=== PATIENT | male | born 1965 | race African-American/Black ===

== ENCOUNTER 2016-03-25 09:58 | Inpatient (IN) | payer OTHER ==
[2016-03-25 10:38] VITALS: BMI 24.7
--- NOTE | 2016-03-25 12:06 | HP ---
CIWA Score - CIWA Score Nausea/Vomitin Muscle Tremors: 4-Moderate,w/Arms Extend Anxiety: 3 Agitation: 2 Paroxysmal Sweats: 2 Orientation: 0-Oriented Tacttile Disturbances: 0-None Auditory Disturbances: 0-None Visual Disturbances: 0-None Headache: 3-Moderate CIWA-Ar Total Score: 16 Admission ROS S - HPI Chief Complaint: "I am just tired of living the same way." Patient is here to Detox from Alcohol. Allergies/Adverse Reactions: Allergies Allergy/AdvReac Type Severity Reaction Status Date / Time No Known Drug Allergies Allergy Unknown Verified 03/25/16 11:08 pork derived (porcine) AdvReac Severe Vomiting Verified 03/25/16 11:08 History of Present Illness: Pt. is a 50 YO male here to Detox from Alcohol. Pt. has a history of multiple Detox and Rehab admissions at [facility]. Pt. also uses Cocaine intermittently. Exam Limitations: No Limitations - Ebola screening Have you traveled outside of the country in the last 21 days: No Have you had contact with anyone from an Ebola affected area: No Have you been sick,other than usual withdrawal symptoms: No Do you have a fever: No - Review of Systems Constitutional: Diaphoresis, Loss of Appetite, Malaise, Night Sweats, Changes in sleep, Unintentional Wgt. Loss (Lost approx. 13 lbs. over last 2 months.) EENT: reports: No Symptoms Reported Respiratory: reports: Shortness of Breath, SOB with Exertion Cardiac: reports: No Symptoms Reported GI: reports: Diarrhea, Nausea, Vomiting, Abdominal cramping : reports: No Symptoms Reported Musculoskeletal: reports: Back Pain Integumentary: reports: No Symptoms Reported Neuro: reports: Headache, Tremors Endocrine: reports: No Symptoms Reported Hematology: reports: No Symptoms Reported Psychiatric: reports: Judgement Intact, Mood/Affect Appropiate, Orientated x3, Anxious, Depressed Other Systems: Reviewed and Negative Patient History - Patient Medical History Hx Anemia: No Hx Asthma: Yes (On meds.) Hx Chronic Obstructive Pulmonary Disease (COPD): No Hx Cancer: No Hx Cardiac Disorders: No Hx Congestive Heart Failure: No Hx Hypertension: No Hx Hypercholesterolemia: No Hx Pacemaker: No HX Cerebrovascular Accident: No Hx Seizures: No Hx Dementia: No Hx Diabetes: No Hx Gastrointestinal Disorders: No Hx Liver Disease: No Hx Genitourinary Disorders: No Hx Sexually Transmitted Disorders: No Hx Renal Disease (ESRD): No Hx Thyroid Disease: No Hx Human Immunodeficiency Virus (HIV): No (LAST 08/03 NEGATIVE) Hx Hepatitis C: No (LAST TESTED APPROX 1 YEAR AGO: NEGATIVE.) Hx Depression: Yes (ON MEDS.) Hx Suicide Attempt: No (PATIENT DENIES CURRENT SI / HI.) Hx Bipolar Disorder: Yes (ON MED) Hx Schizophrenia: No - Patient Surgical History Past Surgical History: No Hx Neurologic Surgery: No Hx Cataract Extraction: No Hx Cardiac Surgery: No Hx Lung Surgery: No Hx Breast Surgery: No Hx Breast Biopsy: No Hx Abdominal Surgery: No Hx Appendectomy: No Hx Cholecystectomy: No Hx Genitourinary Surgery: No Hx Orthopedic Surgery: No Anesthesia Reaction: No - PPD History Previous Implant?: Yes (Positive PPD/Sensitivity to PPD Solution ?) Documented Results: Positive w/o proof Implanted On Prior [facility] Admission?: Yes Date: 09/23/11 Results: 0 mm PPD to be Administered?: No - Reproductive History Patient is a Female of Child Bearing Age (11 -55 yrs old): No (PATIENT IS MALE.) - Smoking Cessation Smoking history: Current some day smoker Have you smoked in the past 12 months: Yes Aproximately how many cigarettes per day: 3 Cigars Per Day: 0 Hx Chewing Tobacco Use: No Initiated information on smoking cessation: Yes 'Breaking Loose' booklet given: 03/25/16 (GIVEN ON UNIT.) - Substance & Tx. History Hx Alcohol Use: Yes Hx Substance Use: Yes Substance Use Type: Alcohol, Cocaine Hx Substance Use Treatment: Yes (Previous Detox admissions at [facility].) - Substances Abused Alcohol Route: Oral Frequency: Daily Amount used: 5th vodka , 12 beers old angolan Age of first use: 15 Date of Last Use: 03/25/16 Cocaine Route: Inhalation Frequency: 3-6 times per week Amount used: $ 100 Age of first use: 23 Date of Last Use: 03/24/16 Family Disease History - Family Disease History Family Disease History: CA: Mother ( after gall bladdr op ca?), Other: Father (ALCOHOL; .) Admission Physical Exam BHS - Vital Signs Vital Signs: Vital Signs - 24 hr 03/25/16 10:35 Temperature 98.2 F Pulse Rate 69 Respiratory 20 Rate Blood Pressure 141/80 - Physical General Appearance: Yes: No Apparent Distress, Nourished, Appropriately Dressed , Tremorous HEENTM: Yes: Hearing grossly Normal, Normocephalic, Normal Voice, JANELL, Pharynx Normal Respiratory: Yes: Chest Non-Tender, Lungs Clear, No Respiratory Distress Neck: Yes: No masses,lesions,Nodules, Supple, Trachea in good position Breast: Yes: Breast Exam Deferred Cardiology: Yes: Regular Rhythm, Regular Rate, S1, S2 Abdominal: Yes: Normal Bowel Sounds, Non Tender, Soft Genitourinary: Yes: Within Normal Limits Back: Yes: Normal Inspection Musculoskeletal: Yes: full range of Motion, Gait Steady Extremities: Yes: Normal Range of Motion, Non-Tender, Tremors Neurological: Yes: Fully Oriented, Alert, Normal Mood/Affect, Normal Response Integumentary: Yes: Normal Color, Dry, Warm Lymphatic: Yes: Within Normal Limits - Diagnostic (1) Alcohol dependence with uncomplicated withdrawal Current Visit: Yes Status: Acute (2) Asthma Current Visit: Yes Status: Chronic Comment: . (3) Cocaine dependence, uncomplicated Current Visit: Yes Status: Acute (4) Nicotine dependence Current Visit: Yes Status: Chronic Qualifiers: Nicotine product type: cigarettes Substance use status: uncomplicated Qualified Code(s): F17.210 - Nicotine dependence, cigarettes, uncomplicated Comment: . (5) PPD positive, treated Current Visit: Yes Status: Chronic Cleared for Admission [facility] - Detox or Rehab [facility] Level of Care: Medically Managed Detox Regimen/Protocol: Librium [facility] Breath Alcohol Content Breath Alcohol Content: 0.118 Urine Drug Screen - Results Drug Screen Negative: No Urine Drug Screen Results: CHANO-Cocaine
[2016-03-25] MEDS ORDERED: MENTHOL/PHENOL 1 EACH UD MM PRN (12:34)
[2016-03-25] MEDS ORDERED: ACETAMINOPHEN 325 MG TABLET (FP) PO PRN (12:34)
[2016-03-25] MEDS ORDERED: chlordiazePOXIDE HCL 25 MG CAPSULE PO PRN (12:34)
[2016-03-25] MEDS ORDERED: hydrOXYzine PAMOATE 50 MG CAPSULE (FP) PO PRN (12:34)
[2016-03-25] MEDS ORDERED: NICOTINE POLACRILEX 2 MG GUM BUC PRN (12:34)
[2016-03-25] MEDS ORDERED: MAG HYDROX/AL HYDROX/SIMETH 30 ML UNIT-DOSE CUP PO PRN (12:34)
[2016-03-25] MEDS ORDERED: IBUPROFEN 400 MG TABLET (FP) PO PRN (12:34)
[2016-03-25] MEDS ORDERED: P-EPHED 60MG/TRIPROLIDI 2.5MG TABLET PO PRN (12:34)
[2016-03-25] MEDS ORDERED: MAGNESIUM HYDROX 2400MG/30ML ORAL SUSPENSION 30 ML CUP PO PRN (12:34)
[2016-03-25] MEDS ORDERED: chlordiazePOXIDE HCL 25 MG CAPSULE PO ONE (12:34)
[2016-03-25] MEDS ORDERED: LOPERAMIDE HCL 2 MG CAPSULE PO PRN (12:34)
[2016-03-25] MEDS ORDERED: diphenhydrAMINE HCL 50 MG CAPSULE PO PRN (12:34)
[2016-03-25] MEDS ORDERED: MAGNESIUM CITRATE 300 ML BOTTLE PO PRN (12:34)
[2016-03-25] MEDS ORDERED: guaiFENesin/D-METHORPHAN HB 10 ML UNIT-DOSE CUPS PO PRN (12:34)
[2016-03-25] MEDS ORDERED: ALBUTEROL SO4 6.7 GM HFA INHALER IH PRN (12:41)
[2016-03-25] MEDS: BUDESONIDE/FORMETEROL FUMARATE 80/4.5 mcg INHALER IH SCH ×2 (14:17→22:26)
[2016-03-25 17:36] LABS: URINE APPEARANCE CLEAR; URINE BILIRUBIN NEGATIVE (NEGATIVE); URINE BLOOD NEGATIVE (NEGATIVE); URINE COLOR LTYELLOW; URINE GLUCOSE (UA) NEGATIVE (NEGATIVE); URINE KETONE NEGATIVE (NEGATIVE); URINE LEUK ESTERASE NEGATIVE (NEGATIVE); URINE NITRITE NEGATIVE (NEGATIVE); URINE PROTEIN NEGATIVE (NEGATIVE); URINE UROBILINOGEN NEGATIVE E.U./dl (0.2-1.0)
[2016-03-25] MEDS: chlordiazePOXIDE HCL 25 MG CAPSULE PO SCH ×2 (17:38→22:25)
[2016-03-25] MEDS: MONTELUKAST NA 10 MG TABLET PO SCH (22:25)
[2016-03-25] MEDS: THIAMINE HCL 100 MG TABLET (FP) PO SCH (22:25)
--- NOTE | 2016-03-26 00:04 | EKG ---
Test Reason : Blood Pressure : / mmHG Vent. Rate : 072 BPM Atrial Rate : 072 BPM P-R Int : 142 ms QRS Dur : 080 ms QT Int : 404 ms P-R-T Axes : 075 042 057 degrees QTc Int : 442 ms NORMAL SINUS RHYTHM WITH SINUS ARRHYTHMIA NORMAL ECG NO PREVIOUS ECGS AVAILABLE Confirmed by MARIAM SEARS, TAYLOR ([id number]) on 03/26/2016 12:04:13 AM Referred By: Confirmed By:TAYLOR BECERRA MD
[2016-03-26] MEDS: chlordiazePOXIDE HCL 25 MG CAPSULE PO SCH ×4 (06:05→22:35)
[2016-03-26 10:05] LABS: MCH 32.2 pg (25.7-33.7); MEAN CELL VOLUME 97.6 fl (80-96); MEAN PLT VOLUME 9.2 fl (7.5-11.1); PLATELET COUNT 185 K/MM3 (134-434); RDW 12.7 % (11.9-15.9); WHITE BLOOD COUNT 10.2 K/mm3 (4.0-10.0)
[2016-03-26] MEDS: PRENATAL VITAMINS W/ FOLIC ACID TABLET (FP) PO SCH (10:13)
[2016-03-26] MEDS: PANTOPRAZOLE 40 MG TABLET (FP) PO SCH (10:13)
[2016-03-26] MEDS: BUDESONIDE/FORMETEROL FUMARATE 80/4.5 mcg INHALER IH SCH ×2 (10:15→22:50)
[2016-03-26] MEDS: PARoxetine HCL 20 MG TABLET (FP) PO SCH (10:15)
[2016-03-26] MEDS: lamoTRIgine 25 MG TABLET PO SCH (10:16)
[2016-03-26 10:22] LABS: ALBUMIN 3.8 g/dl (3.4-5.0); ALK PHOS 83 U/L (45-117); ANION GAP 9 (8-16); BILIRUBIN,TOTAL 0.5 mg/dL (0.2-1.0); CO2 28 mmol/L (21-32); CREATININE 1.2 mg/dL (0.7-1.3); GLUCOSE,RANDOM 88 mg/dL (74-106); SGOT/AST 24 U/L (15-37); SGPT/ALT 44 U/L (12-78); TOT PROT 6.7 g/dl (6.4-8.2)
--- NOTE | 2016-03-26 10:22 | PN ---
[facility] CIWA - CIWA Score Nausea/Vomitin Muscle Tremors: 3 Anxiety: 3 Agitation: 2 Paroxysmal Sweats: 1-Minimal Palms Moist Orientation: 0-Oriented Tacttile Disturbances: 1-Very Mild Itch/Numbness Auditory Disturbances: 1-Very Mild Visual Disturbances: 1-Very Mild Sensitivity Headache: 2-Mild CIWA-Ar Total Score: 17 BHS Progress Note (SOAP) Subjective: ALERT,IRRITABLE,ANXIOUS,INTERRUPTED SLEEP,TREMOR, Objective: 03/26/16 10:20 Vital Signs Temperature 98.2 F 03/26/16 10:14 Pulse Rate 102 H 03/26/16 10:14 Respiratory Rate 20 03/26/16 10:14 Blood Pressure 142/83 03/26/16 10:14 O2 Sat by Pulse Oximetry (%) EKG NSR WITH SINUS ARRHYTHMIA 03/26/16 10:21 Laboratory Last Values WBC 10.2 K/mm3 (4.0-10.0) H D 03/26/16 07:00 RBC 4.56 M/mm3 (4.00-5.60) 03/26/16 07:00 Hgb 14.7 GM/dL (11.7-16.9) 03/26/16 07:00 Hct 44.5 % (35.4-49) 03/26/16 07:00 MCV 97.6 fl (80-96) H 03/26/16 07:00 MCHC 33.0 g/dl (32.0-35.9) 03/26/16 07:00 RDW 12.7 % (11.9-15.9) 03/26/16 07:00 Plt Count 185 K/MM3 (134-434) D 03/26/16 07:00 MPV 9.2 fl (7.5-11.1) 03/26/16 07:00 Sodium 139 mmol/L (136-145) 03/26/16 07:00 Potassium 3.7 mmol/L (3.5-5.1) 03/26/16 07:00 Chloride 102 mmol/L (98-107) 03/26/16 07:00 Urine Color Ltyellow 03/25/16 Unknown Urine Appearance Clear 03/25/16 Unknown Urine pH 5.0 (5.0-8.0) 03/25/16 Unknown Ur Specific [place] 1.015 (1.001-1.035) 03/25/16 Unknown Urine Protein Negative (NEGATIVE) 03/25/16 Unknown Urine Glucose (UA) Negative (NEGATIVE) 03/25/16 Unknown Urine Ketones Negative (NEGATIVE) 03/25/16 Unknown Urine Blood Negative (NEGATIVE) 03/25/16 Unknown Urine Nitrite Negative (NEGATIVE) 03/25/16 Unknown Urine Bilirubin Negative (NEGATIVE) 03/25/16 Unknown Urine Urobilinogen Negative E.U./dl (0.2-1.0) 03/25/16 Unknown Ur Leukocyte Esterase Negative (NEGATIVE) 03/25/16 Unknown LABS PENDING Assessment: 03/26/16 10:22 WITHDRAWAL SYMPTOM Plan: CONTINUE DETOX
[2016-03-26 10:45] LABS: HIV 1 & 2 AB NEGATIVE; HIV 1 AGp24 NEGATIVE
--- NOTE | 2016-03-26 11:35 | CONSULT ---
[facility] Psychiatric Consult - Data Date of interview: 03/26/16 Admission source: [facility] Identifying data: This is 50 years old male with no psychiatric hopspitalization history, histoey of Bipolar Disorder, MDD, PTSD, reports taking priopr to amdission: Alcoghol, Cocaine Nicotine, as per computer there is a history of Opioid, Xanax, Cannabis abuse/dependency Substance Abuse History: - Smoking Cessation. Smoking history: Current some day smoker. Have you smoked in the past 12 months: Yes. Aproximately how many cigarettes per day: 3. Cigars Per Day: 0. Hx Chewing Tobacco Use: No. Initiated information on smoking cessation: Yes. 'Breaking Loose' booklet given : 03/25/16 (GIVEN ON UNIT.). - Substance & Tx. History. Hx Alcohol Use: Yes. Hx Substance Use: Yes. Substance Use Type: Alcohol, Cocaine. Hx Substance Use Treatment: Yes (Previous Detox admissions at [facility].). - Substances Abused. Alcohol. Route: Oral. Frequency: Daily. Amount used: 5th vodka , 12 beers old frisian. Age of first use: 15. Date of Last Use: 03/25/16. Cocaine. Route: Inhalation. Frequency: 3-6 times per week. Amount used: $ 100. Age of first use: 23. Date of Last Use: 03/24/16 Medical History: Asthma PPD + history, Syncope history, HTN, GERD Psychiatric History: Patient reports [facility] Bipolar Disorder and MDD, PTSD , reports taking prior to admission: Seroquel 400mg po qhs. Lamictal 75mg poqd. Paxil 20mg poqd Physical/Sexual Abuse/Trauma History: Denies Additional Comment: Seroquel 400mg po qhs. Lamictal 75mg poqd. Paxil 20mg poqd Mental Status Exam - Mental Status Exam Alert and Oriented to: Person Cognitive Function: Fair Patient Appearance: Unkempt Mood: Sad Affect: Flat Patient Behavior: Cooperative Speech Pattern: Appropriate Voice Loudness: Mildly Soft/Quiet Thought Process: Goal Oriented Thought Disorder: Being Controlled Hallucinations: Denies Suicidal Ideation: Denies Homicidal Ideation: Denies Insight/Judgement: Fair Sleep: Difficulty falling asleep Appetite: Fair Muscle strength/Tone: Mild Hypotonicity Gait/Station: Shuffling Additional Comments: Seroquel 400mg po qhs. Lamictal 75mg poqd. Paxil 20mg poqd Psychiatric Findings - Problem List ([place] 1, 2,3) (1) Alcohol dependence with uncomplicated withdrawal Current Visit: Yes Status: Acute (2) Cocaine dependence, uncomplicated Current Visit: Yes Status: Acute (3) Nicotine dependence Current Visit: Yes Status: Chronic Qualifiers: Nicotine product type: cigarettes Substance use status: uncomplicated Qualified Code(s): F17.210 - Nicotine dependence, cigarettes, uncomplicated Comment: . (4) MDD (major depressive disorder) Current Visit: No Status: Acute (5) Opioid dependence with withdrawal Current Visit: No Status: Acute (6) Posttraumatic stress disorder Current Visit: No Status: Acute (7) Sedative hypnotic or anxiolytic dependence Current Visit: No Status: Acute (8) Bipolar I disorder Current Visit: No Status: Chronic Comment: . (9) Cannabis dependence Current Visit: No Status: Chronic Comment: . (10) Cocaine abuse Current Visit: No Status: Chronic (11) Cocaine dependence Current Visit: No Status: Chronic Qualifiers: Substance use status: uncomplicated Qualified Code(s): F14.20 - Cocaine dependence, uncomplicated (12) Nicotine dependence, uncomplicated Current Visit: No Status: Chronic Qualifiers: Nicotine product type: cigarettes Qualified Code(s): F17.210 - Nicotine dependence, cigarettes, uncomplicated (13) Opioid abuse Current Visit: No Status: Chronic (14) Opioid dependence Current Visit: No Status: Chronic Qualifiers: Substance use status: uncomplicated Qualified Code(s): F11.20 - Opioid dependence, uncomplicated Comment: . - Initial Treatment Plan Initial Treatment Plan: Seroquel 400mg po qhs. Lamictal 75mg poqd. Paxil 20mg poqd
[2016-03-26] MEDS: THIAMINE HCL 100 MG TABLET (FP) PO SCH (22:35)
[2016-03-26] MEDS: MONTELUKAST NA 10 MG TABLET PO SCH (22:37)
[2016-03-26] MEDS: QUEtiapine FUMARATE 400 MG TABLET PO SCH (22:49)
[2016-03-27] MEDS: chlordiazePOXIDE HCL 25 MG CAPSULE PO SCH ×4 (06:13→22:29)
[2016-03-27] MEDS ORDERED: diazePAM 5 MG TABLET PO PRN (09:04)
[2016-03-27] MEDS ORDERED: diazePAM 5 MG TABLET PO ONE (09:04)
[2016-03-27] MEDS ORDERED: chlordiazePOXIDE HCL 25 MG CAPSULE PO PRN ×2 (09:06→09:49)
[2016-03-27] MEDS: PRENATAL VITAMINS W/ FOLIC ACID TABLET (FP) PO SCH (10:40)
[2016-03-27] MEDS: PARoxetine HCL 20 MG TABLET (FP) PO SCH (10:40)
[2016-03-27] MEDS: PANTOPRAZOLE 40 MG TABLET (FP) PO SCH (10:40)
[2016-03-27] MEDS: lamoTRIgine 25 MG TABLET PO SCH (10:40)
[2016-03-27] MEDS: BUDESONIDE/FORMETEROL FUMARATE 80/4.5 mcg INHALER IH SCH ×2 (10:41→23:25)
--- NOTE | 2016-03-27 10:44 | PN ---
[facility] CIWA - CIWA Score Nausea/Vomitin Muscle Tremors: 3 Anxiety: 3 Agitation: 2 Paroxysmal Sweats: 1-Minimal Palms Moist Orientation: 0-Oriented Tacttile Disturbances: 1-Very Mild Itch/Numbness Auditory Disturbances: 1-Very Mild Visual Disturbances: 1-Very Mild Sensitivity Headache: 2-Mild CIWA-Ar Total Score: 17 BHS Progress Note (SOAP) Subjective: ALERT,IRRITABLE,ANXIOUS,INTERRUPTED SLEEP,TREMOR Objective: 03/27/16 10:43 Vital Signs Temperature 97.7 F 03/27/16 10:22 Pulse Rate 79 03/27/16 10:22 Respiratory Rate 18 03/27/16 10:22 Blood Pressure 114/74 03/27/16 10:22 O2 Sat by Pulse Oximetry (%) 03/27/16 10:43 Laboratory Last Values WBC 10.2 K/mm3 (4.0-10.0) H D 03/26/16 07:00 RBC 4.56 M/mm3 (4.00-5.60) 03/26/16 07:00 Hgb 14.7 GM/dL (11.7-16.9) 03/26/16 07:00 Hct 44.5 % (35.4-49) 03/26/16 07:00 MCV 97.6 fl (80-96) H 03/26/16 07:00 MCHC 33.0 g/dl (32.0-35.9) 03/26/16 07:00 RDW 12.7 % (11.9-15.9) 03/26/16 07:00 Plt Count 185 K/MM3 (134-434) D 03/26/16 07:00 MPV 9.2 fl (7.5-11.1) 03/26/16 07:00 Sodium 139 mmol/L (136-145) 03/26/16 07:00 Potassium 3.7 mmol/L (3.5-5.1) 03/26/16 07:00 Chloride 102 mmol/L (98-107) 03/26/16 07:00 Carbon Dioxide 28 mmol/L (21-32) 03/26/16 07:00 Anion Gap 9 (8-16) 03/26/16 07:00 BUN 12 mg/dL (7-18) 03/26/16 07:00 Creatinine 1.2 mg/dL (0.7-1.3) 03/26/16 07:00 Creat Clearance w eGFR > 60 (>60) 03/26/16 07:00 Random Glucose 88 mg/dL (74-106) 03/26/16 07:00 Calcium 9.0 mg/dL (8.5-10.1) 03/26/16 07:00 Total Bilirubin 0.5 mg/dL (0.2-1.0) D 03/26/16 07:00 AST 24 U/L (15-37) 03/26/16 07:00 ALT 44 U/L (12-78) D 03/26/16 07:00 Alkaline Phosphatase 83 U/L (45-117) 03/26/16 07:00 Total Protein 6.7 g/dl (6.4-8.2) 03/26/16 07:00 Albumin 3.8 g/dl (3.4-5.0) 03/26/16 07:00 Urine Color Ltyellow 03/25/16 Unknown Urine Appearance Clear 03/25/16 Unknown Urine pH 5.0 (5.0-8.0) 03/25/16 Unknown Ur Specific [place] 1.015 (1.001-1.035) 03/25/16 Unknown Urine Protein Negative (NEGATIVE) 03/25/16 Unknown Urine Glucose (UA) Negative (NEGATIVE) 03/25/16 Unknown Urine Ketones Negative (NEGATIVE) 03/25/16 Unknown Urine Blood Negative (NEGATIVE) 03/25/16 Unknown Urine Nitrite Negative (NEGATIVE) 03/25/16 Unknown Urine Bilirubin Negative (NEGATIVE) 03/25/16 Unknown Urine Urobilinogen Negative E.U./dl (0.2-1.0) 03/25/16 Unknown Ur Leukocyte Esterase Negative (NEGATIVE) 03/25/16 Unknown RPR Titer Nonreactive (NONREACTIVE) 03/26/16 07:00 HIV 1&2 Antibody Screen Negative 03/25/16 07:00 HIV P24 Antigen Negative 03/25/16 07:00 Assessment: 03/27/16 10:43 WITHDRAWAL SYMPTOM Plan: CONTINUE DETOX
[2016-03-27] MEDS ORDERED: chlordiazePOXIDE HCL 25 MG CAPSULE PO SCH ×2 (11:00)
[2016-03-27] MEDS ORDERED: diazePAM 5 MG TABLET PO SCH (14:00)
[2016-03-27] MEDS ORDERED: chlordiazePOXIDE 5 MG CAPSULE PO SCH (17:00)
[2016-03-27] MEDS: QUEtiapine FUMARATE 400 MG TABLET PO SCH (22:29)
[2016-03-27] MEDS: MONTELUKAST NA 10 MG TABLET PO SCH (22:29)
[2016-03-27] MEDS: THIAMINE HCL 100 MG TABLET (FP) PO SCH (22:29)
[2016-03-28] MEDS: chlordiazePOXIDE 5 MG CAPSULE PO SCH ×4 (05:45→22:51)
[2016-03-28] MEDS: PARoxetine HCL 20 MG TABLET (FP) PO SCH (10:53)
[2016-03-28] MEDS: PANTOPRAZOLE 40 MG TABLET (FP) PO SCH (10:53)
[2016-03-28] MEDS: PRENATAL VITAMINS W/ FOLIC ACID TABLET (FP) PO SCH (10:53)
[2016-03-28] MEDS: lamoTRIgine 25 MG TABLET PO SCH (10:54)
[2016-03-28] MEDS: BUDESONIDE/FORMETEROL FUMARATE 80/4.5 mcg INHALER IH SCH ×2 (10:54→22:49)
[2016-03-28] MEDS ORDERED: chlordiazePOXIDE HCL 25 MG CAPSULE PO SCH ×2 (11:00)
--- NOTE | 2016-03-28 11:35 | PN ---
S Progress Note (SOAP) Subjective: ALERT,IRRITABLE,ANXIOUS,INTERRUPTED SLEEP Objective: 03/28/16 11:34 Vital Signs Temperature 98.6 F 03/28/16 09:59 Pulse Rate 97 H 03/28/16 09:59 Respiratory Rate 18 03/28/16 09:59 Blood Pressure 121/80 03/28/16 09:59 O2 Sat by Pulse Oximetry (%) Assessment: 03/28/16 11:34 WITHDRAWAL SYMPTOM Plan: CONTINUE DETOX
[2016-03-28] MEDS ORDERED: chlordiazePOXIDE HCL 10 MG CAPSULE PO SCH (17:00)
[2016-03-28] MEDS: MONTELUKAST NA 10 MG TABLET PO SCH (22:49)
[2016-03-28] MEDS: THIAMINE HCL 100 MG TABLET (FP) PO SCH (22:49)
[2016-03-28] MEDS: QUEtiapine FUMARATE 400 MG TABLET PO SCH (22:49)
[2016-03-29] MEDS: chlordiazePOXIDE HCL 10 MG CAPSULE PO SCH ×4 (05:14→22:44)
[2016-03-29] MEDS ORDERED: diazePAM 5 MG TABLET PO SCH (10:00)
[2016-03-29] MEDS: lamoTRIgine 25 MG TABLET PO SCH (10:44)
[2016-03-29] MEDS: PRENATAL VITAMINS W/ FOLIC ACID TABLET (FP) PO SCH (10:44)
[2016-03-29] MEDS: PARoxetine HCL 20 MG TABLET (FP) PO SCH (10:45)
[2016-03-29] MEDS: PANTOPRAZOLE 40 MG TABLET (FP) PO SCH (10:45)
[2016-03-29] MEDS ORDERED: chlordiazePOXIDE 5 MG CAPSULE PO SCH ×2 (11:00)
[2016-03-29] MEDS: BUDESONIDE/FORMETEROL FUMARATE 80/4.5 mcg INHALER IH SCH ×2 (11:58→22:57)
--- NOTE | 2016-03-29 12:51 | PN ---
BHS Progress Note (SOAP) Subjective: body aches sweats nausea Objective: 03/29/16 12:48 Vital Signs Temperature 97.9 F 03/29/16 10:04 Pulse Rate 88 03/29/16 10:04 Respiratory Rate 18 03/29/16 10:04 Blood Pressure 113/73 03/29/16 10:04 O2 Sat by Pulse Oximetry (%) awake/alert ambulating no acute distress Assessment: 03/29/16 12:49 withdrawal sx Plan: continue detox increase fluids d/c in am
[2016-03-29] MEDS: QUEtiapine FUMARATE 400 MG TABLET PO SCH (22:44)
[2016-03-29] MEDS: MONTELUKAST NA 10 MG TABLET PO SCH (22:44)
[2016-03-29] MEDS: THIAMINE HCL 100 MG TABLET (FP) PO SCH (22:44)
--- NOTE | 2016-03-30 07:52 | PN ---
S Progress Note (SOAP) Subjective: ALERT,NO COMPLAINT Objective: 03/30/16 07:50 Vital Signs Temperature 98.8 F 03/30/16 06:27 Pulse Rate 63 03/30/16 06:27 Respiratory Rate 16 03/30/16 06:27 Blood Pressure 112/80 03/30/16 06:27 O2 Sat by Pulse Oximetry (%) Assessment: 03/30/16 07:51 DETOX COMPLETED,NO WITHDRAWAL SYMPTOM Plan: DISCHARGE TODAY,FOLLOW UP WITH AFTER CARE PROGRAM ARRANGEMENT AND PMD FOR MEDICAL PROBLEM
--- NOTE | 2016-03-30 07:53 | DS ---
[facility] Detox Discharge Summary Admission Date: 03/25/16 Discharge Date: 03/30/16 - History Present History: Alcohol Dependence, Cocaine Dependence Additional Comments: FOLLOW UP WITH AFTER CARE PROGRAM ARRANGEMENT Pertinent Past History: ASTHMA MAJOR DEPRESSIVE DISORDER - Physical Exam Results Vital Signs: Vital Signs Temperature 98.8 F 03/30/16 06:27 Pulse Rate 63 03/30/16 06:27 Respiratory Rate 16 03/30/16 06:27 Blood Pressure 112/80 03/30/16 06:27 O2 Sat by Pulse Oximetry (%) Pertinent Admission Physical Exam Findings: WITHDRAWAL SYMPTOM - Treatment Hospital Course: Detox Protocol Followed, Detoxed Safely, Responded well, Discharged Condition Good Patient has Accepted a Rehab Referral to: [facility] - Medication Discharge Medications: Ambulatory Orders Lamotrigine [Lamictal -] 50 mg PO DAILY #30 tablet 12/26/15 Paroxetine HCl [Paxil -] 30 mg PO DAILY #30 tablet 12/26/15 Quetiapine Fumarate [Seroquel -] 400 mg PO HS #30 tab 12/26/15 Albuterol Sulfate Inhaler - [Ventolin HFA Inhaler -] 2 puff IH Q4H PRN #1 inhaler 12/29/15 Fluticasone/Salmeterol [Advair 250-50 Diskus] 1 each IH BID #1 disk.w.dev Montelukast Na [Singulair -] 10 mg PO HS #30 tablet 12/29/15 Pantoprazole Sodium [Protonix -] 40 mg PO DAILY #30 tablet.ec 12/29/15 Lamotrigine [Lamictal -] 75 mg PO DAILY #30 tablet 03/26/16 Paroxetine HCl [Paxil -] 20 mg PO DAILY #30 tablet 03/26/16 Quetiapine Fumarate [Seroquel -] 400 mg PO HS #30 tab 03/26/16 - Diagnosis (1) Alcohol dependence with uncomplicated withdrawal Current Visit: Yes Status: Acute (2) Cocaine dependence, uncomplicated Current Visit: Yes Status: Acute (3) Asthma Current Visit: Yes Status: Chronic (4) Nicotine dependence Current Visit: Yes Status: Chronic Qualifiers: Nicotine product type: cigarettes Substance use status: uncomplicated Qualified Code(s): F17.210 - Nicotine dependence, cigarettes, uncomplicated (5) PPD positive, treated Current Visit: Yes Status: Chronic (6) MDD (major depressive disorder) Current Visit: No Status: Acute (7) Posttraumatic stress disorder Current Visit: No Status: Acute (8) Syncope Current Visit: No Status: Acute (9) GERD (gastroesophageal reflux disease) Current Visit: No Status: Chronic Qualifiers: Esophagitis presence: esophagitis presence not specified Qualified Code(s): K21.9 - Gastro-esophageal reflux disease without esophagitis - AMA Did Patient Leave Against Medical Advice: No
[2016-03-30 10:27] VITALS: BP 139/91; PULSE 95; TEMP 97
[2016-03-30] MEDS ORDERED: chlordiazePOXIDE HCL 10 MG CAPSULE PO SCH ×2 (11:00)
[2016-03-31] MEDS ORDERED: diazePAM 5 MG TABLET PO SCH (10:00)
== END 2016-03-30 09:55 | disposition home or self-care (01) | DRG 897 ==
LOC: YASAS 09:58 → Y6N 11:52
PROVIDERS: ADMIT Internal Medicine Addiction Medicine; ATTEND Internal Medicine Addiction Medicine
PROC: HZ2ZZZZ Detoxification Services for Substance Abuse Treatment (ICD-10-PCS; principal; 2016-03-30)
DX: F10.230 Alcohol dependence with withdrawal, uncomplicated (principal); F14.20 Cocaine dependence, uncomplicated; F31.89 Other bipolar disorder; F17.210 Nicotine dependence, cigarettes, uncomplicated; R76.11 Nonspecific reaction to tuberculin skin test without active tuberculosis; J45.909 Unspecified asthma, uncomplicated
CPT/HCPCS: 36415; 80053; 81003; 85027; 86593; 87389; 93005; 93010

== ENCOUNTER 2016-05-07 19:17 | Inpatient (IN) | payer OTHER ==
--- NOTE | 2016-05-07 20:59 | HP ---
CIWA Score - CIWA Score Nausea/Vomitin Muscle Tremors: 4-Moderate,w/Arms Extend Anxiety: 4-Mod. Anxious/Guarded Agitation: 4-Moderately Restless Paroxysmal Sweats: 3 Orientation: 0-Oriented Tacttile Disturbances: 0-None Auditory Disturbances: 0-None Visual Disturbances: 0-None Headache: 0-None Present CIWA-Ar Total Score: 17 Admission ROS BHS - HPI Chief Complaint: C/O WITHDRAWAL SX'S. SEEKING DETOX TXMENT. Allergies/Adverse Reactions: Allergies Allergy/AdvReac Type Severity Reaction Status Date / Time No Known Drug Allergies Allergy Unknown Verified 05/07/16 20:32 pork derived (porcine) AdvReac Severe Vomiting Verified 05/07/16 20:32 History of Present Illness: 50 Y.O. MALE WITH ALCOHOLISM ADMITTED FOR DETOX TXMENT. CLIENT IS KNOWN TO [facility]. DENIES ANY SIGNIFICANT PERIOD OF CLEAN TIME. Exam Limitations: No Limitations - Ebola screening Have you traveled outside of the country in the last 21 days: No (N) Have you had contact with anyone from an Ebola affected area: No Have you been sick,other than usual withdrawal symptoms: No Do you have a fever: No - Review of Systems Constitutional: Chills, Night Sweats, Changes in sleep EENT: reports: No Symptoms Reported Respiratory: reports: No Symptoms reported Cardiac: reports: No Symptoms Reported GI: reports: Nausea, Poor Appetite : reports: No Symptoms Reported Musculoskeletal: reports: No Symptoms Reported Integumentary: reports: No Symptoms Reported Neuro: reports: Seizure (ETON WITHDRAWAL RELATED) Endocrine: reports: No Symptoms Reported Hematology: reports: No Symptoms Reported Psychiatric: reports: Anxious Other Systems: Reviewed and Negative Patient History - Patient Medical History Hx Anemia: No Hx Asthma: Yes Hx Chronic Obstructive Pulmonary Disease (COPD): No Hx Cancer: No Hx Cardiac Disorders: No Hx Congestive Heart Failure: No Hx Hypertension: No Hx Hypercholesterolemia: No Hx Pacemaker: No HX Cerebrovascular Accident: No Hx Seizures: No Hx Dementia: No Hx Diabetes: No Hx Gastrointestinal Disorders: No Hx Liver Disease: No Hx Genitourinary Disorders: No Hx Sexually Transmitted Disorders: No Hx Renal Disease (ESRD): No Hx Thyroid Disease: No Hx Human Immunodeficiency Virus (HIV): No Hx Hepatitis C: No Hx Depression: Yes Hx Suicide Attempt: No Hx Bipolar Disorder: Yes Hx Schizophrenia: No Other Medical History: DENIES - Patient Surgical History Past Surgical History: No Hx Neurologic Surgery: No Hx Cataract Extraction: No Hx Cardiac Surgery: No Hx Lung Surgery: No Hx Breast Surgery: No Hx Breast Biopsy: No Hx Abdominal Surgery: No Hx Appendectomy: No Hx Cholecystectomy: No Hx Genitourinary Surgery: No Hx Section: No Hx Orthopedic Surgery: No Hx Hysterectomy: No Anesthesia Reaction: No - PPD History Previous Implant?: Yes Documented Results: Negative w/proof Implanted On Prior [facility] Admission?: Yes Date: 09/23/11 Results: 0 mm PPD to be Administered?: Yes - Smoking Cessation Smoking history: Current some day smoker Have you smoked in the past 12 months: Yes Aproximately how many cigarettes per day: 3 Cigars Per Day: 0 Hx Chewing Tobacco Use: No Initiated information on smoking cessation: Yes 'Breaking Loose' booklet given: 05/07/16 - Substance & Tx. History Hx Alcohol Use: Yes Hx Substance Use: Yes Substance Use Type: Cocaine Hx Substance Use Treatment: Yes ([facility]) - Substances Abused Alcohol Route: Oral Frequency: Daily Amount used: liquor- 2 pints, beer- 2 six packs Age of first use: 15 Date of Last Use: 05/07/16 Family Disease History - Family Disease History Family Disease History: CA: Mother ( after gall bladdr op ca?), Other: Father (ALCOHOL; .) Admission Physical Exam [facility] - Vital Signs Vital Signs: Vital Signs - 24 hr 05/07/16 20:20 Temperature 97.3 F L Pulse Rate 72 Respiratory 16 Rate Blood Pressure 119/79 - Physical General Appearance: Yes: Mild Distress, Tremorous, Anxious HEENTM: Yes: EOMI, Normocephalic, Normal Voice, JANELL, Pharynx Normal Respiratory: Yes: Chest Non-Tender, No Respiratory Distress, No Accessory Muscle Use, Wheezing, Other (COUGH) Neck: Yes: No masses,lesions,Nodules, Supple, Trachea in good position Breast: Yes: Breast Exam Deferred Cardiology: Yes: Regular Rhythm, Regular Rate, S1, S2 Abdominal: Yes: Normal Bowel Sounds, Non Tender, Flat, Soft Genitourinary: Yes: Within Normal Limits Back: Yes: Normal Inspection Musculoskeletal: Yes: full range of Motion, Gait Steady Extremities: Yes: Normal Capillary Refill, Normal Range of Motion, Non-Tender, Tremors Neurological: Yes: analyst sales II-XII NML intact, Fully Oriented, Alert, Motor Strength 5/5 Integumentary: Yes: Normal Color, Dry, Warm Lymphatic: Yes: Within Normal Limits - Diagnostic (1) Alcohol dependence with uncomplicated withdrawal Current Visit: Yes Status: Chronic (2) Cocaine dependence, uncomplicated Current Visit: Yes Status: Chronic (3) Asthma Current Visit: Yes Status: Chronic Comment: . (4) Nicotine dependence, uncomplicated Current Visit: Yes Status: Chronic Qualifiers: Nicotine product type: cigarettes Qualified Code(s): F17.210 - Nicotine dependence, cigarettes, uncomplicated Cleared for Admission [facility] - Detox or Rehab [facility] Level of Care: Medically Managed Detox Regimen/Protocol: Librium [facility] Breath Alcohol Content Breath Alcohol Content: 0.076 Urine Drug Screen - Results Urine Drug Screen Results: CHANO-Cocaine
[2016-05-07] MEDS ORDERED: hydrOXYzine PAMOATE 50 MG CAPSULE (FP) PO PRN (21:07)
[2016-05-07] MEDS ORDERED: LOPERAMIDE HCL 2 MG CAPSULE PO PRN (21:07)
[2016-05-07] MEDS ORDERED: MAGNESIUM CITRATE 300 ML BOTTLE PO PRN (21:07)
[2016-05-07] MEDS ORDERED: NICOTINE POLACRILEX 2 MG GUM BUC PRN (21:07)
[2016-05-07] MEDS ORDERED: guaiFENesin/D-METHORPHAN HB 10 ML UNIT-DOSE CUPS PO PRN (21:07)
[2016-05-07] MEDS ORDERED: MENTHOL/PHENOL 1 EACH UD MM PRN (21:07)
[2016-05-07] MEDS ORDERED: P-EPHED 60MG/TRIPROLIDI 2.5MG TABLET PO PRN (21:07)
[2016-05-07] MEDS ORDERED: chlordiazePOXIDE HCL 25 MG CAPSULE PO PRN (21:07)
[2016-05-07] MEDS ORDERED: MAGNESIUM HYDROX 2400MG/30ML ORAL SUSPENSION 30 ML CUP PO PRN (21:07)
[2016-05-07] MEDS ORDERED: MAG HYDROX/AL HYDROX/SIMETH 30 ML UNIT-DOSE CUP PO PRN (21:07)
[2016-05-07] MEDS ORDERED: diphenhydrAMINE HCL 50 MG CAPSULE PO PRN (21:07)
[2016-05-07] MEDS ORDERED: ALBUTEROL SO4 6.7 GM HFA INHALER IH PRN (21:08)
[2016-05-07] MEDS: chlordiazePOXIDE HCL 25 MG CAPSULE PO SCH (23:05)
[2016-05-07] MEDS: MONTELUKAST NA 10 MG TABLET PO SCH (23:06)
[2016-05-07] MEDS: BUDESONIDE/FORMETEROL FUMARATE 160/4.5 mcg INHALER IH SCH (23:06)
[2016-05-07] MEDS: THIAMINE HCL 100 MG TABLET (FP) PO SCH (23:06)
[2016-05-07 23:12] LABS: URINE APPEARANCE CLEAR; URINE BILIRUBIN NEGATIVE (NEGATIVE); URINE BLOOD NEGATIVE (NEGATIVE); URINE COLOR LTYELLOW; URINE GLUCOSE (UA) NEGATIVE (NEGATIVE); URINE KETONE NEGATIVE (NEGATIVE); URINE NITRITE NEGATIVE (NEGATIVE); URINE PROTEIN NEGATIVE (NEGATIVE); URINE UROBILINOGEN NEGATIVE E.U./dl (0.2-1.0)
[2016-05-07 23:14] LABS: URINE LEUK ESTERASE TRACE (NEGATIVE)
[2016-05-08] MEDS: chlordiazePOXIDE HCL 25 MG CAPSULE PO SCH ×4 (05:31→22:04)
[2016-05-08 10:16] LABS: MCH 32.5 pg (25.7-33.7); MCHC 33.2 g/dl (32.0-35.9); MEAN CELL VOLUME 97.7 fl (80-96); MEAN PLT VOLUME 8.4 fl (7.5-11.1); PLATELET COUNT 139 K/MM3 (134-434); RDW 12.8 % (11.9-15.9); WHITE BLOOD COUNT 6.9 K/mm3 (4.0-10.0)
[2016-05-08] MEDS: PANTOPRAZOLE 40 MG TABLET (FP) PO SCH (10:20)
[2016-05-08] MEDS: BUDESONIDE/FORMETEROL FUMARATE 160/4.5 mcg INHALER IH SCH ×2 (10:20→22:55)
[2016-05-08] MEDS: PRENATAL VITAMINS W/ FOLIC ACID TABLET (FP) PO SCH (10:20)
[2016-05-08 10:24] LABS: CREATININE 1.2 mg/dL (0.7-1.3); GLUCOSE,RANDOM 90 mg/dL (74-106)
[2016-05-08 10:25] LABS: ALBUMIN 3.2 g/dl (3.4-5.0); ALK PHOS 79 U/L (45-117); ANION GAP 10 (8-16); BILIRUBIN,TOTAL 0.4 mg/dL (0.2-1.0); CO2 24 mmol/L (21-32); SGOT/AST 27 U/L (15-37); SGPT/ALT 33 U/L (12-78); TOT PROT 5.6 g/dl (6.4-8.2)
--- NOTE | 2016-05-08 10:27 | PN ---
S CIWA - CIWA Score Nausea/Vomitin-No Nausea/No Vomiting Muscle Tremors: 4-Moderate,w/Arms Extend Anxiety: 3 Agitation: 4-Moderately Restless Paroxysmal Sweats: 3 Orientation: 0-Oriented Tacttile Disturbances: 0-None Auditory Disturbances: 0-None Visual Disturbances: 0-None Headache: 0-None Present CIWA-Ar Total Score: 14 BHS Progress Note (SOAP) Subjective: irritable agitation sweats mild shakes Objective: 05/08/16 10:24 Vital Signs Temperature 97.5 F L 05/08/16 09:44 Pulse Rate 64 05/08/16 09:44 Respiratory Rate 18 05/08/16 09:44 Blood Pressure 126/78 05/08/16 09:44 O2 Sat by Pulse Oximetry (%) Laboratory Tests 05/07/16 05/08/16 05/08/16 22:00 07:00 07:00 WBC 6.9 D RBC 3.91 L Hgb 12.7 D Hct 38.2 MCV 97.7 H MCHC 33.2 RDW 12.8 Plt Count 139 D MPV 8.4 Sodium 144 Potassium 3.9 Chloride 110 H Urine Color Ltyellow Urine Appearance Clear Urine pH 5.0 Ur Specific [place] 1.010 Urine Protein Negative Urine Glucose (UA) Negative Urine Ketones Negative Urine Blood Negative Urine Nitrite Negative Urine Bilirubin Negative Urine Urobilinogen Negative Ur Leukocyte Esterase Trace H Urine RBC None Urine WBC None labs pending awake/alert ambulating no acute distress Assessment: 05/08/16 10:26 withdrawal sx Plan: continue detox increase fluids labs pending
--- NOTE | 2016-05-08 16:54 | EKG ---
Test Reason : Blood Pressure : / mmHG Vent. Rate : 100 BPM Atrial Rate : 100 BPM P-R Int : 146 ms QRS Dur : 068 ms QT Int : 366 ms P-R-T Axes : 065 060 057 degrees QTc Int : 472 ms NORMAL SINUS RHYTHM NORMAL ECG WHEN COMPARED WITH ECG OF 25-MAR-2016 13:42, VENT. RATE HAS INCREASED Confirmed by LISHA MORRISON MD ([id number]) on 05/08/2016 4:54:49 PM Referred By: Confirmed By:LISHA MORRISON MD
--- NOTE | 2016-05-08 18:06 | CONSULT ---
[facility] Psychiatric Consult - Data Date of interview: 05/08/16 Admission source: [facility] Identifying data: Another admission to [facility] for this 50 y/o AA male seeking detox treatment for alcohol and cocaine dependence. Substance Abuse History: - Smoking Cessation. Smoking history: Current some day smoker. Have you smoked in the past 12 months: Yes. Aproximately how many cigarettes per day: 3. Cigars Per Day: 0. Hx Chewing Tobacco Use: No. Initiated information on smoking cessation: Yes. 'Breaking Loose' booklet given : 05/07/16. - Substance & Tx. History. Hx Alcohol Use: Yes. Hx Substance Use : Yes. Substance Use Type: Cocaine. Hx Substance Use Treatment: Yes ([facility]). - Substances Abused. Alcohol. Route: Oral. Frequency: Daily. Amount used : liquor- 2 pints, beer- 2 six packs. Age of first use: 15. Date of Last Use: 05/07/16. Confirmed by patient . Medical History: Bronchial asthma,hypertension,gastro-esophageal reflux disease, and lower back pain. Psychiatric History: Diagnosed with Bipolar Disorder and PTSD (2010).History of two psychiatric hospitalizations.No OPD care as per self-report." I go to emergency rooms to get scripts." Prescribed lamictal 50 mg/day (last script on 12/2015) + paxil 20 mg/day and seroquel 400 mg/hs (confirmed by pharmacy claims of 03/29/2016).Mr Solis reports history of a suicide attempt (cutting-wrist) in 1989. Physical/Sexual Abuse/Trauma History: Patient denies. Additional Comment: Urine Drug Screen Results: CHANO-Cocaine.Noted. Mental Status Exam - Mental Status Exam Alert and Oriented to: Time, Place, Person Cognitive Function: Good Patient Appearance: Well Groomed Mood: Hopeful, Euthymic Affect: Appropriate, Normal Range Patient Behavior: Appropriate, Cooperative Speech Pattern: Clear, Appropriate Voice Loudness: Normal Thought Process: Goal Oriented Thought Disorder: Not Present Hallucinations: Denies Suicidal Ideation: Denies Homicidal Ideation: Denies Insight/Judgement: Poor Sleep: Poorly, Difficulty falling asleep Appetite: Good Muscle strength/Tone: Normal Gait/Station: Normal Psychiatric Findings - Problem List ([place] 1, 2,3) (1) Alcohol dependence with uncomplicated withdrawal Current Visit: Yes Status: Acute (2) Cocaine dependence, uncomplicated Current Visit: Yes Status: Acute (3) Nicotine dependence, uncomplicated Current Visit: Yes Status: Acute Qualifiers: Nicotine product type: cigarettes Qualified Code(s): F17.210 - Nicotine dependence, cigarettes, uncomplicated (4) Nicotine dependence Current Visit: No Status: Chronic Qualifiers: Nicotine product type: cigarettes Substance use status: uncomplicated Qualified Code(s): F17.210 - Nicotine dependence, cigarettes, uncomplicated Comment: . (5) Substance induced mood disorder Current Visit: Yes Status: Acute (6) MDD (major depressive disorder) Current Visit: Yes Status: Chronic (7) Asthma Current Visit: Yes Status: Chronic Comment: . (8) Chronic back pain Current Visit: Yes Status: Chronic Qualifiers: Back pain location: low back pain Back pain laterality: bilateral Sciatica presence: without sciatica Qualified Code(s): M54.5 - Low back pain; G89.29 - Other chronic pain Comment: . (9) Essential hypertension Current Visit: Yes Status: Chronic (10) GERD (gastroesophageal reflux disease) Current Visit: Yes Status: Chronic Qualifiers: Esophagitis presence: esophagitis presence not specified Qualified Code(s): K21.9 - Gastro-esophageal reflux disease without esophagitis Comment: . - Initial Treatment Plan Initial Treatment Plan: Psychoeducation.Detoxification.Medications :seroquel 300 mg po hs + paxil 20 mg po daily.Side effects/benefits discussed with patient.He agrees with this plan.Observation.
[2016-05-08] MEDS: THIAMINE HCL 100 MG TABLET (FP) PO SCH (22:04)
[2016-05-08] MEDS: QUEtiapine FUMARATE 300 MG TABLET PO SCH (22:04)
[2016-05-08] MEDS: MONTELUKAST NA 10 MG TABLET PO SCH (22:04)
[2016-05-09] MEDS: chlordiazePOXIDE HCL 25 MG CAPSULE PO SCH ×3 (05:31→17:49)
[2016-05-09] MEDS: PANTOPRAZOLE 40 MG TABLET (FP) PO SCH (10:08)
[2016-05-09] MEDS: PRENATAL VITAMINS W/ FOLIC ACID TABLET (FP) PO SCH (10:08)
[2016-05-09] MEDS: PARoxetine HCL 20 MG TABLET (FP) PO SCH (10:08)
[2016-05-09] MEDS: BUDESONIDE/FORMETEROL FUMARATE 160/4.5 mcg INHALER IH SCH ×2 (10:09→22:29)
--- NOTE | 2016-05-09 10:44 | PN ---
S CIWA - CIWA Score Nausea/Vomitin Muscle Tremors: 2 Anxiety: 2 Agitation: 2 Paroxysmal Sweats: 3 Orientation: 0-Oriented Tacttile Disturbances: 1-Very Mild Itch/Numbness Auditory Disturbances: 0-None Visual Disturbances: 0-None Headache: 0-None Present CIWA-Ar Total Score: 12 S Progress Note (SOAP) Subjective: interrupted sleep, sweats Objective: 05/09/16 10:43 Vital Signs Temperature 95.9 F L 05/09/16 09:56 Pulse Rate 74 05/09/16 09:56 Respiratory Rate 18 05/09/16 09:56 Blood Pressure 137/85 05/09/16 09:56 O2 Sat by Pulse Oximetry (%) Laboratory Tests 05/07/16 05/08/16 05/08/16 22:00 07:00 07:00 WBC 6.9 D RBC 3.91 L Hgb 12.7 D Hct 38.2 MCV 97.7 H MCHC 33.2 RDW 12.8 Plt Count 139 D MPV 8.4 Sodium 144 Potassium 3.9 Chloride 110 H Carbon Dioxide 24 Anion Gap 10 BUN 13 Creatinine 1.2 Creat Clearance w eGFR > 60 Random Glucose 90 Calcium 8.0 L Total Bilirubin 0.4 AST 27 ALT 33 D Alkaline Phosphatase 79 Total Protein 5.6 L Albumin 3.2 L Urine Color Ltyellow Urine Appearance Clear Urine pH 5.0 Ur Specific [place] 1.010 Urine Protein Negative Urine Glucose (UA) Negative Urine Ketones Negative Urine Blood Negative Urine Nitrite Negative Urine Bilirubin Negative Urine Urobilinogen Negative Ur Leukocyte Esterase Trace H Urine RBC None Urine WBC None RPR Titer 05/08/16 07:00 WBC RBC Hgb Hct MCV MCHC RDW Plt Count MPV Sodium Potassium Chloride Carbon Dioxide Anion Gap BUN Creatinine Creat Clearance w eGFR Random Glucose Calcium Total Bilirubin AST ALT Alkaline Phosphatase Total Protein Albumin Urine Color Urine Appearance Urine pH Ur Specific [place] Urine Protein Urine Glucose (UA) Urine Ketones Urine Blood Urine Nitrite Urine Bilirubin Urine Urobilinogen Ur Leukocyte Esterase Urine RBC Urine WBC RPR Titer Nonreactive pt aox3 in nad ambulating 05/09/16 10:44 Assessment: 05/09/16 10:43 withdrawal sx's Plan: cont. detox increase fluids
[2016-05-09] MEDS: QUEtiapine FUMARATE 300 MG TABLET PO SCH (22:29)
[2016-05-09] MEDS: THIAMINE HCL 100 MG TABLET (FP) PO SCH (22:29)
[2016-05-09] MEDS: MONTELUKAST NA 10 MG TABLET PO SCH (22:29)
[2016-05-09] MEDS: chlordiazePOXIDE 5 MG CAPSULE PO SCH (22:29)
[2016-05-10] MEDS: chlordiazePOXIDE 5 MG CAPSULE PO SCH ×3 (05:45→17:49)
[2016-05-10] MEDS: IBUPROFEN 400 MG TABLET (FP) PO PRN (05:48)
[2016-05-10] MEDS: PARoxetine HCL 20 MG TABLET (FP) PO SCH (10:27)
[2016-05-10] MEDS: PANTOPRAZOLE 40 MG TABLET (FP) PO SCH (10:27)
[2016-05-10] MEDS: BUDESONIDE/FORMETEROL FUMARATE 160/4.5 mcg INHALER IH SCH ×2 (10:27→22:12)
[2016-05-10] MEDS: PRENATAL VITAMINS W/ FOLIC ACID TABLET (FP) PO SCH (10:27)
--- NOTE | 2016-05-10 10:28 | PN ---
BHS Progress Note (SOAP) Subjective: feeling a little better little sweats Objective: 05/10/16 10:27 Vital Signs Temperature 97.7 F 05/10/16 09:20 Pulse Rate 72 05/10/16 09:20 Respiratory Rate 20 05/10/16 09:20 Blood Pressure 139/84 05/10/16 09:20 O2 Sat by Pulse Oximetry (%) awake/alert ambulating no acute distress Assessment: 05/10/16 10:27 withdrawal sx Plan: continue detox increase fluids d/c in am
[2016-05-10] MEDS: MONTELUKAST NA 10 MG TABLET PO SCH (22:10)
[2016-05-10] MEDS: chlordiazePOXIDE HCL 10 MG CAPSULE PO SCH (22:10)
[2016-05-10] MEDS: THIAMINE HCL 100 MG TABLET (FP) PO SCH (22:11)
[2016-05-10] MEDS: QUEtiapine FUMARATE 300 MG TABLET PO SCH (22:11)
[2016-05-11] MEDS: chlordiazePOXIDE HCL 10 MG CAPSULE PO SCH ×3 (05:08→21:31)
--- NOTE | 2016-05-11 08:03 | PN ---
S Progress Note (SOAP) Subjective: ALERT,NO COMPLAINT Objective: 05/11/16 08:01 05/11/16 08:01 Vital Signs Temperature 96.7 F L 05/11/16 06:36 Pulse Rate 65 05/11/16 06:36 Respiratory Rate 16 05/11/16 06:36 Blood Pressure 118/73 05/11/16 06:36 O2 Sat by Pulse Oximetry (%) Assessment: 05/11/16 08:02 DETOX COMPLETED,NO WITHDRAWAL SYMPTOM Plan: DISCHARGE TODAY,FOLLOW UP WITH AFTER CARE PROGRAM ARRANGEMENT AND PMD FOR MEDICAL PROBLEM
--- NOTE | 2016-05-11 08:07 | DS ---
[facility] Detox Discharge Summary Admission Date: 05/07/16 Discharge Date: 05/11/16 - History Present History: Alcohol Dependence, Cocaine Dependence Additional Comments: FOLLOW UP WITH AFTER [facility] PROGRAM ARRANGEMENT AND PMD FOR MEDICAL PROBLEMS Pertinent Past History: ASTHMA NICOTINE DEPENDENCE GERD LOW BACK PAIN - Physical Exam Results Vital Signs: Vital Signs Temperature 96.7 F L 05/11/16 06:36 Pulse Rate 65 05/11/16 06:36 Respiratory Rate 16 05/11/16 06:36 Blood Pressure 118/73 05/11/16 06:36 O2 Sat by Pulse Oximetry (%) Pertinent Admission Physical Exam Findings: WITHDRAWAL SYMPTOM - Treatment Hospital Course: Detox Protocol Followed, Detoxed Safely, Responded well, Discharged Condition Good Patient has Accepted a Rehab Referral to: [facility] - Medication Discharge Medications: Ambulatory Orders Lamotrigine [Lamictal -] 50 mg PO DAILY #30 tablet 12/26/15 Paroxetine HCl [Paxil -] 30 mg PO DAILY #30 tablet 12/26/15 Quetiapine Fumarate [Seroquel -] 400 mg PO HS #30 tab 12/26/15 Lamotrigine [Lamictal -] 75 mg PO DAILY #30 tablet 03/26/16 Paroxetine HCl [Paxil -] 20 mg PO DAILY #30 tablet 03/26/16 Quetiapine Fumarate [Seroquel -] 400 mg PO HS #30 tab 03/26/16 Albuterol Sulfate Inhaler - [Ventolin HFA Inhaler -] 2 puff IH Q4H PRN #1 inhaler 03/30/16 Fluticasone/Salmeterol [Advair 250-50 Diskus] 1 each IH BID #1 disk.w.dev Montelukast Na [Singulair -] 10 mg PO HS #30 tablet 03/30/16 Pantoprazole Sodium [Protonix -] 40 mg PO DAILY #30 tablet.ec 03/30/16 Paroxetine HCl [Paxil -] 20 mg PO DAILY #30 tablet 05/08/16 Quetiapine Fumarate [Seroquel -] 300 mg PO HS #30 tab 05/08/16 - Diagnosis (1) Alcohol dependence with uncomplicated withdrawal Current Visit: Yes Status: Acute (2) Cocaine dependence, uncomplicated Current Visit: Yes Status: Acute (3) Nicotine dependence, uncomplicated Current Visit: Yes Status: Acute Qualifiers: Nicotine product type: cigarettes Qualified Code(s): F17.210 - Nicotine dependence, cigarettes, uncomplicated (4) Substance induced mood disorder Current Visit: Yes Status: Acute (5) Asthma Current Visit: Yes Status: Chronic (6) Chronic back pain Current Visit: Yes Status: Chronic Qualifiers: Back pain location: low back pain Back pain laterality: bilateral Sciatica presence: without sciatica Qualified Code(s): M54.5 - Low back pain; G89.29 - Other chronic pain (7) GERD (gastroesophageal reflux disease) Current Visit: Yes Status: Chronic Qualifiers: Esophagitis presence: esophagitis presence not specified Qualified Code(s): K21.9 - Gastro-esophageal reflux disease without esophagitis (8) Nicotine dependence Current Visit: No Status: Chronic Qualifiers: Nicotine product type: cigarettes Substance use status: uncomplicated Qualified Code(s): F17.210 - Nicotine dependence, cigarettes, uncomplicated (9) PPD positive, treated Current Visit: No Status: Chronic - AMA Did Patient Leave Against Medical Advice: No
[2016-05-11] MEDS: PANTOPRAZOLE 40 MG TABLET (FP) PO SCH (10:28)
[2016-05-11] MEDS: PRENATAL VITAMINS W/ FOLIC ACID TABLET (FP) PO SCH (10:28)
[2016-05-11] MEDS: BUDESONIDE/FORMETEROL FUMARATE 160/4.5 mcg INHALER IH SCH ×2 (10:29→21:28)
[2016-05-11] MEDS: PARoxetine HCL 20 MG TABLET (FP) PO SCH (10:29)
[2016-05-11] MEDS: ACETAMINOPHEN 325 MG TABLET (FP) PO PRN (14:18)
[2016-05-11 15:46] VITALS: BMI 27.9
--- NOTE | 2016-05-11 17:48 | PN ---
S Progress Note Note: RECEIVED NURSE INFORMED PATIENT TRANSFERRED FROM DETOX LIBRIUM NEEDED TO BE DISCONTINUED CHART REVIEWED UNABLE TO LOCATE LIBIUM ORDER AT THIS TIME CONTINUE REHAB
[2016-05-11] MEDS: QUEtiapine FUMARATE 400 MG TABLET PO SCH (21:30)
[2016-05-11] MEDS: THIAMINE HCL 100 MG TABLET (FP) PO SCH (21:30)
[2016-05-11] MEDS: MONTELUKAST NA 10 MG TABLET PO SCH (21:30)
[2016-05-11] MEDS: QUEtiapine FUMARATE 300 MG TABLET PO SCH (21:31)
[2016-05-12] MEDS ORDERED: PT OWN MED DRAWER 7, Y5N ONE ×3 (09:23→21:14)
[2016-05-12] MEDS: PARoxetine HCL 20 MG TABLET (FP) PO SCH ×2 (10:07→11:04)
[2016-05-12] MEDS: PRENATAL VITAMINS W/ FOLIC ACID TABLET (FP) PO SCH (10:07)
[2016-05-12] MEDS: BUDESONIDE/FORMETEROL FUMARATE 160/4.5 mcg INHALER IH SCH ×2 (10:07→21:14)
[2016-05-12] MEDS: PANTOPRAZOLE 40 MG TABLET (FP) PO SCH (11:03)
[2016-05-12] MEDS: THIAMINE HCL 100 MG TABLET (FP) PO SCH (21:12)
[2016-05-12] MEDS: QUEtiapine FUMARATE 400 MG TABLET PO SCH (21:12)
[2016-05-12] MEDS: MONTELUKAST NA 10 MG TABLET PO SCH (21:13)
[2016-05-13] MEDS: ACETAMINOPHEN 325 MG TABLET (FP) PO PRN (08:28)
[2016-05-13] MEDS ORDERED: PT OWN MED DRAWER 7, Y5N ONE ×2 (08:37→21:38)
[2016-05-13] MEDS: BUDESONIDE/FORMETEROL FUMARATE 160/4.5 mcg INHALER IH SCH ×2 (09:44→21:38)
[2016-05-13] MEDS: PARoxetine HCL 20 MG TABLET (FP) PO SCH (09:44)
[2016-05-13] MEDS: PANTOPRAZOLE 40 MG TABLET (FP) PO SCH (09:44)
[2016-05-13] MEDS: PRENATAL VITAMINS W/ FOLIC ACID TABLET (FP) PO SCH (09:44)
[2016-05-13] MEDS: MONTELUKAST NA 10 MG TABLET PO SCH (21:37)
[2016-05-13] MEDS: THIAMINE HCL 100 MG TABLET (FP) PO SCH (21:37)
[2016-05-13] MEDS: QUEtiapine FUMARATE 400 MG TABLET PO SCH (21:37)
--- NOTE | 2016-05-14 07:25 | HP ---
Psychiatrist Admission - Data Date of interview: 05/14/16 Admission source: 6N Identifying data: This is one of the multiple [facility] admission for this 50 years old single Black male, father of 2 sons, unemployed on public assistance, domiciled seeking rehab treatment for alcohol Medical History: Significant for Bronchial asthma, hypertension, gastro- esophageal reflux disease, and lower back pain. Smokes 3 cigarettes daily Psychiatric History: Reports that his first psychiatric contact was at age 22 when he was admitted to [facility] in [place] for depression, auditory hallucinations and sicidal ideations by cutting his wrist. He was kept for 2 weeks and diagnosed with Bipolar Disorder and PTSD. Reports a second admissions years ago to [facility] for depression. He is not curently receiving OPD care but gets scrpits at ED. He is currently on Seroquel 400 mg po HS, Paxil 20 m,g po daily and Lamital 50 mg po daily. He saw Dr Brown on 05/08/16 while in detox and was prescribed Seroquel 300 mg po HS and Paxil 20 mg po daily. At present, denies feeling depressed, experiencing psychotic, manic symptoms as wel as SI/HI Physical/Sexual Abuse/Trauma History: Denies history of emotional, physical, sexual abuse as well as DV relationship Additional Comment: Reports history of 8 previous arrests including 7 felony convictions. denies being on probation/parole at present Vital Signs: Vital Signs - 24 hr 05/14/16 05/14/16 05/14/16 00:30 03:30 06:42 Temperature 97.5 F L Pulse Rate 88 Respiratory 18 20 18 Rate Blood Pressure 130/78 Allergies/Adverse Reactions: Allergies Allergy/AdvReac Type Severity Reaction Status Date / Time No Known Drug Allergies Allergy Unknown Verified 05/07/16 20:32 pork derived (porcine) AdvReac Severe Vomiting Verified 05/07/16 20:32 Date of last physical exam: 05/07/16 Concur with the findings of this exam: Yes - Substance Abuse/Tx History Hx Alcohol Use: Yes Hx Substance Use: No Substance Use Type: Alcohol (Started drinking alcohol at age 15, consumes 2x 6pk of beer daily. Last drink on 05/07/16) Hx Substance Use Treatment: Yes (Multiple previous inpt detox %& 6 inpt rehab @ [facility]) - Admission Criteria Previous failed treatment: Yes Poor recovery environment: Yes Comorbidities: Yes Lacks judgement: Yes Mental Status Exam - Mental Status Exam Alert and Oriented to: Time, Place, Person Cognitive Function: Fair Patient Appearance: Well Groomed Mood: Hopeful, Euthymic Affect: Appropriate Patient Behavior: Cooperative Speech Pattern: Clear Voice Loudness: Normal Thought Process: Intact Thought Disorder: Not Present Hallucinations: Denies Suicidal Ideation: Denies, Past, Plan Homicidal Ideation: Denies Insight/Judgement: Fair Sleep: Fair Appetite: Fair Muscle strength/Tone: Normal Gait/Station: Normal Psychiatric Findings - Problem List ([place] 1, 2,3) (1) Alcohol dependence with uncomplicated withdrawal Current Visit: Yes Status: Acute (2) Nicotine dependence, uncomplicated Current Visit: Yes Status: Acute Qualifiers: Nicotine product type: cigarettes Qualified Code(s): F17.210 - Nicotine dependence, cigarettes, uncomplicated (3) Bipolar II disorder Current Visit: Yes Status: Acute (4) Asthma Current Visit: Yes Status: Chronic Comment: . (5) Chronic back pain Current Visit: Yes Status: Chronic Qualifiers: Back pain location: low back pain Back pain laterality: bilateral Sciatica presence: without sciatica Qualified Code(s): M54.5 - Low back pain; G89.29 - Other chronic pain Comment: . (6) Essential hypertension Current Visit: Yes Status: Chronic - Initial Treatment Plan Initial Treatment Plan: 1) Continue Seroquel 400 mg po HS and Paxil 20 mg po daily. 2) Minitor progress
[2016-05-14] MEDS: PANTOPRAZOLE 40 MG TABLET (FP) PO SCH (10:06)
[2016-05-14] MEDS: PARoxetine HCL 20 MG TABLET (FP) PO SCH (10:06)
[2016-05-14] MEDS: PRENATAL VITAMINS W/ FOLIC ACID TABLET (FP) PO SCH (10:06)
[2016-05-14] MEDS: IBUPROFEN 400 MG TABLET (FP) PO PRN (10:07)
[2016-05-14] MEDS: BUDESONIDE/FORMETEROL FUMARATE 160/4.5 mcg INHALER IH SCH ×2 (10:08→21:58)
[2016-05-14] MEDS: MONTELUKAST NA 10 MG TABLET PO SCH (21:57)
[2016-05-14] MEDS: QUEtiapine FUMARATE 400 MG TABLET PO SCH (21:57)
[2016-05-14] MEDS: THIAMINE HCL 100 MG TABLET (FP) PO SCH (21:57)
[2016-05-15] MEDS: PANTOPRAZOLE 40 MG TABLET (FP) PO SCH (10:12)
[2016-05-15] MEDS: BUDESONIDE/FORMETEROL FUMARATE 160/4.5 mcg INHALER IH SCH ×2 (10:12→21:21)
[2016-05-15] MEDS: PARoxetine HCL 20 MG TABLET (FP) PO SCH (10:12)
[2016-05-15] MEDS: PRENATAL VITAMINS W/ FOLIC ACID TABLET (FP) PO SCH (10:12)
[2016-05-15] MEDS: QUEtiapine FUMARATE 400 MG TABLET PO SCH (21:21)
[2016-05-15] MEDS: MONTELUKAST NA 10 MG TABLET PO SCH (21:21)
[2016-05-15] MEDS: THIAMINE HCL 100 MG TABLET (FP) PO SCH (21:21)
[2016-05-15] MEDS ORDERED: PT OWN MED DRAWER 7, Y5N ONE (21:22)
[2016-05-16] MEDS: BUDESONIDE/FORMETEROL FUMARATE 160/4.5 mcg INHALER IH SCH ×2 (09:59→21:58)
[2016-05-16] MEDS: PARoxetine HCL 20 MG TABLET (FP) PO SCH (09:59)
[2016-05-16] MEDS ORDERED: PT OWN MED DRAWER 7, Y5N ONE (09:59)
[2016-05-16] MEDS: PANTOPRAZOLE 40 MG TABLET (FP) PO SCH (09:59)
[2016-05-16] MEDS: PRENATAL VITAMINS W/ FOLIC ACID TABLET (FP) PO SCH (09:59)
[2016-05-16] MEDS: QUEtiapine FUMARATE 400 MG TABLET PO SCH (21:57)
[2016-05-16] MEDS: THIAMINE HCL 100 MG TABLET (FP) PO SCH (21:57)
[2016-05-16] MEDS: MONTELUKAST NA 10 MG TABLET PO SCH (21:57)
[2016-05-17 08:37] VITALS: BP 131/82; PULSE 75; TEMP 98
[2016-05-17] MEDS ORDERED: PT OWN MED DRAWER 7, Y5N ONE (08:40)
[2016-05-17] MEDS: PARoxetine HCL 20 MG TABLET (FP) PO SCH (09:58)
[2016-05-17] MEDS: PRENATAL VITAMINS W/ FOLIC ACID TABLET (FP) PO SCH (09:58)
[2016-05-17] MEDS: BUDESONIDE/FORMETEROL FUMARATE 160/4.5 mcg INHALER IH SCH (09:58)
[2016-05-17] MEDS: PANTOPRAZOLE 40 MG TABLET (FP) PO SCH (09:58)
[2016-05-17] MEDS: IBUPROFEN 400 MG TABLET (FP) PO PRN (09:59)
== END 2016-05-17 15:55 | disposition left against medical advice (07) | DRG 894 ==
LOC: YASAS 19:17 → Y6N 20:27 → Y3W 05-11 14:53
PROVIDERS: ADMIT Psychiatry & Neurology Psychiatry; ATTEND Psychiatry & Neurology Psychiatry
PROC: HZ2ZZZZ Detoxification Services for Substance Abuse Treatment (ICD-10-PCS; principal; 2016-05-07)
PROC: HZ42ZZZ Group Counseling for Substance Abuse Treatment, Cognitive-Behavioral (ICD-10-PCS; 2016-05-14)
DX: F10.230 Alcohol dependence with withdrawal, uncomplicated (principal); F14.20 Cocaine dependence, uncomplicated; F31.81 Bipolar II disorder; F33.9 Major depressive disorder, recurrent, unspecified; F17.210 Nicotine dependence, cigarettes, uncomplicated; F19.24 Other psychoactive substance dependence with psychoactive substance-induced mood disorder; J45.909 Unspecified asthma, uncomplicated; M54.5 Low back pain; G89.29 Other chronic pain; I10 Essential (primary) hypertension; K21.9 Gastro-esophageal reflux disease without esophagitis; R76.11 Nonspecific reaction to tuberculin skin test without active tuberculosis
CPT/HCPCS: 36415; 80053; 81003; 81015; 85027; 86593; 93005; 93010

== ENCOUNTER 2016-06-30 10:06 | Inpatient (IN) | payer OTHER ==
[2016-06-30 10:38] VITALS: BMI 25.4
--- NOTE | 2016-06-30 11:45 | HP ---
CIWA Score - CIWA Score Nausea/Vomitin-Mild Nausea/No Vomiting Muscle Tremors: 4-Moderate,w/Arms Extend Anxiety: 4-Mod. Anxious/Guarded Agitation: 1-Slight > Activity Paroxysmal Sweats: 1-Minimal Palms Moist Orientation: 1-Uncertain about Date Tacttile Disturbances: 0-None Auditory Disturbances: 1-Very Mild Visual Disturbances: 1-Very Mild Sensitivity Headache: 2-Mild CIWA-Ar Total Score: 16 Admission ROS BHS - HPI Chief Complaint: I messed up, I want to stop Allergies/Adverse Reactions: Allergies Allergy/AdvReac Type Severity Reaction Status Date / Time No Known Drug Allergies Allergy Unknown Verified 05/07/16 20:32 pork derived (porcine) AdvReac Severe Vomiting Verified 05/07/16 20:32 History of Present Illness: 50 yo gentleman here for detox from alcohol - one of multiple admissions, last here 04/18/16. History of drug related seizure about December 2015. Exam Limitations: Clinical Condition - Ebola screening Have you traveled outside of the country in the last 21 days: No (N) Have you had contact with anyone from an Ebola affected area: No Have you been sick,other than usual withdrawal symptoms: No Do you have a fever: No - Review of Systems Constitutional: Loss of Appetite, Malaise, Changes in sleep, Weakness EENT: reports: Blurred Vision Respiratory: reports: Cough Cardiac: reports: Chest Tightness GI: reports: Nausea, Poor Appetite, Indigestion : reports: Frequency Musculoskeletal: reports: Back Pain Integumentary: reports: No Symptoms Reported Neuro: reports: Headache Endocrine: reports: No Symptoms Reported Hematology: reports: No Symptoms Reported Psychiatric: reports: Mood/Affect Appropiate, Orientated x3, Anxious Other Systems: Reviewed and Negative Patient History - Patient Medical History Hx Anemia: No Hx Asthma: Yes Hx Chronic Obstructive Pulmonary Disease (COPD): No Hx Cancer: No Hx Cardiac Disorders: No Hx Congestive Heart Failure: No Hx Hypertension: No Hx Hypercholesterolemia: No Hx Pacemaker: No HX Cerebrovascular Accident: No Hx Seizures: No Hx Dementia: No Hx Diabetes: No Hx Gastrointestinal Disorders: No Hx Liver Disease: No Hx Genitourinary Disorders: No Hx Sexually Transmitted Disorders: No Hx Renal Disease (ESRD): No Hx Thyroid Disease: No Hx Human Immunodeficiency Virus (HIV): No Hx Hepatitis C: No Hx Depression: Yes (on meds) Hx Suicide Attempt: No (suicidal ideation;) Hx Bipolar Disorder: Yes (hospitalized 2015 [facility]) Hx Schizophrenia: No Other Medical History: chronic back pain - degenerative discs, pinched nerve - Patient Surgical History Past Surgical History: No Hx Neurologic Surgery: No Hx Cataract Extraction: No Hx Cardiac Surgery: No Hx Lung Surgery: No Hx Breast Surgery: No Hx Breast Biopsy: No Hx Abdominal Surgery: No Hx Appendectomy: No Hx Cholecystectomy: No Hx Genitourinary Surgery: No Hx Section: No Hx Orthopedic Surgery: No Hx Hysterectomy: No Anesthesia Reaction: No - PPD History Previous Implant?: Yes Documented Results: Positive w/proof Date: 12/26/15 (cxr normal) PPD to be Administered?: No - Reproductive History Patient is a Female of Child Bearing Age (11 -55 yrs old): No (male) - Smoking Cessation Smoking history: Current some day smoker Have you smoked in the past 12 months: Yes Aproximately how many cigarettes per day: 3 Cigars Per Day: 0 Hx Chewing Tobacco Use: No Initiated information on smoking cessation: Yes 'Breaking Loose' booklet given: 06/30/16 (give on floor) - Substance & Tx. History Hx Alcohol Use: Yes Hx Substance Use: Yes Substance Use Type: Alcohol, Cocaine Hx Substance Use Treatment: Yes (detox, rehab) - Substances Abused Alcohol Route: Oral Frequency: Daily Amount used: 2 pints liquor, 2 six packs beer Age of first use: 14 Date of Last Use: 06/30/16 Cocaine Route: Inhalation Frequency: Daily Amount used: $100 Age of first use: 23 Date of Last Use: 06/30/16 Family Disease History - Family Disease History Family Disease History: CA: Mother ( after gall bladdr op ca?), Other: Father (ALCOHOL; .), Son (2 adult sons) Admission Physical Exam BHS - Vital Signs Vital Signs: Vital Signs - 24 hr 06/30/16 10:36 Temperature 98.6 F Pulse Rate 77 Respiratory 18 Rate Blood Pressure 132/67 - Physical General Appearance: Yes: Nourished, Appropriately Dressed, Moderate Distress, Anxious HEENTM: Yes: Hearing grossly Normal, Normal ENT Inspection, Normocephalic, Normal Voice Respiratory: Yes: No Respiratory Distress, Wheezing Neck: Yes: No masses,lesions,Nodules Breast: Yes: Breast Exam Deferred Cardiology: Yes: Regular Rhythm, Regular Rate Abdominal: Yes: Soft Genitourinary: Yes: Frequency Back: Yes: Decreased Range of Motion Musculoskeletal: Yes: Gait Steady, Back pain Extremities: Yes: Normal Inspection, Non-Tender Neurological: Yes: Fully Oriented, Alert, Normal Mood/Affect, Normal Response, Numbness Integumentary: Yes: Normal Color, Warm Lymphatic: Yes: Within Normal Limits - Diagnostic (1) Alcohol dependence with uncomplicated withdrawal Current Visit: Yes Status: Chronic (2) Cocaine dependence, uncomplicated Current Visit: Yes Status: Chronic (3) Nicotine dependence, uncomplicated Current Visit: Yes Status: Chronic Qualifiers: Nicotine product type: cigarettes Qualified Code(s): F17.210 - Nicotine dependence, cigarettes, uncomplicated (4) Asthma Current Visit: Yes Status: Chronic Comment: . (5) Chronic back pain Current Visit: Yes Status: Chronic Qualifiers: Back pain location: low back pain Back pain laterality: bilateral Sciatica presence: without sciatica Qualified Code(s): M54.5 - Low back pain; G89.29 - Other chronic pain Comment: . (6) GERD (gastroesophageal reflux disease) Current Visit: Yes Status: Chronic Qualifiers: Esophagitis presence: esophagitis presence not specified Qualified Code(s): K21.9 - Gastro-esophageal reflux disease without esophagitis Comment: . Cleared for Admission [facility] - Detox or Rehab [facility] Level of Care: Medically Managed Detox Regimen/Protocol: Librium [facility] Breath Alcohol Content Breath Alcohol Content: 0.125 Urine Drug Screen - Results Drug Screen Negative: No Urine Drug Screen Results: CHANO-Cocaine
[2016-06-30] MEDS ORDERED: chlordiazePOXIDE HCL 25 MG CAPSULE PO PRN (11:51)
[2016-06-30] MEDS ORDERED: ACETAMINOPHEN 325 MG TABLET (FP) PO PRN (11:51)
[2016-06-30] MEDS ORDERED: IBUPROFEN 400 MG TABLET (FP) PO PRN (11:51)
[2016-06-30] MEDS ORDERED: MAGNESIUM CITRATE 300 ML BOTTLE PO PRN (11:51)
[2016-06-30] MEDS ORDERED: chlordiazePOXIDE HCL 25 MG CAPSULE PO ONE ×2 (11:51→16:00)
[2016-06-30] MEDS ORDERED: MAG HYDROX/AL HYDROX/SIMETH 30 ML UNIT-DOSE CUP PO PRN (11:51)
[2016-06-30] MEDS ORDERED: hydrOXYzine PAMOATE 50 MG CAPSULE (FP) PO PRN (11:51)
[2016-06-30] MEDS ORDERED: NICOTINE POLACRILEX 4 MG GUM BUC PRN (11:51)
[2016-06-30] MEDS ORDERED: MAGNESIUM HYDROX 2400MG/30ML ORAL SUSPENSION 30 ML CUP PO PRN (11:51)
[2016-06-30] MEDS ORDERED: LOPERAMIDE HCL 2 MG CAPSULE PO PRN (11:51)
[2016-06-30] MEDS ORDERED: P-EPHED 60MG/TRIPROLIDI 2.5MG TABLET PO PRN (11:51)
[2016-06-30] MEDS ORDERED: CYCLOBENZAPRINE HCL 10 MG TABLET (FP) PO PRN (11:52)
[2016-06-30] MEDS: PANTOPRAZOLE 40 MG TABLET (FP) PO SCH (14:49)
[2016-06-30] MEDS: LIDOCAINE 5% TOPICAL PATCH TP SCH (14:49)
[2016-06-30] MEDS: BUDESONIDE/FORMETEROL FUMARATE 160/4.5 mcg INHALER IH SCH ×2 (14:52→22:23)
[2016-06-30 16:38] LABS: URINE APPEARANCE CLEAR; URINE BILIRUBIN NEGATIVE (NEGATIVE); URINE BLOOD NEGATIVE (NEGATIVE); URINE COLOR STRAW; URINE GLUCOSE (UA) NEGATIVE (NEGATIVE); URINE KETONE NEGATIVE (NEGATIVE); URINE LEUK ESTERASE NEGATIVE (NEGATIVE); URINE NITRITE NEGATIVE (NEGATIVE); URINE PROTEIN NEGATIVE (NEGATIVE); URINE UROBILINOGEN NEGATIVE E.U./dl (0.2-1.0)
[2016-06-30] MEDS: chlordiazePOXIDE HCL 25 MG CAPSULE PO SCH ×2 (17:36→22:26)
[2016-06-30] MEDS: guaiFENesin/D-METHORPHAN HB 10 ML UNIT-DOSE CUPS PO PRN (19:52)
[2016-06-30] MEDS: MONTELUKAST NA 10 MG TABLET PO SCH (22:23)
[2016-06-30] MEDS: THIAMINE HCL 100 MG TABLET (FP) PO SCH (22:23)
[2016-06-30] MEDS: diphenhydrAMINE HCL 50 MG CAPSULE PO PRN (22:26)
[2016-06-30] MEDS: MENTHOL/PHENOL 1 EACH UD MM PRN (22:28)
[2016-06-30] MEDS: ALBUTEROL SO4 6.7 GM HFA INHALER IH PRN (22:28)
[2016-07-01] MEDS: chlordiazePOXIDE HCL 25 MG CAPSULE PO SCH ×4 (05:23→22:29)
[2016-07-01] MEDS: MENTHOL/PHENOL 1 EACH UD MM PRN ×3 (05:24→17:43)
[2016-07-01 09:50] LABS: MCHC 32.5 g/dl (32.0-35.9); MEAN CELL VOLUME 98.4 fl (80-96); MEAN PLT VOLUME 9.3 fl (7.5-11.1); PLATELET COUNT 207 K/MM3 (134-434); RDW 12.9 % (11.9-15.9); WHITE BLOOD COUNT 9.5 K/mm3 (4.0-10.0)
[2016-07-01 10:24] LABS: ALBUMIN 3.7 g/dl (3.4-5.0); ALK PHOS 78 U/L (45-117); ANION GAP 9 (8-16); BILIRUBIN,TOTAL 0.5 mg/dL (0.2-1.0); CALCIUM 8.6 mg/dL (8.5-10.1); CO2 26 mmol/L (21-32); COCKROFT - GAULT 90.62; CREATININE 1.1 mg/dL (0.7-1.3); GLUCOSE,RANDOM 98 mg/dL (74-106); SGOT/AST 24 U/L (15-37); SGPT/ALT 26 U/L (12-78); TOT PROT 6.6 g/dl (6.4-8.2)
[2016-07-01 10:26] LABS: HIV 1 & 2 AB NEGATIVE; HIV 1 AGp24 NEGATIVE
[2016-07-01] MEDS: BUDESONIDE/FORMETEROL FUMARATE 160/4.5 mcg INHALER IH SCH ×2 (10:30→22:28)
[2016-07-01] MEDS: LIDOCAINE 5% TOPICAL PATCH TP SCH (10:31)
[2016-07-01] MEDS: PRENATAL VITAMINS W/ FOLIC ACID TABLET (FP) PO SCH (10:31)
[2016-07-01] MEDS: PANTOPRAZOLE 40 MG TABLET (FP) PO SCH (10:31)
[2016-07-01] MEDS: guaiFENesin/D-METHORPHAN HB 10 ML UNIT-DOSE CUPS PO PRN ×2 (10:32→17:42)
--- NOTE | 2016-07-01 18:00 | PN ---
S CIWA - CIWA Score Nausea/Vomitin Muscle Tremors: 3 Anxiety: 3 Agitation: 2 Paroxysmal Sweats: 3 Orientation: 0-Oriented Tacttile Disturbances: 0-None Auditory Disturbances: 2-Mild Harshness/Frighten Visual Disturbances: 3-Moderate Sensitivity Headache: 0-None Present CIWA-Ar Total Score: 19 S Progress Note (SOAP) Subjective: Nausea, Tremors, Interrupted sleep, Diarrhea, Sweating, Body aches. Objective: PT. A & O X 3. PT. DENIES CHEST PAIN. 07/01/16 17:58 Vital Signs Temperature 99.1 F 07/01/16 17:42 Pulse Rate 60 07/01/16 17:42 Respiratory Rate 18 07/01/16 17:42 Blood Pressure 108/61 07/01/16 17:42 O2 Sat by Pulse Oximetry (%) Laboratory Last Values WBC 9.5 K/mm3 (4.0-10.0) D 07/01/16 07:30 RBC 4.33 M/mm3 (4.00-5.60) 07/01/16 07:30 Hgb 13.9 GM/dL (11.7-16.9) 07/01/16 07:30 Hct 42.7 % (35.4-49) 07/01/16 07:30 MCV 98.4 fl (80-96) H 07/01/16 07:30 MCHC 32.5 g/dl (32.0-35.9) 07/01/16 07:30 RDW 12.9 % (11.9-15.9) 07/01/16 07:30 Plt Count 207 K/MM3 (134-434) D 07/01/16 07:30 MPV 9.3 fl (7.5-11.1) D 07/01/16 07:30 Sodium 142 mmol/L (136-145) 07/01/16 07:30 Potassium 4.0 mmol/L (3.5-5.1) 07/01/16 07:30 Chloride 107 mmol/L (98-107) 07/01/16 07:30 Carbon Dioxide 26 mmol/L (21-32) 07/01/16 07:30 Anion Gap 9 (8-16) 07/01/16 07:30 BUN 10 mg/dL (7-18) D 07/01/16 07:30 Creatinine 1.1 mg/dL (0.7-1.3) 07/01/16 07:30 Creat Clearance w eGFR > 60 (>60) 07/01/16 07:30 Random Glucose 98 mg/dL (74-106) 07/01/16 07:30 Calcium 8.6 mg/dL (8.5-10.1) 07/01/16 07:30 Total Bilirubin 0.5 mg/dL (0.2-1.0) D 07/01/16 07:30 AST 24 U/L (15-37) 07/01/16 07:30 ALT 26 U/L (12-78) D 07/01/16 07:30 Alkaline Phosphatase 78 U/L (45-117) 07/01/16 07:30 Total Protein 6.6 g/dl (6.4-8.2) 07/01/16 07:30 Albumin 3.7 g/dl (3.4-5.0) 07/01/16 07:30 Urine Color Straw 06/30/16 16:26 Urine Appearance Clear 06/30/16 16:26 Urine pH 5.0 (5.0-8.0) 06/30/16 16:26 Ur Specific [place] < 1.005 (1.005-1.025) L 06/30/16 16:26 Urine Protein Negative (NEGATIVE) 06/30/16 16:26 Urine Glucose (UA) Negative (NEGATIVE) 06/30/16 16:26 Urine Ketones Negative (NEGATIVE) 06/30/16 16:26 Urine Blood Negative (NEGATIVE) 06/30/16 16:26 Urine Nitrite Negative (NEGATIVE) 06/30/16 16:26 Urine Bilirubin Negative (NEGATIVE) 06/30/16 16:26 Urine Urobilinogen Negative E.U./dl (0.2-1.0) 06/30/16 16:26 Ur Leukocyte Esterase Negative (NEGATIVE) 06/30/16 16:26 RPR Titer Nonreactive (NONREACTIVE) 07/01/16 07:30 HIV 1&2 Antibody Screen Negative 07/01/16 07:30 HIV P24 Antigen Negative 07/01/16 07:30 LABS NOTED. Assessment: 07/01/16 18:00 WITHDRAWAL SYMPTOMS. Plan: CONTINUE DETOX. ADVISED PATIENT TO FOLLOW-UP WITH MACHINE WOODWORKING SANDER AFTER DISCHARGE FROM DETOX FOR GENERAL MEDICAL ASSESSMENT AND FOR ABNORMAL ADMISSION LAB VALUES.
[2016-07-01] MEDS: THIAMINE HCL 100 MG TABLET (FP) PO SCH (22:28)
[2016-07-01] MEDS: ALBUTEROL SO4 6.7 GM HFA INHALER IH PRN (22:28)
[2016-07-01] MEDS: MONTELUKAST NA 10 MG TABLET PO SCH (22:28)
[2016-07-01] MEDS: diphenhydrAMINE HCL 50 MG CAPSULE PO PRN (22:29)
[2016-07-02] MEDS: chlordiazePOXIDE HCL 25 MG CAPSULE PO SCH ×2 (05:33→10:33)
[2016-07-02] MEDS: ALBUTEROL SO4 6.7 GM HFA INHALER IH PRN ×2 (06:08→22:31)
[2016-07-02] MEDS: BUDESONIDE/FORMETEROL FUMARATE 160/4.5 mcg INHALER IH SCH ×2 (10:32→22:31)
[2016-07-02] MEDS: PRENATAL VITAMINS W/ FOLIC ACID TABLET (FP) PO SCH (10:33)
[2016-07-02] MEDS: PANTOPRAZOLE 40 MG TABLET (FP) PO SCH (10:33)
[2016-07-02] MEDS: LIDOCAINE 5% TOPICAL PATCH TP SCH (10:34)
--- NOTE | 2016-07-02 13:04 | EKG ---
Test Reason : Blood Pressure : / mmHG Vent. Rate : 072 BPM Atrial Rate : 072 BPM P-R Int : 150 ms QRS Dur : 094 ms QT Int : 390 ms P-R-T Axes : 062 057 063 degrees QTc Int : 427 ms NORMAL SINUS RHYTHM WITH SINUS ARRHYTHMIA NORMAL ECG WHEN COMPARED WITH ECG OF 07-MAY-2016 21:00, VENT. RATE HAS DECREASED Confirmed by LISHA MORRISON MD ([id number]) on 07/02/2016 1:04:11 PM Referred By: Confirmed By:LISHA MORRISON MD
[2016-07-02] MEDS ORDERED: ONDANSETRON *ODT* 4 MG TABLET SL PRN (13:11)
--- NOTE | 2016-07-02 13:11 | PN ---
S CIWA - CIWA Score Nausea/Vomitin Muscle Tremors: 4-Moderate,w/Arms Extend Anxiety: 3 Agitation: 3 Paroxysmal Sweats: 3 Orientation: 0-Oriented Tacttile Disturbances: 0-None Auditory Disturbances: 0-None Visual Disturbances: 0-None Headache: 0-None Present CIWA-Ar Total Score: 15 S Progress Note (SOAP) Subjective: Sweating,interrupted sleep,restless,tremors,anxiety Objective: 07/02/16 13:10 Vital Signs - 8 hr 07/02/16 07/02/16 06:24 09:24 Temperature 96.3 F L 96.2 F L Pulse Rate 59 L 62 Respiratory 18 18 Rate Blood Pressure 117/80 115/82 Laboratory Tests 06/30/16 07/01/16 07/01/16 16:26 07:30 07:30 WBC 9.5 D RBC 4.33 Hgb 13.9 Hct 42.7 MCV 98.4 H MCHC 32.5 RDW 12.9 Plt Count 207 D MPV 9.3 D Sodium 142 Potassium 4.0 Chloride 107 Carbon Dioxide 26 Anion Gap 9 BUN 10 D Creatinine 1.1 Creat Clearance w eGFR > 60 Random Glucose 98 Calcium 8.6 Total Bilirubin 0.5 D AST 24 ALT 26 D Alkaline Phosphatase 78 Total Protein 6.6 Albumin 3.7 Urine Color Straw Urine Appearance Clear Urine pH 5.0 Ur Specific [place] < 1.005 L Urine Protein Negative Urine Glucose (UA) Negative Urine Ketones Negative Urine Blood Negative Urine Nitrite Negative Urine Bilirubin Negative Urine Urobilinogen Negative Ur Leukocyte Esterase Negative RPR Titer HIV 1&2 Antibody Screen HIV P24 Antigen 07/01/16 07/01/16 07:30 07:30 WBC RBC Hgb Hct MCV MCHC RDW Plt Count MPV Sodium Potassium Chloride Carbon Dioxide Anion Gap BUN Creatinine Creat Clearance w eGFR Random Glucose Calcium Total Bilirubin AST ALT Alkaline Phosphatase Total Protein Albumin Urine Color Urine Appearance Urine pH Ur Specific [place] Urine Protein Urine Glucose (UA) Urine Ketones Urine Blood Urine Nitrite Urine Bilirubin Urine Urobilinogen Ur Leukocyte Esterase RPR Titer Nonreactive HIV 1&2 Antibody Screen Negative HIV P24 Antigen Negative labs noted Assessment: 07/02/16 13:10 Withdrawal sx. Plan: Continue detox
[2016-07-02] MEDS: chlordiazePOXIDE 5 MG CAPSULE PO SCH ×2 (16:58→22:30)
[2016-07-02] MEDS: THIAMINE HCL 100 MG TABLET (FP) PO SCH (22:30)
[2016-07-02] MEDS: MONTELUKAST NA 10 MG TABLET PO SCH (22:30)
[2016-07-02] MEDS: diphenhydrAMINE HCL 50 MG CAPSULE PO PRN (22:33)
[2016-07-03] MEDS: chlordiazePOXIDE 5 MG CAPSULE PO SCH ×2 (05:45→10:33)
[2016-07-03] MEDS: guaiFENesin/D-METHORPHAN HB 10 ML UNIT-DOSE CUPS PO PRN (05:46)
[2016-07-03] MEDS: MENTHOL/PHENOL 1 EACH UD MM PRN ×3 (05:47→17:11)
[2016-07-03] MEDS: PRENATAL VITAMINS W/ FOLIC ACID TABLET (FP) PO SCH (10:33)
[2016-07-03] MEDS: BUDESONIDE/FORMETEROL FUMARATE 160/4.5 mcg INHALER IH SCH ×2 (10:33→22:14)
[2016-07-03] MEDS: PANTOPRAZOLE 40 MG TABLET (FP) PO SCH (10:33)
[2016-07-03] MEDS: LIDOCAINE 5% TOPICAL PATCH TP SCH (10:35)
[2016-07-03] MEDS: ALBUTEROL SO4 6.7 GM HFA INHALER IH PRN (10:36)
--- NOTE | 2016-07-03 10:53 | CONSULT ---
[facility] Psychiatric Consult - Data Date of interview: 07/03/16 Admission source: [facility] Identifying data: Another admission to [facility] for this 50 y/o AA male seeking detox treatment for alcohol and cocaine dependence.Patient is single,a father of two,domiciled,unemployed and supported on food stamps. Substance Abuse History: - Smoking Cessation. Smoking history: Current some day smoker. Have you smoked in the past 12 months: Yes. Aproximately how many cigarettes per day: 3. Cigars Per Day: 0. Hx Chewing Tobacco Use: No. Initiated information on smoking cessation: Yes. 'Breaking Loose' booklet given : 06/30/16 (give on floor). - Substance & Tx. History. Hx Alcohol Use: Yes. Hx Substance Use: Yes. Substance Use Type: Alcohol, Cocaine. Hx Substance Use Treatment: Yes (detox, rehab). - Substances Abused. Alcohol. Route: Oral. Frequency: Daily. Amount used: 2 pints liquor, 2 six packs beer. Age of first use: 14. Date of Last Use: 06/30/16. Cocaine. Route: Inhalation. Frequency: Daily. Amount used: $100. Age of first use: 23. Date of Last Use: 06/30/16. Confirmed by patient. Medical History: Bronchial asthma,hypertension,gastro-esophageal reflux disease, and lower back pain. Psychiatric History: Diagnosed with Bipolar Disorder and PTSD (2010).History of two psychiatric hospitalizations.Mr Solis reports that he does not visit psychiatrists/therapists for OPD care.He utilizes emergency room settings for medication refills.Prescribed lamictal 50 mg/day (last script on 06/15/16 @ [facility] [id number] [facility]) + paxil 20 mg/day and seroquel 400 mg/hs (confirmed by pharmacy claims of 06/15/2016).History of a suicide attempt (cutting-wrist) in 1989. Physical/Sexual Abuse/Trauma History: Patient denies. Additional Comment: Urine Drug Screen Results: CHANO-Cocaine Mental Status Exam - Mental Status Exam Alert and Oriented to: Time, Place, Person Cognitive Function: Good Patient Appearance: Well Groomed Mood: Withdrawn Affect: Appropriate, Normal Range Patient Behavior: Appropriate, Cooperative Speech Pattern: Clear, Appropriate Voice Loudness: Normal Thought Process: Goal Oriented Thought Disorder: Not Present Hallucinations: Denies Suicidal Ideation: Denies Homicidal Ideation: Denies Insight/Judgement: Fair Sleep: Poorly, Difficulty falling asleep Appetite: Good Muscle strength/Tone: Normal Gait/Station: Normal Psychiatric Findings - Problem List ([place] 1, 2,3) (1) Alcohol dependence with uncomplicated withdrawal Current Visit: Yes Status: Acute (2) Cocaine dependence, uncomplicated Current Visit: Yes Status: Acute (3) Nicotine dependence, uncomplicated Current Visit: Yes Status: Acute Qualifiers: Nicotine product type: cigarettes Qualified Code(s): F17.210 - Nicotine dependence, cigarettes, uncomplicated (4) Substance induced mood disorder Current Visit: Yes Status: Acute (5) Bipolar II disorder Current Visit: Yes Status: Chronic (6) History of seizure Current Visit: Yes Status: Chronic (7) Asthma Current Visit: Yes Status: Chronic Comment: . (8) Chronic back pain Current Visit: Yes Status: Chronic Qualifiers: Back pain location: low back pain Back pain laterality: bilateral Sciatica presence: without sciatica Qualified Code(s): M54.5 - Low back pain; G89.29 - Other chronic pain Comment: . (9) Essential hypertension Current Visit: Yes Status: Chronic (10) GERD (gastroesophageal reflux disease) Current Visit: Yes Status: Chronic Qualifiers: Esophagitis presence: esophagitis presence not specified Qualified Code(s): K21.9 - Gastro-esophageal reflux disease without esophagitis Comment: . (11) Insomnia Current Visit: Yes Status: Acute - Initial Treatment Plan Initial Treatment Plan: Psychoeducation.Detoxification.Medications : seroquel 400 mg po hs + paxil 20 mg po daily.Side effects/benefits of both drugs are discussed with patient.Lamictal not prescribed (patient is not consistent with adherence).Mr Solis is in agreement with this careplan.Observation.
[2016-07-03] MEDS: PARoxetine HCL 20 MG TABLET (FP) PO SCH (10:59)
--- NOTE | 2016-07-03 12:03 | PN ---
S Progress Note (SOAP) Subjective: "STILL FEELING SICK", NAUSEA, ANXIETY. Objective: 07/03/16 12:02 Vital Signs Temperature 96.3 F L 07/03/16 10:30 Pulse Rate 63 07/03/16 10:30 Respiratory Rate 16 07/03/16 10:30 Blood Pressure 126/77 07/03/16 10:30 O2 Sat by Pulse Oximetry (%) Laboratory Last Values WBC 9.5 K/mm3 (4.0-10.0) D 07/01/16 07:30 RBC 4.33 M/mm3 (4.00-5.60) 07/01/16 07:30 Hgb 13.9 GM/dL (11.7-16.9) 07/01/16 07:30 Hct 42.7 % (35.4-49) 07/01/16 07:30 MCV 98.4 fl (80-96) H 07/01/16 07:30 MCHC 32.5 g/dl (32.0-35.9) 07/01/16 07:30 RDW 12.9 % (11.9-15.9) 07/01/16 07:30 Plt Count 207 K/MM3 (134-434) D 07/01/16 07:30 MPV 9.3 fl (7.5-11.1) D 07/01/16 07:30 Sodium 142 mmol/L (136-145) 07/01/16 07:30 Potassium 4.0 mmol/L (3.5-5.1) 07/01/16 07:30 Chloride 107 mmol/L (98-107) 07/01/16 07:30 Carbon Dioxide 26 mmol/L (21-32) 07/01/16 07:30 Anion Gap 9 (8-16) 07/01/16 07:30 BUN 10 mg/dL (7-18) D 07/01/16 07:30 Creatinine 1.1 mg/dL (0.7-1.3) 07/01/16 07:30 Creat Clearance w eGFR > 60 (>60) 07/01/16 07:30 Random Glucose 98 mg/dL (74-106) 07/01/16 07:30 Calcium 8.6 mg/dL (8.5-10.1) 07/01/16 07:30 Total Bilirubin 0.5 mg/dL (0.2-1.0) D 07/01/16 07:30 AST 24 U/L (15-37) 07/01/16 07:30 ALT 26 U/L (12-78) D 07/01/16 07:30 Alkaline Phosphatase 78 U/L (45-117) 07/01/16 07:30 Total Protein 6.6 g/dl (6.4-8.2) 07/01/16 07:30 Albumin 3.7 g/dl (3.4-5.0) 07/01/16 07:30 Urine Color Straw 06/30/16 16:26 Urine Appearance Clear 06/30/16 16:26 Urine pH 5.0 (5.0-8.0) 06/30/16 16:26 Ur Specific [place] < 1.005 (1.005-1.025) L 06/30/16 16:26 Urine Protein Negative (NEGATIVE) 06/30/16 16:26 Urine Glucose (UA) Negative (NEGATIVE) 06/30/16 16:26 Urine Ketones Negative (NEGATIVE) 06/30/16 16:26 Urine Blood Negative (NEGATIVE) 06/30/16 16:26 Urine Nitrite Negative (NEGATIVE) 06/30/16 16:26 Urine Bilirubin Negative (NEGATIVE) 06/30/16 16:26 Urine Urobilinogen Negative E.U./dl (0.2-1.0) 06/30/16 16:26 Ur Leukocyte Esterase Negative (NEGATIVE) 06/30/16 16:26 RPR Titer Nonreactive (NONREACTIVE) 07/01/16 07:30 HIV 1&2 Antibody Screen Negative 07/01/16 07:30 HIV P24 Antigen Negative 07/01/16 07:30 Assessment: 07/03/16 12:02 WITHDRAWAL SX Plan: CONTINUE DETOX
[2016-07-03] MEDS: chlordiazePOXIDE HCL 10 MG CAPSULE PO SCH ×2 (17:10→22:13)
[2016-07-03] MEDS: QUEtiapine FUMARATE 400 MG TABLET PO SCH (22:13)
[2016-07-03] MEDS: MONTELUKAST NA 10 MG TABLET PO SCH (22:13)
[2016-07-03] MEDS: THIAMINE HCL 100 MG TABLET (FP) PO SCH (22:14)
[2016-07-04] MEDS: chlordiazePOXIDE HCL 10 MG CAPSULE PO SCH ×2 (05:43→10:30)
[2016-07-04] MEDS: PANTOPRAZOLE 40 MG TABLET (FP) PO SCH (10:30)
[2016-07-04] MEDS: BUDESONIDE/FORMETEROL FUMARATE 160/4.5 mcg INHALER IH SCH ×2 (10:30→22:51)
[2016-07-04] MEDS: LIDOCAINE 5% TOPICAL PATCH TP SCH (10:30)
[2016-07-04] MEDS: PRENATAL VITAMINS W/ FOLIC ACID TABLET (FP) PO SCH (10:30)
[2016-07-04] MEDS: PARoxetine HCL 20 MG TABLET (FP) PO SCH (10:30)
--- NOTE | 2016-07-04 14:02 | PN ---
BHS Progress Note (SOAP) Subjective: Interrupted sleep, Tremors, Diarrhea, Body Aches, Sweating. Objective: PT. A & O X 2 (DISORIENTED ABOUT DAY / DATE). 07/04/16 14:00 Vital Signs Temperature 96.6 F L 07/04/16 13:28 Pulse Rate 94 H 07/04/16 13:28 Respiratory Rate 18 07/04/16 13:28 Blood Pressure 115/78 07/04/16 13:28 O2 Sat by Pulse Oximetry (%) Laboratory Last Values WBC 9.5 K/mm3 (4.0-10.0) D 07/01/16 07:30 RBC 4.33 M/mm3 (4.00-5.60) 07/01/16 07:30 Hgb 13.9 GM/dL (11.7-16.9) 07/01/16 07:30 Hct 42.7 % (35.4-49) 07/01/16 07:30 MCV 98.4 fl (80-96) H 07/01/16 07:30 MCHC 32.5 g/dl (32.0-35.9) 07/01/16 07:30 RDW 12.9 % (11.9-15.9) 07/01/16 07:30 Plt Count 207 K/MM3 (134-434) D 07/01/16 07:30 MPV 9.3 fl (7.5-11.1) D 07/01/16 07:30 Sodium 142 mmol/L (136-145) 07/01/16 07:30 Potassium 4.0 mmol/L (3.5-5.1) 07/01/16 07:30 Chloride 107 mmol/L (98-107) 07/01/16 07:30 Carbon Dioxide 26 mmol/L (21-32) 07/01/16 07:30 Anion Gap 9 (8-16) 07/01/16 07:30 BUN 10 mg/dL (7-18) D 07/01/16 07:30 Creatinine 1.1 mg/dL (0.7-1.3) 07/01/16 07:30 Creat Clearance w eGFR > 60 (>60) 07/01/16 07:30 Random Glucose 98 mg/dL (74-106) 07/01/16 07:30 Calcium 8.6 mg/dL (8.5-10.1) 07/01/16 07:30 Total Bilirubin 0.5 mg/dL (0.2-1.0) D 07/01/16 07:30 AST 24 U/L (15-37) 07/01/16 07:30 ALT 26 U/L (12-78) D 07/01/16 07:30 Alkaline Phosphatase 78 U/L (45-117) 07/01/16 07:30 Total Protein 6.6 g/dl (6.4-8.2) 07/01/16 07:30 Albumin 3.7 g/dl (3.4-5.0) 07/01/16 07:30 Urine Color Straw 06/30/16 16:26 Urine Appearance Clear 06/30/16 16:26 Urine pH 5.0 (5.0-8.0) 06/30/16 16:26 Ur Specific [place] < 1.005 (1.005-1.025) L 06/30/16 16:26 Urine Protein Negative (NEGATIVE) 06/30/16 16:26 Urine Glucose (UA) Negative (NEGATIVE) 06/30/16 16:26 Urine Ketones Negative (NEGATIVE) 06/30/16 16:26 Urine Blood Negative (NEGATIVE) 06/30/16 16:26 Urine Nitrite Negative (NEGATIVE) 06/30/16 16:26 Urine Bilirubin Negative (NEGATIVE) 06/30/16 16:26 Urine Urobilinogen Negative E.U./dl (0.2-1.0) 06/30/16 16:26 Ur Leukocyte Esterase Negative (NEGATIVE) 06/30/16 16:26 RPR Titer Nonreactive (NONREACTIVE) 07/01/16 07:30 HIV 1&2 Antibody Screen Negative 07/01/16 07:30 HIV P24 Antigen Negative 07/01/16 07:30 LABS NOTED. Assessment: 07/04/16 14:01 WITHDRAWAL SYMPTOMS. Plan: CONTINUE DETOX. ADVISED PATIENT TO FOLLOW-UP WITH UX DESIGN MANAGER AFTER DISCHARGE FROM DETOX FOR GENERAL MEDICAL ASSESSMENT AND FOR ABNORMAL DETOX ADMISSION LAB VALUES.
[2016-07-04] MEDS: THIAMINE HCL 100 MG TABLET (FP) PO SCH (22:19)
[2016-07-04] MEDS: ALBUTEROL SO4 6.7 GM HFA INHALER IH PRN (22:19)
[2016-07-04] MEDS: QUEtiapine FUMARATE 400 MG TABLET PO SCH (22:19)
[2016-07-04] MEDS: MONTELUKAST NA 10 MG TABLET PO SCH (22:19)
[2016-07-04] MEDS: MENTHOL/PHENOL 1 EACH UD MM PRN (22:20)
[2016-07-05 06:20] VITALS: TEMP 95.7
[2016-07-05 09:42] VITALS: BP 118/83; PULSE 81
[2016-07-05] MEDS: PRENATAL VITAMINS W/ FOLIC ACID TABLET (FP) PO SCH (10:00)
[2016-07-05] MEDS: PARoxetine HCL 20 MG TABLET (FP) PO SCH (10:00)
[2016-07-05] MEDS: LIDOCAINE 5% TOPICAL PATCH TP SCH (11:14)
[2016-07-05] MEDS: BUDESONIDE/FORMETEROL FUMARATE 160/4.5 mcg INHALER IH SCH (11:15)
[2016-07-05] MEDS: PANTOPRAZOLE 40 MG TABLET (FP) PO SCH (11:16)
--- NOTE | 2016-07-05 12:23 | DS ---
[facility] Detox Discharge Summary Admission Date: 06/30/16 Discharge Date: 07/05/16 - History Present History: Alcohol Dependence, Cocaine Dependence Additional Comments: ADVISED PATIENT TO FOLLOW-UP WITH ANIMAL HEALTH TECHNICIAN AFTER DISCHARGE FROM DETOX FOR GENERAL MEDICAL ASSESSMENT AND FOR ABNORMAL DETOX ADMISSION LAB VALUES. Pertinent Past History: Asthma, Depression, GERD. - Physical Exam Results Vital Signs: Vital Signs Temperature 95.7 F L 07/05/16 09:41 Pulse Rate 81 07/05/16 09:41 Respiratory Rate 18 07/05/16 09:41 Blood Pressure 118/83 07/05/16 09:41 O2 Sat by Pulse Oximetry (%) Pertinent Admission Physical Exam Findings: WITHDRAWAL SYMPTOMS. Laboratory Last Values WBC 9.5 K/mm3 (4.0-10.0) D 07/01/16 07:30 RBC 4.33 M/mm3 (4.00-5.60) 07/01/16 07:30 Hgb 13.9 GM/dL (11.7-16.9) 07/01/16 07:30 Hct 42.7 % (35.4-49) 07/01/16 07:30 MCV 98.4 fl (80-96) H 07/01/16 07:30 MCHC 32.5 g/dl (32.0-35.9) 07/01/16 07:30 RDW 12.9 % (11.9-15.9) 07/01/16 07:30 Plt Count 207 K/MM3 (134-434) D 07/01/16 07:30 MPV 9.3 fl (7.5-11.1) D 07/01/16 07:30 Sodium 142 mmol/L (136-145) 07/01/16 07:30 Potassium 4.0 mmol/L (3.5-5.1) 07/01/16 07:30 Chloride 107 mmol/L (98-107) 07/01/16 07:30 Carbon Dioxide 26 mmol/L (21-32) 07/01/16 07:30 Anion Gap 9 (8-16) 07/01/16 07:30 BUN 10 mg/dL (7-18) D 07/01/16 07:30 Creatinine 1.1 mg/dL (0.7-1.3) 07/01/16 07:30 Creat Clearance w eGFR > 60 (>60) 07/01/16 07:30 Random Glucose 98 mg/dL (74-106) 07/01/16 07:30 Calcium 8.6 mg/dL (8.5-10.1) 07/01/16 07:30 Total Bilirubin 0.5 mg/dL (0.2-1.0) D 07/01/16 07:30 AST 24 U/L (15-37) 07/01/16 07:30 ALT 26 U/L (12-78) D 07/01/16 07:30 Alkaline Phosphatase 78 U/L (45-117) 07/01/16 07:30 Total Protein 6.6 g/dl (6.4-8.2) 07/01/16 07:30 Albumin 3.7 g/dl (3.4-5.0) 07/01/16 07:30 Urine Color Straw 06/30/16 16:26 Urine Appearance Clear 06/30/16 16:26 Urine pH 5.0 (5.0-8.0) 06/30/16 16:26 Ur Specific [place] < 1.005 (1.005-1.025) L 06/30/16 16:26 Urine Protein Negative (NEGATIVE) 06/30/16 16:26 Urine Glucose (UA) Negative (NEGATIVE) 06/30/16 16:26 Urine Ketones Negative (NEGATIVE) 06/30/16 16:26 Urine Blood Negative (NEGATIVE) 06/30/16 16:26 Urine Nitrite Negative (NEGATIVE) 06/30/16 16:26 Urine Bilirubin Negative (NEGATIVE) 06/30/16 16:26 Urine Urobilinogen Negative E.U./dl (0.2-1.0) 06/30/16 16:26 Ur Leukocyte Esterase Negative (NEGATIVE) 06/30/16 16:26 RPR Titer Nonreactive (NONREACTIVE) 07/01/16 07:30 HIV 1&2 Antibody Screen Negative 07/01/16 07:30 HIV P24 Antigen Negative 07/01/16 07:30 LABS NOTED. - Treatment Hospital Course: Detox Protocol Followed, Detoxed Safely, Responded well, Discharged Condition Good Patient has Accepted a Rehab Referral to: NO - 12-STEP / AA OUTPATIENT PROGRAMS RECOMMENDED. - Medication Discharge Medications: Ambulatory Orders Lamotrigine [Lamictal -] 50 mg PO DAILY #30 tablet 12/26/15 Quetiapine Fumarate [Seroquel -] 400 mg PO HS #30 tab 12/26/15 Pantoprazole Sodium [Protonix -] 40 mg PO DAILY #30 tablet.ec 05/11/16 Albuterol Sulfate Inhaler - [Ventolin HFA Inhaler -] 2 puff IH Q4H PRN #1 inhaler 05/17/16 Montelukast Na [Singulair -] 10 mg PO HS #30 tablet 05/17/16 Paroxetine HCl [Paxil -] 20 mg PO DAILY 06/30/16 Paroxetine HCl [Paxil] 20 mg PO DAILY #30 tablet 07/03/16 Quetiapine Fumarate [Seroquel -] 400 mg PO HS #30 tab 07/03/16 Budesonide/Formeterol Fumarate [SYMBICORT 160/4.5mcg -] 2 puff IH BID #1 inhaler 07/05/16 Fluticasone/Salmeterol [Advair 250-50 Diskus] 1 each IH BID #1 disk.w.dev - Diagnosis (1) Alcohol dependence with uncomplicated withdrawal Current Visit: Yes Status: Acute (2) Cocaine dependence, uncomplicated Current Visit: Yes Status: Acute (3) Insomnia Current Visit: Yes Status: Chronic Qualifiers: Insomnia type: unspecified Qualified Code(s): G47.00 - Insomnia, unspecified (4) Nicotine dependence, uncomplicated Current Visit: Yes Status: Chronic Qualifiers: Nicotine product type: cigarettes Qualified Code(s): F17.210 - Nicotine dependence, cigarettes, uncomplicated (5) Substance induced mood disorder Current Visit: Yes Status: Acute (6) Asthma Current Visit: Yes Status: Chronic (7) Bipolar II disorder Current Visit: Yes Status: Chronic (8) Chronic back pain Current Visit: Yes Status: Chronic Qualifiers: Back pain location: low back pain Back pain laterality: bilateral Sciatica presence: without sciatica Qualified Code(s): M54.5 - Low back pain; G89.29 - Other chronic pain (9) Essential hypertension Current Visit: Yes Status: Chronic (10) GERD (gastroesophageal reflux disease) Current Visit: Yes Status: Chronic Qualifiers: Esophagitis presence: esophagitis presence not specified Qualified Code(s): K21.9 - Gastro-esophageal reflux disease without esophagitis (11) History of seizure Current Visit: Yes Status: Chronic - AMA Did Patient Leave Against Medical Advice: No
== END 2016-07-05 12:20 | disposition home or self-care (01) | DRG 897 ==
LOC: YASAS 10:06 → Y3N 13:20
PROVIDERS: ADMIT Internal Medicine Addiction Medicine; ATTEND Internal Medicine Addiction Medicine
PROC: HZ2ZZZZ Detoxification Services for Substance Abuse Treatment (ICD-10-PCS; principal; 2016-07-05)
DX: F19.230 Other psychoactive substance dependence with withdrawal, uncomplicated (principal); F14.20 Cocaine dependence, uncomplicated; F31.81 Bipolar II disorder; F10.230 Alcohol dependence with withdrawal, uncomplicated; F17.210 Nicotine dependence, cigarettes, uncomplicated; F19.24 Other psychoactive substance dependence with psychoactive substance-induced mood disorder; G40.909 Epilepsy, unspecified, not intractable, without status epilepticus; G47.00 Insomnia, unspecified; J45.909 Unspecified asthma, uncomplicated; M54.5 Low back pain; G89.29 Other chronic pain; I10 Essential (primary) hypertension; K21.9 Gastro-esophageal reflux disease without esophagitis
CPT/HCPCS: 36415; 80053; 81003; 85027; 86593; 87389; 93005; 93010

== ENCOUNTER 2016-09-18 19:22 | Inpatient (IN) | payer OTHER ==
--- NOTE | 2016-09-18 20:13 | HP ---
CIWA Score - CIWA Score Nausea/Vomitin-Int. Nausea w/Dry Heave Muscle Tremors: 2 Anxiety: 3 Agitation: 1-Slight > Activity Paroxysmal Sweats: 3 Orientation: 1-Uncertain about Date Tacttile Disturbances: 0-None Auditory Disturbances: 1-Very Mild Visual Disturbances: 1-Very Mild Sensitivity Headache: 2-Mild CIWA-Ar Total Score: 18 Admission ROS BHS - HPI Chief Complaint: WITHDRAWAL SYMPTOMS Allergies/Adverse Reactions: Allergies Allergy/AdvReac Type Severity Reaction Status Date / Time No Known Drug Allergies Allergy Unknown Verified 06/30/16 12:58 pork derived (porcine) AdvReac Severe Vomiting Verified 06/30/16 12:58 History of Present Illness: 51 y.o. man with a history of drug and alcohol dependence is here seeking detox. He was last here in 07/05/16 for detox. He does not have a significant period of sobriety. Exam Limitations: No Limitations - Ebola screening Have you traveled outside of the country in the last 21 days: No (N) Have you had contact with anyone from an Ebola affected area: No Do you have a fever: No - Review of Systems Constitutional: Chills, Diaphoresis, Loss of Appetite, Night Sweats, Changes in sleep, Unexplained wgt Loss EENT: reports: Nose Congestion Respiratory: reports: Cough, Shortness of Breath, Wheezing Cardiac: reports: No Symptoms Reported GI: reports: Diarrhea, Nausea, Vomiting : reports: No Symptoms Reported Musculoskeletal: reports: Back Pain, Joint Pain, Neck Pain Integumentary: reports: No Symptoms Reported Neuro: reports: Headache, Tremors Endocrine: reports: No Symptoms Reported Hematology: reports: No Symptoms Reported Psychiatric: reports: Judgement Intact, Mood/Affect Appropiate, Orientated x3, Anxious, Depressed Other Systems: Reviewed and Negative Patient History - Patient Medical History Hx Anemia: No Hx Asthma: Yes Hx Chronic Obstructive Pulmonary Disease (COPD): No Hx Cancer: No Hx Cardiac Disorders: No Hx Congestive Heart Failure: No Hx Hypertension: No Hx Hypercholesterolemia: No Hx Pacemaker: No HX Cerebrovascular Accident: No Hx Seizures: Yes (6 months ago) Hx Dementia: No Hx Diabetes: No Hx Gastrointestinal Disorders: No Hx Liver Disease: No Hx Genitourinary Disorders: No Hx Sexually Transmitted Disorders: No Hx Renal Disease (ESRD): No Hx Thyroid Disease: No Hx Human Immunodeficiency Virus (HIV): No Hx Hepatitis C: No Hx Depression: Yes Hx Suicide Attempt: No Hx Bipolar Disorder: Yes (hospitalized 2016 [facility]) Hx Schizophrenia: No - Patient Surgical History Past Surgical History: No Hx Neurologic Surgery: No Hx Cataract Extraction: No Hx Cardiac Surgery: No Hx Lung Surgery: No Hx Breast Surgery: No Hx Breast Biopsy: No Hx Abdominal Surgery: No Hx Appendectomy: No Hx Cholecystectomy: No Hx Genitourinary Surgery: No Hx Section: No Hx Orthopedic Surgery: No Hx Hysterectomy: No Anesthesia Reaction: No - PPD History Previous Implant?: Yes Documented Results: Negative w/proof Implanted On Prior R Admission?: Yes Date: 12/26/15 Results: 0 mm PPD to be Administered?: No - Reproductive History Patient is a Female of Child Bearing Age (11 -55 yrs old): No - Smoking Cessation Smoking history: Current some day smoker Have you smoked in the past 12 months: Yes Aproximately how many cigarettes per day: 3 Cigars Per Day: 0 Hx Chewing Tobacco Use: No Initiated information on smoking cessation: Yes 'Breaking Loose' booklet given: 09/18/16 - Substance & Tx. History Hx Alcohol Use: Yes Hx Substance Use: Yes Substance Use Type: Alcohol, Cocaine Hx Substance Use Treatment: Yes (Detox here in 06/2016; Rehab in 04/2016 but left AMA ) - Substances Abused Alcohol Route: Oral Frequency: Daily Amount used: 1/5 of vodka and 2 6-packs of beer Age of first use: 15 Date of Last Use: 09/18/16 Cocaine Route: Inhalation Frequency: 1-2 times per week Amount used: $100 Age of first use: 22 Date of Last Use: 09/18/16 Family Disease History - Family Disease History Family Disease History: CA: Mother ( after gall bladdr op ca?), Other: Father (ALCOHOL; .), Son (2 adult sons) Admission Physical Exam BHS - Vital Signs Vital Signs: Last Vital Signs Temp Pulse Resp BP Pulse Ox 98.6 F 94 H 20 135/87 09/18/16 20:27 09/18/16 20:27 09/18/16 20:27 09/18/16 20:27 - Physical General Appearance: Yes: Disheveled, Tremorous, Irritable, Sweating, Anxious HEENTM: Yes: Hearing grossly Normal, Normal ENT Inspection, Normocephalic, Normal Voice, Tm's normal Respiratory: Yes: Wheezing Neck: Yes: No masses,lesions,Nodules, Trachea in good position Breast: Yes: Breast Exam Deferred Cardiology: Yes: Regular Rhythm, Regular Rate, S1, S2 Abdominal: Yes: Normal Bowel Sounds, Non Tender, Flat, Soft Genitourinary: Yes: Other (Denies any complaints) Back: Yes: Normal Inspection Musculoskeletal: Yes: Within Normal Limits Extremities: Yes: Normal Inspection, Normal Range of Motion, Non-Tender Neurological: Yes: roll mechanic II-XII NML intact, Alert, Normal Mood/Affect, Normal Response Integumentary: Yes: Normal Color, Dry, Warm Lymphatic: Yes: Within Normal Limits - Diagnostic (1) Alcohol dependence with uncomplicated withdrawal Current Visit: Yes Status: Chronic (2) Cocaine dependence, uncomplicated Current Visit: Yes Status: Chronic (3) Asthma Current Visit: Yes Status: Chronic Comment: . (4) Chronic back pain Current Visit: Yes Status: Chronic Qualifiers: Back pain location: low back pain Back pain laterality: bilateral Sciatica presence: without sciatica Qualified Code(s): M54.5 - Low back pain; G89.29 - Other chronic pain Comment: . (5) Nicotine dependence, uncomplicated Current Visit: No Status: Chronic Qualifiers: Nicotine product type: cigarettes Qualified Code(s): F17.210 - Nicotine dependence, cigarettes, uncomplicated Cleared for Admission S - Detox or Rehab [facility] Level of Care: Medically Managed Detox Regimen/Protocol: Librium [facility] Breath Alcohol Content Breath Alcohol Content: 0.095 Vital Signs - Vital Signs Vital Signs Refused: No Temperature: 98.6 F Temperature Source: Oral Pulse Rate: 94 Respiratory Rate: 20 Blood Pressure: 135/87 BP Location: Left Arm Blood Pressure Position: Sitting - Height Height: 5 ft 9 in - Weight Weight: 182 lb Weight Measurement Method: Standing Scale Body Mass Index (BMI): 26.9 - Bowel Function Bowel Movement: No Urine Drug Screen - Test Device Lot Number: [id number] Expiration Date: 05/17/18 - Control Is Test Valid: Yes - Results Drug Screen Negative: No Urine Drug Screen Results: CHANO-Cocaine
[2016-09-18] MEDS ORDERED: guaiFENesin/D-METHORPHAN HB 10 ML UNIT-DOSE CUPS PO PRN (20:17)
[2016-09-18] MEDS ORDERED: MAGNESIUM CITRATE 300 ML BOTTLE PO PRN (20:17)
[2016-09-18] MEDS ORDERED: diphenhydrAMINE HCL 50 MG CAPSULE PO PRN (20:17)
[2016-09-18] MEDS ORDERED: MAG HYDROX/AL HYDROX/SIMETH 30 ML UNIT-DOSE CUP PO PRN (20:17)
[2016-09-18] MEDS ORDERED: hydrOXYzine PAMOATE 50 MG CAPSULE (FP) PO PRN (20:17)
[2016-09-18] MEDS ORDERED: P-EPHED 60MG/TRIPROLIDI 2.5MG TABLET PO PRN (20:17)
[2016-09-18] MEDS ORDERED: chlordiazePOXIDE HCL 25 MG CAPSULE PO PRN (20:17)
[2016-09-18] MEDS ORDERED: LOPERAMIDE HCL 2 MG CAPSULE PO PRN (20:17)
[2016-09-18] MEDS ORDERED: MENTHOL/PHENOL 1 EACH UD MM PRN (20:17)
[2016-09-18] MEDS ORDERED: ACETAMINOPHEN 325 MG TABLET (FP) PO PRN (20:17)
[2016-09-18] MEDS ORDERED: IBUPROFEN 400 MG TABLET (FP) PO PRN (20:17)
[2016-09-18] MEDS ORDERED: MAGNESIUM HYDROX 2400MG/30ML ORAL SUSPENSION 30 ML CUP PO PRN (20:17)
[2016-09-18] MEDS ORDERED: NICOTINE POLACRILEX 2 MG GUM BC PRN (20:17)
[2016-09-18] MEDS ORDERED: chlordiazePOXIDE HCL 25 MG CAPSULE PO ONE (20:17)
[2016-09-18] MEDS ORDERED: ALBUTEROL SO4 6.7 GM HFA INHALER IH PRN (20:20)
[2016-09-18 20:27] VITALS: BMI 26.9
[2016-09-18] MEDS: THIAMINE HCL 100 MG TABLET (FP) PO SCH (21:49)
[2016-09-18] MEDS: MONTELUKAST NA 10 MG TABLET PO SCH (21:49)
[2016-09-18] MEDS ORDERED: ALBUTEROL SO4 2.5/IPRATROPIUM 0.5 INH SOL 3 ML VIAL.NEB. NEB PRN (22:12)
[2016-09-18] MEDS: chlordiazePOXIDE HCL 25 MG CAPSULE PO SCH (22:32)
[2016-09-18] MEDS: BUDESONIDE/FORMETEROL FUMARATE 160/4.5 mcg INHALER IH SCH (23:08)
[2016-09-18 23:38] LABS: URINE APPEARANCE CLEAR; URINE BILIRUBIN NEGATIVE (NEGATIVE); URINE BLOOD NEGATIVE (NEGATIVE); URINE COLOR STRAW; URINE GLUCOSE (UA) NEGATIVE (NEGATIVE); URINE KETONE NEGATIVE (NEGATIVE); URINE LEUK ESTERASE NEGATIVE (NEGATIVE); URINE NITRITE NEGATIVE (NEGATIVE); URINE PROTEIN NEGATIVE (NEGATIVE); URINE UROBILINOGEN NEGATIVE mg/dL (0.2-1.0)
[2016-09-19] MEDS: chlordiazePOXIDE HCL 25 MG CAPSULE PO SCH ×4 (05:53→22:02)
[2016-09-19] MEDS: BUDESONIDE/FORMETEROL FUMARATE 160/4.5 mcg INHALER IH SCH ×2 (10:07→22:02)
[2016-09-19] MEDS: PANTOPRAZOLE 40 MG TABLET (FP) PO SCH (10:08)
[2016-09-19] MEDS: PRENATAL VITAMINS W/ FOLIC ACID TABLET (FP) PO SCH (10:08)
[2016-09-19 10:13] LABS: ALBUMIN 4.4 g/dl (3.4-5.0); ALK PHOS 126 U/L (45-117); ANION GAP 10 (8-16); BILIRUBIN,TOTAL 0.8 mg/dL (0.2-1.0); CALCIUM 8.8 mg/dL (8.5-10.1); CO2 23 mmol/L (21-32); CREATININE 1.1 mg/dL (0.7-1.3); GLUCOSE,RANDOM 89 mg/dL (74-106); SGOT/AST 19 U/L (15-37); SGPT/ALT 26 U/L (12-78); TOT PROT 7.5 g/dl (6.4-8.2)
[2016-09-19 10:27] LABS: MCH 31.3 pg (25.7-33.7); MCHC 32.8 g/dl (32.0-35.9); MEAN CELL VOLUME 95.6 fl (80-96); MEAN PLT VOLUME 8.8 fl (7.5-11.1); PLATELET COUNT 169 K/MM3 (134-434); RDW 12.6 % (11.9-15.9); WHITE BLOOD COUNT 9.5 K/mm3 (4.0-10.0)
--- NOTE | 2016-09-19 11:25 | PN ---
S CIWA - CIWA Score Nausea/Vomitin Muscle Tremors: 3 Anxiety: 3 Agitation: 0-Normal Activity Paroxysmal Sweats: 2 Orientation: 0-Oriented Tacttile Disturbances: 0-None Auditory Disturbances: 0-None Visual Disturbances: 2-Mild Sensitivity Headache: 4-Moderately Severe CIWA-Ar Total Score: 19 BHS Progress Note (SOAP) Subjective: Tremors, Vomiting, Diarrhea, Fatigue, Interrupted Sleep, Sweating. Objective: PT. A & O X 3. NO ACUTE DISTRESS. PT. DENIES CHEST PAIN. WHEEZING AUSCULTATED IN LUNGS BILATERALLY. 09/19/16 11:23 Vital Signs Temperature 98.3 F 09/19/16 09:00 Pulse Rate 91 H 09/19/16 09:00 Respiratory Rate 20 09/19/16 09:00 Blood Pressure 126/91 09/19/16 09:00 O2 Sat by Pulse Oximetry (%) Laboratory Tests 09/18/16 09/19/16 09/19/16 21:23 06:30 06:30 WBC 9.5 RBC 4.95 Hgb 15.5 D Hct 47.3 MCV 95.6 MCH 31.3 MCHC 32.8 RDW 12.6 Plt Count 169 MPV 8.8 Sodium 136 Potassium 4.3 Chloride 103 Carbon Dioxide 23 Anion Gap 10 BUN 11 Creatinine 1.1 Creat Clearance w eGFR > 60 Random Glucose 89 Calcium 8.8 Total Bilirubin 0.8 D AST 19 D ALT 26 Alkaline Phosphatase 126 H D Total Protein 7.5 Albumin 4.4 Urine Color Straw Urine Appearance Clear Urine pH 5.0 Urine Protein Negative Urine Glucose (UA) Negative Urine Ketones Negative Urine Blood Negative Urine Nitrite Negative Urine Bilirubin Negative Urine Urobilinogen Negative Ur Leukocyte Esterase Negative LABS NOTED. 09/19/16 11:28 Assessment: 09/19/16 11:24 WITHDRAWAL SYMPTOMS. Plan: CONTINUE DETOX. PRN IMMODIUM FOR DIARRHEA.
--- NOTE | 2016-09-19 11:46 | CONSULT ---
[facility] Psychiatric Consult - Data Date of interview: 09/19/16 Admission source: [facility] Identifying data: Readmission to [facility] for this 51 y/o AA male seeking detox treatment on for alcohol and cocaine dependence.Patient is single, a father of two,domiciled,unemployed and supported on food stamps. Substance Abuse History: Discussed in detail with the patient in this interview.Mr Solis remains consistent about this pattern of substance use reported at [facility] : Smoking Cessation. Smoking history: Current some day smoker. Have you smoked in the past 12 months: Yes. Aproximately how many cigarettes per day: 3. Cigars Per Day: 0. Hx Chewing Tobacco Use: No. Initiated information on smoking cessation: Yes. 'Breaking Loose' booklet given : 09/18/16. - Substance & Tx. History. Hx Alcohol Use: Yes. Hx Substance Use : Yes. Substance Use Type: Alcohol, Cocaine. Hx Substance Use Treatment: Yes ( Detox here in 06/2016; Rehab in 04/2016 but left AMA ). - Substances Abused. * * Alcohol. Route: Oral. Frequency: Daily. Amount used: 1/5 of vodka and 2 6- packs of beer. Age of first use: 15. Date of Last Use: 09/18/16. Cocaine. Route: Inhalation. Frequency: 1-2 times per week. Amount used: $100. Age of first use: 22. Date of Last Use: 09/18/16 Medical History: Remarkable for bronchial asthma,hypertension,gastro-esophageal reflux disease and lower back pain. Psychiatric History: Patient admits to a history of two psychiatric hospitalizations ([facility]).Diagnosed with Bipolar Disorder and PTSD (2010).No regular OPD care.Mr Solis continues to utilize local emergency room settings for medication refills.He states that he is on paxil,seroquel and lamictal.Took his medications two days ago (questionable account).When pressed for details,the patient replied that he " used leftover medications " from previous refills.Review of recent pharmacy claims indicates 07/03/16 as the last date when scripts were filled for paxil and seroquel.History of a suicide attempt (cutting-wrist) in 1989. Physical/Sexual Abuse/Trauma History: Patient denies. Additional Comment: Urine Drug Screen Results: CHANO-Cocaine.Noted. Mental Status Exam - Mental Status Exam Alert and Oriented to: Time, Place, Person Cognitive Function: Good Patient Appearance: Well Groomed Mood: Withdrawn Affect: Appropriate, Normal Range Patient Behavior: Appropriate, Cooperative Speech Pattern: Clear Voice Loudness: Normal Thought Process: Goal Oriented Thought Disorder: Not Present Hallucinations: Denies Suicidal Ideation: Denies Homicidal Ideation: Denies Insight/Judgement: Poor Sleep: Poorly, Difficulty falling asleep Appetite: Good Muscle strength/Tone: Normal Gait/Station: Normal Psychiatric Findings - Problem List ([place] 1, 2,3) (1) Alcohol dependence with uncomplicated withdrawal Current Visit: Yes Status: Acute (2) Cocaine dependence, uncomplicated Current Visit: Yes Status: Acute (3) Nicotine dependence, uncomplicated Current Visit: Yes Status: Acute Qualifiers: Nicotine product type: cigarettes Qualified Code(s): F17.210 - Nicotine dependence, cigarettes, uncomplicated (4) Substance induced mood disorder Current Visit: Yes Status: Acute (5) MDD (major depressive disorder) Current Visit: No Status: Chronic Comment: History. (6) Asthma Current Visit: Yes Status: Chronic Comment: . (7) Chronic back pain Current Visit: Yes Status: Chronic Qualifiers: Back pain location: low back pain Back pain laterality: bilateral Sciatica presence: without sciatica Qualified Code(s): M54.5 - Low back pain; G89.29 - Other chronic pain Comment: . (8) GERD (gastroesophageal reflux disease) Current Visit: Yes Status: Chronic Qualifiers: Esophagitis presence: esophagitis presence not specified Qualified Code(s): K21.9 - Gastro-esophageal reflux disease without esophagitis Comment: . (9) Insomnia Current Visit: Yes Status: Chronic Qualifiers: Insomnia type: unspecified Qualified Code(s): G47.00 - Insomnia, unspecified - Initial Treatment Plan Initial Treatment Plan: Psychoeducation.Detoxification.Medications : seroquel 200 mg po hs (reduced dose) + paxil 20 mg po daily.Side effects/benefits discussed with the patient.He is in agreement with careplan.Observation.
[2016-09-19] MEDS: guaiFENesin 600 MG TABLET.ER (FP) PO SCH ×2 (12:12→22:02)
[2016-09-19 12:27] LABS: HIV 1 & 2 AB NEGATIVE; HIV 1 AGp24 NEGATIVE
--- NOTE | 2016-09-19 12:56 | EKG ---
Test Reason : Blood Pressure : / mmHG Vent. Rate : 076 BPM Atrial Rate : 076 BPM P-R Int : 150 ms QRS Dur : 076 ms QT Int : 384 ms P-R-T Axes : 062 065 070 degrees QTc Int : 432 ms NORMAL SINUS RHYTHM WITH SINUS ARRHYTHMIA NORMAL ECG WHEN COMPARED WITH ECG OF 30-JUN-2016 13:57, NO SIGNIFICANT CHANGE WAS FOUND Confirmed by EVERETTE LACEY MD ([id number]) on 09/19/2016 12:55:41 PM Referred By: Confirmed By:EVERETTE LACEY MD
[2016-09-19] MEDS: MONTELUKAST NA 10 MG TABLET PO SCH (22:02)
[2016-09-19] MEDS: THIAMINE HCL 100 MG TABLET (FP) PO SCH (22:02)
[2016-09-19] MEDS: QUEtiapine FUMARATE 200 MG TABLET PO SCH (22:02)
[2016-09-20] MEDS: chlordiazePOXIDE HCL 25 MG CAPSULE PO SCH ×3 (05:32→17:46)
[2016-09-20] MEDS: PARoxetine HCL 20 MG TABLET (FP) PO SCH (10:05)
[2016-09-20] MEDS: PRENATAL VITAMINS W/ FOLIC ACID TABLET (FP) PO SCH (10:05)
[2016-09-20] MEDS: PANTOPRAZOLE 40 MG TABLET (FP) PO SCH (10:06)
[2016-09-20] MEDS: guaiFENesin 600 MG TABLET.ER (FP) PO SCH ×2 (10:06→22:07)
[2016-09-20] MEDS: BUDESONIDE/FORMETEROL FUMARATE 160/4.5 mcg INHALER IH SCH ×2 (10:08→22:09)
--- NOTE | 2016-09-20 11:49 | PN ---
S CIWA - CIWA Score Nausea/Vomitin Muscle Tremors: 3 Anxiety: 4-Mod. Anxious/Guarded Agitation: 0-Normal Activity Paroxysmal Sweats: 1-Minimal Palms Moist Orientation: 0-Oriented Tacttile Disturbances: 0-None Auditory Disturbances: 0-None Visual Disturbances: 0-None Headache: 4-Moderately Severe CIWA-Ar Total Score: 15 S Progress Note (SOAP) Subjective: Nausea, Tremors, Interrupted sleep, H/A, Diarrhea. Objective: PT. A & O X 3. NO ACUTE DISTRESS. 09/20/16 11:49 Vital Signs Temperature 97.8 F 09/20/16 09:27 Pulse Rate 97 H 09/20/16 09:27 Respiratory Rate 20 09/20/16 09:27 Blood Pressure 114/88 09/20/16 09:27 O2 Sat by Pulse Oximetry (%) Laboratory Tests 09/18/16 09/18/16 09/19/16 06:30 21:23 06:30 WBC 9.5 RBC 4.95 Hgb 15.5 D Hct 47.3 MCV 95.6 MCH 31.3 MCHC 32.8 RDW 12.6 Plt Count 169 MPV 8.8 Sodium Potassium Chloride Carbon Dioxide Anion Gap BUN Creatinine Creat Clearance w eGFR Random Glucose Calcium Total Bilirubin AST ALT Alkaline Phosphatase Total Protein Albumin Urine Color Straw Urine Appearance Clear Urine pH 5.0 Ur Specific [place] <= 1.005 Urine Protein Negative Urine Glucose (UA) Negative Urine Ketones Negative Urine Blood Negative Urine Nitrite Negative Urine Bilirubin Negative Urine Urobilinogen Negative Ur Leukocyte Esterase Negative RPR Titer Hepatitis C Antibody <0.1 HIV 1&2 Antibody Screen HIV P24 Antigen 09/19/16 09/19/16 09/19/16 06:30 06:30 06:30 WBC RBC Hgb Hct MCV MCH MCHC RDW Plt Count MPV Sodium 136 Potassium 4.3 Chloride 103 Carbon Dioxide 23 Anion Gap 10 BUN 11 Creatinine 1.1 Creat Clearance w eGFR > 60 Random Glucose 89 Calcium 8.8 Total Bilirubin 0.8 D AST 19 D ALT 26 Alkaline Phosphatase 126 H D Total Protein 7.5 Albumin 4.4 Urine Color Urine Appearance Urine pH Ur Specific [place] Urine Protein Urine Glucose (UA) Urine Ketones Urine Blood Urine Nitrite Urine Bilirubin Urine Urobilinogen Ur Leukocyte Esterase RPR Titer Nonreactive Hepatitis C Antibody HIV 1&2 Antibody Screen Negative HIV P24 Antigen Negative LABS NOTED. Assessment: 09/20/16 11:50 WITHDRAWAL SYMPTOMS. Plan: CONTINUE DETOX.
[2016-09-20] MEDS: THIAMINE HCL 100 MG TABLET (FP) PO SCH (22:07)
[2016-09-20] MEDS: QUEtiapine FUMARATE 200 MG TABLET PO SCH (22:07)
[2016-09-20] MEDS: chlordiazePOXIDE 5 MG CAPSULE PO SCH (22:07)
[2016-09-20] MEDS: MONTELUKAST NA 10 MG TABLET PO SCH (22:07)
[2016-09-21] MEDS: chlordiazePOXIDE 5 MG CAPSULE PO SCH ×3 (05:26→17:39)
[2016-09-21] MEDS: PRENATAL VITAMINS W/ FOLIC ACID TABLET (FP) PO SCH (10:04)
[2016-09-21] MEDS: PANTOPRAZOLE 40 MG TABLET (FP) PO SCH (10:04)
[2016-09-21] MEDS: PARoxetine HCL 20 MG TABLET (FP) PO SCH (10:04)
[2016-09-21] MEDS: BUDESONIDE/FORMETEROL FUMARATE 160/4.5 mcg INHALER IH SCH ×2 (10:05→22:03)
[2016-09-21] MEDS: guaiFENesin 600 MG TABLET.ER (FP) PO SCH ×2 (10:06→22:54)
--- NOTE | 2016-09-21 12:23 | PN ---
BHS Progress Note (SOAP) Subjective: Interrupted Sleep, Diarrhea, Body Aches, Sweating. Objective: PT. A & O X 3. NO ACUTE DISTRESS. 09/21/16 12:22 Vital Signs Temperature 97.5 F L 09/21/16 09:53 Pulse Rate 78 09/21/16 09:53 Respiratory Rate 18 09/21/16 09:53 Blood Pressure 119/82 09/21/16 09:53 O2 Sat by Pulse Oximetry (%) Laboratory Tests 09/18/16 09/18/16 09/19/16 06:30 21:23 06:30 WBC 9.5 RBC 4.95 Hgb 15.5 D Hct 47.3 MCV 95.6 MCH 31.3 MCHC 32.8 RDW 12.6 Plt Count 169 MPV 8.8 Sodium Potassium Chloride Carbon Dioxide Anion Gap BUN Creatinine Creat Clearance w eGFR Random Glucose Calcium Total Bilirubin AST ALT Alkaline Phosphatase Total Protein Albumin Urine Color Straw Urine Appearance Clear Urine pH 5.0 Ur Specific [place] <= 1.005 Urine Protein Negative Urine Glucose (UA) Negative Urine Ketones Negative Urine Blood Negative Urine Nitrite Negative Urine Bilirubin Negative Urine Urobilinogen Negative Ur Leukocyte Esterase Negative RPR Titer Hepatitis C Antibody <0.1 HIV 1&2 Antibody Screen HIV P24 Antigen 09/19/16 09/19/16 09/19/16 06:30 06:30 06:30 WBC RBC Hgb Hct MCV MCH MCHC RDW Plt Count MPV Sodium 136 Potassium 4.3 Chloride 103 Carbon Dioxide 23 Anion Gap 10 BUN 11 Creatinine 1.1 Creat Clearance w eGFR > 60 Random Glucose 89 Calcium 8.8 Total Bilirubin 0.8 D AST 19 D ALT 26 Alkaline Phosphatase 126 H D Total Protein 7.5 Albumin 4.4 Urine Color Urine Appearance Urine pH Ur Specific [place] Urine Protein Urine Glucose (UA) Urine Ketones Urine Blood Urine Nitrite Urine Bilirubin Urine Urobilinogen Ur Leukocyte Esterase RPR Titer Nonreactive Hepatitis C Antibody HIV 1&2 Antibody Screen Negative HIV P24 Antigen Negative LABS NOTED. Assessment: 09/21/16 12:22 WITHDRAWAL SYMPTOMS. Plan: CONTINUE DETOX.
[2016-09-21] MEDS: QUEtiapine FUMARATE 200 MG TABLET PO SCH (22:03)
[2016-09-21] MEDS: THIAMINE HCL 100 MG TABLET (FP) PO SCH (22:03)
[2016-09-21] MEDS: MONTELUKAST NA 10 MG TABLET PO SCH (22:03)
[2016-09-21] MEDS: chlordiazePOXIDE HCL 10 MG CAPSULE PO SCH (22:05)
[2016-09-22] MEDS: chlordiazePOXIDE HCL 10 MG CAPSULE PO SCH ×2 (05:50→10:11)
[2016-09-22] MEDS: BUDESONIDE/FORMETEROL FUMARATE 160/4.5 mcg INHALER IH SCH (10:09)
[2016-09-22] MEDS: PARoxetine HCL 20 MG TABLET (FP) PO SCH (10:09)
[2016-09-22] MEDS: PRENATAL VITAMINS W/ FOLIC ACID TABLET (FP) PO SCH (10:09)
[2016-09-22] MEDS: guaiFENesin 600 MG TABLET.ER (FP) PO SCH (10:11)
[2016-09-22 10:12] VITALS: BP 119/83; PULSE 69; TEMP 97.2
[2016-09-22] MEDS: PANTOPRAZOLE 40 MG TABLET (FP) PO SCH (10:12)
--- NOTE | 2016-09-23 11:20 | DS ---
[facility] Detox Discharge Summary Admission Date: 09/18/16 Discharge Date: 09/22/16 - History Present History: Alcohol Dependence, Cocaine Dependence Additional Comments: PATIENT DECLINES REFERRAL TO REHAB AND ELECTS TO GO HOME. PATIENT ADVISED TO FOLLOW-UP WITH LOCAL 12-STEP / AA OUTPATIENT PROGRAMS FOR FOLLOW-UP AFTERCARE. PATIENT DISCHARGED FROM UNIT IN STABLE MEDICAL CONDITION. Pertinent Past History: Asthma, GERD, History of Seizures, Depression, Bipolar disorder, Insomnia. - Physical Exam Results Vital Signs: Vital Signs Temperature 97.2 F L 09/22/16 10:11 Pulse Rate 69 09/22/16 10:11 Respiratory Rate 18 09/22/16 10:11 Blood Pressure 119/83 09/22/16 10:11 O2 Sat by Pulse Oximetry (%) Pertinent Admission Physical Exam Findings: WITHDRAWAL SYMPTOMS. Laboratory Tests 09/18/16 09/18/16 09/19/16 06:30 21:23 06:30 WBC 9.5 RBC 4.95 Hgb 15.5 D Hct 47.3 MCV 95.6 MCH 31.3 MCHC 32.8 RDW 12.6 Plt Count 169 MPV 8.8 Sodium Potassium Chloride Carbon Dioxide Anion Gap BUN Creatinine Creat Clearance w eGFR Random Glucose Calcium Total Bilirubin AST ALT Alkaline Phosphatase Total Protein Albumin Urine Color Straw Urine Appearance Clear Urine pH 5.0 Ur Specific [place] <= 1.005 Urine Protein Negative Urine Glucose (UA) Negative Urine Ketones Negative Urine Blood Negative Urine Nitrite Negative Urine Bilirubin Negative Urine Urobilinogen Negative Ur Leukocyte Esterase Negative RPR Titer Hepatitis C Antibody <0.1 HIV 1&2 Antibody Screen HIV P24 Antigen 09/19/16 09/19/16 09/19/16 06:30 06:30 06:30 WBC RBC Hgb Hct MCV MCH MCHC RDW Plt Count MPV Sodium 136 Potassium 4.3 Chloride 103 Carbon Dioxide 23 Anion Gap 10 BUN 11 Creatinine 1.1 Creat Clearance w eGFR > 60 Random Glucose 89 Calcium 8.8 Total Bilirubin 0.8 D AST 19 D ALT 26 Alkaline Phosphatase 126 H D Total Protein 7.5 Albumin 4.4 Urine Color Urine Appearance Urine pH Ur Specific [place] Urine Protein Urine Glucose (UA) Urine Ketones Urine Blood Urine Nitrite Urine Bilirubin Urine Urobilinogen Ur Leukocyte Esterase RPR Titer Nonreactive Hepatitis C Antibody HIV 1&2 Antibody Screen Negative HIV P24 Antigen Negative LABS NOTED. - Treatment Hospital Course: Detox Protocol Followed, Detoxed Safely, Responded well, Discharged Condition Good Patient has Accepted a Rehab Referral to: PT. ELECTING TO GO HOME; ADVISED TO FOLLOW-UP WITH LOCAL 12-STEP/AA PROGRAM - Medication Discharge Medications: Ambulatory Orders Lamotrigine [Lamictal -] 50 mg PO DAILY #30 tablet 12/26/15 Paroxetine HCl [Paxil] 20 mg PO DAILY #30 tablet 07/03/16 Quetiapine Fumarate [Seroquel -] 400 mg PO HS #30 tab 07/03/16 Paroxetine HCl [Paxil -] 20 mg PO DAILY #30 tablet 09/19/16 Quetiapine Fumarate [Seroquel -] 300 mg PO HS #30 tab 09/19/16 Albuterol Sulfate Inhaler - [Ventolin HFA Inhaler -] 2 puff IH Q4H PRN #1 inhaler 09/22/16 Budesonide/Formeterol Fumarate [SYMBICORT 160/4.5mcg -] 2 puff IH BID #1 inhaler 09/22/16 Fluticasone/Salmeterol [Advair 250-50 Diskus] 1 each IH BID #1 disk.w.dev Montelukast Na [Singulair -] 10 mg PO HS #30 tablet 09/22/16 Pantoprazole Sodium [Protonix -] 40 mg PO DAILY #30 tablet.ec 09/22/16 - Diagnosis (1) Alcohol dependence with uncomplicated withdrawal Status: Acute (2) Cocaine dependence, uncomplicated Status: Acute (3) Nicotine dependence, uncomplicated Status: Chronic Qualifiers: Nicotine product type: cigarettes Qualified Code(s): F17.210 - Nicotine dependence, cigarettes, uncomplicated (4) Substance induced mood disorder Status: Acute (5) Asthma Status: Chronic (6) Chronic back pain Status: Chronic Qualifiers: Back pain location: low back pain Back pain laterality: bilateral Sciatica presence: without sciatica Qualified Code(s): M54.5 - Low back pain; G89.29 - Other chronic pain (7) Essential hypertension Status: Chronic (8) GERD (gastroesophageal reflux disease) Status: Chronic Qualifiers: Esophagitis presence: esophagitis presence not specified Qualified Code(s): K21.9 - Gastro-esophageal reflux disease without esophagitis (9) History of seizure Status: Chronic (10) Insomnia Status: Chronic Qualifiers: Insomnia type: unspecified Qualified Code(s): G47.00 - Insomnia, unspecified (11) MDD (major depressive disorder) Status: Chronic Qualifiers: Major depression recurrence: recurrent Active/Remission status: remission status unspecified Qualified Code(s): F33.9 - Major depressive disorder, recurrent, unspecified - AMA Did Patient Leave Against Medical Advice: No
== END 2016-09-22 10:50 | disposition home or self-care (01) | DRG 897 ==
LOC: YASAS 19:22 → Y3N 20:54
PROVIDERS: ADMIT Internal Medicine; ATTEND Internal Medicine
PROC: HZ2ZZZZ Detoxification Services for Substance Abuse Treatment (ICD-10-PCS; principal; 2016-09-18)
DX: F19.230 Other psychoactive substance dependence with withdrawal, uncomplicated (principal); F14.20 Cocaine dependence, uncomplicated; F33.9 Major depressive disorder, recurrent, unspecified; F10.230 Alcohol dependence with withdrawal, uncomplicated; F17.210 Nicotine dependence, cigarettes, uncomplicated; F19.24 Other psychoactive substance dependence with psychoactive substance-induced mood disorder; I10 Essential (primary) hypertension; J45.909 Unspecified asthma, uncomplicated; M54.5 Low back pain; G89.29 Other chronic pain; K21.9 Gastro-esophageal reflux disease without esophagitis; G47.00 Insomnia, unspecified; Z86.69 Personal history of other diseases of the nervous system and sense organs
CPT/HCPCS: 36415; 80053; 81003; 85027; 86593; 86803; 87389; 93005; 93010

== ENCOUNTER 2018-04-25 14:33 | Inpatient (IN) | payer OTHER ==
[2018-04-25 16:36] VITALS: BMI 23.6
--- NOTE | 2018-04-25 23:31 | HP ---
CIWA Score Nausea/Vomitin-Int. Nausea w/Dry Heave Muscle Tremors: 4-Moderate,w/Arms Extend Anxiety: 3 Agitation: 3 Paroxysmal Sweats: 3 Orientation: 0-Oriented Tacttile Disturbances: 0-None Auditory Disturbances: 0-None Visual Disturbances: 0-None Headache: 2-Mild CIWA-Ar Total Score: 19 - Admission Criteria OASAS Guidelines: Admission for Medically Managed Detox: Requires at least one of the followin. CIWA greater than 12 2. Seizures within the past 24 hours 3. Delirium tremens within the past 24 hours 4. Hallucinations within the past 24 hours 5. Acute intervention needed for co occurring medical disorder 6. Acute intervention needed for co occurring psychiatric disorder 7. Severe withdrawal that cannot be handled at a lower level of care (continued vomiting, continued diarrhea, abnormal vital signs) requiring intravenous medication and/or fluids 8. Patient presents the following: CIWA greater than 12 Admission Criteria Met: Admission criteria met Admission ROS [facility] Chief Complaint: Alcohol and xanax withdrawal. Allergies/Adverse Reactions: Allergies Allergy/AdvReac Type Severity Reaction Status Date / Time No Known Drug Allergies Allergy Unknown Verified 04/25/18 17:53 pork derived (porcine) AdvReac Severe Vomiting Verified 04/25/18 17:53 History of Present Illness: Patient states here for alcohol and xanax use disorder. Alcohol use began at age 15. Xanax use began at age 42. Marijuana use began at age 15. Cocaine use began at age 23. Nicotine use began at age 15. - Does not smoke very often. Declines nicotine patch/gum. Seizures 6 months ago r/t withdrawal. PHx: Asthma, GERD, LBP, PPD positive. Documentation of CXR from [facility] on 03/03/18 is negative for TB. Patient states on Oxycodone for chronic back pain r/t disc disorder. States current back pain is r/t sitting in for a long period of time, carrying heavy items, and standing for a long period. States rarely take oxycodone. Pain is achy and sometimes sharp. pain is a "6". Pain improves w/injections in back and heating pads. Depression: Denies thoughts of harming self or others. States on Seroquel as a mood stabilizer. States no recent f/u w/ provider Patient Name: Geremias Solis Date: 1965 Address: [address] [place] [address] Sex: Male Rx Written Rx Dispensed Drug Quantity Days Supply Prescriber Name 03/26/2018 04/02/2018 oxycodone hcl 10 mg tablet 90 30 Jaafar, Donna 02/21/2018 03/04/2018 oxycodone hcl 10 mg tablet 90 30 Jaafar, Donna 01/24/2018 02/03/2018 oxycodone hcl 10 mg tablet 90 30 Jaafar, Donna 12/31/2017 01/06/2018 oxycodone hcl 10 mg tablet 90 30 Jaafar, Donna 11/29/2017 12/08/2017 oxycodone hcl 10 mg tablet 90 30 Jaafar, Donna 11/01/2017 11/10/2017 oxycodone hcl 10 mg tablet 90 30 Jaafar, Donna 10/01/2017 10/12/2017 oxycodone hcl 10 mg tablet 90 30 Jaafar, Donna 08/30/2017 09/14/2017 oxycodone hcl 10 mg tablet 90 30 Jaafar, Donna 08/02/2017 08/17/2017 oxycodone hcl 10 mg tablet 90 30 Jaafar, Donna 07/11/2017 07/20/2017 oxycodone hcl 10 mg tablet 90 30 Jaafar, Donna 06/12/2017 06/22/2017 oxycodone hcl 10 mg tablet 90 30 Jaafar, Donna 05/10/2017 05/25/2017 oxycodone hcl 10 mg tablet 90 30 Jaafar, Donna 04/24/2017 04/26/2017 oxycodone hcl 10 mg tablet 90 30 Jaafar, Donna Exam Limitations: No Limitations - Ebola screening Have you traveled outside of the country in the last 21 days: No Have you had contact with anyone from an Ebola affected area: No Have you been sick,other than usual withdrawal symptoms: No Do you have a fever: No - Review of Systems Constitutional: Diaphoresis, Changes in sleep (Difficulty falling and staying asleep.) EENT: reports: Blurred Vision, Nose Congestion Respiratory: reports: Shortness of Breath (Intrmittent r/t asthma) Cardiac: reports: No Symptoms Reported GI: reports: Diarrhea, Nausea, Indigestion ([place] in past) : reports: No Symptoms Reported Musculoskeletal: reports: Back Pain (States current back pain is r/t sitting in for a long period of time, carrying heavy items, and standing for a long period. ) Integumentary: reports: No Symptoms Reported Neuro: reports: Headache, Seizure (Last 6 monthas ago.), Tremors Endocrine: reports: Increased Thirst Hematology: reports: No Symptoms Reported Psychiatric: reports: Judgement Intact, Orientated x3 Patient History - Patient Medical History Hx Anemia: No Hx Asthma: Yes Hx Chronic Obstructive Pulmonary Disease (COPD): No Hx Cancer: No Hx Cardiac Disorders: No Hx Congestive Heart Failure: No Hx Hypertension: No Hx Hypercholesterolemia: No Hx Pacemaker: No HX Cerebrovascular Accident: No Hx Seizures: Yes (6 months ago) Hx Dementia: No Hx Diabetes: No Hx Gastrointestinal Disorders: No Hx Liver Disease: No Hx Genitourinary Disorders: No Hx Sexually Transmitted Disorders: No Hx Renal Disease (ESRD): No Hx Thyroid Disease: No Hx Human Immunodeficiency Virus (HIV): No Hx Hepatitis C: No Hx Depression: Yes Hx Suicide Attempt: No Hx Bipolar Disorder: Yes (hospitalized [address] [place] [address]) Hx Schizophrenia: No - Patient Surgical History Past Surgical History: No Hx Neurologic Surgery: No Hx Cataract Extraction: No Hx Cardiac Surgery: No Hx Lung Surgery: No Hx Breast Surgery: No Hx Breast Biopsy: No Hx Abdominal Surgery: No Hx Appendectomy: No Hx Cholecystectomy: No Hx Genitourinary Surgery: No Hx Section: No Hx Orthopedic Surgery: No Hx Hysterectomy: No Anesthesia Reaction: No - PPD History Previous Implant?: Yes Documented Results: Positive w/o proof Implanted On Prior R Admission?: Yes Date: 12/26/15 (CXR:03/03/18 - Neg TB) Results: 0 mm PPD to be Administered?: No - Smoking Cessation Smoking history: Current some day smoker Have you smoked in the past 12 months: Yes Aproximately how many cigarettes per day: 3 Cigars Per Day: 0 Hx Chewing Tobacco Use: No Initiated information on smoking cessation: Yes 'Breaking Loose' booklet given: 04/25/18 - Substance & Tx. History Hx Alcohol Use: Yes Hx Substance Use: Yes Substance Use Type: Alcohol, Cocaine, Marijuana Hx Substance Use Treatment: Yes (detox, rehab) - Substances Abused Alcohol Route: Oral Frequency: Daily Amount used: 1 LITER VODKA Age of first use: 15 Date of Last Use: 04/25/18 Alprazolam (Xanax) Route: Oral Frequency: Daily Amount used: 12-16MG Age of first use: 42 Date of Last Use: 04/25/18 Cocaine Route: Inhalation Frequency: Daily Amount used: $100 Age of first use: 23 Date of Last Use: 04/24/18 Marijuana/Hashish Route: Smoking Frequency: 1-2 times per week Amount used: $10 Age of first use: 15 Date of Last Use: 04/22/18 Family Disease History - Family Disease History Family Disease History: [place]: Mother ( after gall bladdr op ca?), Other: Father (ALCOHOL; .), Son (2 adult sons) Admission Physical Exam [facility] - Vital Signs Vital Signs: Vital Signs - 24 hr 04/25/18 16:32 Temperature 98.6 F Pulse Rate 85 Respiratory 18 Rate Blood Pressure 112/64 - Physical General Appearance: Yes: Nourished, Appropriately Dressed, Mild Distress HEENTM: Yes: EOMI (Jerking movements of eyes on lateral gaze), Hearing grossly Normal, JANELL, Pharynx Normal, Nasal Congestion, Other (Small cloudy area on (R) sclera.) Respiratory: Yes: Lungs Clear, Normal Breath Sounds, No Respiratory Distress Neck: Yes: No masses,lesions,Nodules, Supple Breast: Yes: Breast Exam Deferred Cardiology: Yes: Regular Rhythm, Regular Rate, S1, S2 Abdominal: Yes: Non Tender, Soft, Increased Bowel Sounds Genitourinary: Yes: Within Normal Limits Back: Yes: Normal Inspection Musculoskeletal: Yes: full range of Motion, Gait Steady Extremities: Yes: Normal Capillary Refill, Normal Inspection, Normal Range of Motion, Non-Tender, Tremors (Increased tremors upon arm elevation) Neurological: Yes: technician automatic II-XII NML intact (Jerking movements of eyes on lateral gaze), Fully Oriented, Alert, Motor Strength 5/5, Normal Mood/Affect, Normal Response Integumentary: Yes: Normal Color, Warm Lymphatic: Yes: Within Normal Limits - Diagnostic (1) Alcohol dependence with uncomplicated withdrawal Current Visit: Yes Status: Acute (2) Cocaine dependence, uncomplicated Current Visit: Yes Status: Chronic (3) Sedative hypnotic or anxiolytic dependence Current Visit: Yes Status: Acute (4) Asthma Current Visit: Yes Status: Chronic Comment: . (5) Chronic back pain Current Visit: Yes Status: Chronic Qualifiers: Back pain location: low back pain Back pain laterality: bilateral Sciatica presence: without sciatica Qualified Code(s): M54.5 - Low back pain; G89.29 - Other chronic pain Comment: . (6) GERD (gastroesophageal reflux disease) Current Visit: Yes Status: Chronic Qualifiers: Esophagitis presence: without esophagitis Qualified Code(s): K21.9 - Gastro -esophageal reflux disease without esophagitis Comment: . (7) History of seizure Current Visit: No Status: Suspected Cleared for Admission [facility] - Detox or Rehab [facility] Level of Care: Medically Managed Detox Regimen/Protocol: Librium S Breath Alcohol Content Breath Alcohol Content: 0.035 Urine Drug Screen - Results Drug Screen Negative: Yes Urine Drug Screen Results: THC-Marijuana, CHANO-Cocaine, BZO-Benzodiazepines Inpatient Rehab Admission - Rehab Decision to Admit Inpatient rehab admission?: No
[2018-04-26] MEDS ORDERED: IBUPROFEN 400 MG TABLET (FP) PO PRN (00:03)
[2018-04-26] MEDS ORDERED: ACETAMINOPHEN 325 MG TABLET (FP) PO PRN ×2 (00:03)
[2018-04-26] MEDS ORDERED: chlordiazePOXIDE HCL 25 MG CAPSULE PO ONE ×2 (00:03→02:45)
[2018-04-26] MEDS ORDERED: chlordiazePOXIDE HCL 25 MG CAPSULE PO PRN ×2 (00:03→00:04)
[2018-04-26] MEDS ORDERED: BISMUTH SUBSALICYLATE 524 MG/30 ML UD PO PRN (00:03)
[2018-04-26] MEDS ORDERED: METHOCARBAMOL 500 MG TABLET PO PRN (00:03)
[2018-04-26] MEDS ORDERED: MAG HYDROX/AL HYDROX/SIMETH 30 ML UNIT-DOSE CUP PO PRN (00:03)
[2018-04-26] MEDS ORDERED: MAGNESIUM HYDROX 2400MG/30ML ORAL SUSPENSION 30 ML CUP PO PRN (00:03)
[2018-04-26] MEDS ORDERED: hydrOXYzine PAMOATE 25 MG CAPSULE (FP) PO PRN (00:03)
[2018-04-26] MEDS ORDERED: MAGNESIUM CITRATE 300 ML BOTTLE PO PRN (00:03)
[2018-04-26] MEDS ORDERED: chlordiazePOXIDE HCL 25 MG CAPSULE PO SCH (05:00)
[2018-04-26] MEDS: chlordiazePOXIDE HCL 25 MG CAPSULE PO SCH ×4 (05:40→22:14)
[2018-04-26] MEDS: guaiFENesin 200 MG/10 ML 10 ML UNIT-DOSE CUPS PO PRN ×2 (05:43→13:48)
[2018-04-26] MEDS: MENTHOL/PHENOL 1 EACH UD MM PRN ×3 (05:44→22:20)
[2018-04-26 10:14] LABS: HEMOGLOBIN 13.9 GM/dL (11.7-16.9); MCH 33.8 pg (25.7-33.7); MEAN CELL VOLUME 99.6 fl (80-96); MEAN PLT VOLUME 8.6 fl (7.5-11.1); PLATELET COUNT 202 K/MM3 (134-434); RBC 4.12 M/mm3 (4.00-5.60); RDW 12.6 % (11.9-15.9); WHITE BLOOD COUNT 6.9 K/mm3 (4.0-10.0)
[2018-04-26] MEDS: RANITIDINE HCL 150 MG TABLET (FP) PO SCH (10:32)
[2018-04-26] MEDS: PRENATAL VITAMINS W/ FOLIC ACID TABLET (FP) PO SCH (10:32)
[2018-04-26 10:38] LABS: ALBUMIN 3.6 g/dl (3.4-5.0); ALK PHOS 81 U/L (45-117); ANION GAP 10 MMOL/L (8-16); BILIRUBIN,TOTAL 0.3 mg/dL (0.2-1); BLOOD UREA NITROGEN 16 mg/dL (7-18); CALCIUM 7.7 mg/dL (8.5-10.1); CHLORIDE 106 mmol/L (98-107); CO2 24 mmol/L (21-32); CREATININE 1.2 mg/dL (0.55-1.3); GLUCOSE,RANDOM 88 mg/dL (74-106); SGOT/AST 19 U/L (15-37); SGPT/ALT 20 U/L (13-61); SODIUM 140 mmol/L (136-145); TOT PROT 6.3 g/dl (6.4-8.2)
[2018-04-26] MEDS: P-EPHED 60MG/TRIPROLIDI 2.5MG TABLET PO PRN ×2 (10:53→22:20)
[2018-04-26] MEDS: ALBUTEROL SO4 8 GM HFA INHALER IH PRN (11:13)
[2018-04-26] MEDS ORDERED: FLU VACCINE QUAD 60 MCG/0.5 ML (MDV 18-19) IM ONE (12:00)
--- NOTE | 2018-04-26 16:48 | CONSULT ---
[facility] Psychiatric Consult - Data Date of interview: 04/26/18 Admission source: [facility] Identifying data: Another admission to [facility] for this 52 y/o AA male seeking detoxification (alcohol, cocaine, cannabis, xanax). 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 Substance Abuse History: Confirmed by patient in this interview. Details in current [facility] report as follows : Smoking history: Current some day smoker. Have you smoked in the past 12 months: Yes. Aproximately how many cigarettes per day : 3. Cigars Per Day: 0. Hx Chewing Tobacco Use: No. Initiated information on smoking cessation: Yes. 'Breaking Loose' booklet given: 04/25/18. - Substance & Tx. History. Hx Alcohol Use: Yes. Hx Substance Use: Yes. Substance Use Type : Alcohol, Cocaine, Marijuana. Hx Substance Use Treatment: Yes (detox, rehab). - Substances Abused. Alcohol. Route: Oral. Frequency: Daily. Amount used: 1 LITER VODKA. Age of first use: 15. Date of Last Use: 04/25/18. Alprazolam (Xanax). Route: Oral. Frequency: Daily. Amount used: 12-16MG. Age of first use: 42. Date of Last Use: 04/25/18. Cocaine. Route: Inhalation. Frequency: Daily. Amount used: $100. Age of first use: 23. Date of Last Use: 04/24/18. Marijuana/Hashish. Route: Smoking. Frequency: 1-2 times per week. Amount used: $10. Age of first use: 15. Date of Last Use: 07/06 Medical History: Consistent with a history of withdrawal-related seizures, bronchial asthma, hypertension, gastro-esophageal reflux disease and chronic lumbar pain. Psychiatric History: Patient admits to a history of two psychiatric hospitalizations ([facility]). Diagnosed with Bipolar Disorder and PTSD (2010). Has been prescribed various formulations over the years (lamotrigine, elavil, paroxetine, seroquel and many unnamed others). No regular OPD care for several months. Mr Solis admits to a preference for [facility] settings for medications refills. Staes that he has been taking seroquel on a sporadic basis in recent days (400 mg/hs) and, as recently as, 2-3 days ago from a previous refill. In this interview, the patient denies history of suicide attempts (past records at [facility] indicate a different version : history of a suicide attempt, via cutting-wrist, in 1989). Physical/Sexual Abuse/Trauma History: No reported history. Additional Comment: Urine Drug Screen Results: THC-Marijuana, CHANO-Cocaine, BZO- Benzodiazepines. Noted. Mental Status Exam - Mental Status Exam Alert and Oriented to: Time, Place, Person Cognitive Function: Good Patient Appearance: Well Groomed Mood: Nervous, Withdrawn, Anxious Affect: Mood Congruent, Constricted Patient Behavior: Fatigued, Cooperative Speech Pattern: Clear, Appropriate Voice Loudness: Normal Thought Process: Goal Oriented Thought Disorder: Not Present Hallucinations: Denies Suicidal Ideation: Denies Homicidal Ideation: Denies Insight/Judgement: Poor Sleep: Poorly, Difficulty falling asleep Appetite: Good Muscle strength/Tone: Normal Gait/Station: Normal Psychiatric Findings - Problem List ([place] 1, 2,3) (1) Alcohol dependence with uncomplicated withdrawal Current Visit: Yes Status: Acute (2) Sedative hypnotic or anxiolytic dependence Current Visit: Yes Status: Chronic (3) Cannabis dependence Current Visit: Yes Status: Chronic (4) Cocaine dependence, uncomplicated Current Visit: Yes Status: Chronic (5) Nicotine dependence, uncomplicated Current Visit: Yes Status: Chronic Qualifiers: Nicotine product type: cigarettes Qualified Code(s): F17.210 - Nicotine dependence, cigarettes, uncomplicated (6) Substance induced mood disorder Current Visit: Yes Status: Chronic (7) Insomnia Current Visit: Yes Status: Chronic Qualifiers: Insomnia type: unspecified Qualified Code(s): G47.00 - Insomnia, unspecified - Initial Treatment Plan Initial Treatment Plan: Psychoeducation. Sleep hygiene. Detoxification in progress. AA meetings. Relapse prevention : discussed with patient. Mr Solis insists on resuming seroquel but, according to pharmacist at [facility] # [id number] ([phone]), no seroquel is on the list of medications on file ([facility] Will resume seroquel at the dose of 100 mg po hs. Side effects/benefits of the drug are discussed with the patient. Consent (verbal) granted to MD. Garcia.
--- NOTE | 2018-04-26 19:38 | PN ---
S CIWA - CIWA Score Nausea/Vomitin Muscle Tremors: 3 Anxiety: 2 Agitation: 0-Normal Activity Paroxysmal Sweats: 3 Orientation: 0-Oriented Tacttile Disturbances: 2-Mild Itch/Numbness/Burn Auditory Disturbances: 0-None Visual Disturbances: 2-Mild Sensitivity Headache: 0-None Present CIWA-Ar Total Score: 15 BHS Progress Note (SOAP) Subjective: Sweating, Nausea, Anxious, Tremors. Objective: PATIENT A & O X 3, OBSERVED AMBULATING ON UNIT. IN NO ACUTE DISTRESS. 04/26/18 19:34 Vital Signs Temperature 98.2 F 04/26/18 18:54 Pulse Rate 76 04/26/18 18:54 Respiratory Rate 16 04/26/18 18:54 Blood Pressure 110/67 04/26/18 18:54 O2 Sat by Pulse Oximetry (%) Laboratory Tests 04/26/18 04/26/18 04/26/18 07:40 07:40 07:40 WBC 6.9 RBC 4.12 Hgb 13.9 Hct 41.0 MCV 99.6 H MCH 33.8 H MCHC 34.0 RDW 12.6 Plt Count 202 MPV 8.6 Sodium 140 Potassium 4.0 Chloride 106 Carbon Dioxide 24 Anion Gap 10 BUN 16 Creatinine 1.2 Creat Clearance w eGFR > 60 Random Glucose 88 Calcium 7.7 L Total Bilirubin 0.3 AST 19 ALT 20 Alkaline Phosphatase 81 Total Protein 6.3 L Albumin 3.6 HIV 1&2 Antibody Screen Negative HIV P24 Antigen Negative LABS NOTED. RPR RESULT PENDING. 04/26/18 19:35 Assessment: 04/26/18 19:34 WITHDRAWAL SYMPTOMS. HYPOCALCEMIA. 04/26/18 19:35 Plan: CONTINUE DETOX. INCREASE DAILY PO FLUID INTAKE. OSCAL PO FOR HYPOCALEMIA.
[2018-04-26] MEDS: THIAMINE HCL 100 MG TABLET (FP) PO SCH (22:13)
[2018-04-26] MEDS: QUEtiapine FUMARATE 100 MG TABLET (FP) PO SCH (22:14)
[2018-04-26] MEDS: MONTELUKAST NA 10 MG TABLET PO SCH (22:14)
[2018-04-26] MEDS: CALCIUM 500MG/VIT-D 200 UNITS COMBO TABLET (FP) PO SCH (22:14)
[2018-04-27] MEDS: chlordiazePOXIDE HCL 25 MG CAPSULE PO SCH ×4 (05:28→22:26)
[2018-04-27] MEDS: CALCIUM 500MG/VIT-D 200 UNITS COMBO TABLET (FP) PO SCH (10:42)
[2018-04-27] MEDS: PRENATAL VITAMINS W/ FOLIC ACID TABLET (FP) PO SCH (10:42)
[2018-04-27] MEDS: RANITIDINE HCL 150 MG TABLET (FP) PO SCH (10:43)
[2018-04-27] MEDS: P-EPHED 60MG/TRIPROLIDI 2.5MG TABLET PO PRN (10:46)
[2018-04-27 13:41] LABS: URINE APPEARANCE CLEAR; URINE BILIRUBIN NEGATIVE (<2.0 mg/dL); URINE COLOR YELLOW; URINE GLUCOSE (UA) NEGATIVE (NEGATIVE); URINE KETONE NEGATIVE (NEGATIVE); URINE LEUK ESTERASE NEGATIVE (NEGATIVE); URINE NITRITE NEGATIVE (NEGATIVE); URINE PROTEIN NEGATIVE (NEGATIVE); URINE UROBILINOGEN NEGATIVE mg/dL (0.2-1.0)
--- NOTE | 2018-04-27 14:14 | PN ---
[facility] CIWA - CIWA Score Nausea/Vomitin-Mild Nausea/No Vomiting Muscle Tremors: 3 Anxiety: 2 Agitation: 1-Slight > Activity Paroxysmal Sweats: 1-Minimal Palms Moist Orientation: 2-Disoriented Date<2 days Tacttile Disturbances: 0-None Auditory Disturbances: 0-None Visual Disturbances: 0-None Headache: 1-Very Mild CIWA-Ar Total Score: 11 S Progress Note (SOAP) Subjective: tremor sweating mild nausea restlessness Objective: 04/27/18 14:15 Vital Signs Temperature 97 F L 04/27/18 13:23 Pulse Rate 74 04/27/18 13:23 Respiratory Rate 18 04/27/18 13:23 Blood Pressure 118/79 04/27/18 13:23 O2 Sat by Pulse Oximetry (%) Laboratory Last Values WBC 6.9 K/mm3 (4.0-10.0) 04/26/18 07:40 RBC 4.12 M/mm3 (4.00-5.60) 04/26/18 07:40 Hgb 13.9 GM/dL (11.7-16.9) 04/26/18 07:40 Hct 41.0 % (35.4-49) 04/26/18 07:40 MCV 99.6 fl (80-96) H 04/26/18 07:40 MCH 33.8 pg (25.7-33.7) H 04/26/18 07:40 MCHC 34.0 g/dl (32.0-35.9) 04/26/18 07:40 RDW 12.6 % (11.9-15.9) 04/26/18 07:40 Plt Count 202 K/MM3 (134-434) 04/26/18 07:40 MPV 8.6 fl (7.5-11.1) 04/26/18 07:40 Sodium 140 mmol/L (136-145) 04/26/18 07:40 Potassium 4.0 mmol/L (3.5-5.1) 04/26/18 07:40 Chloride 106 mmol/L (98-107) 04/26/18 07:40 Carbon Dioxide 24 mmol/L (21-32) 04/26/18 07:40 Anion Gap 10 MMOL/L (8-16) 04/26/18 07:40 BUN 16 mg/dL (7-18) 04/26/18 07:40 Creatinine 1.2 mg/dL (0.55-1.3) 04/26/18 07:40 Creat Clearance w eGFR > 60 (>60) 04/26/18 07:40 Random Glucose 88 mg/dL (74-106) 04/26/18 07:40 Calcium 7.7 mg/dL (8.5-10.1) L 04/26/18 07:40 Total Bilirubin 0.3 mg/dL (0.2-1) 04/26/18 07:40 AST 19 U/L (15-37) 04/26/18 07:40 ALT 20 U/L (13-61) 04/26/18 07:40 Alkaline Phosphatase 81 U/L (45-117) 04/26/18 07:40 Total Protein 6.3 g/dl (6.4-8.2) L 04/26/18 07:40 Albumin 3.6 g/dl (3.4-5.0) 04/26/18 07:40 Urine Color Yellow 04/27/18 08:26 Urine Appearance Clear 04/27/18 08:26 Urine pH 5.0 (5.0-8.0) 04/27/18 08:26 Ur Specific [place] 1.024 (1.010-1.035) 04/27/18 08:26 Urine Protein Negative (NEGATIVE) 04/27/18 08:26 Urine Glucose (UA) Negative (NEGATIVE) 04/27/18 08:26 Urine Ketones Negative (NEGATIVE) 04/27/18 08:26 Urine Blood Negative (NEGATIVE) 04/27/18 08:26 Urine Nitrite Negative (NEGATIVE) 04/27/18 08:26 Urine Bilirubin Negative (<2.0 mg/dL) 04/27/18 08:26 Urine Urobilinogen Negative mg/dL (0.2-1.0) 04/27/18 08:26 Ur Leukocyte Esterase Negative (NEGATIVE) 04/27/18 08:26 RPR Titer Nonreactive (NONREACTIVE) 04/26/18 07:40 HIV 1&2 Antibody Screen Negative 04/26/18 07:40 HIV P24 Antigen Negative 04/26/18 07:40 lab noted low Ca++ continue supplement 04/27/18 14:16 Assessment: 04/27/18 14:16 withdrawal sx Plan: continue detox
[2018-04-27] MEDS: QUEtiapine FUMARATE 100 MG TABLET (FP) PO SCH (22:25)
[2018-04-27] MEDS: THIAMINE HCL 100 MG TABLET (FP) PO SCH (22:25)
[2018-04-27] MEDS: MELATONIN 5 MG TABLETS PO PRN (22:27)
[2018-04-27] MEDS: MONTELUKAST NA 10 MG TABLET PO SCH (22:28)
[2018-04-28] MEDS ORDERED: chlordiazePOXIDE HCL 10 MG CAPSULE PO PRN (05:00)
[2018-04-28] MEDS: chlordiazePOXIDE HCL 10 MG CAPSULE PO SCH ×4 (05:39→22:05)
[2018-04-28] MEDS: CALCIUM 500MG/VIT-D 200 UNITS COMBO TABLET (FP) PO SCH (10:25)
[2018-04-28] MEDS: RANITIDINE HCL 150 MG TABLET (FP) PO SCH (10:25)
[2018-04-28] MEDS: PRENATAL VITAMINS W/ FOLIC ACID TABLET (FP) PO SCH (10:25)
[2018-04-28] MEDS: ALBUTEROL SO4 8 GM HFA INHALER IH PRN (10:28)
--- NOTE | 2018-04-28 11:24 | EKG ---
Test Reason : Blood Pressure : / mmHG Vent. Rate : 062 BPM Atrial Rate : 062 BPM P-R Int : 144 ms QRS Dur : 078 ms QT Int : 416 ms P-R-T Axes : 061 072 064 degrees QTc Int : 422 ms NORMAL SINUS RHYTHM NORMAL ECG WHEN COMPARED WITH ECG OF 18-SEP-2016 20:42, NO SIGNIFICANT CHANGE WAS FOUND Confirmed by LISHA MORRISON MD ([id number]) on 04/28/2018 11:23:58 AM Referred By: Confirmed By:LISHA MORRISON MD
--- NOTE | 2018-04-28 12:28 | PN ---
S CIWA - CIWA Score Nausea/Vomitin-No Nausea/No Vomiting Muscle Tremors: 2 Anxiety: 1-Mildly Anxious Agitation: 1-Slight > Activity Paroxysmal Sweats: No Perspiration Orientation: 0-Oriented Tacttile Disturbances: 0-None Auditory Disturbances: 0-None Visual Disturbances: 0-None Headache: 1-Very Mild CIWA-Ar Total Score: 5 S Progress Note (SOAP) Subjective: less anxious mild tremor little sweating patient preferred to stay in detox longer that "downstair" provider said patient is irritable angry about the discharge on 04/29/18 issue escalated to counselor construction supervisor, patient was been informed uniformly that discharge date is 04/29/18 Objective: 04/28/18 12:28 Vital Signs Temperature 97.3 F L 04/28/18 09:57 Pulse Rate 72 04/28/18 09:57 Respiratory Rate 18 04/28/18 09:57 Blood Pressure 105/68 04/28/18 09:57 O2 Sat by Pulse Oximetry (%) Laboratory Last Values WBC 6.9 K/mm3 (4.0-10.0) 04/26/18 07:40 RBC 4.12 M/mm3 (4.00-5.60) 04/26/18 07:40 Hgb 13.9 GM/dL (11.7-16.9) 04/26/18 07:40 Hct 41.0 % (35.4-49) 04/26/18 07:40 MCV 99.6 fl (80-96) H 04/26/18 07:40 MCH 33.8 pg (25.7-33.7) H 04/26/18 07:40 MCHC 34.0 g/dl (32.0-35.9) 04/26/18 07:40 RDW 12.6 % (11.9-15.9) 04/26/18 07:40 Plt Count 202 K/MM3 (134-434) 04/26/18 07:40 MPV 8.6 fl (7.5-11.1) 04/26/18 07:40 Sodium 140 mmol/L (136-145) 04/26/18 07:40 Potassium 4.0 mmol/L (3.5-5.1) 04/26/18 07:40 Chloride 106 mmol/L (98-107) 04/26/18 07:40 Carbon Dioxide 24 mmol/L (21-32) 04/26/18 07:40 Anion Gap 10 MMOL/L (8-16) 04/26/18 07:40 BUN 16 mg/dL (7-18) 04/26/18 07:40 Creatinine 1.2 mg/dL (0.55-1.3) 04/26/18 07:40 Creat Clearance w eGFR > 60 (>60) 04/26/18 07:40 Random Glucose 88 mg/dL (74-106) 04/26/18 07:40 Calcium 7.7 mg/dL (8.5-10.1) L 04/26/18 07:40 Total Bilirubin 0.3 mg/dL (0.2-1) 04/26/18 07:40 AST 19 U/L (15-37) 04/26/18 07:40 ALT 20 U/L (13-61) 04/26/18 07:40 Alkaline Phosphatase 81 U/L (45-117) 04/26/18 07:40 Total Protein 6.3 g/dl (6.4-8.2) L 04/26/18 07:40 Albumin 3.6 g/dl (3.4-5.0) 04/26/18 07:40 Urine Color Yellow 04/27/18 08:26 Urine Appearance Clear 04/27/18 08:26 Urine pH 5.0 (5.0-8.0) 04/27/18 08:26 Ur Specific [place] 1.024 (1.010-1.035) 04/27/18 08:26 Urine Protein Negative (NEGATIVE) 04/27/18 08:26 Urine Glucose (UA) Negative (NEGATIVE) 04/27/18 08:26 Urine Ketones Negative (NEGATIVE) 04/27/18 08:26 Urine Blood Negative (NEGATIVE) 04/27/18 08:26 Urine Nitrite Negative (NEGATIVE) 04/27/18 08:26 Urine Bilirubin Negative (<2.0 mg/dL) 04/27/18 08:26 Urine Urobilinogen Negative mg/dL (0.2-1.0) 04/27/18 08:26 Ur Leukocyte Esterase Negative (NEGATIVE) 04/27/18 08:26 RPR Titer Nonreactive (NONREACTIVE) 04/26/18 07:40 HIV 1&2 Antibody Screen Negative 04/26/18 07:40 HIV P24 Antigen Negative 04/26/18 07:40 lab noted low calcium Assessment: 04/28/18 12:28 mild alcohol and benzo withdrawal 04/28/18 12:29 Plan: continue detox
[2018-04-28] MEDS: MELATONIN 5 MG TABLETS PO PRN (22:06)
[2018-04-28] MEDS: QUEtiapine FUMARATE 100 MG TABLET (FP) PO SCH (22:06)
[2018-04-28] MEDS: THIAMINE HCL 100 MG TABLET (FP) PO SCH (22:06)
[2018-04-28] MEDS: MONTELUKAST NA 10 MG TABLET PO SCH (22:06)
[2018-04-28] MEDS: P-EPHED 60MG/TRIPROLIDI 2.5MG TABLET PO PRN (22:07)
[2018-04-29] MEDS ORDERED: chlordiazePOXIDE HCL 10 MG CAPSULE PO SCH (05:00)
[2018-04-29] MEDS: ALBUTEROL SO4 8 GM HFA INHALER IH PRN (05:38)
[2018-04-29 09:35] VITALS: BP 108/65; PULSE 77; TEMP 97.7
--- NOTE | 2018-04-29 13:13 | DS ---
[facility] Detox Discharge Summary Admission Date: 04/25/18 Discharge Date: 04/29/18 - History Present History: Alcohol Dependence, Sedative Dependence Additional Comments: 52 years old male admitted on 04/25/18 for alcohol and benzo withdrawal stabilization completed detox regimen aftercare [facility] - Physical Exam Results Vital Signs: Vital Signs Temperature 97.7 F 04/29/18 09:34 Pulse Rate 77 04/29/18 09:34 Respiratory Rate 18 04/29/18 09:34 Blood Pressure 108/65 04/29/18 09:34 O2 Sat by Pulse Oximetry (%) Pertinent Admission Physical Exam Findings: alcohol withdrawal sx Laboratory Last Values WBC 6.9 K/mm3 (4.0-10.0) 04/26/18 07:40 RBC 4.12 M/mm3 (4.00-5.60) 04/26/18 07:40 Hgb 13.9 GM/dL (11.7-16.9) 04/26/18 07:40 Hct 41.0 % (35.4-49) 04/26/18 07:40 MCV 99.6 fl (80-96) H 04/26/18 07:40 MCH 33.8 pg (25.7-33.7) H 04/26/18 07:40 MCHC 34.0 g/dl (32.0-35.9) 04/26/18 07:40 RDW 12.6 % (11.9-15.9) 04/26/18 07:40 Plt Count 202 K/MM3 (134-434) 04/26/18 07:40 MPV 8.6 fl (7.5-11.1) 04/26/18 07:40 Sodium 140 mmol/L (136-145) 04/26/18 07:40 Potassium 4.0 mmol/L (3.5-5.1) 04/26/18 07:40 Chloride 106 mmol/L (98-107) 04/26/18 07:40 Carbon Dioxide 24 mmol/L (21-32) 04/26/18 07:40 Anion Gap 10 MMOL/L (8-16) 04/26/18 07:40 BUN 16 mg/dL (7-18) 04/26/18 07:40 Creatinine 1.2 mg/dL (0.55-1.3) 04/26/18 07:40 Creat Clearance w eGFR > 60 (>60) 04/26/18 07:40 Random Glucose 88 mg/dL (74-106) 04/26/18 07:40 Calcium 7.7 mg/dL (8.5-10.1) L 04/26/18 07:40 Total Bilirubin 0.3 mg/dL (0.2-1) 04/26/18 07:40 AST 19 U/L (15-37) 04/26/18 07:40 ALT 20 U/L (13-61) 04/26/18 07:40 Alkaline Phosphatase 81 U/L (45-117) 04/26/18 07:40 Total Protein 6.3 g/dl (6.4-8.2) L 04/26/18 07:40 Albumin 3.6 g/dl (3.4-5.0) 04/26/18 07:40 Urine Color Yellow 04/27/18 08:26 Urine Appearance Clear 04/27/18 08:26 Urine pH 5.0 (5.0-8.0) 04/27/18 08:26 Ur Specific [place] 1.024 (1.010-1.035) 04/27/18 08:26 Urine Protein Negative (NEGATIVE) 04/27/18 08:26 Urine Glucose (UA) Negative (NEGATIVE) 04/27/18 08:26 Urine Ketones Negative (NEGATIVE) 04/27/18 08:26 Urine Blood Negative (NEGATIVE) 04/27/18 08:26 Urine Nitrite Negative (NEGATIVE) 04/27/18 08:26 Urine Bilirubin Negative (<2.0 mg/dL) 04/27/18 08:26 Urine Urobilinogen Negative mg/dL (0.2-1.0) 04/27/18 08:26 Ur Leukocyte Esterase Negative (NEGATIVE) 04/27/18 08:26 RPR Titer Nonreactive (NONREACTIVE) 04/26/18 07:40 HIV 1&2 Antibody Screen Negative 04/26/18 07:40 HIV P24 Antigen Negative 04/26/18 07:40 lab noted low ca++ - Treatment Hospital Course: Detox Protocol Followed, Detoxed Safely, Responded well, Discharged Condition Good, Rehab Referral Accepted Patient has Accepted a Re[facility] Referral [facility]: [facility] - Medication Discharge Medications: Ambulatory Orders Quetiapine Fumarate [Seroquel -] 400 mg PO HS #30 tab 07/03/16 Albuterol Sulfate Inhaler - [Ventolin HFA Inhaler -] 2 puff IH Q4H PRN #1 inhaler 04/28/18 Montelukast Na [Singulair -] 10 mg PO HS #30 tablet 04/28/18 - Diagnosis (1) Alcohol dependence with uncomplicated withdrawal Status: Acute (2) Asthma Status: Chronic (3) Bipolar II disorder Status: Suspected (4) GERD (gastroesophageal reflux disease) Status: Chronic Qualifiers: Esophagitis presence: without esophagitis Qualified Code(s): K21.9 - Gastro -esophageal reflux disease without esophagitis (5) Nicotine dependence, uncomplicated Status: Acute Qualifiers: Nicotine product type: cigarettes Qualified Code(s): F17.210 - Nicotine dependence, cigarettes, uncomplicated (6) Substance induced mood disorder Status: Suspected - AMA Did Patient Leave Against Medical Advice: No
== END 2018-04-29 09:36 | disposition home or self-care (01) | DRG 897 ==
LOC: YASAS 14:33 → Y3N 23:03
PROVIDERS: ADMIT Surgery; ATTEND Surgery
PROC: HZ2ZZZZ Detoxification Services for Substance Abuse Treatment (ICD-10-PCS; principal; 2018-04-25)
DX: F10.230 Alcohol dependence with withdrawal, uncomplicated (principal); F14.20 Cocaine dependence, uncomplicated; F13.230 Sedative, hypnotic or anxiolytic dependence with withdrawal, uncomplicated; F12.20 Cannabis dependence, uncomplicated; F17.210 Nicotine dependence, cigarettes, uncomplicated; F19.24 Other psychoactive substance dependence with psychoactive substance-induced mood disorder; F31.9 Bipolar disorder, unspecified; E83.51 Hypocalcemia; G47.00 Insomnia, unspecified; M54.5 Low back pain; G89.29 Other chronic pain; I10 Essential (primary) hypertension; K21.9 Gastro-esophageal reflux disease without esophagitis; Z86.69 Personal history of other diseases of the nervous system and sense organs
CPT/HCPCS: 36415; 80053; 81003; 85027; 86593; 87389; 93005; 93010

== ENCOUNTER 2018-10-25 09:42 | Inpatient (IN) | payer OTHER ==
[2018-10-25 11:26] VITALS: BMI 24.7
--- NOTE | 2018-10-25 13:55 | HP ---
CIWA Score Nausea/Vomitin Muscle Tremors: 3 Anxiety: 2 Agitation: 2 Paroxysmal Sweats: 2 Orientation: 0-Oriented Tacttile Disturbances: 0-None Auditory Disturbances: 0-None Visual Disturbances: 2-Mild Sensitivity Headache: 2-Mild CIWA-Ar Total Score: 15 - Admission Criteria [facility]ASAS Guidelines: Admission for Medically Managed Detox: Requires at least one of the followin. CIWA greater than 12 2. Seizures within the past 24 hours 3. Delirium tremens within the past 24 hours 4. Hallucinations within the past 24 hours 5. Acute intervention needed for co occurring medical disorder 6. Acute intervention needed for co occurring psychiatric disorder 7. Severe withdrawal that cannot be handled at a lower level of care (continued vomiting, continued diarrhea, abnormal vital signs) requiring intravenous medication and/or fluids 8. Patient presents the following: CIWA greater than 12 Admission Criteria Met: Admission criteria met Admission [facility] Chief Complaint: I need detox from alcohol and xanax Allergies/Adverse Reactions: Allergies Allergy/AdvReac Type Severity Reaction Status Date / Time No Known Drug Allergies Allergy Unknown Verified 04/25/18 17:53 pork derived (porcine) AdvReac Severe Vomiting Verified 04/25/18 17:53 History of Present Illness: 53 year old man presents for detox from alcohol and Xanax.He reports a blackout a week ago and the last alcohol related seizure was 9 months ago Exam Limitations: No Limitations - Ebola screening Have you traveled outside of the country in the last 21 days: No (N) Have you had contact with anyone from an Ebola affected area: No Have you been sick,other than usual withdrawal symptoms: No Do you have a fever: No - Review of Systems Constitutional: Chills, Loss of Appetite, Changes in sleep EENT: reports: No Symptoms Reported Respiratory: reports: Cough, SOB with Exertion Cardiac: reports: No Symptoms Reported GI: reports: Poor Appetite, Poor Fluid Intake, Abdominal cramping : reports: No Symptoms Reported Musculoskeletal: reports: Back Pain, Joint Pain, Muscle Pain, Muscle Weakness Neuro: reports: No Symptoms reported Endocrine: reports: No Symptoms Reported Hematology: reports: No Symptoms Reported Psychiatric: reports: Anxious, Depressed Other Systems: Reviewed and Negative Patient History - Patient Medical History Hx Anemia: No Hx Asthma: Yes Hx Chronic Obstructive Pulmonary Disease (COPD): No Hx Cancer: No Hx Cardiac Disorders: No Hx Congestive Heart Failure: No Hx Hypertension: No Hx Hypercholesterolemia: No Hx Pacemaker: No HX Cerebrovascular Accident: No Hx Seizures: Yes (9 months ago) Hx Dementia: No Hx Diabetes: No Hx Gastrointestinal Disorders: Yes (GERD) Hx Liver Disease: No Hx Genitourinary Disorders: No Hx Sexually Transmitted Disorders: No Hx Renal Disease (ESRD): No Hx Thyroid Disease: No Hx Human Immunodeficiency Virus (HIV): No Hx Hepatitis C: No Hx Depression: Yes Hx Suicide Attempt: No Hx Bipolar Disorder: Yes (hospitalized [address] [place] [address]) Hx Schizophrenia: No - Patient Surgical History Past Surgical History: No Hx Neurologic Surgery: No Hx Cataract Extraction: No Hx Cardiac Surgery: No Hx Lung Surgery: No Hx Breast Surgery: No Hx Breast Biopsy: No Hx Abdominal Surgery: No Hx Appendectomy: No Hx Cholecystectomy: No Hx Genitourinary Surgery: No Hx Section: No Hx Orthopedic Surgery: No Hx Hysterectomy: No Anesthesia Reaction: No - PPD History Date: 12/26/15 Results: 0 mm - Smoking Cessation Smoking history: Current some day smoker Have you smoked in the past 12 months: Yes Aproximately how many cigarettes per day: 3 Cigars Per Day: 0 Hx Chewing Tobacco Use: No Initiated information on smoking cessation: Yes 'Breaking Loose' booklet given: 10/25/18 - Substances abused Alcohol Substance route: Oral Amount used: 4 pints Vodka/day Age of first use: 15 Date of last use: 10/25/18 Cocaine Substance route: Inhalation Frequency: Daily Amount used: 5 grams Age of first use: 23 Date of last use: 10/25/18 Alprazolam (Xanax) Substance route: Oral Frequency: Daily Amount used: 2-3 sticks Age of first use: 50 Date of last use: 10/25/18 Family Disease History - Family Disease History Family Disease History: CA: Mother ( after gall bladdr op ca?), Other: Father (alcohol; .) Admission Physical Exam [facility] - Vital Signs Vital Signs: Vital Signs - 24 hr 10/25/18 11:10 Temperature 97.8 F Pulse Rate 71 Respiratory 18 Rate Blood Pressure 122/84 - Physical General Appearance: Yes: No Apparent Distress HEENTM: Yes: EOMI, Hearing grossly Normal, Normocephalic, Normal Voice, JANELL, Pharynx Normal, Tm's normal Respiratory: Yes: Chest Non-Tender, Decreased Breath Sounds, No Accessory Muscle Use, Wheezing Neck: Yes: No masses,lesions,Nodules, Supple Breast: Yes: Breast Exam Deferred Cardiology: Yes: Regular Rhythm, Regular Rate, S1, S2 Abdominal: Yes: Normal Bowel Sounds, Non Tender, Soft Genitourinary: Yes: Within Normal Limits Back: Yes: Normal Inspection Musculoskeletal: Yes: full range of Motion, Gait Steady, Pelvis Stable, Back pain, Muscle Pain Extremities: Yes: Normal Capillary Refill, Tremors Neurological: Yes: event av operator II-XII NML intact, Fully Oriented, Alert, Normal Mood/ Affect, Normal Response Integumentary: Yes: Normal Color, Dry Lymphatic: Yes: Within Normal Limits - Diagnostic (1) Alcohol dependence with uncomplicated withdrawal Current Visit: Yes Status: Acute (2) Cannabis dependence Current Visit: Yes Status: Acute (3) Chronic back pain Current Visit: Yes Status: Chronic Qualifiers: Back pain location: low back pain Back pain laterality: bilateral Sciatica presence: without sciatica Qualified Code(s): M54.5 - Low back pain; G89.29 - Other chronic pain Comment: . (4) Cocaine dependence, uncomplicated Current Visit: Yes Status: Acute (5) GERD (gastroesophageal reflux disease) Current Visit: Yes Status: Chronic Qualifiers: Esophagitis presence: without esophagitis Qualified Code(s): K21.9 - Gastro -esophageal reflux disease without esophagitis Comment: . (6) Insomnia Current Visit: Yes Status: Chronic Qualifiers: Insomnia type: alcohol-induced Qualified Code(s): F10.982 - Alcohol use, unspecified with alcohol-induced sleep disorder (7) MDD (major depressive disorder) Current Visit: Yes Status: Chronic Qualifiers: Major depression recurrence: recurrent Active/Remission status: remission status unspecified Qualified Code(s): F33.9 - Major depressive disorder, recurrent, unspecified Comment: History. (8) Asthma Current Visit: Yes Status: Chronic Comment: . Cleared for Admission S - Detox or Rehab [facility] Level of Care: Medically Managed Detox Regimen/Protocol: Librium Claeared for Rehab Admission: No Breathalyzer - Breathalyzer Breathalyzer: 0 Urine Drug Screen - Test Device Lot number: [id number] Expiration date: 07/18/20 - Control Is test valid?: Yes - Results Drug screen NEGATIVE: No Urine drug screen results: CHANO-Cocaine, BZO-Benzodiazepines Inpatient Rehab Admission - Rehab Decision to Admit Inpatient rehab admission?: No
[2018-10-25] MEDS ORDERED: ACETAMINOPHEN 325 MG TABLET (FP) PO PRN ×2 (13:59)
[2018-10-25] MEDS ORDERED: BISMUTH SUBSALICYLATE 524 MG/30 ML UD PO PRN (13:59)
[2018-10-25] MEDS ORDERED: chlordiazePOXIDE HCL 25 MG CAPSULE PO PRN (13:59)
[2018-10-25] MEDS ORDERED: MAGNESIUM CITRATE 300 ML BOTTLE PO PRN (13:59)
[2018-10-25] MEDS ORDERED: METHOCARBAMOL 500 MG TABLET PO PRN (13:59)
[2018-10-25] MEDS ORDERED: MAGNESIUM HYDROX 2400MG/30ML ORAL SUSPENSION 30 ML CUP PO PRN (13:59)
[2018-10-25] MEDS ORDERED: MAG HYDROX/AL HYDROX/SIMETH 30 ML UNIT-DOSE CUP PO PRN (13:59)
[2018-10-25] MEDS ORDERED: ONDANSETRON *ODT* 4 MG TABLET SL PRN (13:59)
[2018-10-25] MEDS ORDERED: ALBUTEROL SO4 8 GM HFA INHALER IH PRN (14:02)
[2018-10-25] MEDS ORDERED: ALBUTEROL SO4 0.083% IH SOL 2.5 MG/3 ML VIAL.NEB. NEB PRN (17:03)
[2018-10-25] MEDS: chlordiazePOXIDE HCL 25 MG CAPSULE PO SCH ×2 (17:47→22:08)
[2018-10-25] MEDS: guaiFENesin 200 MG/10 ML 10 ML UNIT-DOSE CUPS PO PRN (17:49)
[2018-10-25] MEDS: MENTHOL/PHENOL 1 EACH UD MM PRN ×2 (17:49→22:11)
[2018-10-25] MEDS ORDERED: QUEtiapine FUMARATE 400 MG TABLET PO ONE (22:00)
[2018-10-25] MEDS: THIAMINE HCL 100 MG TABLET (FP) PO SCH (22:07)
[2018-10-25] MEDS: MONTELUKAST NA 10 MG TABLET PO SCH (22:07)
[2018-10-25] MEDS: ALBUTEROL SO4 8 GM HFA INHALER IH PRN (22:09)
[2018-10-26] MEDS: chlordiazePOXIDE HCL 25 MG CAPSULE PO SCH ×4 (05:17→22:40)
[2018-10-26 10:23] LABS: HEMATOCRIT 39.1 % (35.4-49); HEMOGLOBIN 12.9 GM/dL (11.7-16.9); MCH 32.3 pg (25.7-33.7); MCHC 33.1 g/dl (32.0-35.9); MEAN CELL VOLUME 97.5 fl (80-96); MEAN PLT VOLUME 8.8 fl (7.5-11.1); PLATELET COUNT 191 K/MM3 (134-434); RBC 4.01 M/mm3 (4.00-5.60); RDW 12.9 % (11.9-15.9); WHITE BLOOD COUNT 6.1 K/mm3 (4.0-10.0)
[2018-10-26 10:24] LABS: ALBUMIN 3.4 g/dl (3.4-5.0); BILIRUBIN,TOTAL 0.4 mg/dL (0.2-1); BLOOD UREA NITROGEN 10.3 mg/dL (7-18); POTASSIUM 3.9 mmol/L (3.5-5.1); TOT PROT 6.2 g/dl (6.4-8.2)
[2018-10-26] MEDS: PRENATAL VITAMINS W/ FOLIC ACID TABLET (FP) PO SCH (10:31)
[2018-10-26] MEDS: IBUPROFEN 400 MG TABLET (FP) PO PRN (10:34)
--- NOTE | 2018-10-26 15:11 | PN ---
S CIWA - CIWA Score Nausea/Vomitin-Mild Nausea/No Vomiting Muscle Tremors: 2 Anxiety: 3 Agitation: 2 Paroxysmal Sweats: 1-Minimal Palms Moist Orientation: 0-Oriented Tacttile Disturbances: 0-None Auditory Disturbances: 0-None Visual Disturbances: 0-None Headache: 2-Mild CIWA-Ar Total Score: 11 S Progress Note (SOAP) Subjective: 53 years old male 2nd patient [facility] 2017 was admitted on 10/25/18 for alcohol and benzo withdrawal sx managment doing well with libirum detox regimen sleep better at night well rested social with peers in day room Objective: 10/26/18 15:14 Vital Signs Temperature 98.0 F 10/26/18 13:17 Pulse Rate 77 10/26/18 13:17 Respiratory Rate 18 10/26/18 13:17 Blood Pressure 115/67 10/26/18 13:17 O2 Sat by Pulse Oximetry (%) Laboratory Last Values WBC 6.1 K/mm3 (4.0-10.0) 10/26/18 08:00 RBC 4.01 M/mm3 (4.00-5.60) 10/26/18 08:00 Hgb 12.9 GM/dL (11.7-16.9) 10/26/18 08:00 Hct 39.1 % (35.4-49) 10/26/18 08:00 MCV 97.5 fl (80-96) H 10/26/18 08:00 MCH 32.3 pg (25.7-33.7) 10/26/18 08:00 MCHC 33.1 g/dl (32.0-35.9) 10/26/18 08:00 RDW 12.9 % (11.9-15.9) 10/26/18 08:00 Plt Count 191 K/MM3 (134-434) 10/26/18 08:00 MPV 8.8 fl (7.5-11.1) 10/26/18 08:00 Sodium 141 mmol/L (136-145) 10/26/18 08:00 Potassium 3.9 mmol/L (3.5-5.1) 10/26/18 08:00 Chloride 109 mmol/L (98-107) H 10/26/18 08:00 Carbon Dioxide 26 mmol/L (21-32) 10/26/18 08:00 Anion Gap 6 MMOL/L (8-16) L 10/26/18 08:00 BUN 10.3 mg/dL (7-18) 10/26/18 08:00 Creatinine 1.0 mg/dL (0.55-1.3) 10/26/18 08:00 Est GFR (CKD-EPI)AfAm 100.55 10/26/18 08:00 Est GFR (CKD-EPI)NonAf 86.76 10/26/18 08:00 Random Glucose 95 mg/dL (74-106) 10/26/18 08:00 Calcium 8.0 mg/dL (8.5-10.1) L 10/26/18 08:00 Total Bilirubin 0.4 mg/dL (0.2-1) 10/26/18 08:00 AST 15 U/L (15-37) 10/26/18 08:00 ALT 16 U/L (13-61) 10/26/18 08:00 Alkaline Phosphatase 80 U/L (45-117) 10/26/18 08:00 Total Protein 6.2 g/dl (6.4-8.2) L 10/26/18 08:00 Albumin 3.4 g/dl (3.4-5.0) 10/26/18 08:00 RPR Titer Nonreactive (NONREACTIVE) 10/26/18 08:00 lab noted Assessment: 10/26/18 15:14 alcohol and benzo withdrawal sx Plan: continue librium detox regimen
[2018-10-26] MEDS: guaiFENesin 200 MG/10 ML 10 ML UNIT-DOSE CUPS PO PRN ×2 (17:33→22:43)
[2018-10-26] MEDS: MENTHOL/PHENOL 1 EACH UD MM PRN (17:35)
[2018-10-26] MEDS: THIAMINE HCL 100 MG TABLET (FP) PO SCH (22:40)
[2018-10-26] MEDS: MONTELUKAST NA 10 MG TABLET PO SCH (22:40)
[2018-10-26] MEDS: MELATONIN 5 MG TABLETS PO PRN (22:41)
[2018-10-26] MEDS: ALBUTEROL SO4 8 GM HFA INHALER IH PRN (22:42)
[2018-10-26] MEDS: hydrOXYzine PAMOATE 25 MG CAPSULE (FP) PO PRN (22:43)
[2018-10-27] MEDS: chlordiazePOXIDE HCL 25 MG CAPSULE PO SCH ×4 (05:37→22:14)
[2018-10-27] MEDS: IBUPROFEN 400 MG TABLET (FP) PO PRN (10:10)
[2018-10-27] MEDS: PRENATAL VITAMINS W/ FOLIC ACID TABLET (FP) PO SCH (10:10)
--- NOTE | 2018-10-27 14:39 | PN ---
[facility] CIWA - CIWA Score Nausea/Vomitin-Mild Nausea/No Vomiting Muscle Tremors: 2 Anxiety: 3 Agitation: 2 Paroxysmal Sweats: 1-Minimal Palms Moist Orientation: 1-Uncertain about Date (date of the week) Tacttile Disturbances: 0-None Auditory Disturbances: 0-None Visual Disturbances: 0-None Headache: 0-None Present CIWA-Ar Total Score: 10 S Progress Note (SOAP) Subjective: doing well with librium detox regimen less irritable mild anxiety sleep better at night Objective: 10/27/18 14:40 Vital Signs Temperature 98.0 F 10/27/18 13:38 Pulse Rate 71 10/27/18 13:38 Respiratory Rate 18 10/27/18 13:38 Blood Pressure 106/66 10/27/18 13:38 O2 Sat by Pulse Oximetry (%) Laboratory Last Values WBC 6.1 K/mm3 (4.0-10.0) 10/26/18 08:00 RBC 4.01 M/mm3 (4.00-5.60) 10/26/18 08:00 Hgb 12.9 GM/dL (11.7-16.9) 10/26/18 08:00 Hct 39.1 % (35.4-49) 10/26/18 08:00 MCV 97.5 fl (80-96) H 10/26/18 08:00 MCH 32.3 pg (25.7-33.7) 10/26/18 08:00 MCHC 33.1 g/dl (32.0-35.9) 10/26/18 08:00 RDW 12.9 % (11.9-15.9) 10/26/18 08:00 Plt Count 191 K/MM3 (134-434) 10/26/18 08:00 MPV 8.8 fl (7.5-11.1) 10/26/18 08:00 Sodium 141 mmol/L (136-145) 10/26/18 08:00 Potassium 3.9 mmol/L (3.5-5.1) 10/26/18 08:00 Chloride 109 mmol/L (98-107) H 10/26/18 08:00 Carbon Dioxide 26 mmol/L (21-32) 10/26/18 08:00 Anion Gap 6 MMOL/L (8-16) L 10/26/18 08:00 BUN 10.3 mg/dL (7-18) 10/26/18 08:00 Creatinine 1.0 mg/dL (0.55-1.3) 10/26/18 08:00 Est GFR (CKD-EPI)AfAm 100.55 10/26/18 08:00 Est GFR (CKD-EPI)NonAf 86.76 10/26/18 08:00 Random Glucose 95 mg/dL (74-106) 10/26/18 08:00 Calcium 8.0 mg/dL (8.5-10.1) L 10/26/18 08:00 Total Bilirubin 0.4 mg/dL (0.2-1) 10/26/18 08:00 AST 15 U/L (15-37) 10/26/18 08:00 ALT 16 U/L (13-61) 10/26/18 08:00 Alkaline Phosphatase 80 U/L (45-117) 10/26/18 08:00 Total Protein 6.2 g/dl (6.4-8.2) L 10/26/18 08:00 Albumin 3.4 g/dl (3.4-5.0) 10/26/18 08:00 RPR Titer Nonreactive (NONREACTIVE) 10/26/18 08:00 lab noted Assessment: 10/27/18 14:41 alcohol and benzo withdrawal sx Plan: continue librium detox regimen
--- NOTE | 2018-10-27 15:45 | CONSULT ---
[facility] Psychiatric Consult - Data Date of interview: 10/27/18 Admission source: [facility] Identifying data: Approached patient at bedside. Mr Solis declines psychiatric evaluation. Nursing staff made aware.
[2018-10-27] MEDS: ALBUTEROL SO4 8 GM HFA INHALER IH PRN (22:14)
[2018-10-27] MEDS: MONTELUKAST NA 10 MG TABLET PO SCH (22:14)
[2018-10-27] MEDS: THIAMINE HCL 100 MG TABLET (FP) PO SCH (22:14)
[2018-10-27] MEDS: MELATONIN 5 MG TABLETS PO PRN (22:14)
[2018-10-28] MEDS ORDERED: chlordiazePOXIDE HCL 10 MG CAPSULE PO PRN
[2018-10-28] MEDS: chlordiazePOXIDE HCL 10 MG CAPSULE PO SCH ×4 (06:30→22:04)
[2018-10-28] MEDS: PRENATAL VITAMINS W/ FOLIC ACID TABLET (FP) PO SCH (10:10)
[2018-10-28] MEDS: ALBUTEROL SO4 8 GM HFA INHALER IH PRN ×2 (10:11→22:07)
[2018-10-28] MEDS: IBUPROFEN 400 MG TABLET (FP) PO PRN ×2 (10:12→22:07)
--- NOTE | 2018-10-28 11:58 | PN ---
S CIWA - CIWA Score Nausea/Vomitin-Mild Nausea/No Vomiting Muscle Tremors: 2 Anxiety: 2 Agitation: 2 Paroxysmal Sweats: No Perspiration Orientation: 0-Oriented Tacttile Disturbances: 0-None Auditory Disturbances: 0-None Visual Disturbances: 0-None Headache: 1-Very Mild CIWA-Ar Total Score: 8 [facility] Progress Note (SOAP) Subjective: alert,irritable,anxious,interrupted sleep Objective: 10/28/18 11:57 Vital Signs Temperature 98.5 F 10/28/18 09:48 Pulse Rate 73 10/28/18 09:48 Respiratory Rate 18 10/28/18 09:48 Blood Pressure 97/57 L 10/28/18 09:48 O2 Sat by Pulse Oximetry (%) Assessment: 10/28/18 11:57 withdrawal symptom Plan: continue detox,librium regimen
[2018-10-28] MEDS: MONTELUKAST NA 10 MG TABLET PO SCH (22:04)
[2018-10-28] MEDS: THIAMINE HCL 100 MG TABLET (FP) PO SCH (22:04)
[2018-10-28] MEDS: MELATONIN 5 MG TABLETS PO PRN (22:04)
[2018-10-28] MEDS: hydrOXYzine PAMOATE 25 MG CAPSULE (FP) PO PRN (22:06)
[2018-10-29] MEDS: chlordiazePOXIDE HCL 10 MG CAPSULE PO SCH ×2 (06:07→17:20)
[2018-10-29] MEDS: PRENATAL VITAMINS W/ FOLIC ACID TABLET (FP) PO SCH (10:11)
[2018-10-29] MEDS: ALBUTEROL SO4 8 GM HFA INHALER IH PRN ×2 (12:27→21:16)
[2018-10-29] MEDS: IBUPROFEN 400 MG TABLET (FP) PO PRN (17:21)
[2018-10-29] MEDS: MELATONIN 5 MG TABLETS PO PRN (21:15)
[2018-10-29] MEDS: MONTELUKAST NA 10 MG TABLET PO SCH (21:15)
[2018-10-29] MEDS: THIAMINE HCL 100 MG TABLET (FP) PO SCH (21:15)
[2018-10-29] MEDS: hydrOXYzine PAMOATE 25 MG CAPSULE (FP) PO PRN (21:17)
[2018-10-30] MEDS ORDERED: chlordiazePOXIDE HCL 10 MG CAPSULE PO ONE (05:00)
[2018-10-30 09:03] VITALS: BP 115/70; PULSE 60; TEMP 97.1
[2018-10-30] MEDS: IBUPROFEN 400 MG TABLET (FP) PO PRN (10:29)
[2018-10-30] MEDS: PRENATAL VITAMINS W/ FOLIC ACID TABLET (FP) PO SCH (10:29)
--- NOTE | 2018-10-30 14:51 | DS ---
[facility] Detox Discharge Summary Admission Date: 10/25/18 Discharge Date: 10/30/18 - History Present History: Alcohol Dependence, Sedative Dependence Additional Comments: 53 years old male admitted on 10/25/18 for alcohol and benzo withdrawal sx management did well with librium detox regimen no complication through out the detox stay patient declined psychiatric services alert oriented x 3 ambulating steady gait extremities full range of motion skin warm and dry denies weakness patient reported that he has MD appointment for "shoot" of the "back" that patient has chronic lower back pain treated with "shoot" periodically - Physical Exam Results Vital Signs: Vital Signs Temperature 97.1 F L 10/30/18 09:02 Pulse Rate 60 10/30/18 09:02 Respiratory Rate 18 10/30/18 09:02 Blood Pressure 115/70 10/30/18 09:02 O2 Sat by Pulse Oximetry (%) Pertinent Admission Physical Exam Findings: alcohol and benzo withdrawal sx Laboratory Last Values WBC 6.1 K/mm3 (4.0-10.0) 10/26/18 08:00 RBC 4.01 M/mm3 (4.00-5.60) 10/26/18 08:00 Hgb 12.9 GM/dL (11.7-16.9) 10/26/18 08:00 Hct 39.1 % (35.4-49) 10/26/18 08:00 MCV 97.5 fl (80-96) H 10/26/18 08:00 MCH 32.3 pg (25.7-33.7) 10/26/18 08:00 MCHC 33.1 g/dl (32.0-35.9) 10/26/18 08:00 RDW 12.9 % (11.9-15.9) 10/26/18 08:00 Plt Count 191 K/MM3 (134-434) 10/26/18 08:00 MPV 8.8 fl (7.5-11.1) 10/26/18 08:00 Sodium 141 mmol/L (136-145) 10/26/18 08:00 Potassium 3.9 mmol/L (3.5-5.1) 10/26/18 08:00 Chloride 109 mmol/L (98-107) H 10/26/18 08:00 Carbon Dioxide 26 mmol/L (21-32) 10/26/18 08:00 Anion Gap 6 MMOL/L (8-16) L 10/26/18 08:00 BUN 10.3 mg/dL (7-18) 10/26/18 08:00 Creatinine 1.0 mg/dL (0.55-1.3) 10/26/18 08:00 Est GFR (CKD-EPI)AfAm 100.55 10/26/18 08:00 Est GFR (CKD-EPI)NonAf 86.76 10/26/18 08:00 Random Glucose 95 mg/dL (74-106) 10/26/18 08:00 Calcium 8.0 mg/dL (8.5-10.1) L 10/26/18 08:00 Total Bilirubin 0.4 mg/dL (0.2-1) 10/26/18 08:00 AST 15 U/L (15-37) 10/26/18 08:00 ALT 16 U/L (13-61) 10/26/18 08:00 Alkaline Phosphatase 80 U/L (45-117) 10/26/18 08:00 Total Protein 6.2 g/dl (6.4-8.2) L 10/26/18 08:00 Albumin 3.4 g/dl (3.4-5.0) 10/26/18 08:00 RPR Titer Nonreactive (NONREACTIVE) 10/26/18 08:00 lab noted - Treatment Hospital Course: Detox Protocol Followed, Detoxed Safely, Responded well, Discharged Condition Good, Rehab Referral Accepted Patient has Accepted a Rehab Referral to: [facility] - Medication Discharge Medications: Ambulatory Orders Quetiapine Fumarate [Seroquel -] 400 mg PO HS #30 tab 07/03/16 Albuterol Sulfate Inhaler - [Ventolin HFA Inhaler -] 2 puff IH Q4H PRN #1 inhaler 04/28/18 Montelukast Na [Singulair -] 10 mg PO HS #30 tablet 04/28/18 - Diagnosis (1) Sedative, hypnotic or anxiolytic dependence, uncomplicated Status: Acute (2) Alcohol dependence with uncomplicated withdrawal Status: Acute (3) Nicotine dependence, uncomplicated Status: Acute Qualifiers: Nicotine product type: cigarettes Qualified Code(s): F17.210 - Nicotine dependence, cigarettes, uncomplicated (4) Asthma Status: Chronic (5) GERD (gastroesophageal reflux disease) Status: Chronic Qualifiers: Esophagitis presence: without esophagitis Qualified Code(s): K21.9 - Gastro -esophageal reflux disease without esophagitis (6) Substance induced mood disorder Status: Suspected - AMA Did Patient Leave Against Medical Advice: No CIWA Score - CIWA Score Nausea/Vomitin-No Nausea/No Vomiting Muscle Tremors: 1-None Visible, but [place] Anxiety: 1-Mildly Anxious Agitation: 1-Slight > Activity Paroxysmal Sweats: No Perspiration Orientation: 0-Oriented Tacttile Disturbances: 0-None Auditory Disturbances: 0-None Visual Disturbances: 0-None Headache: 1-Very Mild CIWA-Ar Total Score: 4
== END 2018-10-30 10:46 | disposition home or self-care (01) | DRG 897 ==
LOC: YASAS 09:42 → Y3N 17:03
PROVIDERS: ADMIT Surgery; ATTEND Surgery
PROC: HZ2ZZZZ Detoxification Services for Substance Abuse Treatment (ICD-10-PCS; principal; 2018-10-25)
DX: F10.230 Alcohol dependence with withdrawal, uncomplicated (principal); F14.20 Cocaine dependence, uncomplicated; F33.9 Major depressive disorder, recurrent, unspecified; F13.230 Sedative, hypnotic or anxiolytic dependence with withdrawal, uncomplicated; F12.20 Cannabis dependence, uncomplicated; F17.210 Nicotine dependence, cigarettes, uncomplicated; F19.24 Other psychoactive substance dependence with psychoactive substance-induced mood disorder; J45.909 Unspecified asthma, uncomplicated; K21.9 Gastro-esophageal reflux disease without esophagitis; M54.5 Low back pain; G89.29 Other chronic pain; G47.00 Insomnia, unspecified; Z86.69 Personal history of other diseases of the nervous system and sense organs
CPT/HCPCS: 36415; 71046-TC-FY; 80053; 85027; 86593; Q0162

== ENCOUNTER 2018-12-09 10:10 | Inpatient (IN) | payer OTHER ==
[2018-12-09 10:36] VITALS: BMI 25.9
--- NOTE | 2018-12-09 13:15 | HP ---
CIWA Score Nausea/Vomitin-No Nausea/No Vomiting Muscle Tremors: 4-Moderate,w/Arms Extend Anxiety: 4-Mod. Anxious/Guarded Agitation: 2 Paroxysmal Sweats: No Perspiration Orientation: 0-Oriented Tacttile Disturbances: 0-None Auditory Disturbances: 0-None Visual Disturbances: 0-None Headache: 0-None Present CIWA-Ar Total Score: 10 - Admission Criteria OASAS Guidelines: Admission for Medically Managed Detox: Requires at least one of the followin. CIWA greater than 12 2. Seizures within the past 24 hours 3. Delirium tremens within the past 24 hours 4. Hallucinations within the past 24 hours 5. Acute intervention needed for co occurring medical disorder 6. Acute intervention needed for co occurring psychiatric disorder 7. Severe withdrawal that cannot be handled at a lower level of care (continued vomiting, continued diarrhea, abnormal vital signs) requiring intravenous medication and/or fluids 8. Admitting History and Physical - Admission History Source: Patient - Past Medical History Pulmonary: Yes: Asthma - Past Surgical History Past Surgical History: Yes: None - Smoking History Smoking history: Current some day smoker Have you smoked in the past 12 months: Yes Aproximately how many cigarettes per day: 3 - Alcohol/Substance Use Hx Alcohol Use: Yes Number of Drinks Daily: 5 History of Substance Use: reports: Cocaine Date of Last Use: 12/08/18 - Social History Usual Living Arrangement: Yes: Other Admission [facility] Chief Complaint: 53 y.o. M PMH asthma presenting for detox today. Has completed detox here in the past. EtOH: last used today, drank 1 beer. Drinks daily, 2-24oz beers & 3 pints vodka daily. Last sober period [id number] while incarcerated. Had a seizure d/t not drinking 2 yrs ago. Cocaine: 3x/ month. 2grams in a day ~ $100. Sniffs, never injected. Last used yesterday about 6 grams. Started using at age 23. Xanax: Started using 10 yrs ago. Last used 3 days ago, 2mg. Uses 3x/ week. Cigarettes: 3 cigarettes 2x / week PSH: None All: None Meds: albuterol inhaler used every other day FH: In contact w/ sisters. Allergies/Adverse Reactions: Allergies Allergy/AdvReac Type Severity Reaction Status Date / Time No Known Drug Allergies Allergy Unknown Verified 12/09/18 10:20 pork derived (porcine) AdvReac Severe Vomiting Verified 12/09/18 10:20 - Ebola screening Have you traveled outside of the country in the last 21 days: No Have you had contact with anyone from an Ebola affected area: No Do you have a fever: No Patient History - Patient Medical History Hx Anemia: No Hx Asthma: Yes Hx Chronic Obstructive Pulmonary Disease (COPD): No Hx Cancer: No Hx Cardiac Disorders: No Hx Congestive Heart Failure: No Hx Hypertension: No Hx Hypercholesterolemia: No Hx Pacemaker: No HX Cerebrovascular Accident: No Hx Seizures: Yes (9 months ago) Hx Dementia: No Hx Diabetes: No Hx Gastrointestinal Disorders: Yes (GERD) Hx Liver Disease: No Hx Genitourinary Disorders: No Hx Sexually Transmitted Disorders: No Hx Renal Disease (ESRD): No Hx Thyroid Disease: No Hx Human Immunodeficiency Virus (HIV): No Hx Hepatitis C: No Hx Depression: Yes Hx Suicide Attempt: No Hx Bipolar Disorder: Yes (hospitalized [address] [place] [address]) Hx Schizophrenia: No - Patient Surgical History Past Surgical History: No Hx Neurologic Surgery: No Hx Cataract Extraction: No Hx Cardiac Surgery: No Hx Lung Surgery: No Hx Breast Surgery: No Hx Breast Biopsy: No Hx Abdominal Surgery: No Hx Appendectomy: No Hx Cholecystectomy: No Hx Genitourinary Surgery: No Hx Section: No Hx Orthopedic Surgery: No Hx Hysterectomy: No Anesthesia Reaction: No - PPD History Date: 12/26/15 Results: 0 mm - Smoking Cessation Smoking history: Current some day smoker Have you smoked in the past 12 months: Yes Aproximately how many cigarettes per day: 3 Cigars Per Day: 0 Hx Chewing Tobacco Use: No - Substances abused Alcohol Substance route: Oral Frequency: Daily Amount used: 3 pints Vodka/day Age of first use: 15 Date of last use: 12/08/18 Cocaine Substance route: Inhalation Frequency: 1-3 times last 30 days Amount used: 5 grams Age of first use: 23 Date of last use: 12/08/18 Alprazolam (Xanax) Substance route: Oral Frequency: Daily Amount used: 2-3 sticks of the 2mg Age of first use: 42 Date of last use: 12/08/18 Admission Physical Exam BHS - Vital Signs Vital Signs: Vital Signs - 24 hr 12/09/18 10:20 Temperature 97.6 F Pulse Rate 79 Respiratory 18 Rate Blood Pressure 132/89 - Physical General Appearance: Yes: Mild Distress HEENTM: Yes: Within Normal Limits Respiratory: Yes: Within Normal Limits Neck: Yes: Within Normal Limits Cardiology: Yes: Within Normal Limits Abdominal: Yes: Within Normal Limits Musculoskeletal: Yes: Back pain Extremities: Yes: Within Normal Limits 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
[2018-12-09] MEDS ORDERED: BISMUTH SUBSALICYLATE 262 MG/15 ML BTL PO PRN (13:32)
[2018-12-09] MEDS ORDERED: hydrOXYzine PAMOATE 25 MG CAPSULE (FP) PO PRN (13:32)
[2018-12-09] MEDS ORDERED: IBUPROFEN 400 MG TABLET (FP) PO PRN (13:32)
[2018-12-09] MEDS ORDERED: MAG HYDROX/AL HYDROX/SIMETH 30 ML UNIT-DOSE CUP PO PRN (13:32)
[2018-12-09] MEDS ORDERED: MAGNESIUM CITRATE 300 ML BOTTLE PO PRN (13:32)
[2018-12-09] MEDS ORDERED: MAGNESIUM HYDROX 2400MG/30ML ORAL SUSPENSION 30 ML CUP PO PRN (13:32)
[2018-12-09] MEDS ORDERED: METHOCARBAMOL 500 MG TABLET PO PRN (13:32)
[2018-12-09] MEDS ORDERED: MENTHOL/PHENOL 1 EACH UD MM PRN (13:32)
[2018-12-09] MEDS ORDERED: ACETAMINOPHEN 325 MG TABLET (FP) PO PRN ×2 (13:32)
[2018-12-09] MEDS ORDERED: chlordiazePOXIDE HCL 25 MG CAPSULE PO PRN (13:34)
--- NOTE | 2018-12-09 14:38 | PN ---
Teaching Attending Note Name of Resident: Anu Vela ATTENDING PHYSICIAN STATEMENT I saw and evaluated the patient. I reviewed the resident's note and discussed the case with the resident. I agree with the resident's findings and plan as documented. SUBJECTIVE: ETOH intoxication MONSE 0.017 claims 3 pints/day alcohol , starts drinking in the mornings, tremors/ nausea/ diarrhea if not drinking . claims past w/d seizure , OBJECTIVE:wnwd Vital Signs - 24 hr 12/09/18 10:20 Temperature 97.6 F Pulse Rate 79 Respiratory 18 Rate Blood Pressure 132/89 ASSESSMENT AND PLAN: AUD - Librium detox
[2018-12-09 16:25] LABS: HEMATOCRIT 43.7 % (35.4-49); HEMOGLOBIN 14.2 GM/dL (11.7-16.9); MCH 31.8 pg (25.7-33.7); MCHC 32.6 g/dl (32.0-35.9); MEAN CELL VOLUME 97.6 fl (80-96); MEAN PLT VOLUME 8.9 fl (7.5-11.1); PLATELET COUNT 177 K/MM3 (134-434); RBC 4.48 M/mm3 (4.00-5.60); RDW 12.9 % (11.9-15.9); WHITE BLOOD COUNT 8.6 K/mm3 (4.0-10.0)
[2018-12-09 16:36] LABS: ALBUMIN 4.2 g/dl (3.4-5.0); BILIRUBIN,TOTAL 0.4 mg/dL (0.2-1); BLOOD UREA NITROGEN 11.3 mg/dL (7-18); CALCIUM 8.9 mg/dL (8.5-10.1); CREATININE 1.3 mg/dL (0.55-1.3); POTASSIUM 3.8 mmol/L (3.5-5.1); TOT PROT 7.3 g/dl (6.4-8.2)
[2018-12-09] MEDS: chlordiazePOXIDE HCL 25 MG CAPSULE PO SCH ×2 (17:18→22:15)
[2018-12-09] MEDS: THIAMINE HCL 100 MG TABLET (FP) PO SCH (22:13)
[2018-12-09] MEDS: MONTELUKAST NA 10 MG TABLET PO SCH (22:14)
[2018-12-09] MEDS: BUDESONIDE/FORMETEROL FUMARATE 80/4.5 mcg INHALER IH SCH (22:15)
[2018-12-10] MEDS: chlordiazePOXIDE HCL 25 MG CAPSULE PO SCH ×4 (06:13→22:27)
[2018-12-10] MEDS: BUDESONIDE/FORMETEROL FUMARATE 80/4.5 mcg INHALER IH SCH ×2 (10:21→22:31)
[2018-12-10] MEDS: PRENATAL VITAMINS W/ FOLIC ACID TABLET (FP) PO SCH (10:22)
[2018-12-10] MEDS: ALBUTEROL SO4 8 GM HFA INHALER IH PRN ×2 (10:22→22:31)
--- NOTE | 2018-12-10 13:08 | CONSULT ---
[facility] Psychiatric Consult - Data Date of interview: 12/10/18 Admission source: [facility] Identifying data: Readmission to [facility] for this 53 y/o AA male self- referred for detoxification. OSWALD issues : alcohol, cocaine, benzodiazepine, nicotine. Seen on . Patient is single, no dependents (claimed two at a previous encounter), domiciled, unemployed and supported on welfare. Substance Abuse History: Discussed with patient. Details in current [facility] report as follows : Smoking history: Current some day smoker. Have you smoked in the past 12 months: Yes. Aproximately how many cigarettes per day: 3. Cigars Per Day: 0. Hx Chewing Tobacco Use: No. - Substances abused. Alcohol. Substance route: Oral. Frequency: Daily. Amount used: 3 pints Vodka/day. Age of first use: 15. Date of last use: 12/08/18. Cocaine. Substance route: Inhalation. Frequency: 1-3 times last 30 days. Amount used: 5 grams. Age of first use: 23. Date of last use: 12/08/18. Alprazolam (Xanax). Substance route: Oral. Frequency: Daily. Amount used: 2-3 sticks of the 2mg. Age of first use: 42. Date of last use: 12/08/18 Medical History: Consistent with a history of withdrawal-related seizures, bronchial asthma, hypertension, gastro-esophageal reflux disease and chronic lumbar anatoliy Psychiatric History: History of two psychiatric hospitalizations ([facility]). Diagnosed with MDD, Bipolar Disorder and PTSD (2010). Patient indicates past trials of various formulations over the years ( lamotrigine, elavil, paroxetine, seroquel). No regular OPD care for several months. Mr Solis utilizes local [facility] settings for medications refills. Used " left over " tablets of seroquel (400 mg/hs). Patient denies history of suicide attempts (past records at [facility] indicate a different version : history of a suicide attempt, via cutting-wrist, in 1989). Physical/Sexual Abuse/Trauma History: Patient denies. Additional Comment: Urine drug screen results: CHANO-Cocaine, BZO- Benzodiazepines. Noted Mental Status Exam - Mental Status Exam Alert and Oriented to: Time, Place, Person Cognitive Function: Grossly Intact Patient Appearance: Disheveled Mood: Hostile, Withdrawn, Irritable Affect: Mood Congruent, Constricted Patient Behavior: Fatigued, Uncooperative Speech Pattern: Clear Voice Loudness: Normal Thought Process: Goal Oriented Thought Disorder: Not Present Hallucinations: Denies Suicidal Ideation: Denies Homicidal Ideation: Denies Insight/Judgement: Poor Sleep: Poorly, Difficulty falling asleep Appetite: Good Gait/Station: Other (not observed ; in bed for entire interview) Psychiatric Findings - Problem List ([place] 1, 2,3) (1) Alcohol dependence with uncomplicated withdrawal Current Visit: Yes Status: Acute (2) Cocaine dependence, uncomplicated Current Visit: Yes Status: Chronic (3) Nicotine dependence, uncomplicated Current Visit: Yes Status: Chronic Qualifiers: Nicotine product type: cigarettes Qualified Code(s): F17.210 - Nicotine dependence, cigarettes, uncomplicated (4) Sedative, hypnotic or anxiolytic dependence, uncomplicated Current Visit: Yes Status: Chronic (5) Substance induced mood disorder Current Visit: Yes Status: Chronic (6) History of bipolar disorder Current Visit: Yes Status: Chronic Comment: Non compliant with OPD care. (7) Insomnia Current Visit: Yes Status: Chronic Qualifiers: Insomnia type: alcohol-induced Qualified Code(s): F10.982 - Alcohol use, unspecified with alcohol-induced sleep disorder - Initial Treatment Plan Initial Treatment Plan: Psychoeducation. Sleep hygiene. Detoxification. Seroquel 150 mg po hs. Side effects/benefits discussed with the patient. Informed consent (verbal) secured. Observation.
--- NOTE | 2018-12-10 13:55 | PN ---
S CIWA - CIWA Score Nausea/Vomitin-Mild Nausea/No Vomiting Muscle Tremors: 2 Anxiety: 2 Agitation: 2 Paroxysmal Sweats: No Perspiration Orientation: 0-Oriented Tacttile Disturbances: 1-Very Mild Itch/Numbness Auditory Disturbances: 0-None Visual Disturbances: 1-Very Mild Sensitivity Headache: 2-Mild CIWA-Ar Total Score: 11 S Progress Note (SOAP) Subjective: alert,irritable,anxious,interrupted sleep,tremor Objective: 12/10/18 13:54 Vital Signs Temperature 97.6 F 12/10/18 13:13 Pulse Rate 91 H 12/10/18 13:13 Respiratory Rate 18 12/10/18 13:13 Blood Pressure 117/73 12/10/18 13:13 O2 Sat by Pulse Oximetry (%) Laboratory Last Values WBC 8.6 K/mm3 (4.0-10.0) 12/09/18 14:40 RBC 4.48 M/mm3 (4.00-5.60) 12/09/18 14:40 Hgb 14.2 GM/dL (11.7-16.9) 12/09/18 14:40 Hct 43.7 % (35.4-49) 12/09/18 14:40 MCV 97.6 fl (80-96) H 12/09/18 14:40 MCH 31.8 pg (25.7-33.7) 12/09/18 14:40 MCHC 32.6 g/dl (32.0-35.9) 12/09/18 14:40 RDW 12.9 % (11.9-15.9) 12/09/18 14:40 Plt Count 177 K/MM3 (134-434) 12/09/18 14:40 MPV 8.9 fl (7.5-11.1) 12/09/18 14:40 Sodium 137 mmol/L (136-145) 12/09/18 14:40 Potassium 3.8 mmol/L (3.5-5.1) 12/09/18 14:40 Chloride 102 mmol/L (98-107) 12/09/18 14:40 Carbon Dioxide 27 mmol/L (21-32) 12/09/18 14:40 Anion Gap 8 MMOL/L (8-16) 12/09/18 14:40 BUN 11.3 mg/dL (7-18) 12/09/18 14:40 Creatinine 1.3 mg/dL (0.55-1.3) 12/09/18 14:40 Est GFR (CKD-EPI)AfAm 73.22 12/09/18 14:40 Est GFR (CKD-EPI)NonAf 63.18 12/09/18 14:40 Random Glucose 88 mg/dL (74-106) 12/09/18 14:40 Calcium 8.9 mg/dL (8.5-10.1) 12/09/18 14:40 Total Bilirubin 0.4 mg/dL (0.2-1) 12/09/18 14:40 AST 24 U/L (15-37) 12/09/18 14:40 ALT 54 U/L (13-61) 12/09/18 14:40 Alkaline Phosphatase 91 U/L (45-117) 12/09/18 14:40 Total Protein 7.3 g/dl (6.4-8.2) 12/09/18 14:40 Albumin 4.2 g/dl (3.4-5.0) 12/09/18 14:40 RPR Titer Nonreactive (NONREACTIVE) 12/09/18 14:40 Assessment: 12/10/18 13:54 withdrawal symptom Plan: continue detox librium regimen
[2018-12-10] MEDS: THIAMINE HCL 100 MG TABLET (FP) PO SCH (22:27)
[2018-12-10] MEDS: MONTELUKAST NA 10 MG TABLET PO SCH (22:27)
[2018-12-10] MEDS: MELATONIN 5 MG TABLETS PO PRN (22:31)
[2018-12-11] MEDS: chlordiazePOXIDE HCL 25 MG CAPSULE PO SCH ×4 (05:22→22:07)
[2018-12-11] MEDS: PRENATAL VITAMINS W/ FOLIC ACID TABLET (FP) PO SCH (10:14)
[2018-12-11] MEDS: BUDESONIDE/FORMETEROL FUMARATE 80/4.5 mcg INHALER IH SCH ×2 (10:15→22:08)
[2018-12-11] MEDS: ALBUTEROL SO4 8 GM HFA INHALER IH PRN (10:16)
--- NOTE | 2018-12-11 13:14 | PN ---
[facility] CIWA - CIWA Score Nausea/Vomitin-Mild Nausea/No Vomiting Muscle Tremors: 2 Anxiety: 3 Agitation: 2 Paroxysmal Sweats: 1-Minimal Palms Moist Orientation: 0-Oriented Tacttile Disturbances: 0-None Auditory Disturbances: 0-None Visual Disturbances: 0-None Headache: 0-None Present CIWA-Ar Total Score: 9 S Progress Note (SOAP) Subjective: doing well with librium detox regimen sleep better at night ate breakfast health teaching on risks of benzo mixed with alcohol Objective: 12/11/18 13:13 Vital Signs Temperature 97.5 F L 12/11/18 09:15 Pulse Rate 68 12/11/18 09:15 Respiratory Rate 18 12/11/18 09:15 Blood Pressure 121/80 12/11/18 09:15 O2 Sat by Pulse Oximetry (%) Laboratory Last Values WBC 8.6 K/mm3 (4.0-10.0) 12/09/18 14:40 RBC 4.48 M/mm3 (4.00-5.60) 12/09/18 14:40 Hgb 14.2 GM/dL (11.7-16.9) 12/09/18 14:40 Hct 43.7 % (35.4-49) 12/09/18 14:40 MCV 97.6 fl (80-96) H 12/09/18 14:40 MCH 31.8 pg (25.7-33.7) 12/09/18 14:40 MCHC 32.6 g/dl (32.0-35.9) 12/09/18 14:40 RDW 12.9 % (11.9-15.9) 12/09/18 14:40 Plt Count 177 K/MM3 (134-434) 12/09/18 14:40 MPV 8.9 fl (7.5-11.1) 12/09/18 14:40 Sodium 137 mmol/L (136-145) 12/09/18 14:40 Potassium 3.8 mmol/L (3.5-5.1) 12/09/18 14:40 Chloride 102 mmol/L (98-107) 12/09/18 14:40 Carbon Dioxide 27 mmol/L (21-32) 12/09/18 14:40 Anion Gap 8 MMOL/L (8-16) 12/09/18 14:40 BUN 11.3 mg/dL (7-18) 12/09/18 14:40 Creatinine 1.3 mg/dL (0.55-1.3) 12/09/18 14:40 Est GFR (CKD-EPI)AfAm 73.22 12/09/18 14:40 Est GFR (CKD-EPI)NonAf 63.18 12/09/18 14:40 Random Glucose 88 mg/dL (74-106) 12/09/18 14:40 Calcium 8.9 mg/dL (8.5-10.1) 12/09/18 14:40 Total Bilirubin 0.4 mg/dL (0.2-1) 12/09/18 14:40 AST 24 U/L (15-37) 12/09/18 14:40 ALT 54 U/L (13-61) 12/09/18 14:40 Alkaline Phosphatase 91 U/L (45-117) 12/09/18 14:40 Total Protein 7.3 g/dl (6.4-8.2) 12/09/18 14:40 Albumin 4.2 g/dl (3.4-5.0) 12/09/18 14:40 RPR Titer Nonreactive (NONREACTIVE) 12/09/18 14:40 lab noted Assessment: 12/11/18 13:13 alcohol and benzo withdrawal sx Plan: continue librium detox regimen
[2018-12-11] MEDS: MONTELUKAST NA 10 MG TABLET PO SCH (22:08)
[2018-12-11] MEDS: MELATONIN 5 MG TABLETS PO PRN (22:08)
[2018-12-11] MEDS: THIAMINE HCL 100 MG TABLET (FP) PO SCH (22:08)
[2018-12-12] MEDS ORDERED: chlordiazePOXIDE HCL 10 MG CAPSULE PO PRN
[2018-12-12] MEDS: chlordiazePOXIDE HCL 10 MG CAPSULE PO SCH ×4 (05:27→22:17)
[2018-12-12] MEDS: PRENATAL VITAMINS W/ FOLIC ACID TABLET (FP) PO SCH (10:21)
[2018-12-12] MEDS: ALBUTEROL SO4 8 GM HFA INHALER IH PRN (10:22)
[2018-12-12] MEDS: BUDESONIDE/FORMETEROL FUMARATE 80/4.5 mcg INHALER IH SCH ×2 (10:22→22:16)
[2018-12-12] MEDS ORDERED: ONDANSETRON *ODT* 4 MG TABLET SL PRN (14:18)
--- NOTE | 2018-12-12 14:39 | PN ---
S CIWA - CIWA Score Nausea/Vomitin Muscle Tremors: None Anxiety: 3 Agitation: 0-Normal Activity Paroxysmal Sweats: No Perspiration Orientation: 0-Oriented Tacttile Disturbances: 0-None Auditory Disturbances: 0-None Visual Disturbances: 2-Mild Sensitivity Headache: 3-Moderate CIWA-Ar Total Score: 11 S Progress Note (SOAP) Subjective: Diarrhea, Nausea, Anxious, Fatigue, H/A. Objective: PATIENT A & O X 3. IN NO ACUTE DISTRESS. 12/12/18 14:37 Vital Signs Temperature 98.8 F 12/12/18 09:14 Pulse Rate 77 12/12/18 09:14 Respiratory Rate 18 12/12/18 09:14 Blood Pressure 132/89 12/12/18 09:14 O2 Sat by Pulse Oximetry (%) Laboratory Tests 12/09/18 12/09/18 12/09/18 14:40 14:40 14:40 WBC 8.6 RBC 4.48 Hgb 14.2 Hct 43.7 MCV 97.6 H MCH 31.8 MCHC 32.6 RDW 12.9 Plt Count 177 MPV 8.9 Sodium 137 Potassium 3.8 Chloride 102 Carbon Dioxide 27 Anion Gap 8 BUN 11.3 Creatinine 1.3 Est GFR (CKD-EPI)AfAm 73.22 Est GFR (CKD-EPI)NonAf 63.18 Random Glucose 88 Calcium 8.9 Total Bilirubin 0.4 AST 24 ALT 54 Alkaline Phosphatase 91 Total Protein 7.3 Albumin 4.2 RPR Titer Nonreactive LABS NOTED. Assessment: 12/12/18 14:37 WITHDRAWAL SYMPTOMS. Plan: CONTINUE DETOX. INCREASE DAILY PO WATER INTAKE. PRN PEPTO-BISMOL PO FOR DIARRHEA. PRN ZOFRAN SL FOR NAUSEA.
[2018-12-12] MEDS ORDERED: QUEtiapine FUMARATE 50 MG TABLET PO ONE (16:09)
[2018-12-12] MEDS ORDERED: QUEtiapine FUMARATE 100 MG TABLET (FP) PO SCH (22:00)
[2018-12-12] MEDS: MONTELUKAST NA 10 MG TABLET PO SCH (22:16)
[2018-12-12] MEDS: THIAMINE HCL 100 MG TABLET (FP) PO SCH (22:17)
[2018-12-13] MEDS: chlordiazePOXIDE HCL 10 MG CAPSULE PO SCH ×2 (05:53→18:17)
[2018-12-13] MEDS: PRENATAL VITAMINS W/ FOLIC ACID TABLET (FP) PO SCH (10:28)
[2018-12-13] MEDS: BUDESONIDE/FORMETEROL FUMARATE 80/4.5 mcg INHALER IH SCH ×2 (10:28→23:11)
[2018-12-13] MEDS ORDERED: QUEtiapine FUMARATE 50 MG TABLET PO ONE (10:35)
[2018-12-13] MEDS: FAMOTIDINE 10 MG TABLET PO SCH ×2 (10:52→23:11)
--- NOTE | 2018-12-13 12:41 | PN ---
[facility] Progress Note Note: Psychiatry Attending's note : Met with patient on 12/12/18. Medications were discussed. Patient is currently on seroquel 150 mg po hs. Medication is well tolerated. Side effects/benefits reviewed with the patient. Scripts sent electronically to : [facility] # [id number] for : seroquel 100 mg tab # 30 seroquel 50 mg tab # 30 At patient's request.
--- NOTE | 2018-12-13 16:44 | PN ---
S CIWA - CIWA Score Nausea/Vomitin Muscle Tremors: None Anxiety: 3 Agitation: 3 Paroxysmal Sweats: No Perspiration Orientation: 0-Oriented Tacttile Disturbances: 0-None Auditory Disturbances: 0-None Visual Disturbances: 0-None Headache: 0-None Present CIWA-Ar Total Score: 9 BHS Progress Note (SOAP) Subjective: Nausea (unchanged from yesterday), Anxious, Diarrhea. Objective: PATIENT A & O X 3, OBSERVED AMBULATING ON DETOX UNIT UNASSISTED. IN NO ACUTE DISTRESS. 12/13/18 16:42 Vital Signs Temperature 97.0 F L 12/13/18 09:45 Pulse Rate 71 12/13/18 09:45 Respiratory Rate 18 12/13/18 09:45 Blood Pressure 133/82 12/13/18 09:45 O2 Sat by Pulse Oximetry (%) Laboratory Tests 12/09/18 12/09/18 12/09/18 14:40 14:40 14:40 WBC 8.6 RBC 4.48 Hgb 14.2 Hct 43.7 MCV 97.6 H MCH 31.8 MCHC 32.6 RDW 12.9 Plt Count 177 MPV 8.9 Sodium 137 Potassium 3.8 Chloride 102 Carbon Dioxide 27 Anion Gap 8 BUN 11.3 Creatinine 1.3 Est GFR (CKD-EPI)AfAm 73.22 Est GFR (CKD-EPI)NonAf 63.18 Random Glucose 88 Calcium 8.9 Total Bilirubin 0.4 AST 24 ALT 54 Alkaline Phosphatase 91 Total Protein 7.3 Albumin 4.2 RPR Titer Nonreactive LABS NOTED. Assessment: 12/13/18 16:42 WITHDRAWAL SYMPTOMS. Plan: CONTINUE DETOX. PATIENT SCHEDULED FOR DISCHARGE FROM DETOX UNIT TOMORROW.
[2018-12-13] MEDS ORDERED: QUEtiapine FUMARATE 100 MG TABLET (FP) PO SCH (22:00)
[2018-12-13] MEDS: MONTELUKAST NA 10 MG TABLET PO SCH (23:12)
[2018-12-13] MEDS: MELATONIN 5 MG TABLETS PO PRN (23:12)
[2018-12-13] MEDS: THIAMINE HCL 100 MG TABLET (FP) PO SCH (23:12)
[2018-12-14] MEDS ORDERED: chlordiazePOXIDE HCL 10 MG CAPSULE PO ONE (05:00)
[2018-12-14 09:12] VITALS: BP 128/81; PULSE 63; TEMP 96.1
[2018-12-14] MEDS: PRENATAL VITAMINS W/ FOLIC ACID TABLET (FP) PO SCH (11:06)
[2018-12-14] MEDS: FAMOTIDINE 10 MG TABLET PO SCH (11:06)
[2018-12-14] MEDS: BUDESONIDE/FORMETEROL FUMARATE 80/4.5 mcg INHALER IH SCH (11:06)
--- NOTE | 2018-12-14 13:15 | DS ---
[facility] Detox Discharge Summary Admission Date: 12/09/18 Discharge Date: 12/14/18 - History Present History: Alcohol Dependence, Sedative Dependence Additional Comments: 53 years old male admitted on 12/09/18 for alcohol and benzo withdrawal sx management treated with librium detox regimen no complication through out the detox stay patient is alert oriented x 3 cardiac S1S2 regular rate rhythm respiratory clear lung bilaterally on auscultation skin warm dry - Physical Exam Results Vital Signs: Vital Signs Temperature 96.1 F L 12/14/18 09:12 Pulse Rate 63 12/14/18 09:12 Respiratory Rate 18 12/14/18 09:12 Blood Pressure 128/81 12/14/18 09:12 O2 Sat by Pulse Oximetry (%) Pertinent Admission Physical Exam Findings: alcohol benzo withdrawal sx Laboratory Last Values WBC 8.6 K/mm3 (4.0-10.0) 12/09/18 14:40 RBC 4.48 M/mm3 (4.00-5.60) 12/09/18 14:40 Hgb 14.2 GM/dL (11.7-16.9) 12/09/18 14:40 Hct 43.7 % (35.4-49) 12/09/18 14:40 MCV 97.6 fl (80-96) H 12/09/18 14:40 MCH 31.8 pg (25.7-33.7) 12/09/18 14:40 MCHC 32.6 g/dl (32.0-35.9) 12/09/18 14:40 RDW 12.9 % (11.9-15.9) 12/09/18 14:40 Plt Count 177 K/MM3 (134-434) 12/09/18 14:40 MPV 8.9 fl (7.5-11.1) 12/09/18 14:40 Sodium 137 mmol/L (136-145) 12/09/18 14:40 Potassium 3.8 mmol/L (3.5-5.1) 12/09/18 14:40 Chloride 102 mmol/L (98-107) 12/09/18 14:40 Carbon Dioxide 27 mmol/L (21-32) 12/09/18 14:40 Anion Gap 8 MMOL/L (8-16) 12/09/18 14:40 BUN 11.3 mg/dL (7-18) 12/09/18 14:40 Creatinine 1.3 mg/dL (0.55-1.3) 12/09/18 14:40 Est GFR (CKD-EPI)AfAm 73.22 12/09/18 14:40 Est GFR (CKD-EPI)NonAf 63.18 12/09/18 14:40 Random Glucose 88 mg/dL (74-106) 12/09/18 14:40 Calcium 8.9 mg/dL (8.5-10.1) 12/09/18 14:40 Total Bilirubin 0.4 mg/dL (0.2-1) 12/09/18 14:40 AST 24 U/L (15-37) 12/09/18 14:40 ALT 54 U/L (13-61) 12/09/18 14:40 Alkaline Phosphatase 91 U/L (45-117) 12/09/18 14:40 Total Protein 7.3 g/dl (6.4-8.2) 12/09/18 14:40 Albumin 4.2 g/dl (3.4-5.0) 12/09/18 14:40 RPR Titer Nonreactive (NONREACTIVE) 12/09/18 14:40 lab noted - Treatment Hospital Course: Detox Protocol Followed, Detoxed Safely, Responded well, Discharged Condition Good, Rehab Referral Accepted Patient has Accepted a Rehab Referral to: [facility] - Medication Discharge Medications: Ambulatory Orders Quetiapine Fumarate [Seroquel -] 400 mg PO HS #30 tab 07/03/16 Montelukast Na [Singulair -] 10 mg PO HS #30 tablet 04/28/18 Albuterol Sulfate Inhaler - [Ventolin HFA Inhaler -] 2 puff IH Q4H PRN #1 inhaler 12/13/18 Fluticasone/Salmeterol [Advair 250-50 Diskus] 1 each IH DAILY #1 blst.w.dev Quetiapine Fumarate [Seroquel -] 50 mg PO HS #30 tablet 12/13/18 Quetiapine Fumarate [Seroquel -] 150 mg PO HS #30 tablet 12/13/18 - Diagnosis (1) Alcohol dependence with uncomplicated withdrawal Status: Acute (2) Asthma Status: Chronic (3) GERD (gastroesophageal reflux disease) Status: Chronic Qualifiers: Esophagitis presence: without esophagitis Qualified Code(s): K21.9 - Gastro -esophageal reflux disease without esophagitis (4) Nicotine dependence, uncomplicated Status: Acute Qualifiers: Nicotine product type: cigarettes Qualified Code(s): F17.210 - Nicotine dependence, cigarettes, uncomplicated (5) Sedative, hypnotic or anxiolytic dependence, uncomplicated Status: Acute (6) Substance induced mood disorder Status: Suspected (7) Bipolar II disorder Status: Suspected - AMA Did Patient Leave Against Medical Advice: No CIWA Score - CIWA Score Nausea/Vomitin-No Nausea/No Vomiting Muscle Tremors: None Anxiety: 2 Agitation: 2 Paroxysmal Sweats: No Perspiration Orientation: 0-Oriented Tacttile Disturbances: 0-None Auditory Disturbances: 0-None Visual Disturbances: 0-None Headache: 0-None Present CIWA-Ar Total Score: 4
== END 2018-12-14 09:55 | disposition home or self-care (01) | DRG 897 ==
LOC: YASAS 10:10 → Y3N 14:10
PROVIDERS: ADMIT Allergy & Immunology; ATTEND Allergy & Immunology
PROC: HZ2ZZZZ Detoxification Services for Substance Abuse Treatment (ICD-10-PCS; principal; 2018-12-09)
DX: F10.230 Alcohol dependence with withdrawal, uncomplicated (principal); F14.20 Cocaine dependence, uncomplicated; F31.81 Bipolar II disorder; F13.230 Sedative, hypnotic or anxiolytic dependence with withdrawal, uncomplicated; F17.210 Nicotine dependence, cigarettes, uncomplicated; F10.282 Alcohol dependence with alcohol-induced sleep disorder; F19.24 Other psychoactive substance dependence with psychoactive substance-induced mood disorder; J45.909 Unspecified asthma, uncomplicated; K21.9 Gastro-esophageal reflux disease without esophagitis; Z86.69 Personal history of other diseases of the nervous system and sense organs; Z91.018 Allergy to other foods
CPT/HCPCS: 36415; 80053; 85027; 86593

== ENCOUNTER 2019-01-03 12:29 | Inpatient (IN) | payer OTHER ==
[2019-01-03 14:15] VITALS: BMI 24.3
--- NOTE | 2019-01-03 16:18 | HP ---
CIWA Score Nausea/Vomitin Muscle Tremors: 3 Anxiety: 2 Agitation: 2 Paroxysmal Sweats: 2 Orientation: 0-Oriented Tacttile Disturbances: 1-Very Mild Itch/Numbness Auditory Disturbances: 1-Very Mild Visual Disturbances: 1-Very Mild Sensitivity Headache: 2-Mild CIWA-Ar Total Score: 16 - Admission Criteria OASAS Guidelines: Admission for Medically Managed Detox: Requires at least one of the followin. CIWA greater than 12 2. Seizures within the past 24 hours 3. Delirium tremens within the past 24 hours 4. Hallucinations within the past 24 hours 5. Acute intervention needed for co occurring medical disorder 6. Acute intervention needed for co occurring psychiatric disorder 7. Severe withdrawal that cannot be handled at a lower level of care (continued vomiting, continued diarrhea, abnormal vital signs) requiring intravenous medication and/or fluids 8. Patient presents the following: CIWA greater than 12 Admission Criteria Met: Admission criteria met Admitting History and Physical - Past Medical History Pulmonary: Yes: Asthma - Past Surgical History Past Surgical History: Yes: None - Smoking History Smoking history: Current some day smoker Have you smoked in the past 12 months: Yes Aproximately how many cigarettes per day: 3 - Alcohol/Substance Use Hx Alcohol Use: Yes Number of Drinks Daily: 5 History of Substance Use: reports: Cocaine Date of Last Use: 12/08/18 Admission ROS [facility] Chief Complaint: I need detox Allergies/Adverse Reactions: Allergies Allergy/AdvReac Type Severity Reaction Status Date / Time No Known Drug Allergies Allergy Unknown Verified 01/03/19 14:04 pork derived (porcine) AdvReac Severe Vomiting Verified 01/03/19 14:04 History of Present Illness: 53 year old man with multiple admissions presents for detox. His last admission was 3 weeks ago, patient is not medically stable to be declined admission given HR of 125, repeat by provider 111. He reports alcohol related blackouts and seizures, last episode was 1 year ago. Patient is positive for PPD, last chest xray in 11/06 was negative Exam Limitations: No Limitations - Ebola screening Have you traveled outside of the country in the last 21 days: No (N) Have you had contact with anyone from an Ebola affected area: No Have you been sick,other than usual withdrawal symptoms: No Do you have a fever: No - Review of Systems Constitutional: Chills, Loss of Appetite, Changes in sleep EENT: reports: Nose Congestion Respiratory: reports: Cough Cardiac: reports: Lightheadedness GI: reports: Nausea, Poor Appetite, Poor Fluid Intake, Abdominal cramping : reports: No Symptoms Reported Musculoskeletal: reports: Back Pain, Joint Pain, Muscle Pain, Muscle Weakness Integumentary: reports: Flushing Neuro: reports: Headache, Numbness Endocrine: reports: No Symptoms Reported Hematology: reports: No Symptoms Reported Psychiatric: reports: Anxious, Depressed Other Systems: Reviewed and Negative Patient History - Patient Medical History Hx Anemia: No Hx Asthma: Yes Hx Chronic Obstructive Pulmonary Disease (COPD): No Hx Cancer: No Hx Cardiac Disorders: No Hx Congestive Heart Failure: No Hx Hypertension: No Hx Hypercholesterolemia: No Hx Pacemaker: No HX Cerebrovascular Accident: No Hx Seizures: Yes Hx Dementia: No Hx Diabetes: No Hx Gastrointestinal Disorders: Yes (GERD) Hx Liver Disease: No Hx Genitourinary Disorders: No Hx Sexually Transmitted Disorders: No Hx Renal Disease (ESRD): No Hx Thyroid Disease: No Hx Human Immunodeficiency Virus (HIV): No Hx Hepatitis C: No Hx Depression: Yes Hx Suicide Attempt: No Hx Bipolar Disorder: Yes (hospitalized [address] [place] [address]) Hx Schizophrenia: No - Patient Surgical History Past Surgical History: No - PPD History Date: 12/26/15 Results: 0 mm PPD to be Administered?: No - Smoking Cessation Smoking history: Current some day smoker Have you smoked in the past 12 months: Yes Aproximately how many cigarettes per day: 3 Cigars Per Day: 0 Hx Chewing Tobacco Use: No Initiated information on smoking cessation: Yes 'Breaking Loose' booklet given: 01/03/19 - Substances abused Alcohol Substance route: Oral Frequency: Daily Amount used: 3 pints Vodka/day Age of first use: 15 Date of last use: 01/03/19 Cocaine Substance route: Inhalation Frequency: 3-6 times per week Amount used: $150 Age of first use: 23 Date of last use: 01/02/19 Alprazolam (Xanax) Substance route: Oral Frequency: Daily Amount used: 2-3 sticks of the 2mg Age of first use: 42 Date of last use: 12/08/18 Admission Physical Exam [facility] - Vital Signs Vital Signs: Vital Signs - 24 hr 01/03/19 14:10 Temperature 97.6 F Pulse Rate 125 H Respiratory 16 Rate Blood Pressure 138/79 - Physical General Appearance: Yes: No Apparent Distress HEENTM: Yes: Hearing grossly Normal, Normocephalic, Normal Voice, JANELL Respiratory: Yes: Chest Non-Tender, Wheezing Neck: Yes: No masses,lesions,Nodules, Supple Breast: Yes: Breast Exam Deferred Cardiology: Yes: Regular Rhythm, Regular Rate Abdominal: Yes: Normal Bowel Sounds, Soft Genitourinary: Yes: Within Normal Limits Back: Yes: Normal Inspection Musculoskeletal: Yes: full range of Motion, Back pain, Muscle weakness Extremities: Yes: Tremors, Coldness Neurological: Yes: associate of science in nursing II-XII NML intact, Fully Oriented, Motor Strength 5/5, Normal Mood/Affect, Normal Response Integumentary: Yes: Clammy Lymphatic: Yes: Within Normal Limits - Diagnostic (1) Alcohol dependence with uncomplicated withdrawal Current Visit: Yes Status: Acute (2) Cannabis dependence Current Visit: Yes Status: Acute (3) Nicotine dependence, uncomplicated Current Visit: Yes Status: Acute Qualifiers: Nicotine product type: cigarettes Qualified Code(s): F17.210 - Nicotine dependence, cigarettes, uncomplicated (4) Asthma Current Visit: No Status: Chronic Comment: . (5) GERD (gastroesophageal reflux disease) Current Visit: No Status: Chronic Qualifiers: Esophagitis presence: without esophagitis Qualified Code(s): K21.9 - Gastro -esophageal reflux disease without esophagitis Comment: . (6) History of seizure Current Visit: No Status: Suspected Cleared for Admission [facility] - Detox or Rehab [facility] Level of Care: Medically Managed Detox Regimen/Protocol: Librium Claeared for Rehab Admission: No Breathalyzer - Breathalyzer Breathalyzer: 0.003 Urine Drug Screen - Test Device Lot number: [id number] Expiration date: 09/17/20 - Control Is test valid?: Yes - Results Drug screen NEGATIVE: No Urine drug screen results: CHANO-Cocaine, BZO-Benzodiazepines Inpatient Rehab Admission - Rehab Decision to Admit Inpatient rehab admission?: No
[2019-01-03] MEDS ORDERED: chlordiazePOXIDE HCL 10 MG CAPSULE PO PRN (16:21)
[2019-01-03] MEDS ORDERED: MAGNESIUM HYDROX 2400MG/30ML ORAL SUSPENSION 30 ML CUP PO PRN (16:21)
[2019-01-03] MEDS ORDERED: METHOCARBAMOL 500 MG TABLET PO PRN (16:21)
[2019-01-03] MEDS ORDERED: hydrOXYzine PAMOATE 25 MG CAPSULE (FP) PO PRN (16:21)
[2019-01-03] MEDS ORDERED: NICOTINE POLACRILEX 2 MG GUM BUC PRN (16:21)
[2019-01-03] MEDS ORDERED: MAG HYDROX/AL HYDROX/SIMETH 30 ML UNIT-DOSE CUP PO PRN (16:21)
[2019-01-03] MEDS ORDERED: ACETAMINOPHEN 325 MG TABLET (FP) PO PRN (16:21)
[2019-01-03] MEDS ORDERED: BISMUTH SUBSALICYLATE 524 MG/30 ML UD PO PRN (16:21)
[2019-01-03] MEDS ORDERED: MAGNESIUM CITRATE 300 ML BOTTLE PO PRN (16:21)
[2019-01-03] MEDS ORDERED: chlordiazePOXIDE HCL 25 MG CAPSULE PO ONE (16:21)
[2019-01-03] MEDS ORDERED: IBUPROFEN 400 MG TABLET (FP) PO PRN (16:21)
[2019-01-03] MEDS: ALBUTEROL SO4 8 GM HFA INHALER IH PRN (18:18)
[2019-01-03] MEDS: MENTHOL/PHENOL 1 EACH UD MM PRN ×2 (18:19→22:36)
[2019-01-03] MEDS ORDERED: QUEtiapine FUMARATE 100 MG TABLET (FP) PO ONE (22:00)
[2019-01-03] MEDS: chlordiazePOXIDE HCL 25 MG CAPSULE PO SCH (22:33)
[2019-01-03] MEDS: MONTELUKAST NA 10 MG TABLET PO SCH (22:33)
[2019-01-03] MEDS: THIAMINE HCL 100 MG TABLET (FP) PO SCH (22:33)
[2019-01-03] MEDS: BUDESONIDE/FORMETEROL FUMARATE 80/4.5 mcg INHALER IH SCH (22:35)
[2019-01-03] MEDS: MELATONIN 5 MG TABLETS PO PRN (22:38)
[2019-01-04] MEDS: chlordiazePOXIDE HCL 25 MG CAPSULE PO SCH ×3 (06:02→22:10)
[2019-01-04] MEDS: MENTHOL/PHENOL 1 EACH UD MM PRN ×3 (06:03→18:37)
[2019-01-04] MEDS: ALBUTEROL SO4 8 GM HFA INHALER IH PRN ×3 (06:04→17:42)
[2019-01-04] MEDS: PRENATAL VITAMINS W/ FOLIC ACID TABLET (FP) PO SCH (10:33)
[2019-01-04] MEDS: BUDESONIDE/FORMETEROL FUMARATE 80/4.5 mcg INHALER IH SCH ×2 (10:33→22:11)
--- NOTE | 2019-01-04 13:42 | PN ---
S CIWA - CIWA Score Nausea/Vomitin-Mild Nausea/No Vomiting Muscle Tremors: 4-Moderate,w/Arms Extend Anxiety: 3 Agitation: 3 Paroxysmal Sweats: 2 Orientation: 1-Uncertain about Date Tacttile Disturbances: 0-None Auditory Disturbances: 0-None Visual Disturbances: 0-None Headache: 1-Very Mild CIWA-Ar Total Score: 15 S Progress Note (SOAP) Subjective: 53 years old male admitted on 01/03/19 for alcohol and benzo withdrawal sx management treated with librium detox regimen c/o chest cold temp 98.5 clear lung nasal congestion mucinex and ocean nasal spread Objective: 01/04/19 13:42 Vital Signs Temperature 98.7 F 01/04/19 09:49 Pulse Rate 117 H 01/04/19 09:49 Respiratory Rate 20 01/04/19 09:49 Blood Pressure 137/84 01/04/19 09:49 O2 Sat by Pulse Oximetry (%) Laboratory Last Values RPR Titer Nonreactive (NONREACTIVE) 01/04/19 07:40 01/04/19 13:43 lab see 12/09/18 no need repeat Assessment: 01/04/19 13:43 alcohol and benzo withdrawal sx Plan: continue librium detox regimen
[2019-01-04] MEDS: guaiFENesin 600 MG TABLET.ER (FP) PO SCH ×2 (15:19→22:11)
[2019-01-04] MEDS: SODIUM CHLORIDE NASAL SPRAY 44 ML BOTTLE NS SCH ×2 (15:21→22:12)
[2019-01-04] MEDS: ACETAMINOPHEN 325 MG TABLET (FP) PO PRN (19:30)
[2019-01-04] MEDS: MONTELUKAST NA 10 MG TABLET PO SCH (22:10)
[2019-01-04] MEDS: THIAMINE HCL 100 MG TABLET (FP) PO SCH (22:11)
[2019-01-04] MEDS: MELATONIN 5 MG TABLETS PO PRN (22:13)
[2019-01-05] MEDS: SODIUM CHLORIDE NASAL SPRAY 44 ML BOTTLE NS SCH ×3 (05:58→21:53)
[2019-01-05] MEDS: chlordiazePOXIDE 5 MG CAPSULE PO SCH ×3 (05:58→21:53)
--- NOTE | 2019-01-05 09:01 | PN ---
S CIWA - CIWA Score Nausea/Vomitin-Mild Nausea/No Vomiting Muscle Tremors: 4-Moderate,w/Arms Extend Anxiety: 3 Agitation: 2 Paroxysmal Sweats: 1-Minimal Palms Moist Orientation: 0-Oriented Tacttile Disturbances: 1-Very Mild Itch/Numbness Auditory Disturbances: 1-Very Mild Visual Disturbances: 0-None Headache: 1-Very Mild CIWA-Ar Total Score: 14 [facility] Progress Note (SOAP) Subjective: 53 years old male admitted on 01/03/19 for alcohol and benzo withdrawal sx management treated with librium detox regimen ate breakfast tolerated food and fluid well requests to be seen by a psychiatrist for psychotropic medications [id number] suicidal ideation feeling sad Objective: 01/05/19 09:03 Vital Signs Temperature 98.0 F 01/05/19 06:00 Pulse Rate 71 01/05/19 06:00 Respiratory Rate 18 01/05/19 06:00 Blood Pressure 110/63 01/05/19 06:00 O2 Sat by Pulse Oximetry (%) Laboratory Last Values RPR Titer Nonreactive (NONREACTIVE) 01/04/19 07:40 01/05/19 09:05 lab see 11/2018 result Assessment: 01/05/19 09:06 alcohol and benzo withdrawal sx Plan: continue librium detox regimen
[2019-01-05] MEDS: guaiFENesin 600 MG TABLET.ER (FP) PO SCH ×2 (10:06→21:53)
[2019-01-05] MEDS: BUDESONIDE/FORMETEROL FUMARATE 80/4.5 mcg INHALER IH SCH ×2 (10:06→21:54)
[2019-01-05] MEDS: PRENATAL VITAMINS W/ FOLIC ACID TABLET (FP) PO SCH (10:06)
[2019-01-05] MEDS: ALBUTEROL SO4 8 GM HFA INHALER IH PRN ×3 (10:07→21:56)
[2019-01-05] MEDS: MENTHOL/PHENOL 1 EACH UD MM PRN ×4 (10:08→21:56)
[2019-01-05] MEDS: ACETAMINOPHEN 325 MG TABLET (FP) PO PRN ×2 (10:09→17:54)
--- NOTE | 2019-01-05 12:30 | CONSULT ---
[facility] Psychiatric Consult - Data Date of interview: 01/05/19 Admission source: [facility] Identifying data: This is one of several admissions to [facility] for this 53 y/ o AA male self-referred for detoxification (OSWALD issues : alcohol, cocaine, benzodiazepine, nicotine). Seen on [facility] [place]. Patient is single, father of one ( claimed two dependents at a previous encounter), domiciled, unemployed and supported on welfare. Substance Abuse History: Discussed with the patient. Details in current [facility] report as follows : Smoking history: Current some day smoker. Have you smoked in the past 12 months: Yes. Aproximately how many cigarettes per day: 3. Cigars Per Day: 0. Hx Chewing Tobacco Use: No. Initiated information on smoking cessation: Yes. 'Breaking Loose' booklet given: 01/03/19. - Substances abused. Alcohol. Substance route: Oral. Frequency: Daily. Amount used: 3 pints Vodka/day. Age of first use: 15. Date of last use: . Cocaine. Substance route: Inhalation. Frequency: 3-6 times per week. Amount used: $150. Age of first use: 23. Date of last use: 01/02/19. Alprazolam (Xanax). Substance route: Oral. Frequency: Daily. Amount used: 2- 3 sticks of the 2mg. Age of first use: 42. Date of last use: 12/08/18 Medical History: Medical profile is remarkable for history of withdrawal- related seizures, bronchial asthma, hypertension, gastro-esophageal reflux disease and chronic lumbar pain. Psychiatric History: Patient endorses a history of two psychiatric hospitalizations ([facility]). Diagnosed with MDD, Bipolar Disorder and PTSD (2010). Patient reports prior trials of various medications over the years (lamotrigine, elavil, paroxetine, seroquel). Lost to OPD care for months. Mr Solis utilizes local [facility] settings for medications refills. Patient denies history of suicide attempts in this interview (however past records at [facility] indicate a different version : history of a suicide attempt, via cutting-wrist, in 1989). Physical/Sexual Abuse/Trauma History: Patient denies history of abuse. Additional Comment: Urine drug screen results: CHANO-Cocaine, BZO- Benzodiazepines. Noted. Mental Status Exam - Mental Status Exam Alert and Oriented to: Time, Place, Person Cognitive Function: Good Patient Appearance: Well Groomed Mood: Withdrawn, Hopeful Affect: Mood Congruent, Constricted Patient Behavior: Fatigued, Appropriate, Cooperative Speech Pattern: Clear, Appropriate Voice Loudness: Normal Thought Process: Intact, Goal Oriented Thought Disorder: Not Present Hallucinations: Denies Suicidal Ideation: Denies Homicidal Ideation: Denies Insight/Judgement: Poor Sleep: Poorly, Difficulty falling asleep Appetite: Good Muscle strength/Tone: Normal Gait/Station: Normal Psychiatric Findings - Problem List ([place] 1, 2,3) (1) Alcohol dependence with uncomplicated withdrawal Current Visit: Yes Status: Acute (2) Sedative, hypnotic or anxiolytic dependence, uncomplicated Current Visit: Yes Status: Chronic (3) Cocaine dependence, uncomplicated Current Visit: Yes Status: Chronic (4) Nicotine dependence, uncomplicated Current Visit: Yes Status: Chronic Qualifiers: Nicotine product type: cigarettes Qualified Code(s): F17.210 - Nicotine dependence, cigarettes, uncomplicated (5) History of bipolar disorder Current Visit: Yes Status: Chronic Comment: Non compliant with OPD care. (6) Substance induced mood disorder Current Visit: Yes Status: Chronic (7) Insomnia Current Visit: Yes Status: Chronic Qualifiers: Insomnia type: alcohol-induced Qualified Code(s): F10.982 - Alcohol use, unspecified with alcohol-induced sleep disorder (8) Non-compliance Current Visit: Yes Status: Chronic - Initial Treatment Plan Initial Treatment Plan: Psychoeducation. Sleep hygiene. Detoxification. AA meetings. MAT services discussed in this session. Seroquel 150 mg po hs. Side effects/benefits discussed with the patient. Mr Solis agrees with this plan of care. Observation.
[2019-01-05] MEDS: THIAMINE HCL 100 MG TABLET (FP) PO SCH (21:53)
[2019-01-05] MEDS: MONTELUKAST NA 10 MG TABLET PO SCH (21:53)
[2019-01-05] MEDS ORDERED: QUEtiapine FUMARATE 50 MG TABLET PO SCH (22:00)
[2019-01-06] MEDS ORDERED: chlordiazePOXIDE HCL 10 MG CAPSULE PO PRN
[2019-01-06] MEDS: chlordiazePOXIDE HCL 10 MG CAPSULE PO SCH ×3 (06:20→21:52)
[2019-01-06] MEDS: SODIUM CHLORIDE NASAL SPRAY 44 ML BOTTLE NS SCH ×3 (06:21→21:52)
[2019-01-06] MEDS: ACETAMINOPHEN 325 MG TABLET (FP) PO PRN ×3 (06:48→21:53)
--- NOTE | 2019-01-06 10:14 | PN ---
[facility] CIWA - CIWA Score Nausea/Vomitin-No Nausea/No Vomiting Muscle Tremors: 2 Anxiety: 3 Agitation: 2 Paroxysmal Sweats: 2 Orientation: 0-Oriented Tacttile Disturbances: 0-None Auditory Disturbances: 0-None Visual Disturbances: 0-None Headache: 0-None Present CIWA-Ar Total Score: 9 S Progress Note (SOAP) Subjective: 53 years old male admitted on 01/03/19 for alcohol and benzo withdrawal sx management treated with librium detox regimen feeling better today ate breakfast ambulating on hallway social with peers in day room Objective: 01/06/19 10:13 Vital Signs Temperature 97.5 F L 01/06/19 09:19 Pulse Rate 89 01/06/19 09:19 Respiratory Rate 18 01/06/19 09:19 Blood Pressure 114/78 01/06/19 09:19 O2 Sat by Pulse Oximetry (%) Laboratory Last Values RPR Titer Nonreactive (NONREACTIVE) 01/04/19 07:40 01/06/19 10:13 lab see last admission on 11/2018 Assessment: 01/06/19 10:13 alcohol and benzo withdrawal sx Plan: continue librium detox regimen
[2019-01-06] MEDS: BUDESONIDE/FORMETEROL FUMARATE 80/4.5 mcg INHALER IH SCH ×2 (10:35→21:51)
[2019-01-06] MEDS: PRENATAL VITAMINS W/ FOLIC ACID TABLET (FP) PO SCH (10:36)
[2019-01-06] MEDS: MENTHOL/PHENOL 1 EACH UD MM PRN ×2 (10:36→21:54)
[2019-01-06] MEDS: guaiFENesin 600 MG TABLET.ER (FP) PO SCH ×2 (10:36→21:51)
[2019-01-06] MEDS: FAMOTIDINE 20 MG TABLET PO SCH ×2 (13:11→21:51)
--- NOTE | 2019-01-06 17:16 | PN ---
[facility] Progress Note Note: Psychiatry Attending's note (follow-up) : Approached by patient. Reason : request for titration of seroquel to 200 mg/hs. Mr Solis is observed as ambulatory. Steady gait. Normal vitals. Side effects/benefits are, again, revisited with the patient. Consent given. Intervention : seroquel 200 mg po hs. Ordered.
[2019-01-06] MEDS: THIAMINE HCL 100 MG TABLET (FP) PO SCH (21:51)
[2019-01-06] MEDS: MONTELUKAST NA 10 MG TABLET PO SCH (21:51)
[2019-01-06] MEDS: ALBUTEROL SO4 8 GM HFA INHALER IH PRN (21:52)
[2019-01-06] MEDS ORDERED: QUEtiapine FUMARATE 200 MG TABLET PO SCH (22:00)
[2019-01-07] MEDS ORDERED: chlordiazePOXIDE HCL 10 MG CAPSULE PO ONE (05:00)
[2019-01-07] MEDS: SODIUM CHLORIDE NASAL SPRAY 44 ML BOTTLE NS SCH (06:03)
[2019-01-07] MEDS: ACETAMINOPHEN 325 MG TABLET (FP) PO PRN (06:03)
[2019-01-07 09:04] VITALS: BP 122/84; PULSE 89; TEMP 97.9
[2019-01-07] MEDS: FAMOTIDINE 20 MG TABLET PO SCH (09:21)
[2019-01-07] MEDS: guaiFENesin 600 MG TABLET.ER (FP) PO SCH (09:21)
[2019-01-07] MEDS: PRENATAL VITAMINS W/ FOLIC ACID TABLET (FP) PO SCH (09:21)
[2019-01-07] MEDS: BUDESONIDE/FORMETEROL FUMARATE 80/4.5 mcg INHALER IH SCH (09:22)
--- NOTE | 2019-01-07 12:20 | DS ---
[facility] Detox Discharge Summary Admission Date: 01/03/19 Discharge Date: 01/07/19 - History Present History: Alcohol Dependence, Sedative Dependence Additional Comments: 53 years old male admitted on 01/03/19 for alcohol and benzo withdrawal sx managemetn treated with librium detox regimen patient is alert oriented x 3 cardiac s1s2 regular rate rhythm respiratory clear long bilaterally on auscultation skin warm dry - Physical Exam Results Vital Signs: Vital Signs Temperature 97.9 F 01/07/19 09:04 Pulse Rate 89 01/07/19 09:04 Respiratory Rate 18 01/07/19 09:04 Blood Pressure 122/84 01/07/19 09:04 O2 Sat by Pulse Oximetry (%) Pertinent Admission Physical Exam Findings: alcohol and benzo withdrawal sx Laboratory Last Values RPR Titer Nonreactive (NONREACTIVE) 01/04/19 07:40 lab see 12/09/18 report - Treatment Hospital Course: Detox Protocol Followed, Detoxed Safely, Responded well, Discharged Condition Good, Rehab Referral Accepted Patient has Accepted a Rehab Referral [facility] - Medication Discharge Medications: Ambulatory Orders Quetiapine Fumarate [Seroquel -] 400 mg PO HS #30 tab 07/03/16 Montelukast Na [Singulair -] 10 mg PO HS #30 tablet 04/28/18 Fluticasone/Salmeterol [Advair 250-50 Diskus] 1 each IH DAILY #1 blst.w.dev Quetiapine Fumarate [Seroquel -] 50 mg PO HS #30 tablet 12/13/18 Quetiapine Fumarate [Seroquel -] 150 mg PO HS #30 tablet 12/13/18 Albuterol Sulfate Inhaler - [Ventolin HFA Inhaler -] 2 puff IH Q4H PRN #1 inhaler 01/06/19 Quetiapine Fumarate [Seroquel -] 200 mg PO HS #30 tab 01/06/19 - Diagnosis (1) Alcohol dependence with uncomplicated withdrawal Status: Acute (2) Asthma Status: Chronic (3) GERD (gastroesophageal reflux disease) Status: Chronic Qualifiers: Esophagitis presence: without esophagitis Qualified Code(s): K21.9 - Gastro -esophageal reflux disease without esophagitis (4) Sedative, hypnotic or anxiolytic dependence, uncomplicated Status: Acute (5) Substance induced mood disorder Status: Suspected - AMA Did Patient Leave Against Medical Advice: No CIWA Score - CIWA Score Nausea/Vomitin-No Nausea/No Vomiting Muscle Tremors: 2 Anxiety: 2 Agitation: 0-Normal Activity Paroxysmal Sweats: 1-Minimal Palms Moist Orientation: 0-Oriented Tacttile Disturbances: 0-None Auditory Disturbances: 0-None Visual Disturbances: 0-None Headache: 0-None Present CIWA-Ar Total Score: 5
== END 2019-01-07 09:30 | disposition home or self-care (01) | DRG 897 ==
LOC: YASAS 12:29 → Y3N 17:29
PROVIDERS: ADMIT Allergy & Immunology; ATTEND Allergy & Immunology
PROC: HZ2ZZZZ Detoxification Services for Substance Abuse Treatment (ICD-10-PCS; principal; 2019-01-03)
DX: F10.230 Alcohol dependence with withdrawal, uncomplicated (principal); F14.20 Cocaine dependence, uncomplicated; F13.230 Sedative, hypnotic or anxiolytic dependence with withdrawal, uncomplicated; F17.210 Nicotine dependence, cigarettes, uncomplicated; F10.282 Alcohol dependence with alcohol-induced sleep disorder; F19.24 Other psychoactive substance dependence with psychoactive substance-induced mood disorder; F31.9 Bipolar disorder, unspecified; J45.909 Unspecified asthma, uncomplicated; K21.9 Gastro-esophageal reflux disease without esophagitis; Z86.69 Personal history of other diseases of the nervous system and sense organs; Z91.018 Allergy to other foods; Z91.19 Patient's noncompliance with other medical treatment and regimen
CPT/HCPCS: 36415; 86593

== ENCOUNTER 2019-01-20 18:11 | Inpatient (IN) | payer OTHER ==
[2019-01-20 18:33] VITALS: BMI 28.6
--- NOTE | 2019-01-20 21:13 | HP ---
CIWA Score - Admission Criteria OASAS Guidelines: Admission for Medically Managed Detox: Requires at least one of the followin. CIWA greater than 12 2. Seizures within the past 24 hours 3. Delirium tremens within the past 24 hours 4. Hallucinations within the past 24 hours 5. Acute intervention needed for co occurring medical disorder 6. Acute intervention needed for co occurring psychiatric disorder 7. Severe withdrawal that cannot be handled at a lower level of care (continued vomiting, continued diarrhea, abnormal vital signs) requiring intravenous medication and/or fluids 8. Admitting History and Physical - Past Medical History Pulmonary: Yes: Asthma - Past Surgical History Past Surgical History: Yes: None - Smoking History Smoking history: Current some day smoker Have you smoked in the past 12 months: Yes Aproximately how many cigarettes per day: 3 - Alcohol/Substance Use Hx Alcohol Use: Yes Number of Drinks Daily: 5 History of Substance Use: reports: Cocaine Date of Last Use: 12/08/18 Admission ROS [facility] Chief Complaint: Seeking admission to Rehab. Allergies/Adverse Reactions: Allergies Allergy/AdvReac Type Severity Reaction Status Date / Time No Known Drug Allergies Allergy Unknown Verified 01/20/19 18:25 pork derived (porcine) AdvReac Severe Vomiting Verified 01/20/19 18:25 History of Present Illness: 53 years old with a long history of alcohol dependent is seeking admission to Rehab. Patient reports that he completed detox today at [facility]. He reports medical history of asthma, GERD, Seizure and psych. history of depression, anxiety and bipolar disorder. He denies suicidal ideation at this time. Patient has a wound on his right hand, he reports is from a blood draw at the Hospital. Bacitracin topical ointment ordered. Exam Limitations: No Limitations - Ebola screening Have you traveled outside of the country in the last 21 days: No (N) Have you had contact with anyone from an Ebola affected area: No Do you have a fever: No - Review of Systems Constitutional: No Symptoms Reported EENT: reports: No Symptoms Reported Respiratory: reports: No Symptoms reported Cardiac: reports: No Symptoms Reported GI: reports: No Symptoms Reported : reports: No Symptoms Reported Musculoskeletal: reports: No Symptoms Reported Integumentary: reports: No Symptoms Reported Neuro: reports: No Symptoms reported Endocrine: reports: No Symptoms Reported Hematology: reports: No Symptoms Reported Psychiatric: reports: No Sypmtoms Reported, Mood/Affect Appropiate, Orientated x3 Other Systems: Reviewed and Negative Patient History - Patient Medical History Hx Anemia: No Hx Asthma: Yes (Albuterol, singular, advair) Hx Chronic Obstructive Pulmonary Disease (COPD): No Hx Cancer: No Hx Cardiac Disorders: No Hx Congestive Heart Failure: No Hx Hypertension: No Hx Hypercholesterolemia: No Hx Pacemaker: No HX Cerebrovascular Accident: No Hx Seizures: No Hx Dementia: No Hx Diabetes: No Hx Gastrointestinal Disorders: No Hx Liver Disease: No Hx Genitourinary Disorders: No Hx Sexually Transmitted Disorders: No Hx Renal Disease (ESRD): No Hx Thyroid Disease: No Hx Human Immunodeficiency Virus (HIV): No Hx Hepatitis C: No Hx Depression: Yes (Seroquel) Hx Suicide Attempt: No Hx Bipolar Disorder: Yes (hospitalized [address] [place] [address]) Hx Schizophrenia: No Other Medical History: anxiety- Paxil - Patient Surgical History Past Surgical History: No Hx Neurologic Surgery: No Hx Cataract Extraction: No Hx Cardiac Surgery: No Hx Lung Surgery: No Hx Abdominal Surgery: No Hx Appendectomy: No Hx Cholecystectomy: No Hx Genitourinary Surgery: No Hx Orthopedic Surgery: No Anesthesia Reaction: No - PPD History Previous Implant?: Yes (PPD POSITIVE TREATED WITH INH) Documented Results: Positive w/o proof Date: 12/26/15 Results: 0 mm PPD to be Administered?: No - Reproductive History Patient is a Female of Child Bearing Age (11 -55 yrs old): No (male) - Smoking Cessation Smoking history: Current some day smoker Have you smoked in the past 12 months: Yes Aproximately how many cigarettes per day: 3 Cigars Per Day: 0 Hx Chewing Tobacco Use: No Initiated information on smoking cessation: Yes 'Breaking Loose' booklet given: 01/20/19 - Substance & Tx. History Hx Alcohol Use: Yes Hx Substance Use: No Substance Use Type: Alcohol Hx Substance Use Treatment: Yes ([facility]) - Substances abused Alcohol Substance route: Oral Frequency: Daily Amount used: 5th -3 pints Vodka/day Age of first use: 15 Date of last use: 01/16/19 Cocaine Substance route: Inhalation Frequency: 1-3 times last 30 days Amount used: $150 Age of first use: 23 Date of last use: 01/16/19 Alprazolam (Xanax) Substance route: Oral Frequency: Daily Amount used: 2-3 sticks of the 2mg Age of first use: 42 Date of last use: 12/08/[address] [facility] - Vital Signs Vital Signs: Vital Signs - 24 hr 01/20/19 18:22 Temperature 97.7 F Pulse Rate 84 Respiratory 18 Rate Blood Pressure 139/86 - Physical General Appearance: Yes: Within Normal Limits, Appropriately Dressed HEENTM: Yes: Within Normal Limits, EOMI, Normal ENT Inspection, Normal Voice, JANELL Respiratory: Yes: Lungs Clear, Normal Breath Sounds, No Respiratory Distress Neck: Yes: Within Normal Limits Breast: Yes: Breast Exam Deferred Abdominal: Yes: Normal Bowel Sounds, Soft Genitourinary: Yes: Within Normal Limits Back: Yes: Normal Inspection Musculoskeletal: Yes: Within Normal Limits Extremities: Yes: Normal Inspection Neurological: Yes: Within Normal Limits Integumentary: Yes: Within Normal Limits, Warm Lymphatic: Yes: Within Normal Limits - Diagnostic (1) Alcohol dependence Current Visit: Yes Status: Acute (2) Asthma Current Visit: No Status: Chronic Comment: . (3) Bipolar I disorder Current Visit: No Status: Chronic Comment: . (4) GERD (gastroesophageal reflux disease) Current Visit: No Status: Chronic Qualifiers: Esophagitis presence: without esophagitis Qualified Code(s): K21.9 - Gastro -esophageal reflux disease without esophagitis Comment: . (5) History of bipolar disorder Current Visit: No Status: Chronic Comment: Non compliant with OPD care. (6) Nicotine dependence, uncomplicated Current Visit: No Status: Chronic Qualifiers: Nicotine product type: cigarettes Qualified Code(s): F17.210 - Nicotine dependence, cigarettes, uncomplicated (7) History of seizure Current Visit: No Status: Suspected Cleared for Admission [facility] - Detox or Rehab [facility] Level of Care: Observation Bed Claeared for Rehab Admission: Yes Breathalyzer - Breathalyzer Breathalyzer: 0 Urine Drug Screen - Test Device Lot number: [id number] Expiration date: 09/16/20 - Control Is test valid?: Yes - Results Drug screen NEGATIVE: No Urine drug screen results: BZO-Benzodiazepines Inpatient Rehab Admission - Rehab Decision to Admit Inpatient rehab admission?: Yes - Initial Determination Are CD services needed?: No Free of communicable disease: Yes Not in need of hospitalization: Yes - Rehab Admission Criteria Previous failed treatment: Yes Poor recovery environment: Yes Comorbidities: Yes Lacks judgement: No Patient is meeting Inpatient Rehab admission criteria:: Yes
[2019-01-20] MEDS ORDERED: LOPERAMIDE HCL 2 MG CAPSULE PO PRN (21:21)
[2019-01-20] MEDS ORDERED: IBUPROFEN 400 MG TABLET (FP) PO PRN (21:21)
[2019-01-20] MEDS ORDERED: MAG HYDROX/AL HYDROX/SIMETH 30 ML UNIT-DOSE CUP PO PRN (21:21)
[2019-01-20] MEDS ORDERED: P-EPHED 60MG/TRIPROLIDI 2.5MG TABLET PO PRN (21:21)
[2019-01-20] MEDS ORDERED: MAGNESIUM HYDROX 2400MG/30ML ORAL SUSPENSION 30 ML CUP PO PRN (21:21)
[2019-01-20] MEDS ORDERED: guaiFENesin 200 MG/10 ML 10 ML UNIT-DOSE CUPS PO PRN (21:21)
[2019-01-20] MEDS ORDERED: ACETAMINOPHEN 325 MG TABLET (FP) PO PRN (21:21)
[2019-01-20] MEDS ORDERED: MENTHOL/PHENOL 1 EACH UD MM PRN (21:21)
[2019-01-20] MEDS ORDERED: MAGNESIUM CITRATE 300 ML BOTTLE PO PRN (21:21)
[2019-01-20] MEDS ORDERED: MELATONIN 5 MG TABLETS PO PRN (22:00)
[2019-01-20] MEDS: MONTELUKAST NA 10 MG TABLET PO SCH (23:11)
[2019-01-20] MEDS: THIAMINE HCL 100 MG TABLET (FP) PO SCH (23:11)
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
--- NOTE | 2019-01-21 10:36 | EKG ---
Test Reason : Blood Pressure : / mmHG Vent. Rate : 090 BPM Atrial Rate : 090 BPM P-R Int : 142 ms QRS Dur : 078 ms QT Int : 366 ms P-R-T Axes : 057 048 049 degrees QTc Int : 447 ms NORMAL SINUS RHYTHM NORMAL ECG WHEN COMPARED WITH ECG OF 26-APR-2018 02:07, NO SIGNIFICANT CHANGE WAS FOUND Confirmed by EVERETTE LACEY MD ([id number]) on 01/21/2019 10:36:24 AM Referred By: Confirmed By:EVERETTE LACEY MD
[2019-01-21] MEDS: BACITRACIN 15 GM TUBE TOPICAL OINTMENT TP SCH (10:39)
[2019-01-21] MEDS: PRENATAL VITAMINS W/ FOLIC ACID TABLET (FP) PO SCH (10:39)
[2019-01-21] MEDS: BUDESONIDE/FORMETEROL FUMARATE 80/4.5 mcg INHALER IH SCH ×2 (10:40→21:24)
[2019-01-21] MEDS: NICOTINE 14 MG/24 HOURS TOPICAL PATCH TD SCH (10:40)
[2019-01-21] MEDS: ALBUTEROL SO4 8 GM HFA INHALER IH PRN (10:42)
[2019-01-21 17:48] LABS: HEMATOCRIT 37.3 % (35.4-49); HEMOGLOBIN 12.2 GM/dL (11.7-16.9); MCH 31.5 pg (25.7-33.7); MCHC 32.7 g/dl (32.0-35.9); MEAN CELL VOLUME 96.4 fl (80-96); MEAN PLT VOLUME 8.4 fl (7.5-11.1); PLATELET COUNT 244 K/MM3 (134-434); RBC 3.87 M/mm3 (4.00-5.60); WHITE BLOOD COUNT 6.9 K/mm3 (4.0-10.0)
[2019-01-21 18:03] LABS: ALBUMIN 3.2 g/dl (3.4-5.0); BILIRUBIN,TOTAL 0.4 mg/dL (0.2-1); BLOOD UREA NITROGEN 12.6 mg/dL (7-18); CALCIUM 8.5 mg/dL (8.5-10.1); POTASSIUM 4.3 mmol/L (3.5-5.1); TOT PROT 5.9 g/dl (6.4-8.2)
[2019-01-21 18:09] LABS: PH,URINE 5.5 (5.0-8.0); URINE APPEARANCE CLEAR; URINE BILIRUBIN NEGATIVE (NEGATIVE); URINE COLOR YELLOW; URINE GLUCOSE (UA) NEGATIVE (NEGATIVE); URINE KETONE NEGATIVE (NEGATIVE); URINE LEUK ESTERASE NEGATIVE (NEGATIVE); URINE NITRITE NEGATIVE (NEGATIVE); URINE PROTEIN NEGATIVE (NEGATIVE); URINE UROBILINOGEN 0.2 mg/dL (0.2-1.0)
[2019-01-21] MEDS: THIAMINE HCL 100 MG TABLET (FP) PO SCH (21:25)
[2019-01-21] MEDS: MONTELUKAST NA 10 MG TABLET PO SCH (21:25)
[2019-01-21] MEDS: QUEtiapine FUMARATE 200 MG TABLET PO SCH (21:25)
[2019-01-22] MEDS: PRENATAL VITAMINS W/ FOLIC ACID TABLET (FP) PO SCH (10:18)
[2019-01-22] MEDS: BUDESONIDE/FORMETEROL FUMARATE 80/4.5 mcg INHALER IH SCH ×2 (10:18→21:32)
[2019-01-22] MEDS: NICOTINE 14 MG/24 HOURS TOPICAL PATCH TD SCH (10:19)
[2019-01-22] MEDS: BACITRACIN 15 GM TUBE TOPICAL OINTMENT TP SCH (10:19)
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
[2019-01-22] MEDS: QUEtiapine FUMARATE 200 MG TABLET PO SCH (21:31)
[2019-01-22] MEDS: MONTELUKAST NA 10 MG TABLET PO SCH (21:31)
[2019-01-22] MEDS: THIAMINE HCL 100 MG TABLET (FP) PO SCH (21:31)
[2019-01-22] MEDS: NICOTINE POLACRILEX 2 MG GUM BUC PRN (21:32)
[2019-01-23 06:46] VITALS: BP 141/88; PULSE 74; TEMP 97.2
[2019-01-23] MEDS: PRENATAL VITAMINS W/ FOLIC ACID TABLET (FP) PO SCH (10:41)
[2019-01-23] MEDS: NICOTINE 14 MG/24 HOURS TOPICAL PATCH TD SCH (10:41)
[2019-01-23] MEDS: ALBUTEROL SO4 8 GM HFA INHALER IH PRN (10:42)
[2019-01-23] MEDS: BUDESONIDE/FORMETEROL FUMARATE 80/4.5 mcg INHALER IH SCH (10:42)
[2019-01-23] MEDS: BACITRACIN 15 GM TUBE TOPICAL OINTMENT TP SCH (10:43)
[2019-01-23] MEDS: NICOTINE POLACRILEX 2 MG GUM BUC PRN (10:43)
--- NOTE | 2019-01-23 12:58 | DS ---
[facility] Rehab Discharge Summary - [facility] Rehab Discharge Summary Admission Date: 01/20/19 Discharge Date: 01/23/19 - History Present History: Alcohol dependence, Cocaine dependence, Sedative dependence Additional Comments: Pt is a 53 y/o male with a hx of OSWALD admiited to rehab from [facility] and reported did detox at [facility] before presenting for rehab. Pt reports he has no current PCP and goes to Er for medical care. Pt has been referred to [facility] for follow up with primary care as needed. Pt met with the counselor to discuss CD aftercare plans and has been referred to [facility] on [address] [place], [place]. Pertinent Past History: Asthma GERD(no med) Hx Seizure(no med) Hx Bipolar disorder - Discharge Physical Exam Vital Signs: Vital Signs Temperature 97.2 F L 01/23/19 06:46 Pulse Rate 74 01/23/19 06:46 Respiratory Rate 18 01/23/19 06:46 Blood Pressure 141/88 01/23/19 06:46 O2 Sat by Pulse Oximetry (%) Alert o x3 nad oob ambulating with steady gait Denies s/h/i cardiac:s1 s2,rrr lungs:cta,josh. extremities/skin:no edema,full ROM/weight bearing;skin intact. Pertinent Admission Physical Exam Findings: Laboratory Tests 01/21/19 01/21/19 01/21/19 08:00 08:00 08:00 WBC 6.9 RBC 3.87 L Hgb 12.2 Hct 37.3 MCV 96.4 H MCH 31.5 MCHC 32.7 RDW 13.0 Plt Count 244 D MPV 8.4 Sodium 141 Potassium 4.3 Chloride 108 H Carbon Dioxide 25 Anion Gap 8 BUN 12.6 Creatinine 1.0 Est GFR (CKD-EPI)AfAm 100.55 Est GFR (CKD-EPI)NonAf 86.76 Random Glucose 85 Calcium 8.5 Total Bilirubin 0.4 AST 22 ALT 43 Alkaline Phosphatase 78 Total Protein 5.9 L Albumin 3.2 L Urine Color Urine Appearance Urine pH Ur Specific [address] Urine Protein Urine Glucose (UA) Urine Ketones Urine Blood Urine Nitrite Urine Bilirubin Urine Urobilinogen Ur Leukocyte Esterase RPR Titer Nonreactive 01/21/19 09:25 WBC RBC Hgb Hct MCV MCH MCHC RDW Plt Count MPV Sodium Potassium Chloride Carbon Dioxide Anion Gap BUN Creatinine Est GFR (CKD-EPI)AfAm Est GFR (CKD-EPI)NonAf Random Glucose Calcium Total Bilirubin AST ALT Alkaline Phosphatase Total Protein Albumin Urine Color Yellow Urine Appearance Clear Urine pH 5.[address] 1.018 Urine Protein Negative Urine Glucose (UA) Negative Urine Ketones Negative Urine Blood Negative Urine Nitrite Negative Urine Bilirubin Negative Urine Urobilinogen 0.2 Ur Leukocyte Esterase Negative RPR Titer - Treatment Discharge Condition: Discharge condition good Hospital Course: Pt declined to continue with rehab for personal reasons. - Medication Discharge Medications: Ambulatory Orders Montelukast Na [Singulair -] 10 mg PO HS #30 tablet 04/28/18 Fluticasone/Salmeterol [Advair 250-50 Diskus] 1 each IH DAILY #1 blst.w.dev Albuterol Sulfate Inhaler - [Ventolin HFA Inhaler -] 2 puff IH Q4H PRN #1 inhaler 01/06/19 Quetiapine Fumarate [Seroquel -] 200 mg PO HS #30 tab 01/06/19 - Medication-Assisted Treatment (MAT) Medication-Assisted Treatment (MAT): No - Discharge Instructions Diet, activity, other medical instructions: Diet:Regular Activity: oob ad jaymie Other medical instructions:follow up with primary care as discussed below. Follow up with CD aftercare referral as recommended and scheduled. D/w pt to [facility] [place] [address] [place], [place] [phone] - Diagnosis (1) Alcohol dependence Current Visit: Yes Status: Chronic Qualifiers: Substance use status: uncomplicated Qualified Code(s): F10.20 - Alcohol dependence, uncomplicated (2) Nicotine dependence Current Visit: Yes Status: Chronic Qualifiers: Nicotine product type: cigarettes Substance use status: uncomplicated Qualified Code(s): F17.210 - Nicotine dependence, cigarettes, uncomplicated (3) Asthma Current Visit: Yes Status: Chronic (4) Cannabis dependence Current Visit: Yes Status: Chronic (5) Sedative dependence Current Visit: Yes Status: Chronic (6) History of seizure Current Visit: Yes Status: Suspected (7) Cocaine dependence, uncomplicated Current Visit: Yes Status: Chronic - Follow-up Referral Minutes to complete discharge: 20 - AMA Did Patient Leave Against Medical Advice: Yes
== END 2019-01-23 13:05 | disposition left against medical advice (07) | DRG 894 ==
LOC: YASAS 18:11 → Y5N 21:09
PROVIDERS: ADMIT Neuromusculoskeletal Medicine & OMM; ATTEND Neuromusculoskeletal Medicine & OMM
PROC: HZ42ZZZ Group Counseling for Substance Abuse Treatment, Cognitive-Behavioral (ICD-10-PCS; principal; 2019-01-20)
DX: F10.20 Alcohol dependence, uncomplicated (principal); F13.20 Sedative, hypnotic or anxiolytic dependence, uncomplicated; F14.20 Cocaine dependence, uncomplicated; F19.280 Other psychoactive substance dependence with psychoactive substance-induced anxiety disorder; F12.20 Cannabis dependence, uncomplicated; F17.210 Nicotine dependence, cigarettes, uncomplicated; F19.24 Other psychoactive substance dependence with psychoactive substance-induced mood disorder; F31.9 Bipolar disorder, unspecified; F41.9 Anxiety disorder, unspecified; J45.909 Unspecified asthma, uncomplicated; K21.9 Gastro-esophageal reflux disease without esophagitis; M54.5 Low back pain; G89.29 Other chronic pain; Z86.69 Personal history of other diseases of the nervous system and sense organs; Z91.5 Personal history of self-harm; Z91.018 Allergy to other foods
CPT/HCPCS: 36415; 80053; 81003; 85027; 86593; 93005; 93010

== ENCOUNTER 2019-02-19 12:04 | Inpatient (IN) | payer OTHER ==
[2019-02-19 13:35] VITALS: BMI 29.7
--- NOTE | 2019-02-19 14:16 | HP ---
CIWA Score Nausea/Vomitin Muscle Tremors: 3 Anxiety: 3 Agitation: 3 Paroxysmal Sweats: 1-Minimal Palms Moist Orientation: 0-Oriented Tacttile Disturbances: 1-Very Mild Itch/Numbness Auditory Disturbances: 0-None Visual Disturbances: 0-None Headache: 2-Mild CIWA-Ar Total Score: 15 - Admission Criteria OASAS Guidelines: Admission for Medically Managed Detox: Requires at least one of the followin. CIWA greater than 12 2. Seizures within the past 24 hours 3. Delirium tremens within the past 24 hours 4. Hallucinations within the past 24 hours 5. Acute intervention needed for co occurring medical disorder 6. Acute intervention needed for co occurring psychiatric disorder 7. Severe withdrawal that cannot be handled at a lower level of care (continued vomiting, continued diarrhea, abnormal vital signs) requiring intravenous medication and/or fluids 8. Admitting History and Physical - Admission Chief Complaint: i need help to stop drinking alcohol History of Present Illness: this 53 years old male with alcohol,cocaine,xanax dependence seeking detox, withdrawal symptom, multiple admissions in detox,last 01/03/19 to 01/07/19 syncope seizure alcohol related last 2 years ago no significant period of sobriety History Source: Patient Limitations to Obtaining History: No Limitations - Past Medical History CONFIGURATOR: Yes: Seizure, Syncope Pulmonary: Yes: Asthma Gastrointestinal: Yes: GERD Psych: Yes: Anxiety, Depression Musculoskeletal: Yes: Chronic low back pain - Past Surgical History Past Surgical History: Yes: None - Smoking History Smoking history: Current some day smoker Have you smoked in the past 12 months: Yes Aproximately how many cigarettes per day: 3 - Alcohol/Substance Use Hx Alcohol Use: Yes Number of Drinks Daily: 5 History of Substance Use: reports: Cocaine Date of Last Use: 12/08/18 - Social History Usual Living Arrangement: Yes: Other (live with brother) ADL: Support Services Occupation: unemployed History of Recent Travel: No Admission ROS S - HPI Chief Complaint: i need help to stop drinking alcohol and cocaine Allergies/Adverse Reactions: Allergies Allergy/AdvReac Type Severity Reaction Status Date / Time No Known Drug Allergies Allergy Unknown Verified 02/19/19 13:27 pork derived (porcine) AdvReac Severe Vomiting Verified 02/19/19 13:27 History of Present Illness: this 53 years old male with alcohol and cocaine dependence,seeking detox, withdrawal symptom,multiple admissions in detox, last detox 01/03/19 to 01/07/19 seizure alcohol related last 2018 syncope alcohol related nicotine dependence longest sobriety 2 years bipolar disorder may go to rehab Exam Limitations: No Limitations - Ebola screening Have you traveled outside of the country in the last 21 days: No Have you had contact with anyone from an Ebola affected area: No Do you have a fever: No - Review of Systems Constitutional: Loss of Appetite, Malaise, Night Sweats, Changes in sleep, Weakness EENT: reports: Tearing, Nose Congestion Respiratory: reports: Other (asthma) GI: reports: Nausea, Poor Appetite, Vomiting, Abdominal cramping : reports: No Symptoms Reported Musculoskeletal: reports: Back Pain, Muscle Pain Neuro: reports: Headache, Tremors Endocrine: reports: No Symptoms Reported Hematology: reports: No Symptoms Reported Psychiatric: reports: No Sypmtoms Reported, Judgement Intact, Mood/Affect Appropiate, Orientated x3, Anxious, Depressed, other (bipolar disorder) Other Systems: Reviewed and Negative Patient History - Patient Medical History Hx Anemia: No Hx Asthma: Yes (Albuterol, singular, advair) Hx Chronic Obstructive Pulmonary Disease (COPD): No Hx Cancer: No Hx Cardiac Disorders: No Hx Congestive Heart Failure: No Hx Hypertension: No Hx Hypercholesterolemia: No Hx Pacemaker: No HX Cerebrovascular Accident: No Hx Seizures: No Hx Dementia: No Hx Diabetes: No Hx Gastrointestinal Disorders: No Hx Liver Disease: No Hx Genitourinary Disorders: No Hx Sexually Transmitted Disorders: No Hx Renal Disease (ESRD): No Hx Thyroid Disease: No Hx Human Immunodeficiency Virus (HIV): No (last 2019 negative) Hx Hepatitis C: No Hx Depression: Yes (Seroquel) Hx Suicide Attempt: No Hx Bipolar Disorder: Yes (hospitalized 2016 [facility]) Hx Schizophrenia: No Other Medical History: no suicidal,no homicidal - Patient Surgical History Past Surgical History: No Hx Neurologic Surgery: No Hx Cataract Extraction: No Hx Cardiac Surgery: No Hx Lung Surgery: No Hx Breast Surgery: No Hx Breast Biopsy: No Hx Abdominal Surgery: No Hx Appendectomy: No Hx Cholecystectomy: No Hx Genitourinary Surgery: No Hx Section: No Hx Orthopedic Surgery: No Hx Hysterectomy: No Anesthesia Reaction: No - PPD History Documented Results: Positive w/proof Implanted On Prior [facility] Admission?: No PPD to be Administered?: No - Smoking Cessation Smoking history: Current some day smoker Have you smoked in the past 12 months: Yes Aproximately how many cigarettes per day: 3 Cigars Per Day: 0 Hx Chewing Tobacco Use: No Initiated information on smoking cessation: Yes 'Breaking Loose' booklet given: 02/19/19 - Substance & Tx. History Hx Alcohol Use: Yes Hx Substance Use: Yes Substance Use Type: Alcohol, Cocaine, Tranquilizers Hx Substance Use Treatment: Yes (01/03/19 to 01/07/19) - Substances abused Alcohol Substance route: Oral Frequency: Daily Amount used: (2) 6pk beer & 3 pints Vodka/day Age of first use: 15 Date of last use: 02/19/19 Cocaine Other (specify): smoke both Substance route: Inhalation Frequency: 3-6 times per week Amount used: 2 grams Age of first use: 23 Date of last use: 02/18/19 Alprazolam (Xanax) Other (specify): 2 Substance route: Oral Frequency: 3-6 times per week Amount used: 4mg Age of first use: 42 Date of last use: 02/18/19 Admission Physical Exam S - Vital Signs Vital Signs: Vital Signs - 24 hr 02/19/19 13:28 Temperature 97.8 F Pulse Rate 103 H Respiratory 18 Rate Blood Pressure 135/84 - Physical General Appearance: Yes: Moderate Distress, Tremorous, Irritable, Sweating, Anxious HEENTM: Yes: Normal ENT Inspection, Pharynx Normal, Microcephalic Respiratory: Yes: Normal Breath Sounds, No Respiratory Distress Neck: Yes: Within Normal Limits, Supple, Trachea in good position Breast: Yes: Within Normal Limits Cardiology: Yes: Within Normal Limits, Regular Rhythm, Regular Rate, S1, S2 Abdominal: Yes: Within Normal Limits, Normal Bowel Sounds, Non Tender, Soft Genitourinary: Yes: Within Normal Limits Back: Yes: Muscle Spasm Musculoskeletal: Yes: Within Normal Limits, Back pain, Muscle Pain Extremities: Yes: Tremors Neurological: Yes: hook tender II-XII NML intact, Fully Oriented, Alert, Motor Strength 5/5 Integumentary: Yes: Dry Lymphatic: Yes: Within Normal Limits - Diagnostic (1) Alcohol dependence with uncomplicated withdrawal Current Visit: No Status: Acute (2) Sedative, hypnotic or anxiolytic dependence, uncomplicated Current Visit: No Status: Acute (3) Substance-induced sleep disorder Current Visit: No Status: Acute (4) Bipolar disorder Current Visit: No Status: Chronic (5) Cocaine dependence, uncomplicated Current Visit: No Status: Chronic (6) Nicotine dependence Current Visit: Yes Status: Acute (7) History of bipolar disorder Current Visit: No Status: Chronic Comment: Non compliant with OPD care. (8) History of seizure Current Visit: No Status: Suspected (9) PPD positive, treated Current Visit: No Status: Resolved Cleared for Admission S - Detox or Rehab [facility] Level of Care: Medically Managed Detox Regimen/Protocol: Librium Breathalyzer - Breathalyzer Breathalyzer: 0.075 Urine Drug Screen - Test Device Lot number: [id number] Expiration date: 09/17/20 - Control Is test valid?: Yes - Results Drug screen NEGATIVE: No Urine drug screen results: CHANO-Cocaine, BZO-Benzodiazepines Inpatient Rehab Admission - Rehab Decision to Admit Inpatient rehab admission?: No
[2019-02-19] MEDS ORDERED: IBUPROFEN 400 MG TABLET (FP) PO PRN (14:31)
[2019-02-19] MEDS ORDERED: ACETAMINOPHEN 325 MG TABLET (FP) PO PRN ×2 (14:31)
[2019-02-19] MEDS ORDERED: MAGNESIUM HYDROX 2400MG/30ML ORAL SUSPENSION 30 ML CUP PO PRN (14:31)
[2019-02-19] MEDS ORDERED: MELATONIN 5 MG TABLETS PO PRN (14:31)
[2019-02-19] MEDS ORDERED: chlordiazePOXIDE HCL 25 MG CAPSULE PO PRN (14:31)
[2019-02-19] MEDS ORDERED: MENTHOL/PHENOL 1 EACH UD MM PRN (14:31)
[2019-02-19] MEDS ORDERED: METHOCARBAMOL 500 MG TABLET PO PRN (14:31)
[2019-02-19] MEDS ORDERED: BISMUTH SUBSALICYLATE 262 MG/15 ML BTL PO PRN (14:31)
[2019-02-19] MEDS ORDERED: MAG HYDROX/AL HYDROX/SIMETH 30 ML UNIT-DOSE CUP PO PRN (14:31)
[2019-02-19] MEDS ORDERED: NICOTINE POLACRILEX 2 MG GUM BUC PRN (14:31)
[2019-02-19] MEDS ORDERED: hydrOXYzine PAMOATE 25 MG CAPSULE (FP) PO PRN (14:31)
[2019-02-19] MEDS ORDERED: MAGNESIUM CITRATE 300 ML BOTTLE PO PRN (14:31)
[2019-02-19] MEDS: chlordiazePOXIDE HCL 25 MG CAPSULE PO SCH ×2 (17:41→22:16)
[2019-02-19] MEDS: VITAMINS A AND D TOPICAL OINTMENT 60 GM TUBE TP SCH ×2 (17:43→23:43)
[2019-02-19 17:47] LABS: HEMATOCRIT 42.4 % (35.4-49); HEMOGLOBIN 13.9 GM/dL (11.7-16.9); MCH 32.1 pg (25.7-33.7); MCHC 32.8 g/dl (32.0-35.9); MEAN CELL VOLUME 97.9 fl (80-96); MEAN PLT VOLUME 9.4 fl (7.5-11.1); PLATELET COUNT 176 K/MM3 (134-434); RBC 4.33 M/mm3 (4.00-5.60); RDW 13.6 % (11.9-15.9)
[2019-02-19 18:04] LABS: BILIRUBIN,TOTAL 0.3 mg/dL (0.2-1); BLOOD UREA NITROGEN 16.8 mg/dL (7-18); CALCIUM 8.4 mg/dL (8.5-10.1); CREATININE 1.4 mg/dL (0.55-1.3); POTASSIUM 4.2 mmol/L (3.5-5.1); TOT PROT 7.5 g/dl (6.4-8.2)
[2019-02-19] MEDS: MONTELUKAST NA 10 MG TABLET PO SCH (22:16)
[2019-02-19] MEDS: THIAMINE HCL 100 MG TABLET (FP) PO SCH (22:16)
[2019-02-20] MEDS: chlordiazePOXIDE HCL 25 MG CAPSULE PO SCH ×4 (06:33→22:29)
[2019-02-20] MEDS: VITAMINS A AND D TOPICAL OINTMENT 60 GM TUBE TP SCH ×3 (06:34→17:58)
[2019-02-20] MEDS ORDERED: METHADONE HCL 10 MG TABLET PO ONE (08:55)
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
[2019-02-20] MEDS: PRENATAL VITAMINS W/ FOLIC ACID TABLET (FP) PO SCH (10:22)
[2019-02-20] MEDS: ALBUTEROL SO4 8 GM HFA INHALER IH PRN (10:24)
--- NOTE | 2019-02-20 11:33 | PN ---
S CIWA - CIWA Score Nausea/Vomitin-Mild Nausea/No Vomiting Muscle Tremors: 3 Anxiety: 2 Agitation: 2 Paroxysmal Sweats: 2 Orientation: 0-Oriented Tacttile Disturbances: 0-None Auditory Disturbances: 1-Very Mild Visual Disturbances: 0-None Headache: 1-Very Mild CIWA-Ar Total Score: 12 [facility] Progress Note (SOAP) Subjective: here with alcohol,cocaine,xanax dependence, says he finding it hard to get some rest. Lots of interruptions during the night O: Vital Signs - 24 hr 02/19/19 02/19/19 02/19/19 13:28 17:12 21:28 Temperature 97.8 F 98.4 F 98.1 F Pulse Rate 103 H 97 H 106 H Respiratory 18 18 17 Rate Blood Pressure 135/84 128/71 152/76 02/20/19 02/20/19 02/20/19 00:30 03:30 06:00 Temperature 97.7 F Pulse Rate 70 Respiratory 18 16 18 Rate Blood Pressure 127/79 02/20/19 09:41 Temperature 97.5 F L Pulse Rate 82 Respiratory 18 Rate Blood Pressure 126/83 Laboratory Tests 02/19/19 02/19/19 02/19/19 15:10 15:10 15:10 WBC 10.0 RBC 4.33 Hgb 13.9 Hct 42.4 MCV 97.9 H MCH 32.1 MCHC 32.8 RDW 13.6 Plt Count 176 D MPV 9.4 D Sodium 134 L Potassium 4.2 Chloride 102 Carbon Dioxide 19 L Anion Gap 13 BUN 16.8 Creatinine 1.4 H Est GFR (CKD-EPI)AfAm 66.95 Est GFR (CKD-EPI)NonAf 57.76 Random Glucose 99 Calcium 8.4 L Total Bilirubin 0.3 AST 26 ALT 29 Alkaline Phosphatase 97 Total Protein 7.5 Albumin 4.0 RPR Titer Nonreactive HIV 1&2 Antibody Screen HIV P24 Antigen 02/19/19 15:10 WBC RBC Hgb Hct MCV MCH MCHC RDW Plt Count MPV Sodium Potassium Chloride Carbon Dioxide Anion Gap BUN Creatinine Est GFR (CKD-EPI)AfAm Est GFR (CKD-EPI)NonAf Random Glucose Calcium Total Bilirubin AST ALT Alkaline Phosphatase Total Protein Albumin RPR Titer HIV 1&2 Antibody Screen Negative HIV P24 Antigen Negative a/p: AUD/BUD: librium detox protocol
[2019-02-20] MEDS: THIAMINE HCL 100 MG TABLET (FP) PO SCH (22:29)
[2019-02-20] MEDS: QUEtiapine FUMARATE 200 MG TABLET PO SCH (22:29)
[2019-02-20] MEDS: MONTELUKAST NA 10 MG TABLET PO SCH (22:29)
[2019-02-21] MEDS: VITAMINS A AND D TOPICAL OINTMENT 60 GM TUBE TP SCH ×5 (01:50→23:30)
[2019-02-21] MEDS: chlordiazePOXIDE HCL 25 MG CAPSULE PO SCH ×4 (05:43→22:18)
[2019-02-21] MEDS ORDERED: METHADONE HCL 40 MG DISPERSABLE TABLET PO SCH (06:00)
[2019-02-21] MEDS: PRENATAL VITAMINS W/ FOLIC ACID TABLET (FP) PO SCH (10:25)
[2019-02-21 10:41] LABS: URINE APPEARANCE CLEAR; URINE BILIRUBIN NEGATIVE (NEGATIVE); URINE COLOR YELLOW; URINE GLUCOSE (UA) NEGATIVE (NEGATIVE); URINE KETONE NEGATIVE (NEGATIVE); URINE LEUK ESTERASE NEGATIVE (NEGATIVE); URINE NITRITE NEGATIVE (NEGATIVE); URINE PROTEIN NEGATIVE (NEGATIVE); URINE UROBILINOGEN 0.2 mg/dL (0.2-1.0)
--- NOTE | 2019-02-21 14:42 | PN ---
S CIWA - CIWA Score Nausea/Vomitin-Mild Nausea/No Vomiting Muscle Tremors: 2 Anxiety: 1-Mildly Anxious Agitation: 1-Slight > Activity Paroxysmal Sweats: 1-Minimal Palms Moist Orientation: 0-Oriented Tacttile Disturbances: 0-None Auditory Disturbances: 0-None Visual Disturbances: 0-None Headache: 0-None Present CIWA-Ar Total Score: 6 BHS Progress Note (SOAP) Subjective: states he is getting his strength back here for alcohol,cocaine,xanax dependence. On MAT methadone. O: Vital Signs - 24 hr 02/20/19 02/20/19 02/21/19 17:34 21:53 00:30 Temperature 97.5 F L 98.1 F Pulse Rate 72 81 Respiratory 19 18 18 Rate Blood Pressure 138/80 136/78 02/21/19 02/21/19 02/21/19 03:49 08:32 10:07 Temperature 97.5 F L 98.1 F Pulse Rate 68 74 Respiratory 16 16 18 Rate Blood Pressure 112/65 124/77 Laboratory Tests 02/19/19 02/19/19 02/19/19 15:10 15:10 15:10 WBC 10.0 RBC 4.33 Hgb 13.9 Hct 42.4 MCV 97.9 H MCH 32.1 MCHC 32.8 RDW 13.6 Plt Count 176 D MPV 9.4 D Sodium 134 L Potassium 4.2 Chloride 102 Carbon Dioxide 19 L Anion Gap 13 BUN 16.8 Creatinine 1.4 H Est GFR (CKD-EPI)AfAm 66.95 Est GFR (CKD-EPI)NonAf 57.76 Random Glucose 99 Calcium 8.4 L Total Bilirubin 0.3 AST 26 ALT 29 Alkaline Phosphatase 97 Total Protein 7.5 Albumin 4.0 Urine Color Urine Appearance Urine pH Ur Specific [place] Urine Protein Urine Glucose (UA) Urine Ketones Urine Blood Urine Nitrite Urine Bilirubin Urine Urobilinogen Ur Leukocyte Esterase RPR Titer Nonreactive HIV 1&2 Antibody Screen HIV P24 Antigen 02/19/19 02/21/19 15:10 07:20 WBC RBC Hgb Hct MCV MCH MCHC RDW Plt Count MPV Sodium Potassium Chloride Carbon Dioxide Anion Gap BUN Creatinine Est GFR (CKD-EPI)AfAm Est GFR (CKD-EPI)NonAf Random Glucose Calcium Total Bilirubin AST ALT Alkaline Phosphatase Total Protein Albumin Urine Color Yellow Urine Appearance Clear Urine pH 6.0 Ur Specific [place] 1.021 Urine Protein Negative Urine Glucose (UA) Negative Urine Ketones Negative Urine Blood Negative Urine Nitrite Negative Urine Bilirubin Negative Urine Urobilinogen 0.2 Ur Leukocyte Esterase Negative RPR Titer HIV 1&2 Antibody Screen Negative HIV P24 Antigen Negative a/p: continue with alcohol detox protocol MAT methadone
[2019-02-21] MEDS: QUEtiapine FUMARATE 200 MG TABLET PO SCH (22:18)
[2019-02-21] MEDS: MONTELUKAST NA 10 MG TABLET PO SCH (22:19)
[2019-02-21] MEDS: THIAMINE HCL 100 MG TABLET (FP) PO SCH (22:19)
[2019-02-22] MEDS ORDERED: chlordiazePOXIDE HCL 10 MG CAPSULE PO PRN
[2019-02-22] MEDS: chlordiazePOXIDE HCL 10 MG CAPSULE PO SCH ×4 (06:04→22:41)
[2019-02-22] MEDS: VITAMINS A AND D TOPICAL OINTMENT 60 GM TUBE TP SCH ×4 (06:04→23:34)
[2019-02-22] MEDS: PRENATAL VITAMINS W/ FOLIC ACID TABLET (FP) PO SCH (10:26)
[2019-02-22] MEDS: ALBUTEROL SO4 8 GM HFA INHALER IH PRN (10:28)
--- NOTE | 2019-02-22 18:15 | PN ---
S CIWA - CIWA Score Nausea/Vomitin-No Nausea/No Vomiting Muscle Tremors: 2 Anxiety: 2 Agitation: 2 Paroxysmal Sweats: 2 Orientation: 0-Oriented Tacttile Disturbances: 0-None Auditory Disturbances: 0-None Visual Disturbances: 0-None Headache: 0-None Present CIWA-Ar Total Score: 8 BHS Progress Note (SOAP) Subjective: Sweat, chills, tremor, diarrhea, interrupted sleep Objective: 02/22/19 18:13 Last Vital Signs Temp Pulse Resp BP Pulse Ox 96.1 F L 74 18 131/76 02/22/19 17:22 02/22/19 17:22 02/22/19 17:22 02/22/19 17:22 Laboratory Tests 02/19/19 02/19/19 02/19/19 15:10 15:10 15:10 WBC 10.0 RBC 4.33 Hgb 13.9 Hct 42.4 MCV 97.9 H MCH 32.1 MCHC 32.8 RDW 13.6 Plt Count 176 D MPV 9.4 D Sodium 134 L Potassium 4.2 Chloride 102 Carbon Dioxide 19 L Anion Gap 13 BUN 16.8 Creatinine 1.4 H Est GFR (CKD-EPI)AfAm 66.95 Est GFR (CKD-EPI)NonAf 57.76 Random Glucose 99 Calcium 8.4 L Total Bilirubin 0.3 AST 26 ALT 29 Alkaline Phosphatase 97 Total Protein 7.5 Albumin 4.0 Urine Color Urine Appearance Urine pH Ur Specific [place] Urine Protein Urine Glucose (UA) Urine Ketones Urine Blood Urine Nitrite Urine Bilirubin Urine Urobilinogen Ur Leukocyte Esterase RPR Titer Nonreactive HIV 1&2 Antibody Screen HIV P24 Antigen 02/19/19 02/21/19 15:10 07:20 WBC RBC Hgb Hct MCV MCH MCHC RDW Plt Count MPV Sodium Potassium Chloride Carbon Dioxide Anion Gap BUN Creatinine Est GFR (CKD-EPI)AfAm Est GFR (CKD-EPI)NonAf Random Glucose Calcium Total Bilirubin AST ALT Alkaline Phosphatase Total Protein Albumin Urine Color Yellow Urine Appearance Clear Urine pH 6.0 Ur Specific [place] 1.021 Urine Protein Negative Urine Glucose (UA) Negative Urine Ketones Negative Urine Blood Negative Urine Nitrite Negative Urine Bilirubin Negative Urine Urobilinogen 0.2 Ur Leukocyte Esterase Negative RPR Titer HIV 1&2 Antibody Screen Negative HIV P24 Antigen Negative Labs reviewed: creat 1.4 (high) Assessment: 02/22/19 18:14 Withdrawal sxs Prerenal azotemia noted Plan: Continue detox Prerenal azotemia: encouraged PO water intake, repeat BMP
[2019-02-22] MEDS: THIAMINE HCL 100 MG TABLET (FP) PO SCH (22:42)
[2019-02-22] MEDS: QUEtiapine FUMARATE 200 MG TABLET PO SCH (22:42)
[2019-02-22] MEDS: MONTELUKAST NA 10 MG TABLET PO SCH (22:42)
[2019-02-23] MEDS: chlordiazePOXIDE HCL 10 MG CAPSULE PO SCH ×2 (06:58→17:37)
[2019-02-23] MEDS: VITAMINS A AND D TOPICAL OINTMENT 60 GM TUBE TP SCH ×3 (06:59→17:38)
[2019-02-23] MEDS: PRENATAL VITAMINS W/ FOLIC ACID TABLET (FP) PO SCH (10:38)
[2019-02-23] MEDS ORDERED: ONDANSETRON *ODT* 4 MG TABLET SL PRN (10:39)
--- NOTE | 2019-02-23 11:28 | PN ---
S CIWA - CIWA Score Nausea/Vomitin-No Nausea/No Vomiting Muscle Tremors: 2 Anxiety: 1-Mildly Anxious Agitation: 0-Normal Activity Paroxysmal Sweats: No Perspiration Orientation: 0-Oriented Tacttile Disturbances: 0-None Auditory Disturbances: 0-None Visual Disturbances: 0-None Headache: 0-None Present CIWA-Ar Total Score: 3 BHS Progress Note (SOAP) Subjective: anxiety nausea Objective: 02/23/19 11:25 Vital Signs Temperature 97.7 F 02/23/19 09:28 Pulse Rate 79 02/23/19 09:28 Respiratory Rate 20 02/23/19 09:28 Blood Pressure 137/75 02/23/19 09:28 O2 Sat by Pulse Oximetry (%) aaox3 ambulating no acute distress Assessment: 02/23/19 11:28 mild withdrawals Plan: temi sim d/c in am
[2019-02-23] MEDS: MONTELUKAST NA 10 MG TABLET PO SCH (22:20)
[2019-02-23] MEDS: QUEtiapine FUMARATE 200 MG TABLET PO SCH (22:20)
[2019-02-23] MEDS: THIAMINE HCL 100 MG TABLET (FP) PO SCH (22:21)
[2019-02-24] MEDS: VITAMINS A AND D TOPICAL OINTMENT 60 GM TUBE TP SCH ×2 (01:47→06:20)
[2019-02-24] MEDS ORDERED: chlordiazePOXIDE HCL 10 MG CAPSULE PO ONE (05:00)
[2019-02-24 06:32] VITALS: BP 127/72; PULSE 72; TEMP 98.1
--- NOTE | 2019-02-24 08:20 | PN ---
[facility] Progress Note Note: Patient is scheduled for discharge today. Script for 30 days supply of Seroquel 200 mg/hs is electronically transmitted to [facility] at [address] [place], [place] [id number]
--- NOTE | 2019-02-24 10:12 | DS ---
[facility] Detox Discharge Summary Admission Date: 02/19/19 Discharge Date: 02/24/19 - History Present History: Alcohol Dependence, Cannabis Dependence, Sedative Dependence - Physical Exam Results Vital Signs: Vital Signs Temperature 98.1 F 02/24/19 06:32 Pulse Rate 72 02/24/19 06:32 Respiratory Rate 16 02/24/19 06:32 Blood Pressure 127/72 02/24/19 06:32 O2 Sat by Pulse Oximetry (%) Pertinent Admission Physical Exam Findings: Vital Signs Temperature 98.1 F 02/24/19 06:32 Pulse Rate 72 02/24/19 06:32 Respiratory Rate 16 02/24/19 06:32 Blood Pressure 127/72 02/24/19 06:32 O2 Sat by Pulse Oximetry (%) Laboratory Tests 02/19/19 02/19/19 02/19/19 15:10 15:10 15:10 WBC 10.0 RBC 4.33 Hgb 13.9 Hct 42.4 MCV 97.9 H MCH 32.1 MCHC 32.8 RDW 13.6 Plt Count 176 D MPV 9.4 D Sodium 134 L Potassium 4.2 Chloride 102 Carbon Dioxide 19 L Anion Gap 13 BUN 16.8 Creatinine 1.4 H Est GFR (CKD-EPI)AfAm 66.95 Est GFR (CKD-EPI)NonAf 57.76 Random Glucose 99 Calcium 8.4 L Total Bilirubin 0.3 AST 26 ALT 29 Alkaline Phosphatase 97 Total Protein 7.5 Albumin 4.0 Urine Color Urine Appearance Urine pH Ur Specific [place] Urine Protein Urine Glucose (UA) Urine Ketones Urine Blood Urine Nitrite Urine Bilirubin Urine Urobilinogen Ur Leukocyte Esterase RPR Titer Nonreactive HIV 1&2 Antibody Screen HIV P24 Antigen 02/19/19 02/21/19 15:10 07:20 WBC RBC Hgb Hct MCV MCH MCHC RDW Plt Count MPV Sodium Potassium Chloride Carbon Dioxide Anion Gap BUN Creatinine Est GFR (CKD-EPI)AfAm Est GFR (CKD-EPI)NonAf Random Glucose Calcium Total Bilirubin AST ALT Alkaline Phosphatase Total Protein Albumin Urine Color Yellow Urine Appearance Clear Urine pH 6.0 Ur Specific [place] 1.021 Urine Protein Negative Urine Glucose (UA) Negative Urine Ketones Negative Urine Blood Negative Urine Nitrite Negative Urine Bilirubin Negative Urine Urobilinogen 0.2 Ur Leukocyte Esterase Negative RPR Titer HIV 1&2 Antibody Screen Negative HIV P24 Antigen Negative aaox3 ambulating no acute distress - Treatment Hospital Course: Detox Protocol Followed, Detoxed Safely, Responded well, Discharged Condition Good, Rehab Referral Accepted Patient has Accepted a Rehab Referral to: pt referred to [facility] - Medication Discharge Medications: Ambulatory Orders Montelukast Na [Singulair -] 10 mg PO HS #30 tablet 04/28/18 Fluticasone/Salmeterol [Advair 250-50 Diskus] 1 each IH DAILY #1 blst.w.dev Albuterol Sulfate Inhaler - [Ventolin HFA Inhaler -] 2 puff IH Q4H PRN #1 inhaler 01/06/19 Quetiapine Fumarate [Seroquel -] 200 mg PO HS #30 tab 02/24/19 - Diagnosis (1) Alcohol dependence with uncomplicated withdrawal Current Visit: Yes Status: Acute (2) Nicotine dependence Current Visit: Yes Status: Acute (3) Sedative, hypnotic or anxiolytic dependence, uncomplicated Current Visit: Yes Status: Acute (4) Substance induced mood disorder Current Visit: Yes Status: Acute (5) Substance-induced sleep disorder Current Visit: Yes Status: Acute (6) Cocaine dependence, uncomplicated Current Visit: Yes Status: Chronic (7) History of bipolar disorder Current Visit: Yes Status: Chronic (8) Hypocalcemia Current Visit: No Status: Acute (9) Syncope Current Visit: No Status: Acute (10) Alcohol dependence Current Visit: No Status: Chronic Qualifiers: Substance use status: uncomplicated Qualified Code(s): F10.20 - Alcohol dependence, uncomplicated (11) Asthma Current Visit: No Status: Chronic (12) Bipolar I disorder Current Visit: No Status: Chronic (13) Bipolar I disorder, most recent episode mixed Current Visit: No Status: Chronic (14) Bipolar disorder Current Visit: No Status: Chronic (15) Cannabis dependence Current Visit: No Status: Chronic (16) Chronic back pain Current Visit: No Status: Chronic Qualifiers: Back pain location: low back pain Back pain laterality: bilateral Sciatica presence: without sciatica Qualified Code(s): M54.5 - Low back pain; G89.29 - Other chronic pain (17) GERD (gastroesophageal reflux disease) Current Visit: No Status: Chronic Qualifiers: Esophagitis presence: without esophagitis Qualified Code(s): K21.9 - Gastro -esophageal reflux disease without esophagitis (18) Insomnia Current Visit: No Status: Chronic Qualifiers: Insomnia type: alcohol-induced Qualified Code(s): F10.982 - Alcohol use, unspecified with alcohol-induced sleep disorder (19) MDD (major depressive disorder) Current Visit: No Status: Chronic Qualifiers: Major depression recurrence: recurrent Active/Remission status: remission status unspecified Qualified Code(s): F33.9 - Major depressive disorder, recurrent, unspecified (20) Nicotine dependence Current Visit: No Status: Chronic Qualifiers: Nicotine product type: cigarettes Substance use status: uncomplicated Qualified Code(s): F17.210 - Nicotine dependence, cigarettes, uncomplicated (21) Nicotine dependence, uncomplicated Current Visit: No Status: Chronic Qualifiers: Nicotine product type: cigarettes Qualified Code(s): F17.210 - Nicotine dependence, cigarettes, uncomplicated (22) Non-compliance Current Visit: No Status: Chronic (23) Posttraumatic stress disorder Current Visit: No Status: Chronic (24) Sedative dependence Current Visit: No Status: Chronic (25) Sedative hypnotic or anxiolytic dependence Current Visit: No Status: Chronic (26) Bipolar II disorder Current Visit: No Status: Suspected (27) History of seizure Current Visit: No Status: Suspected (28) PPD positive, treated Current Visit: No Status: Resolved
== END 2019-02-24 08:52 | disposition home or self-care (01) | DRG 897 ==
LOC: YASAS 12:04 → Y6N 14:46
PROVIDERS: ADMIT Allergy & Immunology; ATTEND Allergy & Immunology
PROC: HZ2ZZZZ Detoxification Services for Substance Abuse Treatment (ICD-10-PCS; principal; 2019-02-19)
DX: F11.23 Opioid dependence with withdrawal (principal); F14.20 Cocaine dependence, uncomplicated; F19.282 Other psychoactive substance dependence with psychoactive substance-induced sleep disorder; F31.60 Bipolar disorder, current episode mixed, unspecified; F33.9 Major depressive disorder, recurrent, unspecified; F10.230 Alcohol dependence with withdrawal, uncomplicated; F13.230 Sedative, hypnotic or anxiolytic dependence with withdrawal, uncomplicated; F12.20 Cannabis dependence, uncomplicated; F17.210 Nicotine dependence, cigarettes, uncomplicated; F19.24 Other psychoactive substance dependence with psychoactive substance-induced mood disorder; F43.10 Post-traumatic stress disorder, unspecified; G47.00 Insomnia, unspecified; J45.909 Unspecified asthma, uncomplicated; E83.51 Hypocalcemia; M54.5 Low back pain; G89.29 Other chronic pain; K21.9 Gastro-esophageal reflux disease without esophagitis; R76.11 Nonspecific reaction to tuberculin skin test without active tuberculosis; R79.89 Other specified abnormal findings of blood chemistry; Z62.810 Personal history of physical and sexual abuse in childhood; Z91.14 Patient's other noncompliance with medication regimen; Z86.69 Personal history of other diseases of the nervous system and sense organs; Z91.018 Allergy to other foods
CPT/HCPCS: 36415; 80053; 81003; 85027; 86593; 87389; Q0162

== ENCOUNTER 2019-04-23 09:53 | Inpatient (IN) | payer OTHER ==
--- NOTE | 2019-04-23 10:10 | BHS.RME ---
Substance Use & Tx History - Substance Use History Alcohol Substance amount: 3 pints Vodka, 2 x 6 pack 24 ounce beer Frequency of use: Daily Substance route: Oral Date of Last Use: 04/23/19 Cocaine (Powder) Substance amount: $100 Frequency of use: Daily Substance route: Inhalation (ex: sniffing or snorting), Smoking Date of Last Use: 04/22/19 Physical/Psych/Mental Status - Behavior General Behavior: Decreased activity Eye Contact: Normal - Cooperativeness Cooperativeness: Cooperative - Thinking Thought Processes: Tight Thought content: Future oriented - Physical Health Problems Is patient presently having any pain?: No Does patient presently have any injuries (include location): No Does patient currently have a fever: No Is patient : No CIWA Nausea/Vomitin-Mild Nausea/No Vomiting Muscle Tremors: 4-Moderate,w/Arms Extend Anxiety: 2 Agitation: 2 Paroxysmal Sweats: No Perspiration Orientation: 0-Oriented Tacttile Disturbances: 0-None Auditory Disturbances: 0-None Visual Disturbances: 2-Mild Sensitivity Headache: 1-Very Mild CIWA-Ar Total Score: 12
[2019-04-23 10:41] VITALS: BMI 29.2
--- NOTE | 2019-04-23 11:09 | HP ---
CIWA Score Nausea/Vomitin-Mild Nausea/No Vomiting Muscle Tremors: 4-Moderate,w/Arms Extend Anxiety: 2 Agitation: 4-Moderately Restless Paroxysmal Sweats: No Perspiration Orientation: 0-Oriented Tacttile Disturbances: 0-None Auditory Disturbances: 0-None Visual Disturbances: 2-Mild Sensitivity Headache: 1-Very Mild CIWA-Ar Total Score: 14 - Admission Criteria OASAS Guidelines: Admission for Medically Managed Detox: Requires at least one of the followin. CIWA greater than 12 2. Seizures within the past 24 hours 3. Delirium tremens within the past 24 hours 4. Hallucinations within the past 24 hours 5. Acute intervention needed for co occurring medical disorder 6. Acute intervention needed for co occurring psychiatric disorder 7. Severe withdrawal that cannot be handled at a lower level of care (continued vomiting, continued diarrhea, abnormal vital signs) requiring intravenous medication and/or fluids 8. Admitting History and Physical - Admission Chief Complaint: " I am trying to get some help." History of Present Illness: 53 year old male with history of alcohol dependence with withdrawal. He had been in detox in 02/19-09/06 he was abstinent but relapsed 2 weeks later. He also entered rehab in january 2019 but did not complete it due to a family emergency, a in his family. He is seeking detox once again and want to follow through with rehab this time. 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 Cocaine: $100 per day and sniffs it, started age 23 and last used 04/22/19. Nicotine: 3-5 ciggs every 3 weeks. PMH: Asthma, Psurg: None Psych: Depression, Anxiety on seroquel admits to non-compliance Patient shares an apartment with room mate but has poor environment for recovery due to easy accessibility of drugs. He qualifies for admission to detox due to his medical complications and is at high risk for relapse without a controlled environment. - Past Medical History RIPSAWYER: Yes: Seizure, Syncope Pulmonary: Yes: Asthma Gastrointestinal: Yes: GERD Psych: Yes: Anxiety, Depression Musculoskeletal: Yes: Chronic low back pain - Past Surgical History Past Surgical History: Yes: None - Smoking History Smoking history: Current some day smoker Have you smoked in the past 12 months: Yes Aproximately how many cigarettes per day: 3 - Alcohol/Substance Use Hx Alcohol Use: Yes Number of Drinks Daily: 5 History of Substance Use: reports: Cocaine Date of Last Use: 12/08/18 - Social History ADL: Support Services Occupation: unemployed History of Recent Travel: No Admission ROS S - HPI Allergies/Adverse Reactions: Allergies Allergy/AdvReac Type Severity Reaction Status Date / Time No Known Drug Allergies Allergy Unknown Verified 04/23/19 10:26 pork derived (porcine) AdvReac Severe Vomiting Verified 04/23/19 10:26 Exam Limitations: No Limitations - Ebola screening Have you traveled outside of the country in the last 21 days: No Have you had contact with anyone from an Ebola affected area: No Have you been sick,other than usual withdrawal symptoms: No Do you have a fever: No - Review of Systems Constitutional: No Symptoms Reported EENT: reports: No Symptoms Reported Respiratory: reports: No Symptoms reported Cardiac: reports: No Symptoms Reported GI: reports: No Symptoms Reported : reports: No Symptoms Reported Musculoskeletal: reports: No Symptoms Reported Integumentary: reports: No Symptoms Reported Neuro: reports: No Symptoms reported Endocrine: reports: No Symptoms Reported Hematology: reports: No Symptoms Reported Psychiatric: reports: Judgement Intact, Mood/Affect Appropiate, Orientated x3 Other Systems: Reviewed and Negative Patient History - Patient Medical History Hx Anemia: No Hx Asthma: Yes Hx Chronic Obstructive Pulmonary Disease (COPD): No Hx Cancer: No Hx Cardiac Disorders: No Hx Congestive Heart Failure: No Hx Hypertension: No Hx Hypercholesterolemia: No Hx Pacemaker: No HX Cerebrovascular Accident: No Hx Seizures: Yes Hx Dementia: No Hx Diabetes: No Hx Gastrointestinal Disorders: No Hx Liver Disease: No Hx Genitourinary Disorders: No Hx Sexually Transmitted Disorders: No Hx Renal Disease (ESRD): No Hx Thyroid Disease: No Hx Human Immunodeficiency Virus (HIV): No (last 2019 negative) Hx Hepatitis C: No Hx Depression: Yes Hx Suicide Attempt: No Hx Bipolar Disorder: Yes (hospitalized 2016 [facility]) Hx Schizophrenia: No - Patient Surgical History Past Surgical History: No Hx Neurologic Surgery: No Hx Cataract Extraction: No Hx Cardiac Surgery: No Hx Lung Surgery: No Hx Breast Surgery: No Hx Breast Biopsy: No Hx Abdominal Surgery: No Hx Appendectomy: No Hx Cholecystectomy: No Hx Genitourinary Surgery: No Hx Section: No Hx Orthopedic Surgery: No Hx Hysterectomy: No Anesthesia Reaction: No - PPD History Previous Implant?: Yes Documented Results: Negative w/proof Implanted On Prior [facility] Admission?: Yes Date: 10/26/18 Results: CXR neg PPD to be Administered?: No - Reproductive History Patient : No - Smoking Cessation Smoking history: Current some day smoker Have you smoked in the past 12 months: Yes Aproximately how many cigarettes per day: 3 Cigars Per Day: 0 Hx Chewing Tobacco Use: No Initiated information on smoking cessation: Yes 'Breaking Loose' booklet given: 04/23/19 - Substances abused Alcohol Substance route: Oral Frequency: Daily Amount used: 3 pints or vodka & 2 6pk 240z cans of beer Age of first use: 15 Date of last use: 04/23/19 Cocaine Substance route: Inhalation Frequency: 3-6 times per week Amount used: $100 Age of first use: 23 Date of last use: 04/22/19 Admission Physical Exam S - Vital Signs Vital Signs: Vital Signs - 24 hr 04/23/19 10:28 Temperature 97.5 F L Pulse Rate 90 Respiratory 20 Rate Blood Pressure 121/78 - Physical General Appearance: Yes: Moderate Distress, Tremorous, Irritable, Anxious HEENTM: Yes: EOMI, Hearing grossly Normal, Normal ENT Inspection, Normocephalic, Normal Voice, JANELL, Pharynx Normal, Tm's normal Respiratory: Yes: Chest Non-Tender, Lungs Clear, Normal Breath Sounds, No Respiratory Distress, No Accessory Muscle Use Neck: Yes: No masses,lesions,Nodules, Supple, Trachea in good position Breast: Yes: Within Normal Limits Cardiology: Yes: Regular Rhythm, Regular Rate, S1, S2 Abdominal: Yes: Non Tender, Flat, Soft, Increased Bowel Sounds Genitourinary: Yes: Within Normal Limits Back: Yes: Normal Inspection Musculoskeletal: Yes: full range of Motion, Gait Steady, Pelvis Stable Extremities: Yes: Normal Capillary Refill, Normal Inspection, Normal Range of Motion, Non-Tender Neurological: Yes: teacher lip reading II-XII NML intact, Fully Oriented, Alert, Motor Strength 5/5, Normal Mood/Affect, Normal Response Integumentary: Yes: Normal Color, Warm Lymphatic: Yes: Within Normal Limits - Diagnostic (1) Alcohol dependence with uncomplicated withdrawal Current Visit: Yes Status: Acute (2) Nicotine dependence Current Visit: Yes Status: Acute (3) Substance-induced sleep disorder Current Visit: Yes Status: Acute (4) Bipolar disorder Current Visit: Yes Status: Chronic (5) Chronic back pain Current Visit: Yes Status: Chronic Qualifiers: Back pain location: low back pain Back pain laterality: bilateral Sciatica presence: without sciatica Qualified Code(s): M54.5 - Low back pain; G89.29 - Other chronic pain Comment: . (6) Cocaine dependence, uncomplicated Current Visit: Yes Status: Chronic (7) GERD (gastroesophageal reflux disease) Current Visit: Yes Status: Chronic Qualifiers: Esophagitis presence: without esophagitis Qualified Code(s): K21.9 - Gastro-esophageal reflux disease without esophagitis Comment: . (8) History of bipolar disorder Current Visit: Yes Status: Chronic Comment: Non compliant with [facility]PD care. (9) Insomnia Current Visit: Yes Status: Chronic Qualifiers: Insomnia type: alcohol-induced Qualified Code(s): F10.982 - Alcohol use, unspecified with alcohol-induced sleep disorder (10) MDD (major depressive disorder) Current Visit: Yes Status: Chronic Qualifiers: Major depression recurrence: recurrent Active/Remission status: remission status unspecified Qualified Code(s): F33.9 - Major depressive disorder, recurrent, unspecified Comment: History. (11) Nicotine dependence, uncomplicated Current Visit: Yes Status: Chronic Qualifiers: Nicotine product type: cigarettes Qualified Code(s): F17.210 - Nicotine dependence, cigarettes, uncomplicated (12) History of seizure Current Visit: Yes Status: Suspected (13) PPD positive, treated Current Visit: Yes Status: Resolved Cleared for Admission [facility] - Detox or Rehab [facility] Level of Care: Medically Managed Detox Regimen/Protocol: Librium Claeared for Rehab Admission: No Screened but not Admitted - Documentation of Visit Screened but not Admitted: No Breathalyzer - Breathalyzer Breathalyzer: 0.009 Urine Drug Screen - Test Device Lot number: [id number] Expiration date: 01/17/21 - Control Is test valid?: Yes - Results Drug screen NEGATIVE: No Urine drug screen results: [facility]ANO-Cocaine Inpatient Rehab Admission - Rehab Decision to Admit Inpatient rehab admission?: No
[2019-04-23] MEDS ORDERED: BISMUTH SUBSALICYLATE 524 MG/30 ML UD PO PRN (11:14)
[2019-04-23] MEDS ORDERED: MAG HYDROX/AL HYDROX/SIMETH 30 ML UNIT-DOSE CUP PO PRN (11:14)
[2019-04-23] MEDS ORDERED: MAGNESIUM CITRATE 300 ML BOTTLE PO PRN (11:14)
[2019-04-23] MEDS ORDERED: ACETAMINOPHEN 325 MG TABLET (FP) PO PRN (11:14)
[2019-04-23] MEDS ORDERED: METHOCARBAMOL 500 MG TABLET PO PRN (11:14)
[2019-04-23] MEDS ORDERED: chlordiazePOXIDE HCL 25 MG CAPSULE PO PRN (11:14)
[2019-04-23] MEDS ORDERED: MENTHOL/PHENOL 1 EACH UD MM PRN (11:14)
[2019-04-23] MEDS ORDERED: MAGNESIUM HYDROX 2400MG/30ML ORAL SUSPENSION 30 ML CUP PO PRN (11:14)
[2019-04-23] MEDS ORDERED: NICOTINE POLACRILEX 2 MG GUM BUC PRN (11:14)
[2019-04-23] MEDS ORDERED: ONDANSETRON *ODT* 4 MG TABLET SL ONE (11:34)
[2019-04-23] MEDS: chlordiazePOXIDE HCL 25 MG CAPSULE PO SCH ×3 (12:41→22:32)
[2019-04-23] MEDS: PANTOPRAZOLE 40 MG TABLET PO SCH (12:42)
[2019-04-23] MEDS: NICOTINE 7 MG/24 HOURS TOPICAL PATCH TD SCH (12:46)
[2019-04-23] MEDS: hydrOXYzine PAMOATE 25 MG CAPSULE (FP) PO SCH ×3 (13:02→22:32)
[2019-04-23 15:52] LABS: HEMATOCRIT 49.7 % (35.4-49); HEMOGLOBIN 16.4 GM/dL (11.7-16.9); MCH 31.6 pg (25.7-33.7); MEAN PLT VOLUME 8.3 fl (7.5-11.1); PLATELET COUNT 221 K/MM3 (134-434); RBC 5.17 M/mm3 (4.00-5.60); RDW 12.6 % (11.9-15.9); WHITE BLOOD COUNT 7.8 K/mm3 (4.0-10.0)
[2019-04-23 16:03] LABS: ALBUMIN 4.4 g/dl (3.4-5.0); BILIRUBIN,TOTAL 0.5 mg/dL (0.2-1); BLOOD UREA NITROGEN 11.5 mg/dL (7-18); CALCIUM 8.9 mg/dL (8.5-10.1); CREATININE 1.3 mg/dL (0.55-1.3); POTASSIUM 4.3 mmol/L (3.5-5.1); TOT PROT 7.8 g/dl (6.4-8.2)
[2019-04-23] MEDS: MONTELUKAST NA 10 MG TABLET PO SCH (22:32)
[2019-04-23] MEDS: MELATONIN 5 MG TABLETS PO SCH (22:32)
[2019-04-23] MEDS: THIAMINE HCL 100 MG TABLET (FP) PO SCH (22:32)
[2019-04-23] MEDS: ALBUTEROL SO4 HFA INHALER IH PRN (22:35)
[2019-04-24] MEDS: hydrOXYzine PAMOATE 25 MG CAPSULE (FP) PO SCH ×5 (05:58→22:26)
[2019-04-24] MEDS: chlordiazePOXIDE HCL 25 MG CAPSULE PO SCH ×4 (05:58→22:26)
[2019-04-24] MEDS: PRENATAL VITAMINS W/ FOLIC ACID TABLET (FP) PO SCH (10:05)
[2019-04-24] MEDS: PANTOPRAZOLE 40 MG TABLET PO SCH (10:05)
[2019-04-24] MEDS: NICOTINE 7 MG/24 HOURS TOPICAL PATCH TD SCH (10:06)
--- NOTE | 2019-04-24 11:01 | CONSULT ---
[facility] Psychiatric Consult - Data Date of interview: 04/24/19 Admission source: [facility] Identifying data: Revisit to [facility] and admission to [address] [place] [address] for this 53 y/o AA male self-referred for detoxification treatment. OSWALD issues : alcohol, cocaine, benzodiazepine, nicotine. Patient is single, father of two, domiciled, unemployed and supported on welfare. Substance Abuse History: Discussed with the patient. OSWALD profile as follows : Smoking history: Current some day smoker. Have you smoked in the past 12 months: Yes. Aproximately how many cigarettes per day: 3. Cigars Per Day: 0. Hx Chewing Tobacco Use: No. Initiated information on smoking cessation: Yes. 'Breaking Loose' booklet given: 04/23/19. - Substances abused. Alcohol. Substance route: Oral. Frequency: Daily. Amount used: 3 pints or vodka & 2 6pk 240z cans of beer. Age of first use: 15. Date of last use: 04/23/19. Cocaine. Substance route: Inhalation. Frequency: 3-6 times per week. Amount used: $100. Age of first use: 23. Date of last use: 04/22/19 Medical History: Medical history is remarkable for positive PPD (treated), chronic lumbar pain, antecedent of withdrawal-related seizures, bronchial asthma, hypertension and gastro-esophageal reflux disease. Psychiatric History: Patient endorses a history of 2-3 psychiatric hospitalizations ([facility]). Diagnosed with MDD, Bipolar Disorder and PTSD (2010). Patient has reportedly been treated with various psychotropic medications over the years (lamotrigine, elavil, paroxetine, seroquel). Chronically non-adherent to OPD care. Mr Solis states that he is affiliated with [facility] ([facility]) but, in fact, the patient is known for his habit of utilizing local [facility] settings for medications refills. Patient denies history of suicide attempts in this interview (however past records at [facility] indicate history of one suicide attempt, via cutting-wrist, in 1989). Physical/Sexual Abuse/Trauma History: Patient denies. Additional Comment: Urine drug screen results: CHANO-Cocaine. Noted. Mental Status Exam - Mental Status Exam Alert and Oriented to: Time, Place, Person Cognitive Function: Good Patient Appearance: Well Groomed Mood: Withdrawn, Hopeful Affect: Mood Congruent, Constricted Patient Behavior: Fatigued, Appropriate, Cooperative Speech Pattern: Clear, Appropriate Voice Loudness: Normal Thought Process: Goal Oriented Thought Disorder: Not Present Hallucinations: Denies Suicidal Ideation: Denies Homicidal Ideation: Denies Insight/Judgement: Poor Sleep: Poorly, Difficulty falling asleep Appetite: Good Gait/Station: Normal Psychiatric Findings - Problem List ([place] 1, 2,3) (1) Alcohol dependence with uncomplicated withdrawal Current Visit: Yes Status: Acute (2) Cocaine dependence, uncomplicated Current Visit: Yes Status: Chronic (3) Nicotine dependence Current Visit: Yes Status: Chronic (4) History of bipolar disorder Current Visit: Yes Status: Chronic Comment: Non compliant with OPD care. (5) Substance induced mood disorder Current Visit: Yes Status: Acute (6) Insomnia Current Visit: Yes Status: Chronic Qualifiers: Insomnia type: alcohol-induced Qualified Code(s): F10.982 - Alcohol use, unspecified with alcohol-induced sleep disorder (7) Non-compliance Current Visit: Yes Status: Chronic - Initial Treatment Plan Initial Treatment Plan: Psychoeducation. Sleep hygiene. Detoxification. Groups. AA meetings. MAT services presented to the patient : marginally receptive. Resumed at patient's request : seroquel 200 mg po hs. Side effects/benefits discussed with patient. Mr Solis gave his informed consent (verbal) to MD. Garcia.
--- NOTE | 2019-04-24 13:57 | PN ---
S CIWA - CIWA Score Nausea/Vomitin Muscle Tremors: 2 Anxiety: 2 Agitation: 2 Paroxysmal Sweats: No Perspiration Orientation: 0-Oriented Tacttile Disturbances: 1-Very Mild Itch/Numbness Auditory Disturbances: 0-None Visual Disturbances: 0-None Headache: 2-Mild CIWA-Ar Total Score: 11 S Progress Note (SOAP) Subjective: alert,irritable,anxious,interrupted sleep,tremor Objective: 04/24/19 13:56 Vital Signs Temperature 97.7 F 04/24/19 08:51 Pulse Rate 79 04/24/19 08:51 Respiratory Rate 16 04/24/19 08:51 Blood Pressure 115/75 04/24/19 08:51 O2 Sat by Pulse Oximetry (%) Laboratory Last Values WBC 7.8 K/mm3 (4.0-10.0) 04/23/19 11:25 RBC 5.17 M/mm3 (4.00-5.60) 04/23/19 11:25 Hgb 16.4 GM/dL (11.7-16.9) 04/23/19 11:25 Hct 49.7 % (35.4-49) H D 04/23/19 11:25 MCV 96.0 fl (80-96) 04/23/19 11:25 MCH 31.6 pg (25.7-33.7) 04/23/19 11:25 MCHC 33.0 g/dl (32.0-35.9) 04/23/19 11:25 RDW 12.6 % (11.9-15.9) 04/23/19 11:25 Plt Count 221 K/MM3 (134-434) D 04/23/19 11:25 MPV 8.3 fl (7.5-11.1) D 04/23/19 11:25 Sodium 135 mmol/L (136-145) L 04/23/19 11:25 Potassium 4.3 mmol/L (3.5-5.1) 04/23/19 11:25 Chloride 103 mmol/L (98-107) 04/23/19 11:25 Carbon Dioxide 23 mmol/L (21-32) 04/23/19 11:25 Anion Gap 8 MMOL/L (8-16) 04/23/19 11:25 BUN 11.5 mg/dL (7-18) 04/23/19 11:25 Creatinine 1.3 mg/dL (0.55-1.3) 04/23/19 11:25 Est GFR (CKD-EPI)AfAm 73.22 04/23/19 11:25 Est GFR (CKD-EPI)NonAf 63.18 04/23/19 11:25 Random Glucose 96 mg/dL (74-106) 04/23/19 11:25 Calcium 8.9 mg/dL (8.5-10.1) 04/23/19 11:25 Total Bilirubin 0.5 mg/dL (0.2-1) 04/23/19 11:25 AST 23 U/L (15-37) 04/23/19 11:25 ALT 32 U/L (13-61) 04/23/19 11:25 Alkaline Phosphatase 95 U/L (45-117) 04/23/19 11:25 Total Protein 7.8 g/dl (6.4-8.2) 04/23/19 11:25 Albumin 4.4 g/dl (3.4-5.0) 04/23/19 11:25 RPR Titer Nonreactive (NONREACTIVE) 04/23/19 11:25 Assessment: 04/24/19 13:56 withdrawal symptom Plan: continue detox librium regimen
[2019-04-24] MEDS: THIAMINE HCL 100 MG TABLET (FP) PO SCH (22:26)
[2019-04-24] MEDS: MELATONIN 5 MG TABLETS PO SCH (22:26)
[2019-04-24] MEDS: MONTELUKAST NA 10 MG TABLET PO SCH (22:26)
[2019-04-24] MEDS: QUEtiapine FUMARATE 200 MG TABLET PO SCH (22:26)
[2019-04-25] MEDS: chlordiazePOXIDE HCL 25 MG CAPSULE PO SCH ×4 (05:49→23:21)
[2019-04-25] MEDS: hydrOXYzine PAMOATE 25 MG CAPSULE (FP) PO SCH ×5 (05:49→23:21)
[2019-04-25] MEDS: PRENATAL VITAMINS W/ FOLIC ACID TABLET (FP) PO SCH (10:18)
[2019-04-25] MEDS: PANTOPRAZOLE 40 MG TABLET PO SCH (10:19)
[2019-04-25] MEDS: ACETAMINOPHEN 325 MG TABLET (FP) PO PRN (10:19)
[2019-04-25] MEDS: FAMOTIDINE 20 MG TABLET PO SCH (10:20)
[2019-04-25] MEDS: NICOTINE 7 MG/24 HOURS TOPICAL PATCH TD SCH (10:23)
--- NOTE | 2019-04-25 12:33 | PN ---
S CIWA - CIWA Score Nausea/Vomitin-No Nausea/No Vomiting Muscle Tremors: 2 Anxiety: 3 Agitation: 0-Normal Activity Paroxysmal Sweats: 3 Orientation: 0-Oriented Tacttile Disturbances: 0-None Auditory Disturbances: 0-None Visual Disturbances: 0-None Headache: 2-Mild CIWA-Ar Total Score: 10 BHS Progress Note (SOAP) Subjective: c/o sweats, headache, anxiety, mild shakes, and interrupted sleep. Objective: 04/25/19 12:33 Vital Signs 04/25/19 04/25/19 06:35 08:52 Temperature 96.8 F L 95.9 F L Pulse Rate 71 79 Respiratory 18 18 Rate Blood Pressure 99/58 L 121/80 Laboratory Last Values WBC 7.8 K/mm3 (4.0-10.0) 04/23/19 11:25 RBC 5.17 M/mm3 (4.00-5.60) 04/23/19 11:25 Hgb 16.4 GM/dL (11.7-16.9) 04/23/19 11:25 Hct 49.7 % (35.4-49) H D 04/23/19 11:25 MCV 96.0 fl (80-96) 04/23/19 11:25 MCH 31.6 pg (25.7-33.7) 04/23/19 11:25 MCHC 33.0 g/dl (32.0-35.9) 04/23/19 11:25 RDW 12.6 % (11.9-15.9) 04/23/19 11:25 Plt Count 221 K/MM3 (134-434) D 04/23/19 11:25 MPV 8.3 fl (7.5-11.1) D 04/23/19 11:25 Sodium 135 mmol/L (136-145) L 04/23/19 11:25 Potassium 4.3 mmol/L (3.5-5.1) 04/23/19 11:25 Chloride 103 mmol/L (98-107) 04/23/19 11:25 Carbon Dioxide 23 mmol/L (21-32) 04/23/19 11:25 Anion Gap 8 MMOL/L (8-16) 04/23/19 11:25 BUN 11.5 mg/dL (7-18) 04/23/19 11:25 Creatinine 1.3 mg/dL (0.55-1.3) 04/23/19 11:25 Est GFR (CKD-EPI)AfAm 73.22 04/23/19 11:25 Est GFR (CKD-EPI)NonAf 63.18 04/23/19 11:25 Random Glucose 96 mg/dL (74-106) 04/23/19 11:25 Calcium 8.9 mg/dL (8.5-10.1) 04/23/19 11:25 Total Bilirubin 0.5 mg/dL (0.2-1) 04/23/19 11:25 AST 23 U/L (15-37) 04/23/19 11:25 ALT 32 U/L (13-61) 04/23/19 11:25 Alkaline Phosphatase 95 U/L (45-117) 04/23/19 11:25 Total Protein 7.8 g/dl (6.4-8.2) 04/23/19 11:25 Albumin 4.4 g/dl (3.4-5.0) 04/23/19 11:25 RPR Titer Nonreactive (NONREACTIVE) 04/23/19 11:25 Labs noted. Assessment: 04/25/19 12:33 AOX3, in no acute respiratory distress. Full ROM, ambulating in the unit. Withdrawal symptoms. Plan: continue detox.
[2019-04-25] MEDS: MONTELUKAST NA 10 MG TABLET PO SCH (23:21)
[2019-04-25] MEDS: QUEtiapine FUMARATE 200 MG TABLET PO SCH (23:21)
[2019-04-25] MEDS: THIAMINE HCL 100 MG TABLET (FP) PO SCH (23:21)
[2019-04-25] MEDS: MELATONIN 5 MG TABLETS PO SCH (23:21)
[2019-04-25] MEDS: ALBUTEROL SO4 HFA INHALER IH PRN (23:24)
[2019-04-26] MEDS ORDERED: chlordiazePOXIDE HCL 10 MG CAPSULE PO PRN
[2019-04-26] MEDS: hydrOXYzine PAMOATE 25 MG CAPSULE (FP) PO SCH ×5 (06:47→23:12)
[2019-04-26] MEDS: chlordiazePOXIDE HCL 10 MG CAPSULE PO SCH ×4 (06:47→23:12)
[2019-04-26] MEDS: FAMOTIDINE 20 MG TABLET PO SCH (10:43)
[2019-04-26] MEDS: PRENATAL VITAMINS W/ FOLIC ACID TABLET (FP) PO SCH (10:43)
[2019-04-26] MEDS: PANTOPRAZOLE 40 MG TABLET PO SCH (10:43)
[2019-04-26] MEDS: NICOTINE 7 MG/24 HOURS TOPICAL PATCH TD SCH (10:43)
--- NOTE | 2019-04-26 13:39 | PN ---
S CIWA - CIWA Score Nausea/Vomitin-No Nausea/No Vomiting Muscle Tremors: 2 Anxiety: 2 Agitation: 0-Normal Activity Paroxysmal Sweats: 2 Orientation: 0-Oriented Tacttile Disturbances: 0-None Auditory Disturbances: 0-None Visual Disturbances: 2-Mild Sensitivity Headache: 0-None Present CIWA-Ar Total Score: 8 BHS Progress Note (SOAP) Subjective: 53 years old male admitted on 04/23/19 for alcohol withdrawal sx management tr eating with librium detox regiment feeling ok today participating in meetings and groups of behavior and psychosocial therapies doing well in detox Objective: 04/26/19 13:40 Vital Signs Temperature 97.1 F L 04/26/19 12:52 Pulse Rate 64 04/26/19 12:52 Respiratory Rate 18 04/26/19 12:52 Blood Pressure 131/73 04/26/19 12:52 O2 Sat by Pulse Oximetry (%) Laboratory Last Values WBC 7.8 K/mm3 (4.0-10.0) 04/23/19 11:25 RBC 5.17 M/mm3 (4.00-5.60) 04/23/19 11:25 Hgb 16.4 GM/dL (11.7-16.9) 04/23/19 11:25 Hct 49.7 % (35.4-49) H D 04/23/19 11:25 MCV 96.0 fl (80-96) 04/23/19 11:25 MCH 31.6 pg (25.7-33.7) 04/23/19 11:25 MCHC 33.0 g/dl (32.0-35.9) 04/23/19 11:25 RDW 12.6 % (11.9-15.9) 04/23/19 11:25 Plt Count 221 K/MM3 (134-434) D 04/23/19 11:25 MPV 8.3 fl (7.5-11.1) D 04/23/19 11:25 Sodium 135 mmol/L (136-145) L 04/23/19 11:25 Potassium 4.3 mmol/L (3.5-5.1) 04/23/19 11:25 Chloride 103 mmol/L (98-107) 04/23/19 11:25 Carbon Dioxide 23 mmol/L (21-32) 04/23/19 11:25 Anion Gap 8 MMOL/L (8-16) 04/23/19 11:25 BUN 11.5 mg/dL (7-18) 04/23/19 11:25 Creatinine 1.3 mg/dL (0.55-1.3) 04/23/19 11:25 Est GFR (CKD-EPI)AfAm 73.22 04/23/19 11:25 Est GFR (CKD-EPI)NonAf 63.18 04/23/19 11:25 Random Glucose 96 mg/dL (74-106) 04/23/19 11:25 Calcium 8.9 mg/dL (8.5-10.1) 04/23/19 11:25 Total Bilirubin 0.5 mg/dL (0.2-1) 04/23/19 11:25 AST 23 U/L (15-37) 04/23/19 11:25 ALT 32 U/L (13-61) 04/23/19 11:25 Alkaline Phosphatase 95 U/L (45-117) 04/23/19 11:25 Total Protein 7.8 g/dl (6.4-8.2) 04/23/19 11:25 Albumin 4.4 g/dl (3.4-5.0) 04/23/19 11:25 RPR Titer Nonreactive (NONREACTIVE) 04/23/19 11:25 lab noted Assessment: 04/26/19 13:40 alcohol withdrawal Plan: librium regiment
[2019-04-26] MEDS: THIAMINE HCL 100 MG TABLET (FP) PO SCH (23:11)
[2019-04-26] MEDS: QUEtiapine FUMARATE 200 MG TABLET PO SCH (23:11)
[2019-04-26] MEDS: MELATONIN 5 MG TABLETS PO SCH (23:11)
[2019-04-26] MEDS: MONTELUKAST NA 10 MG TABLET PO SCH (23:12)
[2019-04-27] MEDS: chlordiazePOXIDE HCL 10 MG CAPSULE PO SCH ×2 (05:31→17:51)
[2019-04-27] MEDS: hydrOXYzine PAMOATE 25 MG CAPSULE (FP) PO SCH ×5 (05:31→22:41)
[2019-04-27] MEDS: PANTOPRAZOLE 40 MG TABLET PO SCH (10:35)
[2019-04-27] MEDS: FAMOTIDINE 20 MG TABLET PO SCH (10:35)
[2019-04-27] MEDS: PRENATAL VITAMINS W/ FOLIC ACID TABLET (FP) PO SCH (10:35)
[2019-04-27] MEDS: NICOTINE 7 MG/24 HOURS TOPICAL PATCH TD SCH (10:36)
--- NOTE | 2019-04-27 11:30 | PN ---
[facility] CIWA - CIWA Score Nausea/Vomitin-Mild Nausea/No Vomiting Muscle Tremors: 1-None Visible, but [place] Anxiety: 1-Mildly Anxious Agitation: 0-Normal Activity Paroxysmal Sweats: 1-Minimal Palms Moist Orientation: 0-Oriented Tacttile Disturbances: 0-None Auditory Disturbances: 0-None Visual Disturbances: 1-Very Mild Sensitivity Headache: 0-None Present CIWA-Ar Total Score: 5 BHS Progress Note (SOAP) Subjective: 53 years old male admitted on 04/23/19 for alcohol withdrawal sx management treating with librium detox regiment feeling better today mild stomach cramping bentyl 20 mg po x 1 Objective: 04/27/19 11:29 Vital Signs Temperature 96.6 F L 04/27/19 08:40 Pulse Rate 78 04/27/19 08:40 Respiratory Rate 18 04/27/19 08:40 Blood Pressure 130/85 04/27/19 08:40 O2 Sat by Pulse Oximetry (%) Laboratory Last Values WBC 7.8 K/mm3 (4.0-10.0) 04/23/19 11:25 RBC 5.17 M/mm3 (4.00-5.60) 04/23/19 11:25 Hgb 16.4 GM/dL (11.7-16.9) 04/23/19 11:25 Hct 49.7 % (35.4-49) H D 04/23/19 11:25 MCV 96.0 fl (80-96) 04/23/19 11:25 MCH 31.6 pg (25.7-33.7) 04/23/19 11:25 MCHC 33.0 g/dl (32.0-35.9) 04/23/19 11:25 RDW 12.6 % (11.9-15.9) 04/23/19 11:25 Plt Count 221 K/MM3 (134-434) D 04/23/19 11:25 MPV 8.3 fl (7.5-11.1) D 04/23/19 11:25 Sodium 135 mmol/L (136-145) L 04/23/19 11:25 Potassium 4.3 mmol/L (3.5-5.1) 04/23/19 11:25 Chloride 103 mmol/L (98-107) 04/23/19 11:25 Carbon Dioxide 23 mmol/L (21-32) 04/23/19 11:25 Anion Gap 8 MMOL/L (8-16) 04/23/19 11:25 BUN 11.5 mg/dL (7-18) 04/23/19 11:25 Creatinine 1.3 mg/dL (0.55-1.3) 04/23/19 11:25 Est GFR (CKD-EPI)AfAm 73.22 04/23/19 11:25 Est GFR (CKD-EPI)NonAf 63.18 04/23/19 11:25 Random Glucose 96 mg/dL (74-106) 04/23/19 11:25 Calcium 8.9 mg/dL (8.5-10.1) 04/23/19 11:25 Total Bilirubin 0.5 mg/dL (0.2-1) 04/23/19 11:25 AST 23 U/L (15-37) 04/23/19 11:25 ALT 32 U/L (13-61) 04/23/19 11:25 Alkaline Phosphatase 95 U/L (45-117) 04/23/19 11:25 Total Protein 7.8 g/dl (6.4-8.2) 04/23/19 11:25 Albumin 4.4 g/dl (3.4-5.0) 04/23/19 11:25 RPR Titer Nonreactive (NONREACTIVE) 04/23/19 11:25 lab noted Assessment: 04/27/19 11:29 alcohol withdrawal Plan: librium regiment
[2019-04-27] MEDS ORDERED: DICYCLOMINE HCL 10 MG CAPSULE PO ONE (12:00)
[2019-04-27] MEDS ORDERED: DICYCLOMINE HCL 20 MG TABLET PO ONE (12:00)
[2019-04-27] MEDS: THIAMINE HCL 100 MG TABLET (FP) PO SCH (22:41)
[2019-04-27] MEDS: QUEtiapine FUMARATE 200 MG TABLET PO SCH (22:41)
[2019-04-27] MEDS: MONTELUKAST NA 10 MG TABLET PO SCH (22:41)
[2019-04-27] MEDS: MELATONIN 5 MG TABLETS PO SCH (22:41)
[2019-04-28] MEDS ORDERED: chlordiazePOXIDE HCL 10 MG CAPSULE PO ONE (05:00)
[2019-04-28] MEDS: hydrOXYzine PAMOATE 25 MG CAPSULE (FP) PO SCH ×3 (05:46→14:42)
[2019-04-28] MEDS: NICOTINE 7 MG/24 HOURS TOPICAL PATCH TD SCH (10:02)
[2019-04-28] MEDS: PANTOPRAZOLE 40 MG TABLET PO SCH (10:03)
[2019-04-28] MEDS: FAMOTIDINE 20 MG TABLET PO SCH (10:03)
[2019-04-28] MEDS: PRENATAL VITAMINS W/ FOLIC ACID TABLET (FP) PO SCH (10:03)
--- NOTE | 2019-04-28 11:07 | DS ---
[facility] Detox Discharge Summary Admission Date: 04/23/19 Discharge Date: 04/28/19 - History Present History: Alcohol Dependence Additional Comments: 53 years old male admitted on 04/23/19 for alcohol withdrawal sx management treating with librium detox regiment Mr Solis has completed the librium regiment and is tolerated well seen by psychatrist resume seroquel alert oriented x 3 respiratory clear lungs bilaterally on auscultation extremities ambulating with cane slow steady skin warm and dry Pertinent Past History: time for discharge 35 minutes - Physical Exam Results Vital Signs: Vital Signs Temperature 98.5 F 04/28/19 08:36 Pulse Rate 87 04/28/19 08:36 Respiratory Rate 18 04/28/19 08:36 Blood Pressure 127/83 04/28/19 08:36 O2 Sat by Pulse Oximetry (%) Pertinent Admission Physical Exam Findings: alcohol withdrawal Laboratory Last Values WBC 7.8 K/mm3 (4.0-10.0) 04/23/19 11:25 RBC 5.17 M/mm3 (4.00-5.60) 04/23/19 11:25 Hgb 16.4 GM/dL (11.7-16.9) 04/23/19 11:25 Hct 49.7 % (35.4-49) H D 04/23/19 11:25 MCV 96.0 fl (80-96) 04/23/19 11:25 MCH 31.6 pg (25.7-33.7) 04/23/19 11:25 MCHC 33.0 g/dl (32.0-35.9) 04/23/19 11:25 RDW 12.6 % (11.9-15.9) 04/23/19 11:25 Plt Count 221 K/MM3 (134-434) D 04/23/19 11:25 MPV 8.3 fl (7.5-11.1) D 04/23/19 11:25 Sodium 135 mmol/L (136-145) L 04/23/19 11:25 Potassium 4.3 mmol/L (3.5-5.1) 04/23/19 11:25 Chloride 103 mmol/L (98-107) 04/23/19 11:25 Carbon Dioxide 23 mmol/L (21-32) 04/23/19 11:25 Anion Gap 8 MMOL/L (8-16) 04/23/19 11:25 BUN 11.5 mg/dL (7-18) 04/23/19 11:25 Creatinine 1.3 mg/dL (0.55-1.3) 04/23/19 11:25 Est GFR (CKD-EPI)AfAm 73.22 04/23/19 11:25 Est GFR (CKD-EPI)NonAf 63.18 04/23/19 11:25 Random Glucose 96 mg/dL (74-106) 04/23/19 11:25 Calcium 8.9 mg/dL (8.5-10.1) 04/23/19 11:25 Total Bilirubin 0.5 mg/dL (0.2-1) 04/23/19 11:25 AST 23 U/L (15-37) 04/23/19 11:25 ALT 32 U/L (13-61) 04/23/19 11:25 Alkaline Phosphatase 95 U/L (45-117) 04/23/19 11:25 Total Protein 7.8 g/dl (6.4-8.2) 04/23/19 11:25 Albumin 4.4 g/dl (3.4-5.0) 04/23/19 11:25 RPR Titer Nonreactive (NONREACTIVE) 04/23/19 11:25 Vital Signs Temperature 98.5 F 04/28/19 08:36 Pulse Rate 87 04/28/19 08:36 Respiratory Rate 18 04/28/19 08:36 Blood Pressure 127/83 04/28/19 08:36 O2 Sat by Pulse Oximetry (%) lab noted - Treatment Hospital Course: Detox Protocol Followed, Detoxed Safely, Responded well, Discharged Condition Good, Rehab Referral Accepted Patient has Accepted a Rehab Referral to: [facility] - Medication Discharge Medications: Ambulatory Orders Montelukast Na [Singulair -] 10 mg PO HS #30 tablet 04/28/18 Fluticasone/Salmeterol [Advair 250-50 Diskus] 1 each IH DAILY #1 blst.w.dev 12/13/18 Albuterol Sulfate Inhaler - [Ventolin HFA Inhaler -] 2 puff IH Q4H PRN #1 inhaler 01/06/19 Quetiapine Fumarate [Seroquel -] 200 mg PO HS #30 tab 02/24/19 - Diagnosis (1) Alcohol dependence with uncomplicated withdrawal Current Visit: Yes Status: Acute (2) Substance induced mood disorder Current Visit: Yes Status: Suspected (3) GERD (gastroesophageal reflux disease) Current Visit: Yes Status: Chronic Qualifiers: Esophagitis presence: without esophagitis Qualified Code(s): K21.9 - Gastro-esophageal reflux disease without esophagitis (4) Nicotine dependence Current Visit: Yes Status: Acute Qualifiers: Nicotine product type: cigarettes Substance use status: in withdrawal Qualified Code(s): F17.213 - Nicotine dependence, cigarettes, with withdrawal (5) PPD positive, treated Current Visit: Yes Status: Resolved (6) Asthma Current Visit: Yes Status: Chronic (7) Nicotine dependence Current Visit: Yes Status: Acute Qualifiers: Nicotine product type: cigarettes Substance use status: in withdrawal Qualified Code(s): F17.213 - Nicotine dependence, cigarettes, with withdrawal - AMA Did Patient Leave Against Medical Advice: No CIWA Score - CIWA Score Nausea/Vomitin-Mild Nausea/No Vomiting Muscle Tremors: 1-None Visible, but [place] Anxiety: 0-No Anxiety, at Ease Agitation: 0-Normal Activity Paroxysmal Sweats: No Perspiration Orientation: 0-Oriented Tacttile Disturbances: 0-None Auditory Disturbances: 0-None Visual Disturbances: 0-None Headache: 0-None Present CIWA-Ar Total Score: 2
[2019-04-28] MEDS ORDERED: hydrOXYzine PAMOATE 25 MG CAPSULE (FP) PO PRN (15:24)
--- NOTE | 2019-04-28 15:25 | HP ---
[facility] Rehab Assess/Revision - Admission History Admitted to Rehab from: [facility] Date of Admission to Rehab: 04/28/19 - Vital signs Vital Signs: Vital Signs Period Temp Pulse Resp BP Sys/Stephens Pulse Ox Last 24 Hr 97.9 F-98.5 F 73-94 16-18 115-131/74-89 - Findings Detox History & Physical reviewed: Yes Concur with findings: Yes Comments/Additional Findings: transferred from detox to rehab admission as per protocol Inpatient Rehab Admission - Rehab Decision to Admit Inpatient rehab admission?: Yes - Initial Determination Are CD services needed?: Yes Free of communicable disease: Yes Not in need of hospitalization: Yes - Rehab Admission Criteria Previous failed treatment: Yes Poor recovery environment: Yes Comorbidities: Yes Lacks judgement: Yes Patient is meeting Inpatient Rehab admission criteria:: Yes
[2019-04-28] MEDS: QUEtiapine FUMARATE 200 MG TABLET PO SCH (21:25)
[2019-04-28] MEDS: THIAMINE HCL 100 MG TABLET (FP) PO SCH (21:25)
[2019-04-28] MEDS: MELATONIN 5 MG TABLETS PO SCH (21:25)
[2019-04-28] MEDS: MONTELUKAST NA 10 MG TABLET PO SCH (21:26)
[2019-04-29] MEDS: FAMOTIDINE 20 MG TABLET PO SCH (10:17)
[2019-04-29] MEDS: PANTOPRAZOLE 40 MG TABLET PO SCH (10:17)
[2019-04-29] MEDS: PRENATAL VITAMINS W/ FOLIC ACID TABLET (FP) PO SCH (10:17)
[2019-04-29] MEDS: NICOTINE 7 MG/24 HOURS TOPICAL PATCH TD SCH (10:18)
[2019-04-29] MEDS ORDERED: MENTHOL/PHENOL 1 EACH UD MM PRN (11:14)
[2019-04-29] MEDS ORDERED: METHOCARBAMOL 500 MG TABLET PO PRN (11:14)
[2019-04-29] MEDS: QUEtiapine FUMARATE 200 MG TABLET PO SCH (21:15)
[2019-04-29] MEDS: MONTELUKAST NA 10 MG TABLET PO SCH (21:15)
[2019-04-29] MEDS: THIAMINE HCL 100 MG TABLET (FP) PO SCH (21:15)
[2019-04-29] MEDS: MELATONIN 5 MG TABLETS PO SCH (21:15)
[2019-04-30] MEDS: FAMOTIDINE 20 MG TABLET PO SCH (09:49)
[2019-04-30] MEDS: PANTOPRAZOLE 40 MG TABLET PO SCH (09:49)
[2019-04-30] MEDS: NICOTINE 7 MG/24 HOURS TOPICAL PATCH TD SCH (09:49)
[2019-04-30] MEDS: PRENATAL VITAMINS W/ FOLIC ACID TABLET (FP) PO SCH (09:49)
[2019-04-30] MEDS: FLUTICASONE/SALMETEROL 100 MCG/50 MCG DISKUS IH SCH ×2 (10:25→21:35)
[2019-04-30] MEDS: QUEtiapine FUMARATE 200 MG TABLET PO SCH (21:35)
[2019-04-30] MEDS: THIAMINE HCL 100 MG TABLET (FP) PO SCH (21:36)
[2019-04-30] MEDS: MONTELUKAST NA 10 MG TABLET PO SCH (21:36)
[2019-04-30] MEDS: MELATONIN 5 MG TABLETS PO SCH (23:02)
[2019-05-01] MEDS: IBUPROFEN 400 MG TABLET (FP) PO PRN (05:22)
[2019-05-01] MEDS: FAMOTIDINE 20 MG TABLET PO SCH (10:10)
[2019-05-01] MEDS: PRENATAL VITAMINS W/ FOLIC ACID TABLET (FP) PO SCH (10:10)
[2019-05-01] MEDS: PANTOPRAZOLE 40 MG TABLET PO SCH (10:10)
[2019-05-01] MEDS: NICOTINE 7 MG/24 HOURS TOPICAL PATCH TD SCH (10:11)
[2019-05-01] MEDS: FLUTICASONE/SALMETEROL 100 MCG/50 MCG DISKUS IH SCH ×2 (10:11→22:01)
[2019-05-01] MEDS: MONTELUKAST NA 10 MG TABLET PO SCH (22:02)
[2019-05-01] MEDS: QUEtiapine FUMARATE 200 MG TABLET PO SCH (22:02)
[2019-05-01] MEDS: THIAMINE HCL 100 MG TABLET (FP) PO SCH (22:02)
[2019-05-01] MEDS: MELATONIN 5 MG TABLETS PO SCH (22:02)
[2019-05-02] MEDS: FAMOTIDINE 20 MG TABLET PO SCH (10:32)
[2019-05-02] MEDS: FLUTICASONE/SALMETEROL 100 MCG/50 MCG DISKUS IH SCH ×2 (10:32→21:24)
[2019-05-02] MEDS: PRENATAL VITAMINS W/ FOLIC ACID TABLET (FP) PO SCH (10:32)
[2019-05-02] MEDS: NICOTINE 7 MG/24 HOURS TOPICAL PATCH TD SCH (10:32)
[2019-05-02] MEDS: PANTOPRAZOLE 40 MG TABLET PO SCH (10:32)
[2019-05-02] MEDS: THIAMINE HCL 100 MG TABLET (FP) PO SCH (21:23)
[2019-05-02] MEDS: MONTELUKAST NA 10 MG TABLET PO SCH (21:24)
[2019-05-02] MEDS: QUEtiapine FUMARATE 200 MG TABLET PO SCH (21:24)
[2019-05-02] MEDS: MELATONIN 5 MG TABLETS PO SCH (21:24)
[2019-05-03] MEDS: PRENATAL VITAMINS W/ FOLIC ACID TABLET (FP) PO SCH (10:05)
[2019-05-03] MEDS: PANTOPRAZOLE 40 MG TABLET PO SCH (10:05)
[2019-05-03] MEDS: NICOTINE 7 MG/24 HOURS TOPICAL PATCH TD SCH (10:06)
[2019-05-03] MEDS: FAMOTIDINE 20 MG TABLET PO SCH (10:06)
[2019-05-03] MEDS: FLUTICASONE/SALMETEROL 100 MCG/50 MCG DISKUS IH SCH ×2 (10:08→21:29)
[2019-05-03] MEDS: MELATONIN 5 MG TABLETS PO SCH (21:28)
[2019-05-03] MEDS: QUEtiapine FUMARATE 200 MG TABLET PO SCH (21:28)
[2019-05-03] MEDS: MONTELUKAST NA 10 MG TABLET PO SCH (21:28)
[2019-05-03] MEDS: THIAMINE HCL 100 MG TABLET (FP) PO SCH (21:28)
[2019-05-04] MEDS: PANTOPRAZOLE 40 MG TABLET PO SCH (09:56)
[2019-05-04] MEDS: FAMOTIDINE 20 MG TABLET PO SCH (09:57)
[2019-05-04] MEDS: FLUTICASONE/SALMETEROL 100 MCG/50 MCG DISKUS IH SCH ×2 (09:57→21:41)
[2019-05-04] MEDS: PRENATAL VITAMINS W/ FOLIC ACID TABLET (FP) PO SCH (09:57)
[2019-05-04] MEDS: NICOTINE 7 MG/24 HOURS TOPICAL PATCH TD SCH (09:57)
[2019-05-04] MEDS: QUEtiapine FUMARATE 200 MG TABLET PO SCH (21:17)
[2019-05-04] MEDS: MONTELUKAST NA 10 MG TABLET PO SCH (21:17)
[2019-05-04] MEDS: MELATONIN 5 MG TABLETS PO SCH (21:17)
[2019-05-04] MEDS: THIAMINE HCL 100 MG TABLET (FP) PO SCH (21:17)
[2019-05-04] MEDS ORDERED: PT OWN MED DRAWER 7, Y5N ONE (21:18)
[2019-05-05] MEDS: PRENATAL VITAMINS W/ FOLIC ACID TABLET (FP) PO SCH (09:40)
[2019-05-05] MEDS: FLUTICASONE/SALMETEROL 100 MCG/50 MCG DISKUS IH SCH ×2 (09:40→21:36)
[2019-05-05] MEDS: FAMOTIDINE 20 MG TABLET PO SCH (09:41)
[2019-05-05] MEDS: PANTOPRAZOLE 40 MG TABLET PO SCH (09:42)
[2019-05-05] MEDS: NICOTINE 7 MG/24 HOURS TOPICAL PATCH TD SCH (09:42)
--- NOTE | 2019-05-05 12:10 | CONSULT ---
[facility] Psychiatric Consult - Data Date of interview: 05/05/19 Admission source: [facility] Identifying data: Patient is a 53 year old single male, father of two, unemployed, and is supported on welfare. This is one of multiple admissions for patient. Patient admitted [facility] for alcohol, cocaine, benzodiazepine, and nicotine dependence. Substance Abuse History: Smoking Cessation. Smoking history: Current some day smoker. Have you smoked in the past 12 months: Yes. Aproximately how many cigarettes per day: 3. Cigars Per Day: 0. Hx Chewing Tobacco Use: No. Initiated information on smoking cessation: Yes. 'Breaking Loose' booklet ruby tijerina: 04/23/19. - Substances abused. Alcohol. Substance route: Oral. Frequency: Daily. Amount used: 3 pints or vodka & 2 6pk 240z cans of beer. Age of first use: 15. Date of last use: 04/23/19. Cocaine. Substance route: Inhalation. Frequency: 3-6 times per week. Amount used: $100. Age of first use: 23. Date of last use: 04/22/19 Medical History: Medical history is remarkable for positive PPD (treated), chronic lumbar pain, antecedent of withdrawal-related seizures, bronchial asthma, hypertension and gastro-esophageal reflux disease. Psychiatric History: Patient reports history of multiple psychiatric hospitalizations at [facility] and most recently in November of 2018 at [facility] due to feeling depressed. Diagnosis of Bipolar disorder and PTSD. Mr. Solis reports taking seroquel 400mg HS + Elavil 100mg. Patient does not presently have a psychiatric provider, instead utilizes [facility] settings such as [facility] to receive prescriptions of his medications. He reports past trials of elavil, lamictal, and paxil. Patient denies history of suicide attempt but as per previous notes patient has reported one suicide attempt in the by self mutilation (wrist cutting). Patient seen by Dr. Brown and was resumed on seroquel 200mg HS. Patient requesting an increase in seroquel as he claims to take 400mg at home. Mr. Solis reports feeling irritable, anxious, and is experiencing difficulty sleeping. He denies manic/depressive symptoms, suicidal/homicidal ideation. Physical/Sexual Abuse/Trauma History: denies. Mental Status Exam - Mental Status Exam Alert and Oriented to: Time, Place, Person Cognitive Function: Good Patient Appearance: Well Groomed Mood: Anxious Affect: Mood Congruent Patient Behavior: Cooperative Speech Pattern: Appropriate Voice Loudness: Moderately Soft/Quiet Thought Process: Intact, Goal Oriented Thought Disorder: Not Present Hallucinations: Denies Suicidal Ideation: Denies Homicidal Ideation: Denies Insight/Judgement: Poor Sleep: Poorly Appetite: Fair Muscle strength/Tone: Normal Gait/Station: Normal Psychiatric Findings - Problem List ([place] 1, 2,3) (1) Alcohol use disorder Current Visit: Yes Status: Acute (2) Cocaine dependence, uncomplicated Current Visit: Yes Status: Chronic (3) History of bipolar disorder Current Visit: Yes Status: Chronic Comment: Non compliant with OPD care. (4) Nicotine dependence, uncomplicated Current Visit: Yes Status: Chronic Qualifiers: Nicotine product type: cigarettes Qualified Code(s): F17.210 - Nicotine dependence, cigarettes, uncomplicated - Initial Treatment Plan Initial Treatment Plan: Psychoeducation provided. Rehab in progress. 1) Will d/c Seroquel 200mg HS + Melatonin 5mg HS. 2) Will order Seroquel 300mg HS + Melatonin 10mg HS . Benefits and side effects discussed. Verbal consent given.
[2019-05-05] MEDS: THIAMINE HCL 100 MG TABLET (FP) PO SCH (21:35)
[2019-05-05] MEDS: QUEtiapine FUMARATE 300 MG TABLET PO SCH (21:35)
[2019-05-05] MEDS: MELATONIN 5 MG TABLETS PO SCH (21:35)
[2019-05-05] MEDS: MONTELUKAST NA 10 MG TABLET PO SCH (21:35)
[2019-05-06] MEDS: FLUTICASONE/SALMETEROL 100 MCG/50 MCG DISKUS IH SCH ×2 (09:44→21:14)
[2019-05-06] MEDS: PANTOPRAZOLE 40 MG TABLET PO SCH (09:45)
[2019-05-06] MEDS: FAMOTIDINE 20 MG TABLET PO SCH (09:45)
[2019-05-06] MEDS: NICOTINE 7 MG/24 HOURS TOPICAL PATCH TD SCH (09:45)
[2019-05-06] MEDS: PRENATAL VITAMINS W/ FOLIC ACID TABLET (FP) PO SCH (09:45)
[2019-05-06] MEDS: THIAMINE HCL 100 MG TABLET (FP) PO SCH (21:13)
[2019-05-06] MEDS: QUEtiapine FUMARATE 300 MG TABLET PO SCH (21:14)
[2019-05-06] MEDS: MELATONIN 5 MG TABLETS PO SCH (21:14)
[2019-05-06] MEDS: MONTELUKAST NA 10 MG TABLET PO SCH (21:14)
[2019-05-07] MEDS: PANTOPRAZOLE 40 MG TABLET PO SCH (09:50)
[2019-05-07] MEDS: PRENATAL VITAMINS W/ FOLIC ACID TABLET (FP) PO SCH (09:50)
[2019-05-07] MEDS: FAMOTIDINE 20 MG TABLET PO SCH (09:50)
[2019-05-07] MEDS: FLUTICASONE/SALMETEROL 100 MCG/50 MCG DISKUS IH SCH ×2 (09:51→21:37)
[2019-05-07] MEDS: NICOTINE 7 MG/24 HOURS TOPICAL PATCH TD SCH (09:52)
[2019-05-07] MEDS: MONTELUKAST NA 10 MG TABLET PO SCH (21:37)
[2019-05-07] MEDS: QUEtiapine FUMARATE 300 MG TABLET PO SCH (21:37)
[2019-05-07] MEDS: THIAMINE HCL 100 MG TABLET (FP) PO SCH (21:37)
[2019-05-07] MEDS: MELATONIN 5 MG TABLETS PO SCH (21:38)
[2019-05-08] MEDS: NICOTINE 7 MG/24 HOURS TOPICAL PATCH TD SCH (10:14)
[2019-05-08] MEDS: PANTOPRAZOLE 40 MG TABLET PO SCH (10:14)
[2019-05-08] MEDS: FAMOTIDINE 20 MG TABLET PO SCH (10:14)
[2019-05-08] MEDS: PRENATAL VITAMINS W/ FOLIC ACID TABLET (FP) PO SCH (10:14)
[2019-05-08] MEDS: FLUTICASONE/SALMETEROL 100 MCG/50 MCG DISKUS IH SCH ×2 (10:15→21:29)
[2019-05-08] MEDS: QUEtiapine FUMARATE 300 MG TABLET PO SCH (21:28)
[2019-05-08] MEDS: THIAMINE HCL 100 MG TABLET (FP) PO SCH (21:28)
[2019-05-08] MEDS: MELATONIN 5 MG TABLETS PO SCH (21:28)
[2019-05-08] MEDS: MONTELUKAST NA 10 MG TABLET PO SCH (21:29)
[2019-05-09] MEDS: PRENATAL VITAMINS W/ FOLIC ACID TABLET (FP) PO SCH (10:21)
[2019-05-09] MEDS: FAMOTIDINE 20 MG TABLET PO SCH (10:21)
[2019-05-09] MEDS: NICOTINE 7 MG/24 HOURS TOPICAL PATCH TD SCH (10:21)
[2019-05-09] MEDS: FLUTICASONE/SALMETEROL 100 MCG/50 MCG DISKUS IH SCH ×2 (10:21→21:06)
[2019-05-09] MEDS: PANTOPRAZOLE 40 MG TABLET PO SCH (10:21)
[2019-05-09] MEDS: MONTELUKAST NA 10 MG TABLET PO SCH (21:05)
[2019-05-09] MEDS: QUEtiapine FUMARATE 300 MG TABLET PO SCH (21:05)
[2019-05-09] MEDS: THIAMINE HCL 100 MG TABLET (FP) PO SCH (21:05)
[2019-05-09] MEDS: MELATONIN 5 MG TABLETS PO SCH (21:05)
[2019-05-10] MEDS: PRENATAL VITAMINS W/ FOLIC ACID TABLET (FP) PO SCH (10:18)
[2019-05-10] MEDS: PANTOPRAZOLE 40 MG TABLET PO SCH (10:18)
[2019-05-10] MEDS: FLUTICASONE/SALMETEROL 100 MCG/50 MCG DISKUS IH SCH ×2 (10:18→21:23)
[2019-05-10] MEDS: FAMOTIDINE 20 MG TABLET PO SCH (10:18)
[2019-05-10] MEDS: NICOTINE 7 MG/24 HOURS TOPICAL PATCH TD SCH (10:19)
[2019-05-10] MEDS: QUEtiapine FUMARATE 300 MG TABLET PO SCH (21:22)
[2019-05-10] MEDS: MONTELUKAST NA 10 MG TABLET PO SCH (21:22)
[2019-05-10] MEDS: THIAMINE HCL 100 MG TABLET (FP) PO SCH (21:22)
[2019-05-10] MEDS: MELATONIN 5 MG TABLETS PO SCH (21:22)
[2019-05-11] MEDS: FAMOTIDINE 20 MG TABLET PO SCH (09:59)
[2019-05-11] MEDS: PANTOPRAZOLE 40 MG TABLET PO SCH (09:59)
[2019-05-11] MEDS: PRENATAL VITAMINS W/ FOLIC ACID TABLET (FP) PO SCH (09:59)
[2019-05-11] MEDS: NICOTINE 7 MG/24 HOURS TOPICAL PATCH TD SCH (10:00)
[2019-05-11] MEDS: FLUTICASONE/SALMETEROL 100 MCG/50 MCG DISKUS IH SCH ×2 (10:00→22:04)
[2019-05-11] MEDS: MELATONIN 5 MG TABLETS PO SCH (22:04)
[2019-05-11] MEDS: MONTELUKAST NA 10 MG TABLET PO SCH (22:05)
[2019-05-11] MEDS: QUEtiapine FUMARATE 300 MG TABLET PO SCH (22:05)
[2019-05-11] MEDS: THIAMINE HCL 100 MG TABLET (FP) PO SCH (22:05)
[2019-05-11] MEDS: IBUPROFEN 400 MG TABLET (FP) PO PRN (22:47)
[2019-05-12] MEDS: IBUPROFEN 400 MG TABLET (FP) PO PRN (10:18)
[2019-05-12] MEDS: PANTOPRAZOLE 40 MG TABLET PO SCH (10:18)
[2019-05-12] MEDS: FLUTICASONE/SALMETEROL 100 MCG/50 MCG DISKUS IH SCH ×2 (10:18→21:13)
[2019-05-12] MEDS: PRENATAL VITAMINS W/ FOLIC ACID TABLET (FP) PO SCH (10:18)
[2019-05-12] MEDS: FAMOTIDINE 20 MG TABLET PO SCH (10:19)
[2019-05-12] MEDS: NICOTINE 7 MG/24 HOURS TOPICAL PATCH TD SCH (10:19)
[2019-05-12] MEDS: MELATONIN 5 MG TABLETS PO SCH (21:12)
[2019-05-12] MEDS: MONTELUKAST NA 10 MG TABLET PO SCH (21:12)
[2019-05-12] MEDS: QUEtiapine FUMARATE 300 MG TABLET PO SCH (21:12)
[2019-05-12] MEDS: THIAMINE HCL 100 MG TABLET (FP) PO SCH (21:12)
[2019-05-13] MEDS: NICOTINE 7 MG/24 HOURS TOPICAL PATCH TD SCH (10:09)
[2019-05-13] MEDS: FLUTICASONE/SALMETEROL 100 MCG/50 MCG DISKUS IH SCH ×2 (10:09→21:19)
[2019-05-13] MEDS: PRENATAL VITAMINS W/ FOLIC ACID TABLET (FP) PO SCH (10:09)
[2019-05-13] MEDS: FAMOTIDINE 20 MG TABLET PO SCH (10:10)
[2019-05-13] MEDS: PANTOPRAZOLE 40 MG TABLET PO SCH (10:10)
[2019-05-13] MEDS: THIAMINE HCL 100 MG TABLET (FP) PO SCH (21:19)
[2019-05-13] MEDS: MONTELUKAST NA 10 MG TABLET PO SCH (21:19)
[2019-05-13] MEDS: MELATONIN 5 MG TABLETS PO SCH (21:19)
[2019-05-13] MEDS: QUEtiapine FUMARATE 300 MG TABLET PO SCH (21:19)
[2019-05-14] MEDS: PRENATAL VITAMINS W/ FOLIC ACID TABLET (FP) PO SCH (10:00)
[2019-05-14] MEDS: FLUTICASONE/SALMETEROL 100 MCG/50 MCG DISKUS IH SCH ×2 (10:01→21:06)
[2019-05-14] MEDS: PANTOPRAZOLE 40 MG TABLET PO SCH (10:01)
[2019-05-14] MEDS: FAMOTIDINE 20 MG TABLET PO SCH (10:01)
[2019-05-14] MEDS: NICOTINE 7 MG/24 HOURS TOPICAL PATCH TD SCH (10:03)
[2019-05-14] MEDS: MELATONIN 5 MG TABLETS PO SCH (21:05)
[2019-05-14] MEDS: QUEtiapine FUMARATE 300 MG TABLET PO SCH (21:06)
[2019-05-14] MEDS: MONTELUKAST NA 10 MG TABLET PO SCH (21:06)
[2019-05-14] MEDS: THIAMINE HCL 100 MG TABLET (FP) PO SCH (21:06)
[2019-05-15] MEDS: IBUPROFEN 400 MG TABLET (FP) PO PRN (06:45)
[2019-05-15] MEDS: PRENATAL VITAMINS W/ FOLIC ACID TABLET (FP) PO SCH (09:44)
[2019-05-15] MEDS: PANTOPRAZOLE 40 MG TABLET PO SCH (09:44)
[2019-05-15] MEDS: FAMOTIDINE 20 MG TABLET PO SCH (09:44)
[2019-05-15] MEDS: FLUTICASONE/SALMETEROL 100 MCG/50 MCG DISKUS IH SCH ×2 (09:45→21:19)
[2019-05-15] MEDS: NICOTINE 7 MG/24 HOURS TOPICAL PATCH TD SCH (09:45)
[2019-05-15] MEDS: MELATONIN 5 MG TABLETS PO SCH (21:19)
[2019-05-15] MEDS: QUEtiapine FUMARATE 300 MG TABLET PO SCH (21:19)
[2019-05-15] MEDS: THIAMINE HCL 100 MG TABLET (FP) PO SCH (21:19)
[2019-05-15] MEDS: MONTELUKAST NA 10 MG TABLET PO SCH (21:19)
[2019-05-16] MEDS: FLUTICASONE/SALMETEROL 100 MCG/50 MCG DISKUS IH SCH ×2 (10:58→21:13)
[2019-05-16] MEDS: FAMOTIDINE 20 MG TABLET PO SCH (10:58)
[2019-05-16] MEDS: NICOTINE 7 MG/24 HOURS TOPICAL PATCH TD SCH (10:58)
[2019-05-16] MEDS: PRENATAL VITAMINS W/ FOLIC ACID TABLET (FP) PO SCH (10:58)
[2019-05-16] MEDS: PANTOPRAZOLE 40 MG TABLET PO SCH (10:58)
[2019-05-16] MEDS: MELATONIN 5 MG TABLETS PO SCH (21:12)
[2019-05-16] MEDS: MONTELUKAST NA 10 MG TABLET PO SCH (21:12)
[2019-05-16] MEDS: QUEtiapine FUMARATE 300 MG TABLET PO SCH (21:12)
[2019-05-16] MEDS: THIAMINE HCL 100 MG TABLET (FP) PO SCH (21:12)
[2019-05-17] MEDS: IBUPROFEN 400 MG TABLET (FP) PO PRN (07:05)
[2019-05-17] MEDS: PRENATAL VITAMINS W/ FOLIC ACID TABLET (FP) PO SCH (10:18)
[2019-05-17] MEDS: PANTOPRAZOLE 40 MG TABLET PO SCH (10:18)
[2019-05-17] MEDS: FAMOTIDINE 20 MG TABLET PO SCH (10:18)
[2019-05-17] MEDS: NICOTINE 7 MG/24 HOURS TOPICAL PATCH TD SCH (10:19)
[2019-05-17] MEDS: FLUTICASONE/SALMETEROL 100 MCG/50 MCG DISKUS IH SCH ×2 (10:19→21:36)
[2019-05-17] MEDS: MONTELUKAST NA 10 MG TABLET PO SCH (21:36)
[2019-05-17] MEDS: QUEtiapine FUMARATE 300 MG TABLET PO SCH (21:36)
[2019-05-17] MEDS: THIAMINE HCL 100 MG TABLET (FP) PO SCH (21:37)
[2019-05-17] MEDS: MELATONIN 5 MG TABLETS PO SCH (21:38)
[2019-05-18 07:08] VITALS: PULSE 84
[2019-05-18] MEDS: FAMOTIDINE 20 MG TABLET PO SCH (09:19)
[2019-05-18] MEDS: PRENATAL VITAMINS W/ FOLIC ACID TABLET (FP) PO SCH (09:19)
[2019-05-18] MEDS: PANTOPRAZOLE 40 MG TABLET PO SCH (09:19)
[2019-05-18] MEDS: NICOTINE 7 MG/24 HOURS TOPICAL PATCH TD SCH (09:19)
[2019-05-18] MEDS: FLUTICASONE/SALMETEROL 100 MCG/50 MCG DISKUS IH SCH ×2 (09:19→21:22)
--- NOTE | 2019-05-18 09:53 | PN ---
[facility] Progress Note Note: Patient is scheduled for discharge tomorrow. Script for 30 days supply of Seroquel 300 mg/hs will be electronically transmitted to [facility], [address] [place], [place] [id number]
[2019-05-18] MEDS: IBUPROFEN 400 MG TABLET (FP) PO PRN (18:35)
[2019-05-18] MEDS: QUEtiapine FUMARATE 300 MG TABLET PO SCH (21:21)
[2019-05-18] MEDS: MONTELUKAST NA 10 MG TABLET PO SCH (21:21)
[2019-05-18] MEDS: THIAMINE HCL 100 MG TABLET (FP) PO SCH (21:21)
[2019-05-18] MEDS: MELATONIN 5 MG TABLETS PO SCH (21:21)
[2019-05-19] MEDS: IBUPROFEN 400 MG TABLET (FP) PO PRN (06:46)
[2019-05-19 06:51] VITALS: BP 135/88; TEMP 97.7
--- NOTE | 2019-05-19 08:10 | DS ---
[facility] Rehab Discharge Summary - [facility] Rehab Discharge Summary Admission Date: 04/23/19 Discharge Date: 05/19/19 - History Present History: Alcohol dependence, Cocaine dependence Pertinent Past History: 53 year old male with history of alcohol dependence with withdrawal. He had been in detox in 02/19-09/06 he was abstinent but relapsed 2 weeks later. 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 Cocaine: $100 per day and sniffs it, started age 23 and last used 04/22/19. Nicotine: 3-5 ciggs every 3 weeks. PMH: Asthma, Psurg: None Psych: Depression, Anxiety on seroquel admits to non-compliance Patient shares an apartment with room mate but has poor environment for recovery due to easy accessibility of drugs. He qualifies for admission to detox due to his medical complications and is at high risk for relapse without a controlled environment. - Discharge Physical Exam Vital Signs: Vital Signs Temperature 97.7 F 05/19/19 06:50 Pulse Rate 84 05/19/19 06:50 Respiratory Rate 18 05/19/19 06:50 Blood Pressure 135/88 05/19/19 06:50 O2 Sat by Pulse Oximetry (%) 97 05/19/19 06:50 Pertinent Admission Physical Exam Findings: Physical General Appearance: no apparent distress HEENTM: Normocephalic, Respiratory: Lungs Clear Neck:Supple, Trachea in good position Breast: Yes: Within Normal Limit Cardiology: S1, S2 Abdominal: Yes: Non Tender, Flat, Soft, Increased + Yes: Within Normal Limits Musculoskeletal: Gait Steady, Pelvis Stable Extremities: Normal Range of Motion, Non-Tender Neurological:golf starter and ranger II-XII NML intact, - Treatment Discharge Condition: Outpatient referral accepted (Medically stable for discharge. Will go to [facility].) Hospital Course: Patient attended groups, had 1:1 with counselor, was seen by psychiatry. He was adherent to his medication regimen and treatment plan. He had not acute or urgent medical problems while in detox. - Medication Discharge Medications: Ambulatory Orders Quetiapine Fumarate [Seroquel -] 200 mg PO HS #30 tab 02/24/19 Albuterol Sulfate Inhaler - [Ventolin HFA Inhaler -] 2 puff IH Q4H PRN #1 inhaler 05/18/19 Montelukast Na [Singulair -] 10 mg PO HS #30 tablet 05/18/19 Quetiapine Fumarate [Seroquel -] 300 mg PO HS #30 tablet 05/18/19 Salmeterol/Fluticasone [Advair 100Mcg/50Mcg -] 1 puff IH BID #1 inhaler 05/18/19 - Medication-Assisted Treatment (MAT) Medication-Assisted Treatment (MAT): No - Discharge Instructions Diet, activity, other medical instructions: Diet: as tolerated Activity: as tolerated Other medical instructions: Please keep aftercare referral. - Diagnosis (1) Alcohol use disorder Current Visit: Yes Status: Acute (2) Cocaine dependence, uncomplicated Current Visit: Yes Status: Chronic - Follow-up Referral Minutes to complete discharge: 15 - AMA Did Patient Leave Against Medical Advice: No
[2019-05-19] MEDS: FAMOTIDINE 20 MG TABLET PO SCH (09:45)
[2019-05-19] MEDS: PRENATAL VITAMINS W/ FOLIC ACID TABLET (FP) PO SCH (09:45)
[2019-05-19] MEDS: FLUTICASONE/SALMETEROL 100 MCG/50 MCG DISKUS IH SCH (09:45)
[2019-05-19] MEDS ORDERED: PT OWN MED DRAWER 7, Y5N ONE (09:46)
[2019-05-19] MEDS: NICOTINE 7 MG/24 HOURS TOPICAL PATCH TD SCH (09:46)
[2019-05-19] MEDS: ACETAMINOPHEN 325 MG TABLET (FP) PO PRN (09:47)
== END 2019-05-19 09:55 | disposition home or self-care (01) | DRG 895 ==
LOC: YASAS 09:53 → Y3N 11:25 → UNDODISIN 04-28 15:06 → Y3W 04-28 15:29
PROVIDERS: ADMIT Allergy & Immunology; ATTEND Allergy & Immunology
PROC: HZ2ZZZZ Detoxification Services for Substance Abuse Treatment (ICD-10-PCS; 2019-04-23)
PROC: HZ42ZZZ Group Counseling for Substance Abuse Treatment, Cognitive-Behavioral (ICD-10-PCS; principal; 2019-04-28)
DX: F10.20 Alcohol dependence, uncomplicated (principal); F13.20 Sedative, hypnotic or anxiolytic dependence, uncomplicated; F14.20 Cocaine dependence, uncomplicated; F33.9 Major depressive disorder, recurrent, unspecified; F17.210 Nicotine dependence, cigarettes, uncomplicated; F19.24 Other psychoactive substance dependence with psychoactive substance-induced mood disorder; F43.10 Post-traumatic stress disorder, unspecified; F31.9 Bipolar disorder, unspecified; G47.00 Insomnia, unspecified; I10 Essential (primary) hypertension; J45.909 Unspecified asthma, uncomplicated; K21.9 Gastro-esophageal reflux disease without esophagitis; M54.5 Low back pain; G89.29 Other chronic pain; R76.11 Nonspecific reaction to tuberculin skin test without active tuberculosis; Z86.69 Personal history of other diseases of the nervous system and sense organs; Z91.5 Personal history of self-harm; Z56.0 Unemployment, unspecified; Z91.19 Patient's noncompliance with other medical treatment and regimen; Z91.018 Allergy to other foods
CPT/HCPCS: 36415; 80053; 85027; 86593; Q0162

== ENCOUNTER 2020-03-24 11:39 | Inpatient (IN) | payer OTHER ==
[2020-03-24 12:40] VITALS: BMI 26.3
[2020-03-24] MEDS ORDERED: chlordiazePOXIDE HCL 25 MG CAPSULE PO PRN (13:10)
[2020-03-24] MEDS ORDERED: MAGNESIUM HYDROX 2400MG/30ML ORAL SUSPENSION 30 ML CUP PO PRN (13:10)
[2020-03-24] MEDS ORDERED: METHOCARBAMOL 500 MG TABLET PO PRN (13:10)
[2020-03-24] MEDS ORDERED: IBUPROFEN 400 MG TABLET (FP) PO PRN (13:10)
[2020-03-24] MEDS ORDERED: ACETAMINOPHEN 325 MG TABLET (FP) PO PRN ×2 (13:10)
[2020-03-24] MEDS ORDERED: ONDANSETRON *ODT* 4 MG TABLET SL PRN (13:10)
[2020-03-24] MEDS ORDERED: BISMUTH SUBSALICYLATE 524 MG/30 ML UD PO PRN (13:10)
[2020-03-24] MEDS ORDERED: MAGNESIUM CITRATE 300 ML BOTTLE PO PRN (13:10)
[2020-03-24] MEDS ORDERED: NICOTINE POLACRILEX 2 MG GUM BUC PRN (13:10)
[2020-03-24] MEDS ORDERED: MAG HYDROX/AL HYDROX/SIMETH 30 ML UNIT-DOSE CUP PO PRN (13:10)
[2020-03-24] MEDS: NICOTINE 14 MG/24 HOURS TOPICAL PATCH TD SCH (14:09)
[2020-03-24] MEDS: hydrOXYzine PAMOATE 25 MG CAPSULE (FP) PO SCH ×3 (14:10→22:23)
[2020-03-24] MEDS: PRENATAL VITAMINS W/ FOLIC ACID TABLET (FP) PO SCH (14:10)
[2020-03-24] MEDS: MENTHOL/PHENOL 1 EACH UD MM PRN ×2 (14:11→18:02)
[2020-03-24 15:25] LABS: POTASSIUM 3.8 mmol/L (3.5-5.1)
[2020-03-24 15:27] LABS: BLOOD UREA NITROGEN 11.3 mg/dL (7-18); CALCIUM 8.3 mg/dL (8.5-10.1)
[2020-03-24 15:30] LABS: CREATININE 1.2 mg/dL (0.55-1.3); HEMATOCRIT 42.7 % (35.4-49); HEMOGLOBIN 14.2 GM/dL (11.7-16.9); MCH 32.3 pg (25.7-33.7); MCHC 33.1 g/dl (32.0-35.9); MEAN CELL VOLUME 97.6 fl (80-96); MEAN PLT VOLUME 8.8 fl (7.5-11.1); PLATELET COUNT 199 K/MM3 (134-434); RBC 4.38 M/mm3 (4.00-5.60); WHITE BLOOD COUNT 5.7 K/mm3 (4.0-10.0)
[2020-03-24 15:32] LABS: BILIRUBIN,TOTAL 0.3 mg/dL (0.2-1); TOT PROT 7.2 g/dl (6.4-8.2)
[2020-03-24] MEDS: chlordiazePOXIDE HCL 25 MG CAPSULE PO SCH ×2 (18:00→22:24)
[2020-03-24] MEDS: ALBUTEROL SO4 HFA INHALER IH PRN ×2 (18:46→22:28)
[2020-03-24] MEDS: QUEtiapine FUMARATE 100 MG TABLET (FP) PO SCH (22:23)
[2020-03-24] MEDS: MELATONIN 5 MG TABLETS PO SCH (22:23)
[2020-03-24] MEDS: THIAMINE HCL 100 MG TABLET (FP) PO SCH (22:23)
[2020-03-24] MEDS: MONTELUKAST NA 10 MG TABLET PO SCH (22:23)
[2020-03-24] MEDS: FLUTICASONE/SALMETEROL 100 MCG/50 MCG DISKUS IH SCH (22:28)
[2020-03-25] MEDS: hydrOXYzine PAMOATE 25 MG CAPSULE (FP) PO SCH ×2 (06:17→10:22)
[2020-03-25] MEDS: chlordiazePOXIDE HCL 25 MG CAPSULE PO SCH ×4 (06:17→22:52)
[2020-03-25] MEDS: PRENATAL VITAMINS W/ FOLIC ACID TABLET (FP) PO SCH (10:22)
[2020-03-25] MEDS: FLUTICASONE/SALMETEROL 100 MCG/50 MCG DISKUS IH SCH ×2 (10:22→22:52)
[2020-03-25] MEDS: ALBUTEROL SO4 HFA INHALER IH PRN (10:24)
[2020-03-25] MEDS: NICOTINE 14 MG/24 HOURS TOPICAL PATCH TD SCH (10:24)
[2020-03-25 12:14] LABS: HIV INTERPRETATION NEGATIVE (NEGATIVE)
[2020-03-25] MEDS: MENTHOL/PHENOL 1 EACH UD MM PRN (17:36)
[2020-03-25] MEDS: THIAMINE HCL 100 MG TABLET (FP) PO SCH (22:53)
[2020-03-25] MEDS: MONTELUKAST NA 10 MG TABLET PO SCH (22:53)
[2020-03-25] MEDS: QUEtiapine FUMARATE 100 MG TABLET (FP) PO SCH (22:53)
[2020-03-25] MEDS: MELATONIN 5 MG TABLETS PO SCH (22:53)
[2020-03-26] MEDS: chlordiazePOXIDE HCL 25 MG CAPSULE PO SCH ×4 (06:14→22:14)
[2020-03-26] MEDS: PRENATAL VITAMINS W/ FOLIC ACID TABLET (FP) PO SCH (10:16)
[2020-03-26] MEDS: FLUTICASONE/SALMETEROL 100 MCG/50 MCG DISKUS IH SCH ×2 (10:17→22:31)
[2020-03-26] MEDS: ALBUTEROL SO4 HFA INHALER IH PRN ×2 (10:18→22:16)
[2020-03-26] MEDS: NICOTINE 14 MG/24 HOURS TOPICAL PATCH TD SCH (10:19)
[2020-03-26] MEDS: MELATONIN 5 MG TABLETS PO SCH (22:13)
[2020-03-26] MEDS: QUEtiapine FUMARATE 100 MG TABLET (FP) PO SCH (22:13)
[2020-03-26] MEDS: THIAMINE HCL 100 MG TABLET (FP) PO SCH (22:13)
[2020-03-26] MEDS: MONTELUKAST NA 10 MG TABLET PO SCH (22:14)
[2020-03-27] MEDS ORDERED: chlordiazePOXIDE HCL 10 MG CAPSULE PO PRN
[2020-03-27] MEDS: chlordiazePOXIDE HCL 10 MG CAPSULE PO SCH ×4 (07:40→22:22)
[2020-03-27] MEDS: FLUTICASONE/SALMETEROL 100 MCG/50 MCG DISKUS IH SCH ×2 (10:25→22:21)
[2020-03-27] MEDS: PRENATAL VITAMINS W/ FOLIC ACID TABLET (FP) PO SCH (10:25)
[2020-03-27] MEDS: NICOTINE 14 MG/24 HOURS TOPICAL PATCH TD SCH (10:25)
[2020-03-27] MEDS: ALBUTEROL SO4 HFA INHALER IH PRN (10:27)
[2020-03-27] MEDS: MENTHOL/PHENOL 1 EACH UD MM PRN (10:28)
[2020-03-27] MEDS: MELATONIN 5 MG TABLETS PO SCH (22:21)
[2020-03-27] MEDS: THIAMINE HCL 100 MG TABLET (FP) PO SCH (22:21)
[2020-03-27] MEDS: QUEtiapine FUMARATE 100 MG TABLET (FP) PO SCH (22:21)
[2020-03-27] MEDS: MONTELUKAST NA 10 MG TABLET PO SCH (22:23)
[2020-03-28] MEDS: chlordiazePOXIDE HCL 10 MG CAPSULE PO SCH ×2 (05:37→17:44)
[2020-03-28] MEDS: NICOTINE 14 MG/24 HOURS TOPICAL PATCH TD SCH (09:25)
[2020-03-28] MEDS: FLUTICASONE/SALMETEROL 100 MCG/50 MCG DISKUS IH SCH ×2 (09:27→22:12)
[2020-03-28] MEDS: PRENATAL VITAMINS W/ FOLIC ACID TABLET (FP) PO SCH (09:27)
[2020-03-28] MEDS: hydrOXYzine PAMOATE 25 MG CAPSULE (FP) PO PRN ×2 (17:44→22:11)
[2020-03-28 22:01] VITALS: TEMP 97.7
[2020-03-28] MEDS: MELATONIN 5 MG TABLETS PO SCH (22:11)
[2020-03-28] MEDS: THIAMINE HCL 100 MG TABLET (FP) PO SCH (22:11)
[2020-03-28] MEDS: QUEtiapine FUMARATE 100 MG TABLET (FP) PO SCH (22:11)
[2020-03-28] MEDS: MONTELUKAST NA 10 MG TABLET PO SCH (22:13)
[2020-03-29] MEDS ORDERED: chlordiazePOXIDE HCL 10 MG CAPSULE PO ONE (05:00)
[2020-03-29 06:48] VITALS: BP 140/85; PULSE 56
== END 2020-03-29 09:04 | disposition home or self-care (01) | DRG 897 ==
LOC: YASAS 11:39 → Y3N 13:21
PROVIDERS: ADMIT Allergy & Immunology; ATTEND Allergy & Immunology
PROC: HZ2ZZZZ Detoxification Services for Substance Abuse Treatment (ICD-10-PCS; principal; 2020-03-24)
DX: F10.230 Alcohol dependence with withdrawal, uncomplicated (principal); F14.20 Cocaine dependence, uncomplicated; F19.282 Other psychoactive substance dependence with psychoactive substance-induced sleep disorder; F33.9 Major depressive disorder, recurrent, unspecified; F12.20 Cannabis dependence, uncomplicated; F17.210 Nicotine dependence, cigarettes, uncomplicated; F10.282 Alcohol dependence with alcohol-induced sleep disorder; F19.24 Other psychoactive substance dependence with psychoactive substance-induced mood disorder; F31.9 Bipolar disorder, unspecified; F43.10 Post-traumatic stress disorder, unspecified; E83.51 Hypocalcemia; I10 Essential (primary) hypertension; J45.909 Unspecified asthma, uncomplicated; K21.9 Gastro-esophageal reflux disease without esophagitis; M54.5 Low back pain; G89.29 Other chronic pain; R76.11 Nonspecific reaction to tuberculin skin test without active tuberculosis
CPT/HCPCS: 36415; 71046-TC-FY; 80053; 85027; 86780; 87389; C9803; Q0162; U0003

== ENCOUNTER 2021-02-07 13:42 | Inpatient (IN) | payer OTHER ==
[2021-02-07] MEDS ORDERED: MAGNESIUM CITRATE 300 ML BOTTLE PO PRN (14:59)
[2021-02-07] MEDS ORDERED: MAG HYDROX/AL HYDROX/SIMETH 30 ML UNIT-DOSE CUP PO PRN (14:59)
[2021-02-07] MEDS ORDERED: BISMUTH SUBSALICYLATE 524 MG/30 ML PO PRN (14:59)
[2021-02-07] MEDS ORDERED: MENTHOL/PHENOL 1 EACH UD MM PRN (14:59)
[2021-02-07] MEDS ORDERED: NICOTINE 10 MG CARTRIDGE (INHALER) IH PRN (14:59)
[2021-02-07] MEDS ORDERED: chlordiazePOXIDE HCL 25 MG CAPSULE PO PRN (14:59)
[2021-02-07] MEDS ORDERED: MAGNESIUM HYDROX 2400MG/30ML ORAL SUSPENSION 30 ML CUP PO PRN (14:59)
[2021-02-07] MEDS ORDERED: IBUPROFEN 400 MG TABLET (FP) PO PRN (14:59)
[2021-02-07] MEDS ORDERED: ACETAMINOPHEN 325 MG TABLET (FP) PO PRN (14:59)
[2021-02-07 15:27] VITALS: BMI 24.0
[2021-02-07] MEDS: hydrOXYzine PAMOATE 25 MG CAPSULE (FP) PO SCH ×2 (19:44→22:33)
[2021-02-07] MEDS: METHOCARBAMOL 500 MG TABLET PO PRN (19:45)
[2021-02-07] MEDS: chlordiazePOXIDE HCL 25 MG CAPSULE PO SCH ×2 (19:45→22:33)
[2021-02-07] MEDS: MELATONIN 5 MG TABLETS PO SCH (22:33)
[2021-02-07] MEDS: THIAMINE HCL 100 MG TABLET (FP) PO SCH (22:33)
[2021-02-07] MEDS ORDERED: ALBUTEROL SO4 HFA INHALER IH ONE (22:53)
[2021-02-07] MEDS: ALBUTEROL SO4 HFA INHALER IH PRN (22:56)
[2021-02-08] MEDS: hydrOXYzine PAMOATE 25 MG CAPSULE (FP) PO SCH ×5 (05:40→22:43)
[2021-02-08] MEDS: chlordiazePOXIDE HCL 25 MG CAPSULE PO SCH ×4 (05:40→22:21)
[2021-02-08] MEDS ORDERED: chlordiazePOXIDE HCL 25 MG CAPSULE PO SCH (09:47)
[2021-02-08] MEDS: PRENATAL VITAMINS W/ FOLIC ACID TABLET (FP) PO SCH (10:28)
[2021-02-08] MEDS: ONDANSETRON *ODT* 4 MG TABLET SL PRN (10:30)
[2021-02-08] MEDS: METHOCARBAMOL 500 MG TABLET PO PRN (10:30)
[2021-02-08] MEDS: ALBUTEROL SO4 HFA INHALER IH PRN ×2 (10:36→18:25)
[2021-02-08 12:34] LABS: HEMATOCRIT 40.2 % (35.4-49); HEMOGLOBIN 13.5 GM/dL (11.7-16.9); MCH 32.7 pg (25.7-33.7); MCHC 33.6 g/dl (32.0-35.9); MEAN CELL VOLUME 97.2 fl (80-96); MEAN PLT VOLUME 8.1 fl (7.5-11.1); PLATELET COUNT 232 10^3/uL (134-434); RBC 4.14 M/mm3 (4.00-5.60); RDW 12.7 % (11.9-15.9); WHITE BLOOD COUNT 5.2 K/mm3 (4.0-10.0)
[2021-02-08 12:40] LABS: ALBUMIN 3.4 g/dl (3.4-5.0); BLOOD UREA NITROGEN 13.6 mg/dL (7-18); CALCIUM 8.4 mg/dL (8.5-10.1)
[2021-02-08 12:45] LABS: BILIRUBIN,TOTAL 0.6 mg/dL (0.2-1); TOT PROT 6.3 g/dl (6.4-8.2)
[2021-02-08 14:24] LABS: HIV INTERPRETATION NEGATIVE (NEGATIVE)
[2021-02-08] MEDS ORDERED: QUEtiapine FUMARATE 100 MG TABLET (FP) PO SCH (22:00)
[2021-02-08] MEDS: THIAMINE HCL 100 MG TABLET (FP) PO SCH (22:21)
[2021-02-08] MEDS: MONTELUKAST NA 10 MG TABLET PO SCH (22:21)
[2021-02-08] MEDS: QUEtiapine FUMARATE 50 MG TABLET PO SCH (22:21)
[2021-02-08] MEDS: ACETAMINOPHEN 325 MG TABLET (FP) PO PRN (22:23)
[2021-02-08] MEDS: MELATONIN 5 MG TABLETS PO SCH (22:43)
[2021-02-09] MEDS: hydrOXYzine PAMOATE 25 MG CAPSULE (FP) PO SCH ×5 (05:41→22:09)
[2021-02-09] MEDS: ACETAMINOPHEN 325 MG TABLET (FP) PO PRN ×2 (05:42→17:47)
[2021-02-09] MEDS: chlordiazePOXIDE HCL 25 MG CAPSULE PO SCH ×4 (05:42→22:09)
[2021-02-09] MEDS: ONDANSETRON *ODT* 4 MG TABLET SL PRN (11:57)
[2021-02-09] MEDS: METHOCARBAMOL 500 MG TABLET PO PRN (11:57)
[2021-02-09] MEDS: ALBUTEROL SO4 HFA INHALER IH PRN (11:57)
[2021-02-09] MEDS: FLUTICASONE/SALMETEROL 100 MCG/50 MCG DISKUS IH SCH ×2 (11:57→22:08)
[2021-02-09] MEDS: PRENATAL VITAMINS W/ FOLIC ACID TABLET (FP) PO SCH (12:00)
[2021-02-09] MEDS: QUEtiapine FUMARATE 50 MG TABLET PO SCH (22:08)
[2021-02-09] MEDS: MONTELUKAST NA 10 MG TABLET PO SCH (22:08)
[2021-02-09] MEDS: MELATONIN 5 MG TABLETS PO SCH (22:09)
[2021-02-09] MEDS: THIAMINE HCL 100 MG TABLET (FP) PO SCH (22:09)
[2021-02-10] MEDS ORDERED: chlordiazePOXIDE HCL 10 MG CAPSULE PO PRN
[2021-02-10] MEDS: hydrOXYzine PAMOATE 25 MG CAPSULE (FP) PO SCH ×5 (05:17→21:56)
[2021-02-10] MEDS: chlordiazePOXIDE HCL 10 MG CAPSULE PO SCH ×4 (05:18→22:01)
[2021-02-10] MEDS: PRENATAL VITAMINS W/ FOLIC ACID TABLET (FP) PO SCH (10:19)
[2021-02-10] MEDS: FLUTICASONE/SALMETEROL 100 MCG/50 MCG DISKUS IH SCH ×2 (10:20→21:55)
[2021-02-10] MEDS: ALBUTEROL SO4 HFA INHALER IH PRN ×2 (17:43→21:55)
[2021-02-10] MEDS ORDERED: ACETAMINOPHEN 325 MG TABLET (FP) PO PRN (21:07)
[2021-02-10] MEDS: MELATONIN 5 MG TABLETS PO SCH (21:56)
[2021-02-10] MEDS: THIAMINE HCL 100 MG TABLET (FP) PO SCH (21:56)
[2021-02-10] MEDS: MONTELUKAST NA 10 MG TABLET PO SCH (22:01)
[2021-02-10] MEDS: QUEtiapine FUMARATE 300 MG TABLET PO SCH (22:01)
[2021-02-11] MEDS: hydrOXYzine PAMOATE 25 MG CAPSULE (FP) PO SCH ×5 (06:30→23:06)
[2021-02-11] MEDS: chlordiazePOXIDE HCL 10 MG CAPSULE PO SCH ×2 (06:31→18:05)
[2021-02-11] MEDS: PRENATAL VITAMINS W/ FOLIC ACID TABLET (FP) PO SCH (11:15)
[2021-02-11] MEDS: FLUTICASONE/SALMETEROL 100 MCG/50 MCG DISKUS IH SCH ×2 (11:15→23:05)
[2021-02-11] MEDS: THIAMINE HCL 100 MG TABLET (FP) PO SCH (23:06)
[2021-02-11] MEDS: MELATONIN 5 MG TABLETS PO SCH (23:06)
[2021-02-11] MEDS: MONTELUKAST NA 10 MG TABLET PO SCH (23:06)
[2021-02-11] MEDS: QUEtiapine FUMARATE 300 MG TABLET PO SCH (23:06)
[2021-02-12] MEDS ORDERED: chlordiazePOXIDE HCL 10 MG CAPSULE PO ONE (05:00)
[2021-02-12] MEDS: hydrOXYzine PAMOATE 25 MG CAPSULE (FP) PO SCH ×5 (06:10→23:08)
[2021-02-12] MEDS: FLUTICASONE/SALMETEROL 100 MCG/50 MCG DISKUS IH SCH ×2 (11:15→23:08)
[2021-02-12] MEDS: PRENATAL VITAMINS W/ FOLIC ACID TABLET (FP) PO SCH (11:15)
[2021-02-12] MEDS: MELATONIN 5 MG TABLETS PO SCH (23:08)
[2021-02-12] MEDS: MONTELUKAST NA 10 MG TABLET PO SCH (23:08)
[2021-02-12] MEDS: QUEtiapine FUMARATE 300 MG TABLET PO SCH (23:08)
[2021-02-12] MEDS: ALBUTEROL SO4 HFA INHALER IH PRN (23:08)
[2021-02-12] MEDS: THIAMINE HCL 100 MG TABLET (FP) PO SCH (23:08)
[2021-02-13] MEDS: hydrOXYzine PAMOATE 25 MG CAPSULE (FP) PO SCH ×2 (06:36→11:54)
[2021-02-13] MEDS: FLUTICASONE/SALMETEROL 100 MCG/50 MCG DISKUS IH SCH (11:53)
[2021-02-13] MEDS: PRENATAL VITAMINS W/ FOLIC ACID TABLET (FP) PO SCH (11:53)
[2021-02-13 13:43] VITALS: BP 123/72; PULSE 89; TEMP 97.7
== END 2021-02-13 13:42 | disposition home or self-care (01) | DRG 896 ==
LOC: YASAS 13:42 → Y3N 18:35
PROVIDERS: ADMIT Allergy & Immunology; ATTEND Allergy & Immunology
PROC: HZ2ZZZZ Detoxification Services for Substance Abuse Treatment (ICD-10-PCS; principal; 2021-02-07)
DX: F10.230 Alcohol dependence with withdrawal, uncomplicated (principal); U07.1 COVID-19; F13.20 Sedative, hypnotic or anxiolytic dependence, uncomplicated; F14.20 Cocaine dependence, uncomplicated; F33.9 Major depressive disorder, recurrent, unspecified; F17.210 Nicotine dependence, cigarettes, uncomplicated; F43.10 Post-traumatic stress disorder, unspecified; F41.9 Anxiety disorder, unspecified; I10 Essential (primary) hypertension; J45.909 Unspecified asthma, uncomplicated; K21.9 Gastro-esophageal reflux disease without esophagitis; G47.00 Insomnia, unspecified; M54.59 Other low back pain; G89.29 Other chronic pain; Z91.19 Patient's noncompliance with other medical treatment and regimen; Z86.69 Personal history of other diseases of the nervous system and sense organs; Z86.11 Personal history of tuberculosis; Z56.0 Unemployment, unspecified
CPT/HCPCS: 36415; 80053; 85027; 86780; 87389; C9803; Q0162; U0003; U0005

== ENCOUNTER 2021-03-28 17:24 | Inpatient (IN) | payer OTHER ==
[2021-03-28 19:07] VITALS: BMI 25.7
[2021-03-28] MEDS ORDERED: ONDANSETRON *ODT* 4 MG TABLET SL PRN (21:38)
[2021-03-28] MEDS ORDERED: MAGNESIUM CITRATE 300 ML BOTTLE PO PRN (21:38)
[2021-03-28] MEDS ORDERED: BISMUTH SUBSALICYLATE 524 MG/30 ML PO PRN (21:38)
[2021-03-28] MEDS ORDERED: NICOTINE POLACRILEX 2 MG GUM BUC PRN (21:38)
[2021-03-28] MEDS ORDERED: ACETAMINOPHEN 325 MG TABLET (FP) PO PRN ×2 (21:38)
[2021-03-28] MEDS ORDERED: MAG HYDROX/AL HYDROX/SIMETH 30 ML UNIT-DOSE CUP PO PRN (21:38)
[2021-03-28] MEDS ORDERED: MAGNESIUM HYDROX 2400MG/30ML ORAL SUSPENSION 30 ML CUP PO PRN (21:38)
[2021-03-29] MEDS ORDERED: chlordiazePOXIDE HCL 25 MG CAPSULE PO PRN (00:02)
[2021-03-29] MEDS: MELATONIN 5 MG TABLETS PO SCH ×2 (03:00→22:35)
[2021-03-29] MEDS: THIAMINE HCL 100 MG TABLET (FP) PO SCH ×2 (03:01→22:24)
[2021-03-29] MEDS: METHOCARBAMOL 500 MG TABLET PO PRN ×2 (03:01→22:24)
[2021-03-29] MEDS: chlordiazePOXIDE HCL 25 MG CAPSULE PO SCH ×4 (06:37→22:24)
[2021-03-29 10:17] LABS: HEMATOCRIT 39.7 % (35.4-49); HEMOGLOBIN 12.7 GM/dL (11.7-16.9); MCH 31.1 pg (25.7-33.7); MCHC 32.1 g/dl (32.0-35.9); MEAN CELL VOLUME 96.8 fl (80-96); MEAN PLT VOLUME 7.8 fl (7.5-11.1); PLATELET COUNT 314 10^3/uL (134-434); RDW 12.1 % (11.9-15.9); WHITE BLOOD COUNT 6.4 K/mm3 (4.0-10.0)
[2021-03-29 10:24] LABS: ALBUMIN 3.5 g/dl (3.4-5.0); BLOOD UREA NITROGEN 13.8 mg/dL (7-18); CALCIUM 8.1 mg/dL (8.5-10.1)
[2021-03-29 10:29] LABS: BILIRUBIN,TOTAL 0.6 mg/dL (0.2-1); TOT PROT 6.3 g/dl (6.4-8.2)
[2021-03-29] MEDS: PRENATAL VITAMINS W/ FOLIC ACID TABLET (FP) PO SCH (10:34)
[2021-03-29] MEDS: NICOTINE 14 MG/24 HOURS TOPICAL PATCH TD SCH (10:35)
[2021-03-29 11:14] LABS: HIV INTERPRETATION NEGATIVE (NEGATIVE)
[2021-03-29] MEDS: ALBUTEROL SO4 HFA INHALER IH PRN ×2 (16:39→22:30)
[2021-03-29] MEDS: hydrOXYzine PAMOATE 25 MG CAPSULE (FP) PO PRN ×2 (17:53→22:24)
[2021-03-29] MEDS: IBUPROFEN 400 MG TABLET (FP) PO PRN (17:58)
[2021-03-29] MEDS: QUEtiapine FUMARATE 300 MG TABLET PO SCH (22:24)
[2021-03-29] MEDS: MENTHOL/PHENOL 1 EACH UD MM PRN (22:28)
[2021-03-30] MEDS: chlordiazePOXIDE HCL 25 MG CAPSULE PO SCH ×4 (05:48→22:30)
[2021-03-30] MEDS: MENTHOL/PHENOL 1 EACH UD MM PRN ×3 (05:50→18:09)
[2021-03-30] MEDS: PRENATAL VITAMINS W/ FOLIC ACID TABLET (FP) PO SCH (10:12)
[2021-03-30] MEDS: NICOTINE 14 MG/24 HOURS TOPICAL PATCH TD SCH (10:12)
[2021-03-30] MEDS: IBUPROFEN 400 MG TABLET (FP) PO PRN (10:14)
[2021-03-30] MEDS: ALBUTEROL SO4 HFA INHALER IH PRN ×2 (10:17→20:25)
[2021-03-30] MEDS ORDERED: guaiFENesin 200 MG/10 ML 10 ML UNIT-DOSE CUPS PO PRN (10:57)
[2021-03-30] MEDS: QUEtiapine FUMARATE 300 MG TABLET PO SCH (22:31)
[2021-03-30] MEDS: hydrOXYzine PAMOATE 25 MG CAPSULE (FP) PO PRN (22:31)
[2021-03-30] MEDS: THIAMINE HCL 100 MG TABLET (FP) PO SCH (22:31)
[2021-03-30] MEDS: METHOCARBAMOL 500 MG TABLET PO PRN (22:31)
[2021-03-30] MEDS: MELATONIN 5 MG TABLETS PO SCH (22:33)
[2021-03-31] MEDS ORDERED: chlordiazePOXIDE HCL 10 MG CAPSULE PO PRN
[2021-03-31] MEDS: chlordiazePOXIDE HCL 10 MG CAPSULE PO SCH ×4 (05:48→22:30)
[2021-03-31] MEDS: MENTHOL/PHENOL 1 EACH UD MM PRN ×2 (05:49→17:08)
[2021-03-31] MEDS: ALBUTEROL SO4 HFA INHALER IH PRN ×2 (05:49→17:07)
[2021-03-31 06:07] LABS: SARS-CoV-2 NAA Not Detected (Not Detected)
[2021-03-31] MEDS: PRENATAL VITAMINS W/ FOLIC ACID TABLET (FP) PO SCH (10:29)
[2021-03-31] MEDS: NICOTINE 14 MG/24 HOURS TOPICAL PATCH TD SCH (10:29)
[2021-03-31] MEDS: MELATONIN 5 MG TABLETS PO SCH (22:30)
[2021-03-31] MEDS: THIAMINE HCL 100 MG TABLET (FP) PO SCH (22:30)
[2021-03-31] MEDS: QUEtiapine FUMARATE 300 MG TABLET PO SCH (22:30)
[2021-04-01] MEDS: ALBUTEROL SO4 HFA INHALER IH PRN ×2 (06:31→17:41)
[2021-04-01] MEDS: chlordiazePOXIDE HCL 10 MG CAPSULE PO SCH ×2 (06:31→17:41)
[2021-04-01] MEDS: MENTHOL/PHENOL 1 EACH UD MM PRN ×2 (06:33→17:42)
[2021-04-01] MEDS: IBUPROFEN 400 MG TABLET (FP) PO PRN (06:33)
[2021-04-01] MEDS: METHOCARBAMOL 500 MG TABLET PO PRN (06:34)
[2021-04-01] MEDS: PRENATAL VITAMINS W/ FOLIC ACID TABLET (FP) PO SCH (10:32)
[2021-04-01] MEDS: NICOTINE 14 MG/24 HOURS TOPICAL PATCH TD SCH (10:34)
[2021-04-01 14:11] LABS: SARS-CoV-2 NAA Not Detected (Not Detected)
[2021-04-01] MEDS: hydrOXYzine PAMOATE 25 MG CAPSULE (FP) PO PRN (17:42)
[2021-04-01] MEDS: MELATONIN 5 MG TABLETS PO SCH (22:14)
[2021-04-01] MEDS: THIAMINE HCL 100 MG TABLET (FP) PO SCH (22:14)
[2021-04-01] MEDS: QUEtiapine FUMARATE 300 MG TABLET PO SCH (22:14)
[2021-04-02] MEDS: ALBUTEROL SO4 HFA INHALER IH PRN ×2 (02:55→10:22)
[2021-04-02] MEDS ORDERED: chlordiazePOXIDE HCL 10 MG CAPSULE PO ONE (05:00)
[2021-04-02] MEDS: METHOCARBAMOL 500 MG TABLET PO PRN (06:05)
[2021-04-02] MEDS: IBUPROFEN 400 MG TABLET (FP) PO PRN (06:05)
[2021-04-02] MEDS: hydrOXYzine PAMOATE 25 MG CAPSULE (FP) PO PRN (06:06)
[2021-04-02 09:07] VITALS: BP 124/80; PULSE 90; TEMP 97.1
[2021-04-02] MEDS: NICOTINE 14 MG/24 HOURS TOPICAL PATCH TD SCH (10:23)
[2021-04-02] MEDS: PRENATAL VITAMINS W/ FOLIC ACID TABLET (FP) PO SCH (10:23)
== END 2021-04-02 11:00 | disposition other institution (70) | DRG 897 ==
LOC: YASAS 17:24 → Y3N 23:39
PROVIDERS: ADMIT Allergy & Immunology; ATTEND Allergy & Immunology
PROC: HZ2ZZZZ Detoxification Services for Substance Abuse Treatment (ICD-10-PCS; principal; 2021-03-28)
DX: F10.230 Alcohol dependence with withdrawal, uncomplicated (principal); F14.20 Cocaine dependence, uncomplicated; F17.210 Nicotine dependence, cigarettes, uncomplicated; F10.282 Alcohol dependence with alcohol-induced sleep disorder; F31.9 Bipolar disorder, unspecified; F41.8 Other specified anxiety disorders; F43.10 Post-traumatic stress disorder, unspecified; E83.51 Hypocalcemia; G47.00 Insomnia, unspecified; I10 Essential (primary) hypertension; J45.909 Unspecified asthma, uncomplicated; K21.9 Gastro-esophageal reflux disease without esophagitis; R56.9 Unspecified convulsions; M54.50 Low back pain, unspecified; G89.29 Other chronic pain; Z86.16 Personal history of COVID-19; Z86.11 Personal history of tuberculosis; Z91.19 Patient's noncompliance with other medical treatment and regimen
CPT/HCPCS: 36415; 80053; 85027; 86780; 87389; 93005; 93010; C9803; Q0162; U0003; U0005

== ENCOUNTER 2021-04-25 15:30 | Inpatient (IN) | payer OTHER ==
[2021-04-25] MEDS ORDERED: BISMUTH SUBSALICYLATE 524 MG/30 ML PO PRN (19:38)
[2021-04-25] MEDS ORDERED: MAGNESIUM CITRATE 300 ML BOTTLE PO PRN (19:38)
[2021-04-25] MEDS ORDERED: ONDANSETRON *ODT* 4 MG TABLET SL PRN (19:38)
[2021-04-25] MEDS ORDERED: P-EPHED 60MG/TRIPROLIDI 2.5MG TABLET PO PRN (19:38)
[2021-04-25] MEDS ORDERED: MAGNESIUM HYDROX 2400MG/30ML ORAL SUSPENSION 30 ML CUP PO PRN (19:38)
[2021-04-25] MEDS ORDERED: METHOCARBAMOL 500 MG TABLET PO PRN (19:38)
[2021-04-25] MEDS ORDERED: ACETAMINOPHEN 325 MG TABLET (FP) PO PRN ×2 (19:38)
[2021-04-25] MEDS ORDERED: MAG HYDROX/AL HYDROX/SIMETH 30 ML UNIT-DOSE CUP PO PRN (19:38)
[2021-04-25] MEDS ORDERED: LOPERAMIDE HCL 2 MG CAPSULE PO PRN (19:38)
[2021-04-25 23:02] VITALS: BMI 25.4
[2021-04-25] MEDS: THIAMINE HCL 100 MG TABLET (FP) PO SCH (23:47)
[2021-04-25] MEDS: MONTELUKAST NA 10 MG TABLET PO SCH (23:47)
[2021-04-25] MEDS: hydrOXYzine PAMOATE 25 MG CAPSULE (FP) PO PRN (23:47)
[2021-04-25] MEDS: MELATONIN 5 MG TABLETS PO PRN (23:49)
[2021-04-25] MEDS: guaiFENesin 200 MG/10 ML 10 ML UNIT-DOSE CUPS PO PRN (23:49)
[2021-04-25] MEDS: FLUTICASONE/SALMETEROL 100 MCG/50 MCG DISKUS IH SCH (23:53)
[2021-04-26] MEDS: MENTHOL/PHENOL 1 EACH UD MM PRN (06:56)
[2021-04-26] MEDS: guaiFENesin 200 MG/10 ML 10 ML UNIT-DOSE CUPS PO PRN (06:57)
[2021-04-26] MEDS: FLUTICASONE/SALMETEROL 100 MCG/50 MCG DISKUS IH SCH ×3 (10:25→23:16)
[2021-04-26] MEDS: PRENATAL VITAMINS W/ FOLIC ACID TABLET (FP) PO SCH (10:25)
[2021-04-26] MEDS: hydrOXYzine PAMOATE 25 MG CAPSULE (FP) PO PRN (10:26)
[2021-04-26] MEDS: MONTELUKAST NA 10 MG TABLET PO SCH (21:08)
[2021-04-26] MEDS: THIAMINE HCL 100 MG TABLET (FP) PO SCH (21:08)
[2021-04-26] MEDS ORDERED: QUEtiapine FUMARATE 100 MG TABLET (FP) ONE (21:08)
[2021-04-26] MEDS: QUEtiapine FUMARATE 300 MG TABLET PO SCH (21:09)
[2021-04-27] MEDS: ALBUTEROL SO4 HFA INHALER IH PRN (06:33)
[2021-04-27] MEDS: PRENATAL VITAMINS W/ FOLIC ACID TABLET (FP) PO SCH (09:58)
[2021-04-27] MEDS: FLUTICASONE/SALMETEROL 100 MCG/50 MCG DISKUS IH SCH ×2 (09:58→21:27)
[2021-04-27] MEDS: IBUPROFEN 400 MG TABLET (FP) PO PRN (09:59)
[2021-04-27] MEDS ORDERED: QUEtiapine FUMARATE 100 MG TABLET (FP) ONE (19:01)
[2021-04-27] MEDS: QUEtiapine FUMARATE 300 MG TABLET PO SCH (21:26)
[2021-04-27] MEDS: THIAMINE HCL 100 MG TABLET (FP) PO SCH (21:26)
[2021-04-27] MEDS: MONTELUKAST NA 10 MG TABLET PO SCH (21:26)
[2021-04-27] MEDS: MELATONIN 5 MG TABLETS PO PRN (21:26)
[2021-04-28] MEDS: ALBUTEROL SO4 HFA INHALER IH PRN (07:31)
[2021-04-28] MEDS: FLUTICASONE/SALMETEROL 100 MCG/50 MCG DISKUS IH SCH ×2 (10:53→21:25)
[2021-04-28] MEDS: PRENATAL VITAMINS W/ FOLIC ACID TABLET (FP) PO SCH (10:53)
[2021-04-28] MEDS: MENTHOL/PHENOL 1 EACH UD MM PRN (13:46)
[2021-04-28] MEDS: IBUPROFEN 400 MG TABLET (FP) PO PRN (17:47)
[2021-04-28] MEDS ORDERED: QUEtiapine FUMARATE 100 MG TABLET (FP) ONE (19:59)
[2021-04-28] MEDS: MONTELUKAST NA 10 MG TABLET PO SCH (21:25)
[2021-04-28] MEDS: THIAMINE HCL 100 MG TABLET (FP) PO SCH (21:25)
[2021-04-28] MEDS: QUEtiapine FUMARATE 300 MG TABLET PO SCH (21:26)
[2021-04-29] MEDS: PRENATAL VITAMINS W/ FOLIC ACID TABLET (FP) PO SCH (10:24)
[2021-04-29] MEDS: FLUTICASONE/SALMETEROL 100 MCG/50 MCG DISKUS IH SCH ×2 (10:24→21:17)
[2021-04-29] MEDS: hydrOXYzine PAMOATE 25 MG CAPSULE (FP) PO PRN (10:24)
[2021-04-29] MEDS: IBUPROFEN 400 MG TABLET (FP) PO PRN ×2 (10:25→21:19)
[2021-04-29 14:07] LABS: SARS-CoV-2 NAA Not Detected (Not Detected)
[2021-04-29] MEDS ORDERED: QUEtiapine FUMARATE 100 MG TABLET (FP) ONE (19:31)
[2021-04-29] MEDS: QUEtiapine FUMARATE 300 MG TABLET PO SCH (21:17)
[2021-04-29] MEDS: MELATONIN 5 MG TABLETS PO PRN (21:18)
[2021-04-29] MEDS: THIAMINE HCL 100 MG TABLET (FP) PO SCH (21:18)
[2021-04-29] MEDS: MONTELUKAST NA 10 MG TABLET PO SCH (21:18)
[2021-04-30] MEDS: ALBUTEROL SO4 HFA INHALER IH PRN (06:56)
[2021-04-30] MEDS: FLUTICASONE/SALMETEROL 100 MCG/50 MCG DISKUS IH SCH ×2 (09:26→21:33)
[2021-04-30] MEDS: PRENATAL VITAMINS W/ FOLIC ACID TABLET (FP) PO SCH (09:26)
[2021-04-30] MEDS: IBUPROFEN 400 MG TABLET (FP) PO PRN (09:27)
[2021-04-30] MEDS ORDERED: QUEtiapine FUMARATE 100 MG TABLET (FP) ONE (19:40)
[2021-04-30] MEDS: THIAMINE HCL 100 MG TABLET (FP) PO SCH (21:33)
[2021-04-30] MEDS: QUEtiapine FUMARATE 300 MG TABLET PO SCH (21:33)
[2021-04-30] MEDS: MONTELUKAST NA 10 MG TABLET PO SCH (21:33)
[2021-04-30] MEDS: MELATONIN 5 MG TABLETS PO PRN (21:33)
[2021-05-01] MEDS: ALBUTEROL SO4 HFA INHALER IH PRN (06:35)
[2021-05-01] MEDS: PRENATAL VITAMINS W/ FOLIC ACID TABLET (FP) PO SCH (09:59)
[2021-05-01] MEDS: IBUPROFEN 400 MG TABLET (FP) PO PRN (10:00)
[2021-05-01] MEDS: FLUTICASONE/SALMETEROL 100 MCG/50 MCG DISKUS IH SCH ×2 (10:00→21:11)
[2021-05-01] MEDS ORDERED: QUEtiapine FUMARATE 100 MG TABLET (FP) ONE (18:47)
[2021-05-01] MEDS: MELATONIN 5 MG TABLETS PO PRN (21:10)
[2021-05-01] MEDS: THIAMINE HCL 100 MG TABLET (FP) PO SCH (21:10)
[2021-05-01] MEDS: MONTELUKAST NA 10 MG TABLET PO SCH (21:11)
[2021-05-01] MEDS: QUEtiapine FUMARATE 300 MG TABLET PO SCH (21:11)
[2021-05-02] MEDS: ALBUTEROL SO4 HFA INHALER IH PRN (06:16)
[2021-05-02] MEDS: FLUTICASONE/SALMETEROL 100 MCG/50 MCG DISKUS IH SCH ×2 (10:12→21:22)
[2021-05-02] MEDS: PRENATAL VITAMINS W/ FOLIC ACID TABLET (FP) PO SCH (10:13)
[2021-05-02] MEDS: IBUPROFEN 400 MG TABLET (FP) PO PRN ×2 (10:13→21:21)
[2021-05-02] MEDS ORDERED: QUEtiapine FUMARATE 100 MG TABLET (FP) ONE (18:49)
[2021-05-02] MEDS: MELATONIN 5 MG TABLETS PO PRN (21:20)
[2021-05-02] MEDS: THIAMINE HCL 100 MG TABLET (FP) PO SCH (21:20)
[2021-05-02] MEDS: MONTELUKAST NA 10 MG TABLET PO SCH (21:20)
[2021-05-02] MEDS: QUEtiapine FUMARATE 300 MG TABLET PO SCH (21:21)
[2021-05-03] MEDS: FLUTICASONE/SALMETEROL 100 MCG/50 MCG DISKUS IH SCH ×2 (09:55→21:02)
[2021-05-03] MEDS: PRENATAL VITAMINS W/ FOLIC ACID TABLET (FP) PO SCH (09:55)
[2021-05-03] MEDS: IBUPROFEN 400 MG TABLET (FP) PO PRN (09:56)
[2021-05-03] MEDS ORDERED: QUEtiapine FUMARATE 100 MG TABLET (FP) ONE (18:52)
[2021-05-03] MEDS: QUEtiapine FUMARATE 300 MG TABLET PO SCH (21:02)
[2021-05-03] MEDS: MELATONIN 5 MG TABLETS PO PRN (21:02)
[2021-05-03] MEDS: THIAMINE HCL 100 MG TABLET (FP) PO SCH (21:02)
[2021-05-03] MEDS: MONTELUKAST NA 10 MG TABLET PO SCH (21:02)
[2021-05-04] MEDS: IBUPROFEN 400 MG TABLET (FP) PO PRN (10:58)
[2021-05-04] MEDS: PRENATAL VITAMINS W/ FOLIC ACID TABLET (FP) PO SCH (10:59)
[2021-05-04] MEDS: FLUTICASONE/SALMETEROL 100 MCG/50 MCG DISKUS IH SCH ×2 (10:59→23:05)
[2021-05-04] MEDS ORDERED: QUEtiapine FUMARATE 100 MG TABLET (FP) ONE (18:51)
[2021-05-04] MEDS: MELATONIN 5 MG TABLETS PO PRN (21:18)
[2021-05-04] MEDS: MONTELUKAST NA 10 MG TABLET PO SCH (21:19)
[2021-05-04] MEDS: THIAMINE HCL 100 MG TABLET (FP) PO SCH (21:19)
[2021-05-04] MEDS: QUEtiapine FUMARATE 300 MG TABLET PO SCH (21:19)
[2021-05-05] MEDS: ALBUTEROL SO4 HFA INHALER IH PRN (10:54)
[2021-05-05] MEDS: FLUTICASONE/SALMETEROL 100 MCG/50 MCG DISKUS IH SCH ×2 (10:54→21:24)
[2021-05-05] MEDS: PRENATAL VITAMINS W/ FOLIC ACID TABLET (FP) PO SCH (10:54)
[2021-05-05] MEDS: IBUPROFEN 400 MG TABLET (FP) PO PRN (10:55)
[2021-05-05] MEDS ORDERED: QUEtiapine FUMARATE 100 MG TABLET (FP) ONE (20:03)
[2021-05-05] MEDS: MONTELUKAST NA 10 MG TABLET PO SCH (21:23)
[2021-05-05] MEDS: QUEtiapine FUMARATE 300 MG TABLET PO SCH (21:23)
[2021-05-05] MEDS: THIAMINE HCL 100 MG TABLET (FP) PO SCH (21:23)
[2021-05-06] MEDS: PRENATAL VITAMINS W/ FOLIC ACID TABLET (FP) PO SCH (10:18)
[2021-05-06] MEDS: IBUPROFEN 400 MG TABLET (FP) PO PRN (10:18)
[2021-05-06] MEDS: FLUTICASONE/SALMETEROL 100 MCG/50 MCG DISKUS IH SCH ×2 (10:19→21:21)
[2021-05-06] MEDS ORDERED: QUEtiapine FUMARATE 100 MG TABLET (FP) ONE (18:47)
[2021-05-06] MEDS: MONTELUKAST NA 10 MG TABLET PO SCH (21:21)
[2021-05-06] MEDS: MELATONIN 5 MG TABLETS PO PRN (21:21)
[2021-05-06] MEDS: QUEtiapine FUMARATE 300 MG TABLET PO SCH (21:21)
[2021-05-06] MEDS: THIAMINE HCL 100 MG TABLET (FP) PO SCH (21:21)
[2021-05-07] MEDS: FLUTICASONE/SALMETEROL 100 MCG/50 MCG DISKUS IH SCH ×2 (09:32→21:08)
[2021-05-07] MEDS: PRENATAL VITAMINS W/ FOLIC ACID TABLET (FP) PO SCH (09:32)
[2021-05-07] MEDS: MONTELUKAST NA 10 MG TABLET PO SCH (21:08)
[2021-05-07] MEDS: THIAMINE HCL 100 MG TABLET (FP) PO SCH (21:08)
[2021-05-07] MEDS: QUEtiapine FUMARATE 300 MG TABLET PO SCH (21:08)
[2021-05-07] MEDS: MELATONIN 5 MG TABLETS PO PRN (21:08)
[2021-05-08] MEDS: FLUTICASONE/SALMETEROL 100 MCG/50 MCG DISKUS IH SCH ×2 (10:15→22:04)
[2021-05-08] MEDS: PRENATAL VITAMINS W/ FOLIC ACID TABLET (FP) PO SCH (10:15)
[2021-05-08] MEDS: IBUPROFEN 400 MG TABLET (FP) PO PRN (10:16)
[2021-05-08] MEDS ORDERED: QUEtiapine FUMARATE 100 MG TABLET (FP) ONE (20:52)
[2021-05-08] MEDS: QUEtiapine FUMARATE 300 MG TABLET PO SCH (22:04)
[2021-05-08] MEDS: THIAMINE HCL 100 MG TABLET (FP) PO SCH (22:04)
[2021-05-08] MEDS: MONTELUKAST NA 10 MG TABLET PO SCH (22:04)
[2021-05-09] MEDS: FLUTICASONE/SALMETEROL 100 MCG/50 MCG DISKUS IH SCH ×2 (10:54→21:08)
[2021-05-09] MEDS: PRENATAL VITAMINS W/ FOLIC ACID TABLET (FP) PO SCH (10:54)
[2021-05-09] MEDS: IBUPROFEN 400 MG TABLET (FP) PO PRN (10:55)
[2021-05-09] MEDS ORDERED: QUEtiapine FUMARATE 100 MG TABLET (FP) ONE (18:57)
[2021-05-09] MEDS: THIAMINE HCL 100 MG TABLET (FP) PO SCH (21:07)
[2021-05-09] MEDS: MELATONIN 5 MG TABLETS PO PRN (21:07)
[2021-05-09] MEDS: QUEtiapine FUMARATE 300 MG TABLET PO SCH (21:08)
[2021-05-09] MEDS: MONTELUKAST NA 10 MG TABLET PO SCH (21:08)
[2021-05-10 07:03] VITALS: BP 123/68; PULSE 88; TEMP 98.2
[2021-05-10] MEDS: FLUTICASONE/SALMETEROL 100 MCG/50 MCG DISKUS IH SCH (09:29)
[2021-05-10] MEDS: PRENATAL VITAMINS W/ FOLIC ACID TABLET (FP) PO SCH (09:29)
[2021-05-10] MEDS: IBUPROFEN 400 MG TABLET (FP) PO PRN (09:31)
== END 2021-05-10 09:58 | disposition home or self-care (01) | DRG 895 ==
LOC: YASAS 15:30 → Y3N 22:54 → Y3W 04-26 13:42
PROVIDERS: ADMIT Allergy & Immunology; ATTEND Allergy & Immunology
PROC: HZ42ZZZ Group Counseling for Substance Abuse Treatment, Cognitive-Behavioral (ICD-10-PCS; principal; 2021-04-25)
DX: F10.20 Alcohol dependence, uncomplicated (principal); F14.20 Cocaine dependence, uncomplicated; F17.210 Nicotine dependence, cigarettes, uncomplicated; F19.24 Other psychoactive substance dependence with psychoactive substance-induced mood disorder; F31.9 Bipolar disorder, unspecified; F41.9 Anxiety disorder, unspecified; F43.10 Post-traumatic stress disorder, unspecified; J45.909 Unspecified asthma, uncomplicated; K21.9 Gastro-esophageal reflux disease without esophagitis; R56.9 Unspecified convulsions; M54.50 Low back pain, unspecified; G89.29 Other chronic pain; Z86.16 Personal history of COVID-19; Z86.11 Personal history of tuberculosis
CPT/HCPCS: 71046-TC-FY; C9803-CS; U0003; U0005

== ENCOUNTER 2021-08-03 14:31 | Inpatient (IN) | payer OTHER ==
[2021-08-03 15:20] VITALS: BMI 25.8
[2021-08-03] MEDS ORDERED: NICOTINE 10 MG CARTRIDGE (INHALER) IH PRN (15:28)
[2021-08-03] MEDS ORDERED: ACETAMINOPHEN 325 MG TABLET (FP) PO PRN (15:28)
[2021-08-03] MEDS ORDERED: LOPERAMIDE HCL 2 MG CAPSULE PO PRN (15:28)
[2021-08-03] MEDS ORDERED: DICYCLOMINE HCL 10 MG CAPSULE PO PRN (15:28)
[2021-08-03] MEDS ORDERED: BISMUTH SUBSALICYLATE 524 MG/30 ML PO PRN (15:28)
[2021-08-03] MEDS ORDERED: ONDANSETRON *ODT* 4 MG TABLET SL PRN (15:28)
[2021-08-03] MEDS ORDERED: MAGNESIUM HYDROX 2400MG/30ML ORAL SUSPENSION 30 ML CUP PO PRN (15:28)
[2021-08-03] MEDS ORDERED: MAG HYDROX/AL HYDROX/SIMETH 30 ML UNIT-DOSE CUP PO PRN (15:28)
[2021-08-03] MEDS ORDERED: BENZOCAINE/MENTHOL (CHLORASEPTIC ) LOZENGE MM PRN (15:28)
[2021-08-03] MEDS ORDERED: IBUPROFEN 600 MG TABLET (FP) PO PRN (15:28)
[2021-08-03] MEDS ORDERED: IBUPROFEN 400 MG TABLET (FP) PO PRN ×2 (15:28)
[2021-08-03] MEDS ORDERED: chlordiazePOXIDE HCL 25 MG CAPSULE PO PRN (15:28)
[2021-08-03] MEDS ORDERED: MAGNESIUM CITRATE 300 ML BOTTLE PO PRN (15:28)
[2021-08-03] MEDS ORDERED: chlordiazePOXIDE HCL 25 MG CAPSULE PO SCH (17:00)
[2021-08-03] MEDS ORDERED: LORazepam 1 MG TABLET PO PRN (17:12)
[2021-08-03] MEDS: METHOCARBAMOL 500 MG TABLET PO PRN (19:08)
[2021-08-03] MEDS: LORazepam 2 MG TABLET PO SCH ×2 (19:08→22:36)
[2021-08-03] MEDS: hydrOXYzine PAMOATE 25 MG CAPSULE (FP) PO SCH ×2 (19:08→22:36)
[2021-08-03] MEDS: ALBUTEROL SO4 HFA INHALER IH PRN (19:14)
[2021-08-03] MEDS: ACETAMINOPHEN 325 MG TABLET (FP) PO PRN (19:36)
[2021-08-03] MEDS: PRENATAL VITAMINS W/ FOLIC ACID TABLET (FP) PO SCH (19:39)
[2021-08-03] MEDS: MONTELUKAST NA 10 MG TABLET PO SCH (22:36)
[2021-08-03] MEDS: MELATONIN 5 MG TABLETS PO SCH (22:36)
[2021-08-03] MEDS: THIAMINE HCL 100 MG TABLET (FP) PO SCH (22:36)
[2021-08-03] MEDS: FLUTICASONE/SALMETEROL 100 MCG/50 MCG DISKUS IH SCH (22:51)
[2021-08-04] MEDS: hydrOXYzine PAMOATE 25 MG CAPSULE (FP) PO SCH ×4 (06:16→18:44)
[2021-08-04] MEDS: LORazepam 2 MG TABLET PO SCH ×4 (06:16→23:27)
[2021-08-04] MEDS: PRENATAL VITAMINS W/ FOLIC ACID TABLET (FP) PO SCH (10:19)
[2021-08-04] MEDS: ALBUTEROL SO4 HFA INHALER IH PRN ×2 (10:20→18:45)
[2021-08-04 10:41] LABS: HEMATOCRIT 39.6 % (35.4-49); HEMOGLOBIN 12.9 GM/dL (11.7-16.9); MCH 31.4 pg (25.7-33.7); MCHC 32.5 g/dl (32.0-35.9); MEAN CELL VOLUME 96.4 fl (80-96); MEAN PLT VOLUME 8.4 fl (7.5-11.1); PLATELET COUNT 282 10^3/uL (134-434); RBC 4.11 M/mm3 (4.00-5.60); RDW 12.5 % (11.9-15.9); WHITE BLOOD COUNT 5.9 K/mm3 (4.0-10.0)
[2021-08-04 10:46] LABS: ALBUMIN 3.2 g/dl (3.4-5.0); BLOOD UREA NITROGEN 12.1 mg/dL (7-18); CALCIUM 8.5 mg/dL (8.5-10.1)
[2021-08-04 10:50] LABS: CREATININE 0.9 mg/dL (0.55-1.3)
[2021-08-04 10:51] LABS: BILIRUBIN,TOTAL 0.5 mg/dL (0.2-1); TOT PROT 6.1 g/dl (6.4-8.2)
[2021-08-04] MEDS: FLUTICASONE/SALMETEROL 100 MCG/50 MCG DISKUS IH SCH (15:09)
[2021-08-04] MEDS: MONTELUKAST NA 10 MG TABLET PO SCH (23:27)
[2021-08-04] MEDS: MELATONIN 5 MG TABLETS PO SCH (23:27)
[2021-08-04] MEDS: THIAMINE HCL 100 MG TABLET (FP) PO SCH (23:27)
[2021-08-04] MEDS: QUEtiapine FUMARATE 300 MG TABLET PO SCH (23:27)
[2021-08-05] MEDS: FLUTICASONE/SALMETEROL 100 MCG/50 MCG DISKUS IH SCH ×3 (00:49→23:06)
[2021-08-05] MEDS: hydrOXYzine PAMOATE 25 MG CAPSULE (FP) PO SCH ×6 (00:50→22:08)
[2021-08-05] MEDS ORDERED: chlordiazePOXIDE HCL 25 MG CAPSULE PO SCH (05:00)
[2021-08-05] MEDS: LORazepam 1 MG TABLET PO SCH ×4 (05:54→22:10)
[2021-08-05] MEDS: PRENATAL VITAMINS W/ FOLIC ACID TABLET (FP) PO SCH (11:50)
[2021-08-05] MEDS: ALBUTEROL SO4 HFA INHALER IH PRN (22:07)
[2021-08-05] MEDS: MONTELUKAST NA 10 MG TABLET PO SCH (22:08)
[2021-08-05] MEDS: THIAMINE HCL 100 MG TABLET (FP) PO SCH (22:08)
[2021-08-05] MEDS: QUEtiapine FUMARATE 300 MG TABLET PO SCH (22:08)
[2021-08-05] MEDS: MELATONIN 5 MG TABLETS PO SCH (22:09)
[2021-08-06] MEDS ORDERED: LORazepam 0.5 MG TABLET PO PRN
[2021-08-06] MEDS ORDERED: chlordiazePOXIDE HCL 10 MG CAPSULE PO PRN
[2021-08-06] MEDS: LACTULOSE 20 GM/30 ML UDC (FOR ORAL USE ONLY) PO SCH ×4 (03:29→22:34)
[2021-08-06] MEDS ORDERED: chlordiazePOXIDE HCL 10 MG CAPSULE PO SCH (05:00)
[2021-08-06] MEDS: ACETAMINOPHEN 325 MG TABLET (FP) PO PRN (05:58)
[2021-08-06] MEDS: LORazepam 0.5 MG TABLET PO SCH ×4 (05:58→22:35)
[2021-08-06] MEDS: hydrOXYzine PAMOATE 25 MG CAPSULE (FP) PO SCH ×5 (05:58→22:34)
[2021-08-06] MEDS: PRENATAL VITAMINS W/ FOLIC ACID TABLET (FP) PO SCH (10:32)
[2021-08-06] MEDS: METHOCARBAMOL 500 MG TABLET PO PRN (10:32)
[2021-08-06] MEDS: FLUTICASONE/SALMETEROL 100 MCG/50 MCG DISKUS IH SCH ×2 (10:33→22:37)
[2021-08-06] MEDS: QUEtiapine FUMARATE 300 MG TABLET PO SCH (22:34)
[2021-08-06] MEDS: MONTELUKAST NA 10 MG TABLET PO SCH (22:34)
[2021-08-06] MEDS: THIAMINE HCL 100 MG TABLET (FP) PO SCH (22:34)
[2021-08-06] MEDS: MELATONIN 5 MG TABLETS PO SCH (22:37)
[2021-08-07] MEDS ORDERED: LORazepam 0.5 MG TABLET PO ONE (05:00)
[2021-08-07] MEDS ORDERED: chlordiazePOXIDE HCL 10 MG CAPSULE PO SCH (05:00)
[2021-08-07] MEDS: hydrOXYzine PAMOATE 25 MG CAPSULE (FP) PO SCH ×2 (05:56→10:09)
[2021-08-07] MEDS: ACETAMINOPHEN 325 MG TABLET (FP) PO PRN (05:57)
[2021-08-07 09:28] VITALS: BP 123/77; PULSE 67; TEMP 96.9
[2021-08-07] MEDS: FLUTICASONE/SALMETEROL 100 MCG/50 MCG DISKUS IH SCH (10:09)
[2021-08-07] MEDS: PRENATAL VITAMINS W/ FOLIC ACID TABLET (FP) PO SCH (10:09)
[2021-08-07] MEDS: LACTULOSE 20 GM/30 ML UDC (FOR ORAL USE ONLY) PO SCH (10:09)
[2021-08-08] MEDS ORDERED: chlordiazePOXIDE HCL 10 MG CAPSULE PO ONE (05:00)
== END 2021-08-07 12:05 | disposition other institution (70) | DRG 897 ==
LOC: YASAS 14:31 → Y6N 16:25
PROVIDERS: ADMIT Allergy & Immunology; ATTEND Surgery
PROC: HZ2ZZZZ Detoxification Services for Substance Abuse Treatment (ICD-10-PCS; principal; 2021-08-03)
DX: F10.230 Alcohol dependence with withdrawal, uncomplicated (principal); F14.20 Cocaine dependence, uncomplicated; F19.282 Other psychoactive substance dependence with psychoactive substance-induced sleep disorder; E72.20 Disorder of urea cycle metabolism, unspecified; F31.89 Other bipolar disorder; F12.20 Cannabis dependence, uncomplicated; F17.210 Nicotine dependence, cigarettes, uncomplicated; F43.10 Post-traumatic stress disorder, unspecified; J45.909 Unspecified asthma, uncomplicated; J30.2 Other seasonal allergic rhinitis; M54.50 Low back pain, unspecified; G89.29 Other chronic pain; Z86.11 Personal history of tuberculosis
CPT/HCPCS: 36415; 80053; 82140; 85027; 86780; 87811; C9803-CS; U0003; U0005

== ENCOUNTER 2021-09-01 19:11 | Inpatient (IN) | payer OTHER ==
[2021-09-02] MEDS ORDERED: LOPERAMIDE HCL 2 MG CAPSULE PO PRN (03:16)
[2021-09-02] MEDS ORDERED: IBUPROFEN 400 MG TABLET (FP) PO PRN (03:16)
[2021-09-02] MEDS ORDERED: BENZOCAINE/MENTHOL (CHLORASEPTIC ) LOZENGE MM PRN (03:16)
[2021-09-02] MEDS ORDERED: chlordiazePOXIDE HCL 25 MG CAPSULE PO PRN (03:16)
[2021-09-02] MEDS ORDERED: ACETAMINOPHEN 325 MG TABLET (FP) PO PRN (03:16)
[2021-09-02] MEDS ORDERED: BISMUTH SUBSALICYLATE 524 MG/30 ML PO PRN (03:16)
[2021-09-02] MEDS ORDERED: ONDANSETRON *ODT* 4 MG TABLET SL PRN (03:16)
[2021-09-02] MEDS ORDERED: NICOTINE 10 MG CARTRIDGE (INHALER) IH PRN (03:16)
[2021-09-02] MEDS ORDERED: MAGNESIUM CITRATE 300 ML BOTTLE PO PRN (03:16)
[2021-09-02] MEDS ORDERED: DICYCLOMINE HCL 10 MG CAPSULE PO PRN (03:16)
[2021-09-02] MEDS ORDERED: MAGNESIUM HYDROX 2400MG/30ML ORAL SUSPENSION 30 ML CUP PO PRN (03:16)
[2021-09-02] MEDS ORDERED: MAG HYDROX/AL HYDROX/SIMETH 30 ML UNIT-DOSE CUP PO PRN (03:16)
[2021-09-02 03:54] VITALS: BMI 25.1
[2021-09-02] MEDS: chlordiazePOXIDE HCL 25 MG CAPSULE PO SCH ×4 (05:49→22:24)
[2021-09-02] MEDS: PRENATAL VITAMINS W/ FOLIC ACID TABLET (FP) PO SCH (10:49)
[2021-09-02] MEDS: IBUPROFEN 600 MG TABLET (FP) PO PRN (10:51)
[2021-09-02] MEDS: METHOCARBAMOL 500 MG TABLET PO PRN (10:51)
[2021-09-02] MEDS: NICOTINE 14 MG/24 HOURS TOPICAL PATCH TD SCH (10:52)
[2021-09-02] MEDS: ACETAMINOPHEN 325 MG TABLET (FP) PO PRN (18:07)
[2021-09-02] MEDS ORDERED: MELATONIN 5 MG TABLETS PO SCH (22:00)
[2021-09-02] MEDS: THIAMINE HCL 100 MG TABLET (FP) PO SCH (22:24)
[2021-09-02] MEDS: QUEtiapine FUMARATE 100 MG TABLET (FP) PO SCH (22:24)
[2021-09-03] MEDS: chlordiazePOXIDE HCL 25 MG CAPSULE PO SCH ×4 (05:44→22:39)
[2021-09-03 11:15] LABS: HEMATOCRIT 42.6 % (35.4-49); HEMOGLOBIN 13.8 GM/dL (11.7-16.9); MCH 31.6 pg (25.7-33.7); MCHC 32.4 g/dl (32.0-35.9); MEAN CELL VOLUME 97.5 fl (80-96); PLATELET COUNT 215 10^3/uL (134-434); RBC 4.37 M/mm3 (4.00-5.60); RDW 13.1 % (11.9-15.9); WHITE BLOOD COUNT 5.1 K/mm3 (4.0-10.0)
[2021-09-03] MEDS: MONTELUKAST NA 10 MG TABLET PO SCH (11:59)
[2021-09-03] MEDS: PRENATAL VITAMINS W/ FOLIC ACID TABLET (FP) PO SCH (11:59)
[2021-09-03] MEDS: NICOTINE 14 MG/24 HOURS TOPICAL PATCH TD SCH (12:04)
[2021-09-03 12:16] LABS: ALBUMIN 3.3 g/dl (3.4-5.0); CALCIUM 8.6 mg/dL (8.5-10.1)
[2021-09-03 12:17] LABS: BLOOD UREA NITROGEN 8.9 mg/dL (7-18)
[2021-09-03 12:21] LABS: BILIRUBIN,TOTAL 0.6 mg/dL (0.2-1); TOT PROT 5.9 g/dl (6.4-8.2)
[2021-09-03] MEDS: ACETAMINOPHEN 325 MG TABLET (FP) PO PRN (17:54)
[2021-09-03] MEDS: FLUTICASONE/UMECLIDIN/VILANTER(200-62.5-25 TRELEGY ELLIPTA) INAHLER IH SCH (18:25)
[2021-09-03] MEDS ORDERED: ALBUTEROL SO4 HFA INHALER IH PRN (18:56)
[2021-09-03] MEDS: QUEtiapine FUMARATE 100 MG TABLET (FP) PO SCH (22:39)
[2021-09-03] MEDS: THIAMINE HCL 100 MG TABLET (FP) PO SCH (22:39)
[2021-09-04] MEDS ORDERED: chlordiazePOXIDE HCL 10 MG CAPSULE PO PRN
[2021-09-04] MEDS: chlordiazePOXIDE HCL 10 MG CAPSULE PO SCH ×4 (05:44→22:24)
[2021-09-04] MEDS: NICOTINE 14 MG/24 HOURS TOPICAL PATCH TD SCH (10:43)
[2021-09-04] MEDS: PRENATAL VITAMINS W/ FOLIC ACID TABLET (FP) PO SCH (10:43)
[2021-09-04] MEDS: MONTELUKAST NA 10 MG TABLET PO SCH (10:44)
[2021-09-04] MEDS: FLUTICASONE/UMECLIDIN/VILANTER(200-62.5-25 TRELEGY ELLIPTA) INAHLER IH SCH (10:44)
[2021-09-04] MEDS: IBUPROFEN 600 MG TABLET (FP) PO PRN (10:46)
[2021-09-04] MEDS: ACETAMINOPHEN 325 MG TABLET (FP) PO PRN (17:52)
[2021-09-04 20:08] LABS: HIV INTERPRETATION NEGATIVE (NEGATIVE)
[2021-09-04] MEDS: THIAMINE HCL 100 MG TABLET (FP) PO SCH (22:23)
[2021-09-04] MEDS: QUEtiapine FUMARATE 100 MG TABLET (FP) PO SCH (22:23)
[2021-09-05] MEDS: chlordiazePOXIDE HCL 10 MG CAPSULE PO SCH ×2 (06:35→18:07)
[2021-09-05] MEDS: NICOTINE 14 MG/24 HOURS TOPICAL PATCH TD SCH (10:10)
[2021-09-05] MEDS: PRENATAL VITAMINS W/ FOLIC ACID TABLET (FP) PO SCH (10:10)
[2021-09-05] MEDS: FLUTICASONE/UMECLIDIN/VILANTER(200-62.5-25 TRELEGY ELLIPTA) INAHLER IH SCH (10:10)
[2021-09-05] MEDS: MONTELUKAST NA 10 MG TABLET PO SCH (10:37)
[2021-09-05] MEDS: QUEtiapine FUMARATE 100 MG TABLET (FP) PO SCH (22:25)
[2021-09-05] MEDS: THIAMINE HCL 100 MG TABLET (FP) PO SCH (22:25)
[2021-09-06] MEDS ORDERED: chlordiazePOXIDE HCL 10 MG CAPSULE PO ONE (05:00)
[2021-09-06] MEDS: METHOCARBAMOL 500 MG TABLET PO PRN (06:31)
[2021-09-06] MEDS: MONTELUKAST NA 10 MG TABLET PO SCH (10:38)
[2021-09-06] MEDS: PRENATAL VITAMINS W/ FOLIC ACID TABLET (FP) PO SCH (10:38)
[2021-09-06] MEDS: NICOTINE 14 MG/24 HOURS TOPICAL PATCH TD SCH (10:39)
[2021-09-06] MEDS: FLUTICASONE/UMECLIDIN/VILANTER(200-62.5-25 TRELEGY ELLIPTA) INAHLER IH SCH (10:40)
[2021-09-06] MEDS: QUEtiapine FUMARATE 100 MG TABLET (FP) PO SCH (21:30)
[2021-09-06] MEDS: THIAMINE HCL 100 MG TABLET (FP) PO SCH (21:30)
[2021-09-07 06:36] VITALS: BP 113/74; PULSE 68; TEMP 97.1
[2021-09-07] MEDS: NICOTINE 14 MG/24 HOURS TOPICAL PATCH TD SCH (09:30)
[2021-09-07] MEDS: MONTELUKAST NA 10 MG TABLET PO SCH (09:43)
[2021-09-07] MEDS: PRENATAL VITAMINS W/ FOLIC ACID TABLET (FP) PO SCH (09:43)
[2021-09-07] MEDS: FLUTICASONE/UMECLIDIN/VILANTER(200-62.5-25 TRELEGY ELLIPTA) INAHLER IH SCH (09:43)
== END 2021-09-07 09:45 | disposition left against medical advice (07) | DRG 894 ==
LOC: YASAS 19:11 → Y3N 09-02 04:06 → Y3E 09-06 13:21
PROVIDERS: ADMIT Allergy & Immunology; ATTEND Allergy & Immunology
PROC: HZ42ZZZ Group Counseling for Substance Abuse Treatment, Cognitive-Behavioral (ICD-10-PCS; principal; 2021-09-02)
DX: F10.20 Alcohol dependence, uncomplicated (principal); F14.20 Cocaine dependence, uncomplicated; F12.20 Cannabis dependence, uncomplicated; F17.210 Nicotine dependence, cigarettes, uncomplicated; F31.9 Bipolar disorder, unspecified; F19.24 Other psychoactive substance dependence with psychoactive substance-induced mood disorder; F41.9 Anxiety disorder, unspecified; F43.10 Post-traumatic stress disorder, unspecified; I10 Essential (primary) hypertension; J45.909 Unspecified asthma, uncomplicated; K21.9 Gastro-esophageal reflux disease without esophagitis; R76.11 Nonspecific reaction to tuberculin skin test without active tuberculosis; Z86.69 Personal history of other diseases of the nervous system and sense organs
CPT/HCPCS: 36415; 80053; 85027; 86780; 87389; 87811; C9803-CS; Q0162; U0003; U0005